=== PATIENT | female | born 1970 | race Caucasian/White ===

== ENCOUNTER → 2022-03-10 10:49 | Outpatient (BNVA) | payer MEDICAID, SELFPAY | PROVIDERS: Referring Provider Registered Nurse; Visit Provider Physician Assistant | DX: T84.296A Other mechanical complication of internal fixation device of vertebrae, initial encounter (principal); Z98.1 Arthrodesis status | CPT/HCPCS: 72100 ==

== ENCOUNTER 2022-03-24 12:57 | Outpatient (CLI) | payer MEDICAID, SELFPAY ==
--- NOTE | 2022-03-24 13:11 | MM_ITS ---
WS: [id number] Bilateral screening 3D tomosynthesis digital mammogram, 03/24/2022 Clinical Data: SCREENING Comparison: None. Findings: The breast parenchymal pattern shows fibroglandular tissue No spiculated masses or clustered calcific ations are seen. There are no secondary signs of carcinoma. MM/[place] [id number] Impression: 1. Negative bilateral mammogram with no prior exam for review. 2. Recommend annual screening mammograms. BIRADS: 1-Negative FOLLOW UP: 1 Year Follow-up The CAD wash test checker was used.
== END 2022-03-24 12:58 | disposition home or self-care (01) ==
LOC: RAD 12:59
PROVIDERS: PCP Registered Nurse; Visit Provider Registered Nurse
DX: Z12.31 Encounter for screening mammogram for malignant neoplasm of breast (principal)
CPT/HCPCS: 77063; 77067

== ENCOUNTER 2022-04-20 09:33 | Outpatient (CLI) | payer MEDICAID, SELFPAY ==
--- NOTE | 2022-04-20 09:30 | CT_ITS ---
WS: [id number] CT LUMBAR SPINE TECHNIQUE: Contrast-enhanced CT of the lumbar spine with coronal and sagittal reformatted images. CLINICAL INFORMATION: low back pain COMPARISON: None. DLP: 2336.[address] scans at [facility] use at least one of these dose optimization techniques: automated e xposure control; mA and/or kV adjustment per patient size (includes targeted exams where dose is matc hed to clinical indication); or iterative reconstruction. FINDINGS: Prior extensive postoperative changes pedicle screw fixation with interconnecting rods T10-S1. Bilate ral sacroiliac fixation screws. Fracture of the distal one third of the anterior S1 fixation screw. I n addition, slightly displaced fractures of both interconnecting rods as seen on the myelogram radiog raphs on the LEFT at S1 and on the RIGHT at L5. Slight overlap of the fixation rods. Incomplete interbody fusion grafts. Subsidence along the L4-L5 and L5-S1 fixation grafts. No signific ant bony bridging beyond the confines of the grafts at L3-L4 L4-L5 and L5-S1. Small amount of bony br idging at L1-L2 and L2-3 Loosening along the bilateral S1 and sacroiliac fixation screws.Loosening along the bilateral T10 pe dicle screws. Osteopenia in the sacrum with periarticular sclerotic changes of the SI joints with per iarticular erosions. Advanced facet arthropathy L5-S1 Lung bases are well aerated. LEFT adrenal gland is normal. Small . RIGHT adrenal myelolipoma. L1-L2: Laminectomy defects. Spinal canal and foramen are patent. L2-L3: Laminectomy defects. Spinal canal and foramen are patent. L3-L4: Laminectomy defects. Spinal canal and foramen are patent. L4-L5: Mild central canal stenosis. Moderate facet arthropathy. Osteophytic ridging. Slight narrowing of the subarticular recess bilaterally. L5-S1: Mild RIGHT greater than LEFT bony foraminal narrowing with osteophytic ridging eccentric to th e RIGHT. CT/CT lumbar spine w con [id number] IMPRESSION: 1. Fracture of the distal one third of the anterior S1 fixation screw. In juan m tion, slightly displaced fractures of both interconnecting rods as seen on the myelogram radiographs on the LEFT at S1 and on the RIGHT at L5. Slight overlap of the fixation rods. 2. Prior extensive postoperative changes pedicle screw fixation with interconn ecting rods T10-S1. Bilateral sacroiliac fixation screws. 3. Loosening involving the bilateral T10, bilateral S1, and bilateral sacroili ac fixation screws. 4. Osteopenia with sclerosis about the sacroiliac joints likely due to chronic sacroiliitis. Periarticular erosive changes along the SI joints. 5. No significant bony bridging beyond the confines of the grafts at L3-L4 L4- L5 and L5-S1. Small amount of bony bridging at L1-L2 and L2 on L3. 6. Mild central canal stenosis L4-L5 with moderate facet arthropathy. Slight n arrowing of the subarticular recess bilaterally. 7. Mild RIGHT L5-S1 bony foraminal narrowing.
--- NOTE | 2022-04-20 09:30 | IR_ITS ---
WS: [id number] MYELOGRAM LUMBAR SPINE Fluoroscopic guided lumbar myelogram CLINICAL INFORMATION: low back pain COMPARISON: None. TECHNIQUE: The procedure, including risks, benefits, and complications, were discussed with the patie nt who agreed to proceed. A timeout was performed to confirm correct patient, procedure, and site. Using sterile technique, the patient was prepped and draped in the usual sterile fashion. After admin istration of local anesthesia using 1% preservative-free lidocaine and using fluoroscopic guidance, a 22-gauge 5 cm spinal needle was advanced into the subarachnoid space at the L4-L5 level. Subsequentl y 13 cc of Omnipaque 240 was administered into the thecal sac. The needle was removed and hemostasis was achieved. Spot fluoroscopic images were obtained. FLUOROSCOPIC TIME: 2min [id number] # of spot films: 5 Spot fluoroscopic images demonstrate extensive pedicle screw fixation with interconnecting rods T10-S 1 with bilateral sacroiliac fixation screws. Interbody fusion grafts L2-L3 and L3-L4. Fractured anter ior midline fixation screw at the S1 level in the midline. In addition fractured bilateral interconne cting rods at the L5 level on the RIGHT and S1 level on the LEFT. Please see CT myelogram report for additional detail. IR/[place] lumbar [id number] IMPRESSION: 1. Uncomplicated lumbar myelogram. Please see CT report for further detail. 2. Fractured hardware described above.
[2022-04-20] MEDS: iohexol 240 mg/mL 50 mL Btl INTRATHECA (10:47)
== END 2022-04-20 09:34 | disposition home or self-care (01) ==
LOC: RAD 09:34
PROVIDERS: PCP Registered Nurse; Visit Provider Physician Assistant
DX: S32.009K Unspecified fracture of unspecified lumbar vertebra, subsequent encounter for fracture with nonunion (principal); R20.2 Paresthesia of skin; T84.216A Breakdown (mechanical) of internal fixation device of vertebrae, initial encounter; M85.88 Other specified disorders of bone density and structure, other site; M48.061 Spinal stenosis, lumbar region without neurogenic claudication; M47.816 Spondylosis without myelopathy or radiculopathy, lumbar region; Y79.8 Miscellaneous orthopedic devices associated with adverse incidents, not elsewhere classified
CPT/HCPCS: 62304; 72132; Q9966

== ENCOUNTER 2022-05-04 10:50 | Outpatient (CLI) | payer MEDICAID, SELFPAY | END 2022-05-04 10:51 | disposition home or self-care (01) | LOC: SPT 10:50 | PROVIDERS: PCP Registered Nurse; Visit Provider Physician Assistant | DX: Z46.89 Encounter for fitting and adjustment of other specified devices (principal); M54.59 Other low back pain | CPT/HCPCS: 97760; L0637 ==

== ENCOUNTER 2022-05-30 12:31 | Inpatient (IN) | payer MEDICAID, SELFPAY ==
[2022-05-23 09:45] VITALS: BMI 42.0
--- NOTE | 2022-05-23 10:09 | P.ANESASSM_ITS ---
Pre-Anesthetic Assessment Height/Weight: Height 1.57 m Weight 104.326 kg Operation Date: 05/30/22 07:00 Proposed Procedures p t8 with quad sacral francia over SI joint [id number] /[id number]/28569/69329/r20.0/s32.009k(Bilateral) - Peter Navas, DO Familial anesthetic complications: None Social No alcohol and No tobacco Exam alert, oriented x 3, clear to auscultation bilaterally and regular rate & rhythm Airway Mallampati: Class II Dentition: full Pulmonary None reported CV/HEM Hypertension None reported Hepatic None reported GI Gastroesophageal Reflux Disease Metabolic Morbid Obesity on keflex for back infection Musc/skel Lower Back Pain Neuropsych Neuropathy Anesthetic Plan ASA status: 3 Anesthesia: General Other: A line +/- transfusion Risk of > 500 ml blood loss (7ml/kg in children): Yes, adequate IV access and fluids planned Medications/Allergies Home Medications Medication Instructions Recorded Confirmed Last Taken Type diclofenac sodium 75 mg 75 mg PO BID 04/21/22 05/23/22 04/12/22 19:00 History tablet,delayed release cephalexin 500 mg capsule 500 mg PO QID 04/28/22 05/23/22 05/23/22 06:30 History escitalopram oxalate 20 mg tablet 20 mg PO DAILY 04/28/22 05/23/22 05/22/22 19:00 History (Lexapro) losartan 25 mg tablet 50 mg PO DAILY 04/28/22 05/23/22 05/22/22 19:00 History pantoprazole 40 mg tablet,delayed 40 mg PO DAILY 04/28/22 05/23/22 05/22/22 19:00 History release (Protonix) Intraoperative Neuromonitoring #1 ea 05/02/22 Unknown Rx LSO #1 ea 05/04/22 05/04/22 Unknown Rx oxycodone 5 mg tablet 5 mg PO Q6H PRN pain 7 days #30 05/12/22 05/23/22 05/23/22 06:30 Rx tabs biotin 1,000 mcg chewable tablet 1,000 mcg PO DAILY 05/23/22 05/23/22 05/23/22 06:30 History calcium 600 mg capsule 600 mg PO DAILY 05/23/22 05/23/22 05/23/22 06:30 History ferrous sulfate 325 mg (65 mg 325 mg PO DAILY 05/23/22 05/23/22 05/23/22 06:30 History iron) tablet (iron) lactobacillus comb no.10 20 20,000 mmu cells PO DAILY 05/23/22 05/23/22 05/23/22 06:30 History billion cell capsule (Probiotic) tizanidine 2 mg PO DAILY 05/23/22 05/23/22 05/22/22 19:00 History Allergies Allergy/AdvReac Type Severity Reaction Status Date / Time lisinopril Allergy ADR-Cough Verified 05/23/22 09:37 [facility] Anesthesia Social History Smoking and tobacco status: never smoked Alcohol intake: never History of recent travel: No Data Anesthesia Cardiac Studies: No Data to Display
[2022-05-23 10:30] LABS: Basophils % 0.6 %; Eosinophils # 0.2 10^3/uL (0.0-0.8); Eosinophils % 3.7 %; Hematocrit 40.3 % (37.0-47.0); Hemoglobin 12.3 g/dL (11.5-15.3); Lymphocytes # 1.3 10^3/uL (0.8-4.8); Mean Corpuscular HGB Conc 30.5 g/dL (30.0-36.0); Mean Corpuscular Hemoglobin 26.6 pg (28.0-34.0); Mean Platelet Volume 10.3 fL (7.4-10.4); Monocytes # 0.4 10^3/uL (0.2-0.9); Monocytes % 6.1 %; Neutrophils # 4.27 10^3/uL (1.8-7.7); Neutrophils % 68.3 %; Nucleated Red Blood Cells % 0 %; Platelet Count 309 10^3/cmm (130-400); Red Blood Count 4.63 10^6/uL (4.1-5.3); Red Cell Distribution Width 14.6 % (12.1-15.1); White Blood Count 6.3 10^3/uL (4.0-10.0)
[2022-05-23 10:55] LABS: Anion Gap 9.2 (5-19); Blood Urea Nitrogen 15 mg/dL (6-20); Calcium 9.8 mg/dL (8.5-10.5); Carbon Dioxide 28 mmol/L (22-29); Chloride 101 mmol/L (98-107); Glomerular Filtration Rate 129.1 mL/min (90-130); Glucose 118 mg/dL (65-115); Osmolality Calculated 280 mOsm/kg (285-295); Potassium 4.2 mmol/L (3.5-5.1); Sodium 134 mmol/L (136-145)
[2022-05-30] VITALS (33 sets, daily range): BP systolic 87–177; BP diastolic 53–106; PULSE 68–98; RESP 14–20; TEMP 36.2–36.8; O2SAT 2–98
[2022-05-30] MEDS: sodium chloride 0.9% 1,000 ML 30 ML IV (06:34)
--- NOTE | 2022-05-30 06:45 | PM.HP ---
Providers/Chief Complaint Primary Care Provider: Sydni Arango Chief Complaint: T8 with wuad sacral francia over SI joint History of Present Illness Marisel Mac is a 52 year old female . She presents today with EMG/NCS studies and CT myelogram results. She is here to discuss possible surgical interventions.? She reports 99% of her pain is in her low back.? She is wanting something done more definitively.? She has been seeing Dr. Kaplan for infectious disease in [place].? Review of Systems General: Reports: 10 or more systems reviewed and unremarkable except in HPI and below Const: Denies: fever(s) or chills Card: Denies: chest pain or dyspnea on exertion Resp: Denies: dyspnea or productive cough GI: Denies: abdominal pain, nausea or vomiting : Denies: difficulty voiding Musc: Reports: back pain, extremity pain and limited range of motion Skin/Breast: Denies: changes in skin color or dry skin Neuro: Denies: numbness in extremities or weakness in extremities Psych: Denies: anxiety Ángel/Lymph: Denies: easy bruising or easy bleeding Medications/Allergies Home Medications Medication Instructions Recorded Confirmed Last Taken Type diclofenac sodium 75 mg 75 mg PO BID 04/21/22 05/23/22 05/27/22 History tablet,delayed release cephalexin 500 mg capsule 500 mg PO QID 04/28/22 05/23/22 05/29/22 History escitalopram oxalate 20 mg tablet 20 mg PO DAILY 04/28/22 05/23/22 05/29/22 History (Lexapro) losartan 25 mg tablet 50 mg PO DAILY 04/28/22 05/23/22 05/29/22 History pantoprazole 40 mg tablet,delayed 40 mg PO DAILY 04/28/22 05/23/22 05/28/22 History release (Protonix) Intraoperative Neuromonitoring #1 ea 05/02/22 Unknown Rx LSO #1 ea 05/04/22 05/04/22 Unknown Rx biotin 1,000 mcg chewable tablet 1,000 mcg PO DAILY 05/23/22 05/23/22 05/23/22 06:30 History calcium 600 mg capsule 600 mg PO DAILY 05/23/22 05/23/22 05/27/22 History ferrous sulfate 325 mg (65 mg 325 mg PO DAILY 05/23/22 05/23/22 05/29/22 History iron) tablet (iron) lactobacillus comb no.10 20 20,000 mmu cells PO DAILY 05/23/22 05/23/22 05/28/22 History billion cell capsule (Probiotic) tizanidine 2 mg PO DAILY 05/23/22 05/23/22 05/29/22 History oxycodone 5 mg tablet 5 mg PO Q6H PRN pain 7 days #30 05/27/22 05/30/22 Rx tabs Allergies Allergy/AdvReac Type Severity Reaction Status Date / Time lisinopril Allergy ADR-Cough Verified 05/23/22 09:37 PFSH Acute PFSH: Social History Smoking and tobacco status: never smoked Alcohol intake: never History of recent travel: No Vitals/I&O/Wt Last Vital Signs Temp 97.5 F L 05/30/22 06:16 Pulse 76 05/30/22 06:16 Resp 18 05/30/22 06:16 BP 177/106 05/30/22 06:16 Pulse Ox 97 05/30/22 06:16 O2 Del Method 05/30/22 06:19 Physical Exam Narrative: Narrative:?? EXAM NARRATIVE: ?D emonstrates raisin g up onto heels an d toes with diffic ulty.? Exhibits un steadiness with co ordination and sta bility.? Moderate palpatory or percu ssion pain through out the paraspinou s musculature of t he thoracolumbar s pine.? Limited fle xion and extension due to pain and s tiffness from the fusion.? Well-heal ed incision in the midline of her th oracolumbar spine from previous spin al fusion.? Normal sensation to ligh t touch through al l dermatomal layer s.? Decreased sens ation light touch down both lower ex tremities with 4/5 motor strength th roughout all motor groups.? Moderate palpable pain ove r the SI joints bi laterally.? Positi ve Kye and Asael ere sign.? Positiv e straight leg yang se bilaterally.? S kin is clear warm with normal sensat ion to light touch , calves are suppl e with no medial t high tenderness,? negative Homans' s ign.? No palpable lymphadenopathy bi laterally.? Reflex es are 2+ and symm etric about the kn ees and Achilles.? No hyperreflexia or clonus.? Downgo ing Babinski's jeny aterally.? Dorsali s pedis and creative services producer ior tibial pulses are 2+.? No palpab le edema bilateral ly. HENMT:?? COMMON NORMALS: no rmocephalic? HEAD & SCALP: normoceph alic Resp:?? COMMON NORMALS: no rmal respiratory e ffort Cardio:?? COMMON NORMALS: re gular rate and reg ular rhythm? RATE: regular rate? RHY THM: regular rhyth m GI:?? COMMON NORMALS: So ft to palpation an d non-tender? PALP ATION: Yes Soft to palpation :?? COMMON NORMALS: Ye s no CVA tendernes s? BLADDER/KIDNEY EXAM: Yes no CVA t enderness Back/Pelvis:?? COMMON NORMALS: no CVA tenderness Psych:?? COMMON NORMALS: me ntal status grossl y normal and coope rative Data 05/23/22 09:55 05/23/22 09:55 A&P Assessment and plan (1) Pseudoarthrosis of lumbar spine: T8 to pelvis revision Attestations Medical Necessity Statement*: failed conservative treatment Coding Level of Care Code Acute Pupil Personnel Services Director for Kayla Velázquez Diagnoses Pseudoarthrosis of lumbar spine S30.892R
[2022-05-30] MEDS: ceFAZolin 2,000 MG in sodium chloride 0.9% (plus) 50 ML 100 MG IV ×3 (07:15→22:34)
--- NOTE | 2022-05-30 07:48 | P.ANESUD_ITS ---
Pre-Anesthetic Update Pre-Anesthetic Assessment: Date of Surgery/Procedure: 05/30/22 Preop Pamella gnosis: Pseudoarthrosis lumbar spine, failed hardware lumbar spine Proposed Procedure: Operation Date: 05/30/22 07:00 Proposed Procedures p t8 with quad sacral francia over SI joint [id number]/64703/58223/r20.0/s32.009k(Bilateral) - Peter Navas, DO Any changes to Pre-Anesthetic Assessment?: No Last Intake: Intake Last Liquid Date 05/30/22 Last Liquid Time 22:00 Last Solid Date 05/29/22 Last Solid Time 19:00 Vitals: Temperature 97.5 F L 05/30/22 06:16 Temperature Source Temporal Artery S can 05/30/22 06:16 Pulse Rate 76 05/30/22 06:16 Respiratory Rate 18 05/30/22 06:16 Blood Pressure 177/106 05/30/22 06:16 Blood Pressure Sintia n 129 05/30/22 06:16 Pulse Oximetry 97 05/30/22 06:16 Oxygen Delivery Me thod 05/30/22 06:19 Exam: Pre-Anes Outpt Exam: alert, oriented x 3, clear to auscultation bilaterally and regular rate & rhythm Cardiac Studies: No Data to Display Anesthesia Procedures Arterial Line: Time Out Performed: Yes Consent: requested by attending/covering physician, from patient, risks and benefits reviewed and patient agrees to proceed Size (Gauge): 20 Technique Used: guide wire technique Post-Procedure: dry sterile dressing placed Patient Tolerated Procedure: well Complications: none Site: left and radial Additional Comments: Placed for procedural monitoring (length and potential blood loss)
[2022-05-30 08:23] LABS: ABG PCO2 44.4 mmHg (35-45); ABG PH Result 7.35 (7.35-7.45); Arterial Blood Gas Hematocrit 34.2 % (37-47); Base Excess ABG -1.2 mmol/L (-2.0-2.0); Blood Gas Operator Identificat CAK; Blood Gas Sample Site Not specified; Blood Gas Sample Type Arterial; Carboxyhemoglobin 0.8 %THgb (0.4-20.1); HCO3 ABG 24.5 mmol/L (22-26); HGB O2 Sat 97.7 % (95-100); Ionized Calcium Level - ABG 1.2 mmol/L (1.1-1.4); Methemoglobin 1.1 % (0.4-1.5); Oxygen Saturation ABG 99.6; Potassium Level - ABG 3.7 mmol/L (3.5-5.0); Total Hemoglobin 11.2 g/dL (12-16)
[2022-05-30] MEDS: vancomycin 1,000 MG SDV 1000 MG XX (09:28)
[2022-05-30] MEDS: heparin, porcine 1,000 unit/mL INJ 10 mL 10000 UNIT IRRIGATION (09:37)
--- NOTE | 2022-05-30 11:29 | PM.OP ---
Operative Report Date of procedure: May 30, 2022 Pre-op diagnosis: Preop Diagnosis Pseudoarthrosis lumbar spine, failed hardware lumbar spine Post-op diagnosis: same Procedure done: 1. T8 - pelvis posterior spine fusion 2. T8-S1 instrumentation 3. Lumbopelvic fixation 4. removal of hardware from spine 5. Use of computer navigation stereotactic for spine 6. Use of allograft Surgeon: Peter Navas Customer Service Technician: Eliel Alcaraz Customer Service Technician: The surgical resident, Eliel Alcaraz, RENATA was needed for his expertise under the microscope. He was important and necessary throughout the procedure to complete in a safe and timely manner. He assisted with patient positioning prepping and draping tissue retraction suctioning of the operative field protection of the dural sac and tissue closure Estimated blood loss (mL): 500 Procedure: 1. T8 - pelvis posterior spine fusion 2. T8-S1 instrumentation 3. Lumbopelvic fixation 4. removal of hardware from spine 5. Use of computer navigation stereotactic for spine 6. Use of allograft Patient brought to the operative suite after undergoing anesthesia patient was placed in the prone position. All areas impingement well-padded. Patient was then prepped and draped normal sterile fashion. Skin's was made using the previous skin incision. An extended up approximately 2 more levels to T8 the incision spanning from T8 down to the pelvis. Subperiosteal dissection was made out to the T8 and T9 transverse processes. And then the dissection was made through scar tissue and out to the rods and screws from T10 down to the iliac bolts. Once all the screws were exposed they were removed this was done by removing the top And then sliding the francia out to the side. This was repeated all the way down to the iliac bolt all the screws were then removed. From T10-S1 including the iliac screw. The screws were then replaced with the K2 M screws the screws were placed at T10-S1 and then an iliac screw. Next the computer navigation was brought in and a clamp was placed onto the spinous process. The C-arm was then brought in and spun around the patient. The information from the C-arm was then loaded the computer in order to facilitate using the computer navigation Next attention was brought to placing the T8 and T9 screws bilaterally. This was done by using high-speed drill gearshift probe linked to the computer navigation followed by the pedicle feeler followed by placing the appropriate size screw. Next tension was brought to attaching the rods to the screws. This was attached from T8 down through S1 and hooking into the iliac screws. Top caps were then placed. This again was done bilaterally Next a side loading francia was placed from distal to the iliac screw to approximately L1 in order to facilitate providing extra stability at the bottom this process was repeated bilaterally as well. Next bone was decorticated and bone graft was packed in the lateral gutters. Wound was then closed in a layered fashion with 0 Vicryl 2-0 Vicryl and Monocryl suture. Deep drain was placed prior as well also was a vancomycin powder. Sterile dressings were applied and patient was transferred to the PACU in stable condition.
[2022-05-30] MEDS: fentaNYL 50 mcg/mL INJ 2mL IVP ×2 (11:46→12:10)
[2022-05-30] MEDS: ondansetron 2 mg/ML SDV 2 mL 4 MG IVP ×2 (11:56→12:22)
[2022-05-30] MEDS: HYDROmorphone 1 mg/mL INJ 1 mL 0.5 MG IVP ×2 (12:16→12:26)
[2022-05-30] MEDS: diphenhydrAMINE 50 mg/mL SDV 1mL 12.5 MG IVP (12:42)
--- NOTE | 2022-05-30 13:08 | SUR.PHASEI ---
1245 Pt has had SCDs on and connected to pump while in PACU.
[2022-05-30] MEDS: oxyCODONE-APAP 10-325 mg Tablet PO ×3 (13:39→22:34)
[2022-05-30] MEDS: lactated ringers 1,000 ML 90 ML IV (13:40)
[2022-05-30] MEDS: ketorolac 30 mg/mL INJ IVP ×2 (14:35→21:13)
--- NOTE | 2022-05-30 15:28 | PC.PT ---
Patient and significant other adamantly refused physical therapy evaluation. They reported that pain is a 10/10 and the spasms in the legs, while still severe, have settled down significantly. I tried to educate x3 on why surgeon ordered therapy and they stated that they understood all things related to safety. They denied need for teaching with log rolling, supine to sit, and general mobility. They stated that she might feel better tomorrow but there is no way anyone is budging her today. At the 3rd refusal I told them I would let the nurse and current PT staff know. They agreed to this only and disclosed that they thought her walker was too short at home to perform normal gait under current precautions.
[2022-05-30] MEDS: morphine 4 mg/mL SDV 1 mL 2 MG IVP ×2 (15:30→19:51)
--- NOTE | 2022-05-30 15:52 | ANE.PACU2 ---
Inpatient post-anesthesia follow up: Airway intact: Yes Vital signs: Temperature 97.7 F Pulse Rate 91 Respiratory Rate 18 Blood Pressure 141/90 Pulse Oximetry 95 Oxygen Delivery Me thod Room Air Oxygen Flow Rate 2 Fraction of Inspir ed Oxygen Hydration adequate: Yes Nausea and vomiting: No Pain level: 5 Mental status: Baseline
[2022-05-30] MEDS: tizanidine 4 mg Tablet 2 MG PO (16:23)
[2022-05-30] MEDS: docusate sodium 100 mg Capsule PO (17:30)
[2022-05-30] MEDS: cephALEXin 500 mg Capsule PO ×2 (17:53→21:07)
[2022-05-31] VITALS (16 sets, daily range): BP systolic 80–117; BP diastolic 47–75; PULSE 81–99; RESP 15–20; TEMP 36.4–37; O2SAT 93–97
--- NOTE | 2022-05-31 | XR_ITS ---
WS: [id number] Exam: XR thoracic spine 2V [id number] Date/Time of Exam: 05/31/2022 12:00 AM Reason For Exam: or pic, review of fusion. Intraoperative AP and lateral views of the lower thoracic spine are submitted for evaluation. Bilater al pedicle screws noted at T12, T11, T9 and T8. There are also pedicle screws in several upper lumbar vertebra which are only partially included on the study. At least 2 disc spacers are seen in the upp er lumbar region on the limited lateral view. No other significant finding on this limited series.
[2022-05-31] MEDS: lactated ringers 1,000 ML 90 ML IV ×2 (00:09→12:33)
[2022-05-31] MEDS: acetaminophen 325 mg Tablet 650 MG PO ×3 (00:14→22:35)
[2022-05-31] MEDS: morphine 4 mg/mL SDV 1 mL 2 MG IVP ×3 (00:18→10:45)
[2022-05-31] MEDS: oxyCODONE-APAP 10-325 mg Tablet PO ×3 (02:41→17:50)
[2022-05-31] MEDS: ketorolac 30 mg/mL INJ IVP ×2 (04:03→14:52)
[2022-05-31] MEDS: ceFAZolin 2,000 MG in sodium chloride 0.9% (plus) 50 ML 100 MG IV (06:16)
--- NOTE | 2022-05-31 07:30 | P.PN_ITS ---
Subjective Subjective: POD 1 Patient awake comfortable reports back pain. Denies any shortness of breath, chest pain, headaches. Denies any lightheadedness or dizziness. Complains of some rib pain. Vitals/I&O/Wt Last Vital Signs Temp 98.5 F 05/31/22 04:00 Pulse 93 05/31/22 04:00 Resp 17 05/31/22 04:00 BP 117/75 05/31/22 04:00 Pulse Ox 97 05/31/22 04:00 O2 Del Method 05/31/22 04:00 O2 Flow Rate 2 05/31/22 04:00 05/30/22 05/31/22 05/31/22 22:59 06:59 14:59 Intake Total 590 / 1290 1193.5 / 2483.5 50 / 50 Output Total 1340 / 2170 Balance -750 / -880 1193.5 / 313.5 50 / 50 Physical Exam Narrative: Patient presents alert and oriented x3 with a good general appe arance normal mood and affect. Normal coordination normal stability. Mild tenderness around the incisional site with the incision appear to be clean and dry with Hemovac present. no signs of erythema or drainage. No signs of infection. Patient denies any fevers or chills. 5/5 motor strength both lower extremities with negative straight leg raise bilaterally. Calves are supple no medial thigh tenderness. Pulses are 2+ at the dorsalis pedis and posterior tibial region. Good capillary refill throughout normal sensation light touch both lower extremities. Urinary Catheter Management: Fay: Cath Placed During This Visit: yes Reason for Continuing Indwelling Catheter: Acute Urinary Retention or Obstruction Urinary Catheter Date of Insertion: 05/30/22 Urinary Catheter Time of Insertion: 07:20 Data 05/23/22 09:55 05/23/22 09:55 A&P Assessment and plan (1) Pseudoarthrosis of lumbar spine: Physical therapy to evaluate and also fit with a stand-up walker for home. Continue incentive spirometer for pulmonary toilet. Discontinue Hemovac drain and Fay catheter. We will work towards discharge home today if infectious disease can coordinate a PICC line with antibiotic treatment. (2) S/P spinal fusion: Attestations Medical Necessity Statement*: Home today or tomorrow based on coordination with infectious disease and the PICC line with antibiotics Procedures Arterial Line Size (Gauge): 20 Coding Level of Care Code Acute Wool Hat Forming Machine Tender for Chg Fwd Diagnoses Pseudoarthrosis of lumbar spine S32.009K S/P spinal fusion Z98.1
--- NOTE | 2022-05-31 07:56 | XR_ITS ---
WS: [id number] Exam: XR thoracolumbar junct [id number] Date/Time of Exam: 05/31/2022 8:04 AM Reason For Exam: T 8 to pelvis Posterior spinal fusion noted extending from T8 to S1 with pedicle screws and posterior rods. The fus ion appears to be in good alignment. Disc spacers at L2-3 and L3-4. No sign of hardware failure. Mild dextroscoliosis at the thoracolumbar junction. Screws bridge the bilateral SI joints. XR/XR thoracolumbar junct [id number] IMPRESSION: 1. Stable-appearing posterior spinal fusion extending from T8 to S1.
--- NOTE | 2022-05-31 07:56 | XR_ITS ---
WS: [id number] Exam: XR thoracic spine 2V [id number] Date/Time of Exam: 05/31/2022 8:04 AM Reason For Exam: T8 to pelvis There is posterior fusion of the spine extending from T8 to the upper lumbar level with pedicle screw s and posterior rods. Alignment is satisfactory. No sign of obvious hardware failure. XR/XR thoracic spine 2V [id number] IMPRESSION: 1. Posterior fusion from T8 into the upper lumbar region with pedicle screws an d posterior rods. The fusion appears to be in satisfactory alignment.
[2022-05-31] MEDS: escitalopram 10 mg Tablet 20 MG PO (08:41)
[2022-05-31] MEDS: losartan 50 mg Tablet PO (08:41)
[2022-05-31] MEDS: docusate sodium 100 mg Capsule PO ×2 (08:41→17:50)
[2022-05-31] MEDS: ferrous sulfate EC 325 mg Tablet PO (08:41)
[2022-05-31] MEDS: tizanidine 4 mg Tablet 2 MG PO (08:41)
[2022-05-31] MEDS: cephALEXin 500 mg Capsule PO ×2 (08:41→12:33)
[2022-05-31] MEDS: pantoprazole DR 40 mg Tablet PO (08:42)
--- NOTE | 2022-05-31 10:01 | PC.NURSE ---
Drain removed pressure applied and 2x2 with covederm.
--- NOTE | 2022-05-31 10:10 | PC.CHAP ---
Pastoral Care Encounter/Spiritual Assessment Type of Contact [] Declined alteration tailor visit [] Patient/Family/Request visit [] Outpatient visit [] Follow-up visit [] Physician referral [] Code/Alert [x] Routine visit [] Staff referral [] Actively dying [] Patient sleeping [] Family support [] [] Out of room [] Palliative care [] [] Receiving care in room [] Pre-surgical visit [] Trauma [] Long length of stay [] ICU visit [] Other: Relational/Emotional Strength [x] Patient feels connected with others/family/visitors/staff [] Distress [] Loneliness/isolation [] Abandonment Spirituality of Patient x[] Person of Milady [] Attends Yazdanism of their Milady [x] Believes in Prayer [] Reads Bible or Mormon materials [] There are Spiritual issues to be addressed Instrument Inspector Interventions [x] Prayer []x Active listening [x] Non-anxious presence [] Spiritual/emotional support [] Crisis/trauma care [] Spiritual counseling [] Bereavement support [] Provided bereavement packet [] Provided Bible/devotional materials [] Provided toy/stuffed animal, coloring book to patient or family member [] Provided Communion [] Anointing/[place] [] Salvation [x] Completed spiritual assessment [] Other: Impact on Illness or Injury [] Angry [] Fearful [] Anxious [] Often cries [] Exhaustion [] Unable to work [] Unable to attend episcopalian [] Unable to walk/stand [] Unable to read [] Unable to drive [] Unable to eat/drink [] Unable to sleep [] Unable to be with family [] Patient intubated [] Other: Summary Time spent with patient 10 min
--- NOTE | 2022-05-31 12:15 | XR_ITS ---
WS: [id number] Exam: XR chest 1V portable [id number] Date/Time of Exam: 05/31/2022 12:15 PM Reason For Exam: PICC LINE PLACEMENT No previous. A right-sided PICC line has been placed and appears to end at the expected region of the cavoatrial j unction. The lungs are fully expanded and clear. Normal cardiomediastinal silhouette. Mild plaque ate lectasis in the left base. Fusion hardware noted in the mid and lower thoracic spine. XR/XR chest 1V portable [id number] IMPRESSION: 1. Right-sided PICC line appearing to end at the expected region of the cavoatr ial junction. 2. No acute cardiopulmonary process.
--- NOTE | 2022-05-31 12:20 | SUR.PREOP ---
TIME OUT FOR PICC LINE INSERTION
--- NOTE | 2022-05-31 13:43 | P.CONIM_ITS ---
Providers/Reason For Consult Consulting Physician/Specialty*: Frase/Hosptialist Reason for Consult*: Needs IV antibiotics for 2 weeks per infectious disease Requesting Physician: Dr Navas Attending Physician: Peter Navas DO Primary Care Provider: Sydni Arango History of Present Illness History of Present Illness Marisel Mac is a 52 year old female who presented to [facility] on May 30 for planned surgery by Dr. Navas. Hospitalist have been consulted to arrange 2 weeks of IV antibiotics. Patient has a significant history of streptococcal bacteremia and a paraspinal abscess earlier this year that developed within the first couple of months after having a T8-S1 fusion in [facility]. She had what sounds like abscess in her left hand as well as swelling in her left foot and a lesser degree of swelling in her right hand when she presented with findings consistent with sepsis. She underwent what I believe was surgical debridement of the abscess in the left hand twice. Further work-up ended up identifying paraspinal abscess with cultures growing out Streptococcus. She was initially treated with Rocephin IV. Subsequently IV daptomycin was added. Mrs. Mac continued home IV antibiotic therapy with both Rocephin and daptomycin for 3 months earlier this year and then transition ed to oral cephalexin which she continues to take as recently as today. Source of streptococcal infection, according to my understanding of discussion I had with the ID coordinator at [facility], was not felt to be surgical hardware. She did undergo a washout of the hardware at the time. She also underwent a MAURILIO that did not reveal any vegetations. I do not have any actual records from [place] to personally review but was able to obtain information from Dr. Vasquez's clinic to facilitate patient's care planning here. Patient underwent T8-S1 revision by Dr. Navas. She follows with Sydni Arango for primary care and had been referred to Dr. Vasquez for infectious disease managem ent. Plan had been for postoperative parenteral antibiotics for couple of weeks prior to surgery but actual arrangements for postoperative IV antibiotic therapy had not yet been made. Dr. Navas requested assistance with this. Patient is doing okay postoperatively with expected pain. She has had some low blood pressures today. Her Fany reports that after her original surgery she similarly had hypotension and required blood transfusion. Drains were removed today. Mrs. Mac has also been on oxygen since surgery. She was initially requiring 6 L by nasal cannula to maintain saturations but is presently down to 1.5 L. No fever has been noted. Review of Systems Const: Reports: fatigue ENMT: Denies: nasal congestion Card: Denies: chest pain or palpitations Resp: Reports: other (Using incentive spirometer); Denies: dyspnea, productive cough or non-productive cough GI: Reports: other (No postoperative bowel movement yet); Denies: vomiting : Reports: other (Fay has been removed, good urine output) Musc: Reports: back pain Skin/Breast: Reports: other (Surgical dressings intact but recently changed, drains removed); Denies: rash Neuro: Reports: other (No new numbness or paresthesias able to move/feel extremities) Psych: Reports: other (Understandable anxiety related to surgery & potential postoperative course) Ángel/Lymph: Reports: other (Required transfusion after back surgery earlier this year); Denies: easy bruising or easy bleeding Medications/Allergies Home Medications Medication Instructions Recorded Confirmed Last Taken Type diclofenac sodium 75 mg 75 mg PO BID 04/21/22 05/31/22 Unknown History tablet,delayed release cephalexin 500 mg capsule 500 mg PO QID 04/28/22 05/31/22 Unknown History escitalopram oxalate 20 mg tablet 20 mg PO DAILY 04/28/22 05/31/22 Unknown History (Lexapro) losartan 25 mg tablet 50 mg PO DAILY 04/28/22 05/31/22 Unknown History pantoprazole 40 mg tablet,delayed 40 mg PO DAILY 04/28/22 05/31/22 Unknown History release (Protonix) LSO #1 ea 05/04/22 05/31/22 Unknown Rx biotin 1,000 mcg chewable tablet 1,000 mcg PO DAILY 05/23/22 05/31/22 Unknown History ferrous sulfate 325 mg (65 mg 325 mg PO DAILY 05/23/22 05/31/22 Unknown History iron) tablet (iron) lactobacillus comb no.10 20 20,000 mmu cells PO DAILY 05/23/22 05/31/22 Unknown History billion cell capsule (Probiotic) tizanidine 2 mg PO DAILY 05/23/22 05/31/22 Unknown History oxycodone 5 mg tablet 5 mg PO Q6H PRN pain 7 days #30 05/27/22 05/31/22 Unknown Rx tabs Bone growth Stimulator #1 ea 05/30/22 05/31/22 Unknown Rx calcium carbonate 600 mg calcium 600 mg PO DAILY 05/31/22 05/31/22 Unknown History (1,500 mg) tablet (Calcium) Allergies Allergy/AdvReac Type Severity Reaction Status Date / Time lisinopril Allergy ADR-Cough Verified 05/31/22 08:49 Current Medications Generic Name Dose Route Start Last Admin Trade Name Freq PRN Reason Stop Dose Admin Acetaminophen 650 mg 05/30/22 11:14 05/31/22 00:14 Acetaminophen 325 Mg Tablet PO 650 mg Q4H PRN Administration Mild Pain or fever >101.5 Cephalexin HCl 500 mg 05/30/22 17:38 05/31/22 12:33 Cephalexin 500 Mg Capsule PO 500 mg QID TORRI Administration Protocol Docusate Sodium 100 mg 05/30/22 18:00 05/31/22 08:41 Docusate Sodium 100 Mg Capsule PO 100 mg BID TORRI Administration Escitalopram Oxalate 20 mg 05/31/22 09:00 05/31/22 08:41 Escitalopram 10 Mg Tablet PO 20 mg DAILY TORRI Administration Ferrous Sulfate 325 mg 05/31/22 09:00 05/31/22 08:41 Ferrous Sulfate Ec 325 Mg Tablet PO 325 mg DAILY TORRI Administration Lactated Ringer's 1,000 mls @ 90 mls/hr 05/30/22 11:15 05/31/22 12:33 Lactated Ringers IV 90 mls/hr .Q11H7M TORRI Administration Ketorolac Tromethamine 30 mg 05/30/22 11:14 05/31/22 04:03 Ketorolac 30 Mg/Ml Inj IVP 30 mg Q6H PRN Administration BREAKTHROUGH PAIN Losartan Potassium 50 mg 05/31/22 09:00 05/31/22 08:41 Losartan 50 Mg Tablet PO 50 mg DAILY TORRI Administration Morphine Sulfate 2 mg 05/30/22 11:19 05/31/22 10:45 Morphine 4 Mg/Ml Sdv 1 Ml IVP 2 mg Q1H PRN Administration SEVERE PAIN Non-Formulary Medication 1,000 mcg 05/31/22 09:00 05/31/22 08:40 Biotin PO Not Given DAILY TORRI Non-Formulary Medication 600 mg 05/31/22 09:00 05/31/22 08:40 Calcium PO Not Given DAILY TORRI Non-Formulary Medication 20,000 mmu cells 05/31/22 09:00 05/31/22 08:42 Lactobacillus Comb No.10 [Probiotic] PO Not Given DAILY TORRI Oxycodone/Acetaminophen 1 - 2 tab 05/30/22 11:19 05/31/22 07:47 Oxycodone-Apap 10-325 Mg Tablet PO 2 tab Q4H PRN Administration MODERATE TO SEVERE PAIN Pantoprazole Sodium 40 mg 05/31/22 09:00 05/31/22 08:[address] 40 Mg Tablet PO 40 mg DAILY TORRI Administration Tizanidine HCl 2 mg 05/31/22 09:00 05/31/22 08:41 Tizanidine 4 Mg Tablet PO 2 mg DAILY TORRI Administration Additional Medication Information Cephalexin is skilled nursing suppressive treatment for history of streptococcus paraspinal abscess PFSH Acute PFSH: Medical History (Updated 05/31/22 @ 19:36 by Rose Marie Swift MD) Anxiety Chronic antibiotic suppression GERD (gastroesophageal reflux disease) History of streptococcal septicemia History of transesophageal echocardiography (MAURILIO) (~09/2021) Hypertension Neuropathy 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 Paraphrase of information obtained from Dr Vasquez's, ID at [facility], office and patient: Cultures grew Streptococcus. Hardware washed out. Source was NOT felt hardware related after evaluation. MAURILIO without vegetation. Infection involved left hand and left foot. Left hand had purulent material requiring surgical intervention. Paraspinal abscess also identified. 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 Previous (date unknown) ESR > 100 with CRP also elevated. Scoliosis Surgical History (Updated 05/31/22 @ 15:31 by Rose Marie Swift MD) History of back surgery 2019, surgical spinal alignment/correction of scoliosis at L2-L3, L3-L4 History of hand surgery left, related to abscess at same time as paraspinal abscess in 08/2021, with associated post-infection/post-surgery limitation of range of motion at DIP and PIP 3rd digit History of lumbar fusion 06/2021 in [facility], T10-S1 fusion History of lumbosacral spine surgery 05/30/[address] Navas: 1. T8 - pelvis posterior spine fusion 2. T8-S1 instrumentation 3. Lumbopelvic fixation 4. removal of hardware from spine 5. Use of computer navigation stereotactic for spine 6. Use of allograft Status post left foot surgery with hardware at 5th metatarsal Family History (Updated 05/31/22 @ 15:33 by Rose Marie Swift MD) Mother Scoliosis Rheumatoid arthritis Hypertension Social History (Updated 05/31/22 @ 15:32 by Rose Marie Swift MD) Smoking and tobacco status: former smoker Quit status (tobacco): has quit using tobacco Year quit tobacco: 2019 Alcohol intake: never Substance/Drug Use: never Household members: spouse Marital status: Marital status details: is Fany Mac History of recent travel: No Vitals/I&O/Wt Last Vital Signs Temp 98.6 F 05/31/22 12:00 Pulse 81 05/31/22 12:00 Resp 17 05/31/22 12:00 BP 80/52 05/31/22 12:00 Pulse Ox 93 05/31/22 12:00 O2 Del Method 05/31/22 12:00 O2 Flow Rate 1.5 05/31/22 12:00 05/30/22 05/31/22 05/31/22 22:59 06:59 14:59 Intake Total 590 / 1290 1193.5 / 2483.5 1250 / 1250 Output Total 1340 / 2170 400 / 400 Balance -750 / -880 1193.5 / 313.5 850 / 850 Physical Exam Narrative: Constitutional: Awake and alert, able to provide history though supplemented by spouse, experiences pain with changes in position but more comfortable appearing after transition HEENT: Normocephalic, pupils are equal bilaterally, not pinpoint, oxygen tubing is in place, dry membranes Neck: Cautious with movement of axial skeleton limiting evaluation Respiratory: Clear to auscultation bilaterally without any rales rhonchi or wheezes noted, chest expansion is equal bilaterally, no accessory muscle use noted, no cyanosis, oxygen saturations 93 to 97% while was in the room on 1-1/2 L of oxygen by nasal cannula without much variation in saturation noted during brief removal of tubing Cardiovascular: Regular rate and rhythm, brisk capillary refill Abdomen: Soft, positive bowel sounds, nontender Extremities: No pretibial edema, no calf tenderness, DIP of third digit of left hand is flexed with limited movement, PIP with limited range of motion. Skin: Dry, surgical dressing covers the entire spine and is intact from surgery. A smaller dressing to the right of the spine in the lumbar sacral area is clean dry and intact but has just been changed. Site of drain removal. Neuro: Speech clear, face symmetric, slowly able to get self from standing to sitting to supine position maintaining a fixed posture, no abnormal movements Psych: Normal affect Urinary Catheter Management: Fay: Cath Placed During This Visit: yes, but has since been removed by the nurse Reason for Continuing Indwelling Catheter: Decision to DC Catheter Urinary Catheter Date of Insertion: 05/30/22 Urinary Catheter Time of Insertion: 07:20 Date Urinary Catheter Removed: 05/31/22 Time Urinary Catheter Discontinued: 10:01 Data 05/23/22 09:55 05/23/22 09:55 Other Labs: Radiology Impressions Thoracic Spine X-Ray 05/31/22 07:56 IMPRESSION: 1. Posterior fusion from T8 into the upper lumbar region with pedicle screws and posterior rods. The fusion appears to be in satisfactory alignment. Thoracolumbar Spine 05/31/22 07:56 IMPRESSION: 1. Stable-appearing posterior spinal fusion extending from T8 to S1. Chest X-Ray 05/31/22 12:15 IMPRESSION: 1. Right-sided PICC line appearing to end at the expected region of the cavoatrial junction. 2. No acute cardiopulmonary process. Laboratory Results WBC 7.7 10^3/uL (4.0-10.0) 05/31/22 15:35 RBC 3.16 10^6/uL (4.1-5.3) L 05/31/22 15:35 Hgb 8.5 g/dL (11.5-15.3) L 05/31/22 15:35 Hct 28.0 % (37.0-47.0) L 05/31/22 15:35 MCV 88.6 fl (81-99) 05/31/22 15:35 MCH 26.9 pg (28.0-34.0) L 05/31/22 15:35 MCHC 30.4 g/dL (30.0-36.0) 05/31/22 15:35 RDW 14.7 % (12.1-15.1) 05/31/22 15:35 Plt Count 220 10^3/cmm (130-400) 05/31/22 15:35 MPV 10.4 fL (7.4-10.4) 05/31/22 15:35 Neut % (Auto) 74.6 % 05/31/22 15:35 Lymph % (Auto) 16.2 % 05/31/22 15:35 [place] % (Auto) 8.0 % 05/31/22 15:35 Eos % (Auto) 0.5 % 05/31/22 15:35 Baso % (Auto) 0.3 % 05/31/22 15:35 Neut # (Auto) 5.75 10^3/uL (1.8-7.7) 05/31/22 15:35 Lymph # (Auto) 1.3 10^3/uL (0.8-4.8) 05/31/22 15:35 [place] # (Auto) 0.6 10^3/uL (0.2-0.9) 05/31/22 15:35 Eos # (Auto) 0.0 10^3/uL (0.0-0.8) 05/31/22 15:35 Baso # (Auto) 0.0 10^3/uL (0.0-0.1) 05/31/22 15:35 Nucleated RBC % (auto) 0 % 05/31/22 15:35 Nucleated RBCs # 0.0 /100WBC 05/31/22 15:35 ESR 11 mm/hr (0-15) 05/31/22 15:35 Specimen Type Arterial 05/30/22 08:11 Sample Site Not specified 05/30/22 08:11 ABG pH 7.35 (7.35-7.45) 05/30/22 08:11 ABG pCO2 44.4 mmHg (35-45) 05/30/22 08:11 ABG pO2 164.0 mmHg (80.0-100.0) H 05/30/22 08:11 ABG HCO3 24.5 mmol/L (22-26) 05/30/22 08:11 ABG O2 Saturation 99.6 05/30/22 08:11 ABG Base Excess -1.2 mmol/L (-2.0-2.0) 05/30/22 08:11 Rk Test N/a 05/30/22 08:11 A-a O2 Gradient Not Reportable 05/30/22 08:11 Hematocrit 34.2 % (37-47) L 05/30/22 08:11 Hgb O2 Saturation 97.7 % (95-100) 05/30/22 08:11 Carboxyhemoglobin 0.8 %THgb (0.4-20.1) 05/30/22 08:11 Methemoglobin 1.1 % (0.4-1.5) 05/30/22 08:11 Total Hemoglobin 11.2 g/dL (12-16) L 05/30/22 08:11 Sodium 142.0 mmol/L (131-143) 05/30/22 08:11 Potassium 3.7 mmol/L (3.5-5.0) 05/30/22 08:11 Glucose 101.0 mg/dL (70-115) 05/30/22 08:11 Ionized Calcium 1.2 mmol/L (1.1-1.4) 05/30/22 08:11 O2 Delivery Device Not Reportable 05/30/22 08:11 [employer] Launch Commander ID Cak 05/30/22 08:11 Sodium 134 mmol/L (136-145) L 05/31/22 15:35 Potassium 3.9 mmol/L (3.5-5.1) 05/31/22 15:35 Chloride 103 mmol/L (98-107) 05/31/22 15:35 Carbon Dioxide 26 mmol/L (22-29) 05/31/22 15:35 Anion Gap 8.9 (5-19) 05/31/22 15:35 BUN 13 mg/dL (6-20) 05/31/22 15:35 Creatinine 0.6 mg/dL (0.5-0.9) 05/31/22 15:35 GFR Calculation 104.2 mL/min (90-130) 05/31/22 15:35 Glucose 125 mg/dL (65-115) H 05/31/22 15:35 Calculated Osmolality 280 mOsm/kg (285-295) L 05/31/22 15:35 Lactic Acid 1.0 mmol/L (0.5-2.2) 05/31/22 15:35 Calcium 8.5 mg/dL (8.5-10.5) 05/31/22 15:35 Total Bilirubin 0.4 mg/dL (0.15-1.2) 05/31/22 15:35 AST 20 U/L (0-32) 05/31/22 15:35 ALT 16 U/L (0-33) 05/31/22 15:35 Alkaline Phosphatase 119 U/L (35-105) H 05/31/22 15:35 Creatine Kinase 323 U/L (26-192) H* 05/31/22 15:35 C-Reactive Protein 84.7 mg/L (0.0-4.9) H 05/31/22 15:35 Total Protein 5.2 g/dL (6.6-8.7) L 05/31/22 15:35 Albumin 3.0 g/dL (3.5-5.2) L 05/31/22 15:35 Globulin 2.2 g/dL (1.3-4.6) 05/31/22 15:35 Other data: I personally reviewed all available clinic visit notes in our current EMR. Was also able to see referral records sent by Sydni Arango. I personally contacted infectious disease at [facility] and spoke to Adelaida, the ID coordinator there. Her phone number is [phone]. The fax number at the infectious disease clinic is [phone]. A&P Assessment and plan (1) S/P spinal fusion: Postop day 1 (2) History of streptococcal septicemia: Associated with abscess of the left hand and paraspinal abscess, status post prolonged parenteral antibiotic therapy and maintained on oral antibiotic therapy. At risk of repeat infection and recommendation from infectious disease is for 2 weeks of IV antibiotic therapy to include Rocephin and daptomycin as outlined. (3) Postoperative anemia: Drop in hemoglobin from 12 to 8.5 No gross bleeding noted beyond expected postsurgical per nursing Is on chronic NSAID therapy (4) Hypoxemia requiring supplemental oxygen: Not chronically on oxygen but has required oxygen postoperatively Oxygen requirement slowly trending downward Postoperative pain medication and decreased oxygen carrying capacity related to anemia are considerations. Not complaining of pleuritic type chest pain. Is using incentive spirometer. Has a history of smoking but quit in 2019. (5) Hypertension: Chronically on losartan, which patient received today Currently with low blood pressures, most likely from pain management postoperatively though total body volume losses and potential for infection also have to be considered. Lactic acid is currently normal. (6) GERD (gastroesophageal reflux disease): Chronically on PPI (7) Anxiety: Chronically on escitalopram Plan Baseline elevation in CK level, not unexpected postoperatively Baseline elevation in CRP level, may be secondary to postoperative state Normal baseline sed rate Blood sugar noted to be 118 Stop oral cephalexin Initiate Rocephin 2 g IV every 24 hours and daptomycin 626 mg IV every 24 hours Baseline (though postoperative) CK, CMP, CBC with differential, sed rate and CRP ordered Baseline blood culture collected Baseline lactic acid collected Orders placed for home IV antibiotic therapy as per infectious disease recommendations Will need weekly CBC, CMP and CK level all faxed to Dr. Vasquez's office Will need routine PICC line management; infectious disease clinic can determine when appropriate to remove PICC line Patient's has experience administering home antibiotics for 3 months earlier this year and is comfortable doing so again Case management to assist in arranging home IV antibiotics; options were discussed with patient and in the presence of case management Fluid bolus secondary to hypotension Monitor blood pressure response to fluids Hold losartan for now Change IV fluids to normal saline with potassium due to LR not being known to be compatible with daptomycin Repeat H&H in the morning Chronically on iron therapy but will change to twice daily dosing Wean oxygen to room air as able Encourage incentive spirometer use Albuterol if needed Recheck blood sugar in am Replace or hold nonformulary medications that were ordered Pain control as per surgery Chronically on PPI Has SCDs ordered Physical therapy is seeing patient Supportive care otherwise Infectious disease will contact me tomorrow with additional information regarding plan of care. Case management will also update me on where we are with outpatient IV antibiotic arrangements. Patient cannot be discharged until outpatient or home health IV antibiotic therapy is arranged Recommend follow-up not only with infectious disease and Dr. Navas but also with primary care provider for close monitoring of overall clinical status after surgery Coding Level of Care Code Acute School Examiner for Chg Fwd Diagnoses S/P spinal fusion Z98.1 History of streptococcal septicemia Z86.19 Postoperative anemia D64.9 Hypoxemia requiring supplemental oxygen R09.02; Z99.81 Hypertension I10 GERD (gastroesophageal reflux disease) K21.9 Anxiety F41.9
[2022-05-31] MEDS: ondansetron 2 mg/ML SDV 2 mL 4 MG IVP (14:52)
[2022-05-31] MEDS: sodium chloride 0.9% 500 ML IV (15:50)
[2022-05-31 15:59] LABS: Erythrocyte Sedimentation Rate 11 mm/hr (0-15)
[2022-05-31 16:02] LABS: Basophils % 0.3 %; Eosinophils % 0.5 %; Hemoglobin 8.5 g/dL (11.5-15.3); Lymphocytes # 1.3 10^3/uL (0.8-4.8); Lymphocytes % 16.2 %; Mean Corpuscular HGB Conc 30.4 g/dL (30.0-36.0); Mean Corpuscular Hemoglobin 26.9 pg (28.0-34.0); Mean Corpuscular Volume 88.6 fl (81-99); Mean Platelet Volume 10.4 fL (7.4-10.4); Monocytes # 0.6 10^3/uL (0.2-0.9); Neutrophils # 5.75 10^3/uL (1.8-7.7); Neutrophils % 74.6 %; Nucleated Red Blood Cells % 0 %; Platelet Count 220 10^3/cmm (130-400); Red Blood Count 3.16 10^6/uL (4.1-5.3); Red Cell Distribution Width 14.7 % (12.1-15.1); White Blood Count 7.7 10^3/uL (4.0-10.0)
[2022-05-31 16:39] LABS: Alanine Aminotransferase 16 U/L (0-33); Alkaline Phosphatase 119 U/L (35-105); Anion Gap 8.9 (5-19); Aspartate Amino Transferase 20 U/L (0-32); Blood Urea Nitrogen 13 mg/dL (6-20); C Reactive Protein 84.7 mg/L (0.0-4.9); Calcium 8.5 mg/dL (8.5-10.5); Carbon Dioxide 26 mmol/L (22-29); Chloride 103 mmol/L (98-107); Globulin 2.2 g/dL (1.3-4.6); Glomerular Filtration Rate 104.2 mL/min (90-130); Glucose 125 mg/dL (65-115); Osmolality Calculated 280 mOsm/kg (285-295); Potassium 3.9 mmol/L (3.5-5.1); Sodium 134 mmol/L (136-145); Total Bilirubin 0.4 mg/dL (0.15-1.2); Total Protein 5.2 g/dL (6.6-8.7)
[2022-05-31 16:45] LABS: Creatine Phosphokinase 323 U/L (26-192)
[2022-05-31] MEDS: sodium chlor 0.9% + KCl 20 mEq 20 MEQ/1,000 ML BAG 75 MEQ IV (16:56)
[2022-05-31] MEDS: cefTRIAXone 2,000 MG in sodium chloride 0.9% (plus) 50 ML 100 MG IV (16:56)
[2022-06-01] VITALS (13 sets, daily range): BP systolic 89–118; BP diastolic 43–70; PULSE 81–96; RESP 15–22; TEMP 36.7–37.9; O2SAT 91–98
[2022-06-01] MEDS: ondansetron 2 mg/ML SDV 2 mL 4 MG IVP (01:30)
[2022-06-01] MEDS: oxyCODONE-APAP 10-325 mg Tablet PO ×3 (03:18→15:41)
[2022-06-01 05:04] LABS: Basophils % 0.1 %; Eosinophils # 0.1 10^3/uL (0.0-0.8); Eosinophils % 0.8 %; Hematocrit 29.7 % (37.0-47.0); Hemoglobin 8.9 g/dL (11.5-15.3); Lymphocytes # 0.4 10^3/uL (0.8-4.8); Lymphocytes % 4.8 %; Mean Corpuscular Hemoglobin 26.6 pg (28.0-34.0); Mean Corpuscular Volume 88.7 fl (81-99); Mean Platelet Volume 10.2 fL (7.4-10.4); Monocytes # 0.3 10^3/uL (0.2-0.9); Monocytes % 3.7 %; Neutrophils % 90.4 %; Nucleated Red Blood Cells % 0 %; Platelet Count 157 10^3/cmm (130-400); Red Blood Count 3.35 10^6/uL (4.1-5.3); Red Cell Distribution Width 14.9 % (12.1-15.1); White Blood Count 8.7 10^3/uL (4.0-10.0)
[2022-06-01 05:24] LABS: Glucose 139 mg/dL (65-115)
[2022-06-01] MEDS: morphine 4 mg/mL SDV 1 mL 2 MG IVP (06:36)
[2022-06-01] MEDS: sodium chlor 0.9% + KCl 20 mEq 20 MEQ/1,000 ML BAG 75 MEQ IV (06:40)
--- NOTE | 2022-06-01 06:42 | P.PN_ITS ---
Subjective Subjective: POD 2 Patient resting. Complains of back pain. Leg pain has improved. Complains of rib pain. Denies any shortness of breath, chest pain, headaches denies any lightheaded or dizziness. Vitals/I&O/Wt Last Vital Signs Temp 98.2 F 06/01/22 04:00 Pulse 96 06/01/22 04:00 Resp 18 06/01/22 06:36 BP 115/58 06/01/22 04:00 Pulse Ox 95 06/01/22 04:00 O2 Del Method 06/01/22 04:00 O2 Flow Rate 2 05/31/22 21:37 05/31/22 05/31/22 06/01/22 14:59 22:59 06:59 Intake Total 1250 / 1250 1049 / 2299 1000 / 3299 Output Total 400 / 400 250 / 650 Balance 850 / 850 799 / 1649 1000 / 2649 Physical Exam Narrative: Patient presents alert and oriented x3 with a good general appearance normal mood and affect.? Normal coordination normal stability.? Mild tenderness around the incisional site with the incision appear to be clean and dry. no signs of erythema or drainage.? No signs of infection.? Patient denies any fevers or chills.? 5/5 motor strength both lower extremities with negative straight leg raise bilaterally.? Calves are supple no medial thigh tenderness.? Pulses are 2+ at the dorsalis pedis and posterior tibial region.? Good capillary refill throughout normal sensation light touch both lower extremities. Urinary Catheter Management: Fay: Cath Placed During This Visit: yes, but has since been removed by the nurse Reason for Continuing Indwelling Catheter: Decision to DC Catheter Urinary Catheter Date of Insertion: 05/30/22 Urinary Catheter Time of Insertion: 07:20 Date Urinary Catheter Removed: 05/31/22 Time Urinary Catheter Discontinued: 10:01 Data 06/01/22 04:37 06/01/22 04:37 Micro: Microbiology 05/31/22 15:45 Blood Culture - Preliminary Blood SPECIMEN COLLECTED 05/31/22 15:35 Blood Culture - Preliminary Blood SPECIMEN COLLECTED A&P Assessment and plan (1) S/P spinal fusion: Continue to mobilize continue senna spirometry for pulmonary toilet. Laxative choice to help with bowel movement. Try her on Flexeril 10 mg 1 PO 3 times daily for spasms. Discharge home later today when stable. Follow-up in the office in 1 week's time. We will need to stand up walker for home. (2) Pseudoarthrosis of lumbar spine: Attestations Medical Necessity Statement*: discharge home later this morning. Procedures Arterial Line Size (Gauge): 20 Coding Level of Care Code Acute [employer]lass [employer]el Drawing Operator for Chg Fwd Diagnoses S/P spinal fusion Z98.1 Pseudoarthrosis of lumbar spine S32.009K
[2022-06-01] MEDS: lactobacillus 1 Tablet 2 TAB PO (08:43)
[2022-06-01] MEDS: calcium carb-vit d 600mg/400unit 1 Tablet 1 EACH PO (08:43)
[2022-06-01] MEDS: escitalopram 10 mg Tablet 20 MG PO (08:44)
[2022-06-01] MEDS: pantoprazole DR 40 mg Tablet PO (08:44)
[2022-06-01] MEDS: docusate sodium 100 mg Capsule PO (08:44)
[2022-06-01] MEDS: ferrous sulfate EC 325 mg Tablet PO (08:44)
[2022-06-01] MEDS: tizanidine 4 mg Tablet 2 MG PO (08:47)
--- NOTE | 2022-06-01 11:38 | PM.PN ---
Subjective Subjective: Patient overall feeling much better today. She was seen this morning and then again this evening. After her second dose of Rocephin, about an hour later, she developed some erythema. She has taken Rocephin for an extensive period of time this year. In talking with both her and her spouse about if any rashes occurred when she previously was on antibiotics, they both indicate that she did develop some hives not too long after daptomycin was started. Daptomycin was held and later resumed without any recurrence. Etiology of the incidences of urticaria were not identified. Daptomycin was added to ceftriaxone due to limited clinical improvement. After completion of ceftriaxone and daptomycin IV, patient was transitioned to oral cephalexin. In addition to tolerance of cephalexin she received Ancef perioperatively this hospital stay without any issues. Patient spouse does indicate that with significant hot flash episodes patient will have a similar erythema pattern but it is more severe and associated with sweating. Patient herself does feel a little bit hot with the erythema but not to the degree she usually associates with classical hot flashes. She denies any other associated symptoms including shortness of breath, wheezing, sensation of difficulty swallowing or oropharyngeal swelling, chest pain, abdominal pain, itching, acute change in bowel function, dizziness or other symptoms. She is just red and may be a little hot. Patient was given Benadryl, monitored and subsequently received daptomycin. Vital signs were stable with heart rate around 90, blood pressure 100s over 60s. Oxygen saturations in the mid 90s on room air. I talked with patient and her spouse regarding redness and plans of care as outlined below. Vitals/I&O/Wt Last Vital Signs Temp 98.3 F 06/01/22 07:44 Pulse 93 06/01/22 08:09 Resp 17 06/01/22 08:43 BP 111/70 06/01/22 07:44 Pulse Ox 98 06/01/22 08:09 O2 Del Method 06/01/22 08:09 O2 Flow Rate 2 06/01/22 08:09 05/31/22 06/01/22 06/01/22 22:59 06:59 14:59 Intake Total 1049 / 2299 1000 / 3299 360 / 360 Output Total 250 / 650 Balance 799 / 1649 1000 / 2649 360 / 360 Physical Exam Narrative: Patient seen earlier today as well as currently. Both times she was more alert than yesterday, interactive and generally appearing like she feels better than when I first saw her. She is moving better. Dual lumen power PICC line remains intact to the right upper extremity. At second evaluation patient has erythema noted to both cheeks, both arms, abdomen and to a lesser degree lower extremities and neck region. Erythema is not palpable or warm. It does not involve intertriginous areas. No obvious pruritus. Facial erythema similar to a flush. No current dizziness. No abdominal tenderness. Lungs are clear and rhythm is regular. Capillary refill is brisk. Urinary Catheter Management: Fay: Cath Placed During This Visit: yes, but has since been removed by the nurse Reason for Continuing Indwelling Catheter: Decision to DC Catheter Urinary Catheter Date of Insertion: 05/30/22 Urinary Catheter Time of Insertion: 07:20 Date Urinary Catheter Removed: 05/31/22 Time Urinary Catheter Discontinued: 10:01 Data 06/01/22 04:37 06/01/22 04:37 Other Labs: Laboratory Last Values WBC 8.7 10^3/uL (4.0-10.0) 06/01/22 04:37 RBC 3.35 10^6/uL (4.1-5.3) L 06/01/22 04:37 Hgb 8.9 g/dL (11.5-15.3) L 06/01/22 04:37 Hct 29.7 % (37.0-47.0) L 06/01/22 04:37 MCV 88.7 fl (81-99) 06/01/22 04:37 MCH 26.6 pg (28.0-34.0) L 06/01/22 04:37 MCHC 30.0 g/dL (30.0-36.0) 06/01/22 04:37 RDW 14.9 % (12.1-15.1) 06/01/22 04:37 Plt Count 157 10^3/cmm (130-400) 06/01/22 04:37 MPV 10.2 fL (7.4-10.4) 06/01/22 04:37 Neut % (Auto) 90.4 % 06/01/22 04:37 Lymph % (Auto) 4.8 % 06/01/22 04:37 [place] % (Auto) 3.7 % 06/01/22 04:37 Eos % (Auto) 0.8 % 06/01/22 04:37 Baso % (Auto) 0.1 % 06/01/22 04:37 Neut # (Auto) 7.90 10^3/uL (1.8-7.7) H 06/01/22 04:37 Lymph # (Auto) 0.4 10^3/uL (0.8-4.8) L 06/01/22 04:37 [place] # (Auto) 0.3 10^3/uL (0.2-0.9) 06/01/22 04:37 Eos # (Auto) 0.1 10^3/uL (0.0-0.8) 06/01/22 04:37 Baso # (Auto) 0.0 10^3/uL (0.0-0.1) 06/01/22 04:37 Nucleated RBC % (auto) 0 % 06/01/22 04:37 Nucleated RBCs # 0.0 /100WBC 06/01/22 04:37 ESR 11 mm/hr (0-15) 05/31/22 15:35 Specimen Type Arterial 05/30/22 08:11 Sample Site Not specified 05/30/22 08:11 ABG pH 7.35 (7.35-7.45) 05/30/22 08:11 ABG pCO2 44.4 mmHg (35-45) 05/30/22 08:11 ABG pO2 164.0 mmHg (80.0-100.0) H 05/30/22 08:11 ABG HCO3 24.5 mmol/L (22-26) 05/30/22 08:11 ABG O2 Saturation 99.6 05/30/22 08:11 ABG Base Excess -1.2 mmol/L (-2.0-2.0) 05/30/22 08:11 Rk Test N/a 05/30/22 08:11 A-a O2 Gradient Not Reportable 05/30/22 08:11 Hematocrit 34.2 % (37-47) L 05/30/22 08:11 Hgb O2 Saturation 97.7 % (95-100) 05/30/22 08:11 Carboxyhemoglobin 0.8 %THgb (0.4-20.1) 05/30/22 08:11 Methemoglobin 1.1 % (0.4-1.5) 05/30/22 08:11 Total Hemoglobin 11.2 g/dL (12-16) L 05/30/22 08:11 Sodium 142.0 mmol/L (131-143) 05/30/22 08:11 Potassium 3.7 mmol/L (3.5-5.0) 05/30/22 08:11 Glucose 101.0 mg/dL (70-115) 05/30/22 08:11 Ionized Calcium 1.2 mmol/L (1.1-1.4) 05/30/22 08:11 O2 Delivery Device Not Reportable 05/30/22 08:11 Jacquard Lace Weaver ID Cak 05/30/22 08:11 Sodium 134 mmol/L (136-145) L 05/31/22 15:35 Potassium 3.9 mmol/L (3.5-5.1) 05/31/22 15:35 Chloride 103 mmol/L (98-107) 05/31/22 15:35 Carbon Dioxide 26 mmol/L (22-29) 05/31/22 15:35 Anion Gap 8.9 (5-19) 05/31/22 15:35 BUN 13 mg/dL (6-20) 05/31/22 15:35 Creatinine 0.6 mg/dL (0.5-0.9) 05/31/22 15:35 GFR Calculation 104.2 mL/min (90-130) 05/31/22 15:35 Glucose 139 mg/dL (65-115) H 06/01/22 04:37 Calculated Osmolality 280 mOsm/kg (285-295) L 05/31/22 15:35 Lactic Acid 1.0 mmol/L (0.5-2.2) 05/31/22 15:35 Calcium 8.5 mg/dL (8.5-10.5) 05/31/22 15:35 Total Bilirubin 0.4 mg/dL (0.15-1.2) 05/31/22 15:35 AST 20 U/L (0-32) 05/31/22 15:35 ALT 16 U/L (0-33) 05/31/22 15:35 Alkaline Phosphatase 119 U/L (35-105) H 05/31/22 15:35 Creatine Kinase 323 U/L (26-192) H* 05/31/22 15:35 C-Reactive Protein 84.7 mg/L (0.0-4.9) H 05/31/22 15:35 Total Protein 5.2 g/dL (6.6-8.7) L 05/31/22 15:35 Albumin 3.0 g/dL (3.5-5.2) L 05/31/22 15:35 Globulin 2.2 g/dL (1.3-4.6) 05/31/22 15:35 Blood Type A Positive 06/01/22 04:37 Rho(D) Type Positive 06/01/22 04:37 Antibody Screen Negative 06/01/22 04:37 Chest X-Ray 05/31/22 12:15 IMPRESSION: 1. Right-sided PICC line appearing to end at the expected region of the cavoatrial junction. 2. No acute cardiopulmonary process. Micro: Microbiology 05/31/22 15:45 Blood Culture - Preliminary Blood SPECIMEN COLLECTED 05/31/22 15:35 Blood Culture - Preliminary Blood SPECIMEN COLLECTED Other data: Copied from Discharge Routine in EMR: Discharge Plan Discharge Patient Disposition: Home Condition: Stable Prescriptions: New ? cyclobenzaprine 10 mg Tablet ?? 10 mg PO TID PRN (Reason: Muscle Spasms) Qty: 30 0RF ? oxycodone 5 mg tablet ?? 5 - 10 mg PO Q4H PRN (Reason: pain) 7 Days Qty: 40 0RF ? ceftriaxone ? ?? 2 g IV Q24H 12 Days 0RF ? daptomycin ? ?? 626 mg IV Q24H 12 Days 0RF Continued ? cephalexin 500 mg capsule ?? 500 mg PO QID ? pantoprazole [Protonix] 40 mg tablet,delayed release (DR/EC) ?? 40 mg PO DAILY ? losartan 25 mg tablet ?? 50 mg PO DAILY ? escitalopram oxalate [Lexapro] 20 mg tablet ?? 20 mg PO DAILY ? (DME) LSO ? ?? See Rx Instructions? .Route .MEDSUPPLY Qty: 1 0RF ?? Rx Instructions: ?? As directed ? diclofenac sodium 75 mg tablet,delayed release (DR/EC) ?? 75 mg PO BID ? oxycodone 5 mg tablet ?? 5 mg PO Q6H PRN (Reason: pain) 7 Days Qty: 30 0RF ? (DME) Bone growth Stimulator ? ?? See Rx Instructions? .ROUTE .MEDSUPPLY Qty: 1 0RF ?? Rx Instructions: ?? As directed ? ferrous sulfate [iron] 325 mg (65 mg iron) Tablet ?? 325 mg PO DAILY ? Probiotic 20 billion cell Capsule ?? 20,000 mmu cells PO DAILY ?? Rx Instructions: ?? administer with a meal ? biotin 1,000 mcg Tablet,Chewable ?? 1,000 mcg PO DAILY ? Calcium 600 600 mg calcium (1,500 mg) Tablet ?? 600 mg PO DAILY Discontinued ? tizanidine ? ?? 2 mg PO DAILY Discharge Orders: Discharge Order? (Routine); Ordered 06/01/22 ?? Ordered By:? Eliel Alcaraz Other Ambulatory Orders: Complete Blood Count w/Man Dif? (Routine)? Timeframe:? 2 Weeks ?? Facility: [facility] - Location: Lab - Main Lab ?? Ordered By:? Rose Marie Swift Weekly x 2 weeks Creatine Phosphokinase? (Routine)? Timeframe:? 2 Weeks ?? Facility: [facility] - Location: Lab - Main Lab ?? Ordered By:? Rose Marie Swift Weekly x 2 weeks Comprehensive Metabolic Panel? (Routine)? Timeframe:? 2 Weeks ?? Facility: [facility] - Location: Lab - Main Lab ?? Ordered By:? Rose Marie Swift Weekly x 2 weeks DME: Walker? (Order) ?? Location: None Selected ?? Ordered By:? Peter Navas Miscellaneous Procedure? (Order) ?? Location: None Selected ?? Ordered By:? Rose Marie Swift Referrals: [facility] [Other] (Your antibiotics will come from [facility] out of [place].? They will be bringing them to your house tomorrow morning.? If you have any questions or concerns please contact them at [phone].) Peter Navas DO [Physician] - 06/09/22 9:45 am Leobardo Vasquez MD [Referring] - 2 weeks (Dr Vasquez's office will contact you with appointment) Nba,Erica [Primary Care Provider] - 06/07/22 10:20 am (appointment in [facility]) Discharge Diet:?Advance as tolerated Discharge Activity:?Limit activity as instructed and Use walker/crutches as instructed Patient Instructions:? Oxycodone/Acetaminophen (By mouth), Cyclobenzaprine (By mouth), Ceftriaxone (By injection) (Rocephin, Novaplus cefTRIAXone,..., Daptomycin (By injection), PICC (Peripherally Inserted Central Catheter) (DC), Opioid Safety, PICC HOSPITALIST (Dr Swift) Instructions: You had PICC line placed for planned course of IV antibiotics after your surgery.? As we reviewed, Dr. Swift discussed with the infectious disease clinic at [facility] your plan of care.? You will be on Rocephin and daptomycin IV for 2 weeks.? You will need weekly lab to include CBC with differential, CMP and CK level.? Baseline CK level drawn during this hospital stay was elevated at 323 although this is not unusual after a surgical procedure.? Baseline BUN and creatinine are 13/0.6 with a potassium of 3.9.? Your white blood count on 05/31 was 7 with 74% neutrophils and 16% lymphocytes.? Hemoglobin and hematocrit were 8.5/28, a drop from 12/40 preoperatively but not outside of anticipated range.? Platelet count was 220.? A baseline sed rate was checked and is 11.? A baseline CRP was checked and in the postoperative state was elevated at 84.7.? A set of blood cultures was collected prior to initiation of antibiotic therapy here in the hospital with results pending at the time of discharge.? You are to maintain PICC line until instructed otherwise by Dr. Vasquez's office. On the evening of discharge, about an hour after you received your Rocephin, you noticed that you had redness in different parts of your body.? You had no other associated symptoms beyond may be feeling a little hot.? No other medications had been administered around the same time.? Possibility of redness being a reaction to medication was discussed.? I explained that I cannot say that this was definitively related to antibiotic infusion nor can I say that it was not related to the antibiotic infusion.? Most concerning potential scenario is for the redness being a precursor to a more severe reaction including anaphylaxis.? You had previously tolerated Rocephin for an extended period of time.? You tolerated dosing yesterday.? We reviewed that doing okay yesterday versus today does not rule out the possibility of medication reaction.? We discussed another overnight stay in the hospital to receive test dose of Rocephin in the morning to see if there is any further reaction.? With lack of other symptoms and previous tolerance to same antibiotic with repeated dosing, you chose to proceed with plan discharge.? You will ensure that you have Benadryl in the house and should additional redness with any other symptoms suggesting a significant allergic reaction as we reviewed appear you will take 2 Benadryl and contact 911.? I did discuss on the phone with [facility] nurse plan to maintain antibiotic regimen as prescribed at this time.? You had previously notified them of possibility of drug reaction to an antibiotic. Reactions including serious ones such as anaphylaxis can occur a period of time after the medication is received.? Signs to be concerned about include shortness of breath, other difficulty breathing, difficulty swallowing or maintaining oral secretions, sensation of swelling in your throat, fast or slow heart rate, dizziness or feeling like you are going to pass out, nausea, vomiting, abdominal pain or diarrhea in addition to rash with itching or hives can occur among other symptoms.? Infusion Information You Antibiotics are going to be delivered to your house from [facility] out of [place].? If you have any questions or concerns please contact them at [phone]. You will come to [facility] lab for your dressing changes and your lab work.? Your first appointment will be Monday06/08/22 at 8:00 am.? If you have any concerns please contact them at [phone] ext [phone]. A&P Assessment and plan (1) S/P spinal fusion: Postop day 2 Overall doing better (2) History of streptococcal septicemia: Associated with abscess of the left hand and paraspinal abscess, status post prolonged parenteral antibiotic therapy and maintained on oral antibiotic therapy. At risk of repeat infection and recommendation from infectious disease is for 2 weeks of IV antibiotic therapy to include Rocephin and daptomycin as outlined. Received confirmation of plan for antibiotic care from ID coordinator at [facility]. Plan is to continue 2 weeks total of Rocephin and daptomycin. Patient did have redness that appeared about 1 hour after second dose of Rocephin in the hospital. No other associated symptoms. Has tolerated Rocephin for repeated doses in the past. Reviewed with patient and her spouse possibilities. After discussion of risks, benefits and options, current plan is for discharge home on planned antibiotic regimen with close monitoring as described above. (3) Postoperative anemia: Drop in hemoglobin from 12 to 8.5 No gross bleeding noted beyond expected postsurgical per nursing Is on chronic NSAID therapy Hemoglobin stable at 8.9 Discussed with patient twice daily iron for now (4) Hypoxemia requiring supplemental oxygen: Not chronically on oxygen but has required oxygen postoperatively Oxygen requirement slowly trending downward Postoperative pain medication and decreased oxygen carrying capacity related to anemia are considerations. Not complaining of pleuritic type chest pain. Is using incentive spirometer. Has a history of smoking but quit in 2019. Has been off of oxygen therapy since this morning, maintaining saturations (5) Hypertension: Chronically on losartan, which patient received today Currently with low blood pressures, most likely from pain management postoperatively though total body volume losses and potential for infection also have to be considered. Lactic acid is currently normal. Plan to hold losartan for couple of days and then resume at 25 mg, gradually increasing back to her usual home dose as tolerated (6) GERD (gastroesophageal reflux disease): Chronically on PPI Plan to continue (7) Anxiety: Chronically on escitalopram Plan to continue Plan Baseline elevation in CK level, not unexpected postoperatively Baseline elevation in CRP level, may be secondary to postoperative state Normal baseline sed rate Blood sugar noted to be 118 Home today with plan for an additional 12 days of IV ceftriaxone and daptomycin Received 2 doses of each of the above in the hospital Case management able to arrange IV antibiotics for home via [facility] Medications will be delivered tomorrow Patient is to have Benadryl in the house and if she has any symptoms suggesting more severe allergic reaction is to take 2 Benadryl and seek emergency care/call 911 Baseline blood cultures are pending Had baseline CK, CRP and sed rate along with CBC with differential and CMP as noted above Will need weekly CBC with differential, CMP and CK sent to infectious disease PICC line care until IV antibiotics are no longer needed; dressing changes will be done through infusion nurse on Wednesdays along with blood draws Patient to take iron twice a day for now Patient to hold losartan and then resume at 25 mg daily with a gradual increase up to usual 50 mg dose Other home medications the same Follow-up recommended with primary care provider in addition to infectious disease Postoperative management as per surgery Attestations Medical Necessity Statement*: Going home today Time Spent in Patient Care: Greater than 35 minutes I have spent 95 minutes today in direct care of patient, discussing with her and spouse plans of care, talking with case management and nursing staff and facilitating arrangement of outpatient antibiotics. Procedures Arterial Line Size (Gauge): 20 Coding Level of Care Code Acute Lock Operator for Chg Fwd Diagnoses S/P spinal fusion Z98.1 History of streptococcal septicemia Z86.19 Postoperative anemia D64.9 Hypoxemia requiring supplemental oxygen R09.02; Z99.81 Hypertension I10 GERD (gastroesophageal reflux disease) K21.9 Anxiety F41.9
[2022-06-01] MEDS: cefTRIAXone 2,000 MG in sodium chloride 0.9% (plus) 50 ML 100 MG IV (15:56)
[2022-06-01] MEDS: diphenhydrAMINE 25 mg Capsule PO (17:18)
--- NOTE | 2022-06-01 18:20 | PC.NURSE ---
Dr. Swift at bedside with myself and Jazlyn from [facility]. Redness after the transfusion of Rocephin was explained by the physician that it could possibly be the beginning of a major allergic reaction that could get worse with the infusion, but also could be the patient's hot flashes causing flushing. Flushing was noted to be on abdomen and face as well as upper legs, but had patches that were not red such as the creases of her arms and her lower extremities. Dr Swift offered the option of staying the night and repeating the dose tomorrow in a medical environment, so if the patient had an allergic reaction again it would be with medical personnel. Patient and at bedside wanted to go home stating that the patient has had over 100 infusions of Rocephin at home earlier this year and had not had the same reaction as this one. Dr. Swift explained to the patient and her that they could go home but would have to make sure to have Benadryl before going home. Patient agreed to this plan and repeated back the instructions explaining that patient would have Benadryl on hand before going home and would take two Benadryl if a reaction occurs at home and call 911. PICC line dressing was changed using sterile technique.
--- NOTE | 2022-06-02 11:45 | P.DS_ITS ---
Discharge Providers Date of Admission: 05/30/22 12:31 Date of Discharge: June 01, 2022 Attending Provider at Admission: Peter Navas DO Attending Provider at Discharge: Peter Navas DO Primary Care Provider: Sydni Arango Diagnoses at Discharge Discharge Diagnosis (1) S/P spinal fusion: Status: Acute (2) History of streptococcal septicemia: Status: Chronic (3) Postoperative anemia: Status: Acute (4) Hypoxemia requiring supplemental oxygen: Status: Acute (5) Hypertension: Status: Chronic (6) GERD (gastroesophageal reflux disease): Status: Chronic (7) Anxiety: Status: Chronic Reason for Visit Reason for Visit: T8 with wuad sacral francia over SI joint Hospital Course Hospital Course PICC line set up Physical Exam Urinary Catheter Management: Fay: Cath Placed During This Visit: yes, but has since been removed by the nurse Reason for Continuing Indwelling Catheter: Decision to DC Catheter Urinary Catheter Date of Insertion: 05/30/22 Urinary Catheter Time of Insertion: 07:20 Date Urinary Catheter Removed: 05/31/22 Time Urinary Catheter Discontinued: 10:01 Discharge Data Studies Completed and Pending Completed Studies During Hospitalization Category Date Time Status CXRP [XR chest 1V portable [id number]] Routine Exams 05/31/22 12:15 Completed XR thoracic spine 2V [id number] Routine Exams 05/31/22 Completed XR thoracic spine 2V 17797 Routine Exams 05/31/22 07:56 Completed XR thoracolumbar junct [id number] Routine Exams 05/31/22 07:56 Completed Pending at discharge Category Date Time Status Blood Culture Stat Lab 05/31/22 15:45 Results Radiology Impressions Thoracic Spine X-Ray 05/31/22 07:56 IMPRESSION: 1. Posterior fusion from T8 into the upper lumbar region with pedicle screws and posterior rods. The fusion appears to be in satisfactory alignment. Thoracolumbar Spine 05/31/22 07:56 IMPRESSION: 1. Stable-appearing posterior spinal fusion extending from T8 to S1. Chest X-Ray 05/31/22 12:15 IMPRESSION: 1. Right-sided PICC line appearing to end at the expected region of the cavoatrial junction. 2. No acute cardiopulmonary process. Laboratory Results WBC 8.7 10^3/uL (4.0-10.0) 06/01/22 04:37 RBC 3.35 10^6/uL (4.1-5.3) L 06/01/22 04:37 Hgb 8.9 g/dL (11.5-15.3) L 06/01/22 04:37 Hct 29.7 % (37.0-47.0) L 06/01/22 04:37 MCV 88.7 fl (81-99) 06/01/22 04:37 MCH 26.6 pg (28.0-34.0) L 06/01/22 04:37 MCHC 30.0 g/dL (30.0-36.0) 06/01/22 04:37 RDW 14.9 % (12.1-15.1) 06/01/22 04:37 Plt Count 157 10^3/cmm (130-400) 06/01/22 04:37 MPV 10.2 fL (7.4-10.4) 06/01/22 04:37 Neut % (Auto) 90.4 % 06/01/22 04:37 Lymph % (Auto) 4.8 % 06/01/22 04:37 Bradley % (Auto) 3.7 % 06/01/22 04:37 Eos % (Auto) 0.8 % 06/01/22 04:37 Baso % (Auto) 0.1 % 06/01/22 04:37 Neut # (Auto) 7.90 10^3/uL (1.8-7.7) H 06/01/22 04:37 Lymph # (Auto) 0.4 10^3/uL (0.8-4.8) L 06/01/22 04:37 Bradley # (Auto) 0.3 10^3/uL (0.2-0.9) 06/01/22 04:37 Eos # (Auto) 0.1 10^3/uL (0.0-0.8) 06/01/22 04:37 Baso # (Auto) 0.0 10^3/uL (0.0-0.1) 06/01/22 04:37 Nucleated RBC % (auto) 0 % 06/01/22 04:37 Nucleated RBCs # 0.0 /100WBC 06/01/22 04:37 ESR 11 mm/hr (0-15) 05/31/22 15:35 Specimen Type Arterial 05/30/22 08:11 Sample Site Not specified 05/30/22 08:11 ABG pH 7.35 (7.35-7.45) 05/30/22 08:11 ABG pCO2 44.4 mmHg (35-45) 05/30/22 08:11 ABG pO2 164.0 mmHg (80.0-100.0) H 05/30/22 08:11 ABG HCO3 24.5 mmol/L (22-26) 05/30/22 08:11 ABG O2 Saturation 99.6 05/30/22 08:11 ABG Base Excess -1.2 mmol/L (-2.0-2.0) 05/30/22 08:11 Rk Test N/a 05/30/22 08:11 A-a O2 Gradient Not Reportable 05/30/22 08:11 Hematocrit 34.2 % (37-47) L 05/30/22 08:11 Hgb O2 Saturation 97.7 % (95-100) 05/30/22 08:11 Carboxyhemoglobin 0.8 %THgb (0.4-20.1) 05/30/22 08:11 Methemoglobin 1.1 % (0.4-1.5) 05/30/22 08:11 Total Hemoglobin 11.2 g/dL (12-16) L 05/30/22 08:11 Sodium 142.0 mmol/L (131-143) 05/30/22 08:11 Potassium 3.7 mmol/L (3.5-5.0) 05/30/22 08:11 Glucose 101.0 mg/dL (70-115) 05/30/22 08:11 Ionized Calcium 1.2 mmol/L (1.1-1.4) 05/30/22 08:11 O2 Delivery Device Not Reportable 05/30/22 08:11 Field Mechanic ID Cak 05/30/22 08:11 Sodium 134 mmol/L (136-145) L 05/31/22 15:35 Potassium 3.9 mmol/L (3.5-5.1) 05/31/22 15:35 Chloride 103 mmol/L (98-107) 05/31/22 15:35 Carbon Dioxide 26 mmol/L (22-29) 05/31/22 15:35 Anion Gap 8.9 (5-19) 05/31/22 15:35 BUN 13 mg/dL (6-20) 05/31/22 15:35 Creatinine 0.6 mg/dL (0.5-0.9) 05/31/22 15:35 GFR Calculation 104.2 mL/min (90-130) 05/31/22 15:35 Glucose 139 mg/dL (65-115) H 06/01/22 04:37 Calculated Osmolality 280 mOsm/kg (285-295) L 05/31/22 15:35 Lactic Acid 1.0 mmol/L (0.5-2.2) 05/31/22 15:35 Calcium 8.5 mg/dL (8.5-10.5) 05/31/22 15:35 Total Bilirubin 0.4 mg/dL (0.15-1.2) 05/31/22 15:35 AST 20 U/L (0-32) 05/31/22 15:35 ALT 16 U/L (0-33) 05/31/22 15:35 Alkaline Phosphatase 119 U/L (35-105) H 05/31/22 15:35 Creatine Kinase 323 U/L (26-192) H* 05/31/22 15:35 C-Reactive Protein 84.7 mg/L (0.0-4.9) H 05/31/22 15:35 Total Protein 5.2 g/dL (6.6-8.7) L 05/31/22 15:35 Albumin 3.0 g/dL (3.5-5.2) L 05/31/22 15:35 Globulin 2.2 g/dL (1.3-4.6) 05/31/22 15:35 Blood Type A Positive 06/01/22 04:37 Rho(D) Type Positive 06/01/22 04:37 Antibody Screen Negative 06/01/22 04:37 Vitals Last Vital Signs Temp 98.4 F 06/01/22 18:09 Pulse 93 06/01/22 18:09 Resp 17 06/01/22 18:09 BP 107/65 06/01/22 18:09 Pulse Ox 91 06/01/22 18:09 O2 Del Method 06/01/22 17:13 O2 Flow Rate 2 06/01/22 08:09 Discharge Plan Discharge Patient Disposition: Home Condition: Stable Prescriptions: New cyclobenzaprine 10 mg Tablet 10 mg PO TID PRN (Reason: Muscle Spasms) Qty: 30 0RF oxycodone 5 mg tablet 5 - 10 mg PO Q4H PRN (Reason: pain) 7 Days Qty: 40 0RF ceftriaxone 2 g IV Q24H 12 Days 0RF daptomycin 626 mg IV Q24H 12 Days 0RF Continued cephalexin 500 mg capsule 500 mg PO QID pantoprazole [Protonix] 40 mg tablet,delayed release (DR/EC) 40 mg PO DAILY losartan 25 mg tablet 50 mg PO DAILY escitalopram oxalate [Lexapro] 20 mg tablet 20 mg PO DAILY (DME) LSO See Rx Instructions .Route .MEDSUPPLY Qty: 1 0RF Rx Instructions: As directed diclofenac sodium 75 mg tablet,delayed release (DR/EC) 75 mg PO BID oxycodone 5 mg tablet 5 mg PO Q6H PRN (Reason: pain) 7 Days Qty: 30 0RF (DME) Bone growth Stimulator See Rx Instructions .ROUTE .MEDSUPPLY Qty: 1 0RF Rx Instructions: As directed ferrous sulfate [iron] 325 mg (65 mg iron) Tablet 325 mg PO DAILY Probiotic 20 billion cell Capsule 20,000 mmu cells PO DAILY Rx Instructions: administer with a meal biotin 1,000 mcg Tablet,Chewable 1,000 mcg PO DAILY Calcium 600 600 mg calcium (1,500 mg) Tablet 600 mg PO DAILY Discontinued tizanidine 2 mg PO DAILY Discharge Orders: Discharge Order (Routine); Ordered 06/01/22 Ordered By: Eliel Alcaraz Other Ambulatory Orders: Complete Blood Count w/Man Dif (Routine) Timeframe: 2 Weeks Facility: [facility] - Location: Lab - Main Lab Ordered By: Rose Marie Swift Creatine Phosphokinase (Routine) Timeframe: 2 Weeks Facility: [facility] - Location: Lab - Main Lab Ordered By: Rose Marie Swift Comprehensive Metabolic Panel (Routine) Timeframe: 2 Weeks Facility: [facility] - Location: Lab - Main Lab Ordered By: Rose Marie Swift DME: Walker (Order) Location: None Selected Ordered By: Peter Navas Miscellaneous Procedure (Order) Location: None Selected Ordered By: Rose Marie Swift Referrals: [facility] [Other] (Your antibiotics will come from [facility] out of [place]. They will be bringing them to your house tomorrow morning. If you have any questions or concerns please contact them at [phone].) Peter Navas DO [Physician] - 06/09/22 9:45 am Leobardo Vasquez MD [Referring] - 2 weeks (Dr Vasquez's office will contact you with appointment) Sydni Arango [Primary Care Provider] - 06/07/22 10:20 am (appointment in [facility]) Discharge Diet: Advance as tolerated Discharge Activity: Limit activity as instructed and Use walker/crutches as instructed Patient Instructions: Oxycodone/Acetaminophen (By mouth), Cyclobenzaprine (By mouth), Ceftriaxone (By injection) (Rocephin, Novaplus cefTRIAXone,..., Daptomycin (By injection), PICC (Peripherally Inserted Central Catheter) (DC), Opioid Safety, PICC Activity Restrictions/Additional Instructions: Dr. Navas instructions Thank you for choosing [facility] for your care! The following is a list of instructions, from your provider, to follow upon your discharge to ensure you have the optimal recovery from your recent injury or surgery. Follow-up care is a moyre part of your treatment and safety. Be sure to make and go to all appointments and call your doctor if you are having problems. If you do not already have a follow-up appointment made, call Dr. Navas's office in the next 1-3 days to make follow up appointment for 1 weeks at [phone]. It is also a good idea to know your test results and keep a list of the medicines you take. Medications will be prescribed for you at your provider's discretion. These medications are to be used as instructed; if they are taken more often that prescribed they will not be refilled early and in most cases will not be refilled at all. > When a refill is needed, you should contact our office 2-3 business days before your prescription runs out. Medications will NOT be refilled by pressurization mechanic providers after hours! > Many pain medications contain Tylenol (Acetaminophen). Do not consume more than 4,000 mg of Tylenol per day in total with any combination of medications. > Pain medications can cause constipation. Please use an over the counter stool softener as directed, while taking pain medications. Consult your local pharmacist with questions or recommendations on stool softeners. If constipation persists, contact our office or your primary care provider. > While under our care, you are not to receive pain medications or other controlled substances from any other provider unless our office is notified and approves. Any attempts to do so will result in refusal to prescribe any further pain medications and possible dismissal from our practice. ? Walking is essential for the healing process after surgery. We would like you to slowly advance your walking. This should be done on relatively flat clear ground (inside or out) or can be done on a treadmill. Remember this goal does not have to happen all at once, slowly increase your distance and duration. This can be broken into more more than one walk per day as tolerated. Patients who walk as directed after surgery rarely require Physical Therapy. In the unlikely event this issue arises your provider will direct hospital staff to make the appropriate arrangements. ? No lifting over 5 pounds {a gallon of milk) or bending/twisting until further notice. Each of these activities places an unnecessary amount of stress onto the body and can impede the delicate healing process. > Instead of bending at the waist, keep your back straight and bend at the knees. > Instead of twisting your torso, keep your back straight and turn your entire body with your feet. ? You may sleep in any position which makes you comfortable. Many patients find comfort sleeping in a reclining chair. It is not abnormal to have difficulty sleeping for the first several weeks following your surgery. We recommend trying Benadryl or Tylenol PM as directed to help with your sleeping difficulties. Both medications are over the counter and available without prescription. ? NO SMOKING!!! Smoking dramatically increases the probability of developing postoperative wound infections. ? Common complaints after lumbar and/or thoracic spine surgery include, but are not limited to: numbness and/or tingling in the legs, pain around the incision and surrounding tissues, muscle spasms, or stiffness of the middle to low back. Contact our office if these symptoms persist or if an acute change occurs. ? No driving for the first 3-5days, and not while taking narcotics until seen at your follow-up appointment and cleared. There are no restrictions for riding on short trips, however if you take a longer trip, arrangements should be made to make regular stops to get out of the vehicle and stretch . ? Swelling is an unfortunate event that will take place with any surgery and is the primary source of your postoperative discomfort. While walking and regular approved activities helps control inflammation, there are additional steps you can take to minimize swelling. > Place ice over the surgical site and surrounding tissue for twenty minutes, followed by applying a low/medium heat (heating pad) for an additional twenty minutes every 1-2 hours as needed for pain relief. > You may use of over the counter anti-inflammatory medications (Ibu profen, Motrin, Aleve, Advil, etc) as directed on the package label. These types of medicines will significantly reduce the amount of discomfort you experience after surgery from swelling. It should be noted that if you have and allergy to any of these medications, or a history of ulcers or kidney disease you should consult you primary care provider prior to starting these medications. HOSPITALIST (Dr Swift) Instructions: You had PICC line placed for planned course of IV antibiotics after your surgery. As we reviewed, Dr. Swift discussed with the infectious disease clinic at [facility] your plan of care. You will be on Rocephin and daptomycin IV for 2 weeks. You will need weekly lab to include CBC with differential, CMP and CK level. Baseline CK level drawn during this hospital stay was elevated at 323 although this is not unusual after a surgical procedure. Baseline BUN and creatinine are 13/0.6 with a potassium of 3.9. Your white blood count on 05/31 was 7 with 74% neutrophils and 16% lymphocytes. Hemoglobin and hematocrit were 8.5/28, a drop from 12/40 preoperatively but not outside of anticipated range. Platelet count was 220. A baseline sed rate was checked and is 11. A baseline CRP was checked and in the postoperative state was elevated at 84.7. A set of blood cultures was collected prior to initiation of antibiotic therapy here in the hospital with results pending at the time of discharge. You are to maintain PICC line until instructed otherwise by Dr. Vasquez's office. On the evening of discharge, about an hour after you received your Rocephin, you noticed that you had redness in different parts of your body. You had no other associated symptoms beyond may be feeling a little hot. No other medications had been administered around the same time. Possibility of redness being a reaction to medication was discussed. I explained that I cannot say that this was definitively related to antibiotic infusion nor can I say that it was not related to the antibiotic infusion. Most concerning potential scenario is for the redness being a precursor to a more severe reaction including anaphylaxis. You had previously tolerated Rocephin for an extended period of time. You tolerated dosing yesterday. We reviewed that doing okay yesterday versus today does not rule out the possibility of medication reaction. We discussed another overnight stay in the hospital to receive test dose of Rocephin in the morning to see if there is any further reaction. With lack of other symptoms and previous tolerance to same antibiotic with repeated dosing, you chose to proceed with plan discharge. You will ensure that you have Benadryl in the house and should additional redness with any other symptoms suggesting a significant allergic reaction as we reviewed appear you will take 2 Benadryl and contact 911. I did discuss on the phone with [facility] nurse plan to maintain antibiotic regimen as prescribed at this time. You had previously notified them of possibility of drug reaction to an antibiotic. Reactions including serious ones such as anaphylaxis can occur a period of time after the medication is received. Signs to be concerned about include shortness of breath, other difficulty breathing, difficulty swallowing or maintaining oral secretions, sensation of swelling in your throat, fast or slow heart rate, dizziness or feeling like you are going to pass out, nausea, vomiting, abdominal pain or diarrhea in addition to rash with itching or hives can occur among other symptoms. Infusion Information You Antibiotics are going to be delivered to your house from [facility] out of [place]. If you have any questions or concerns please contact them at [phone]. You will come to [facility] lab for your dressing changes and your lab work. Your first appointment will be Monday06/08/22 at 8:00 am. If you have any concerns please contact them at [phone] ext [phone]. Discharge Attestations Time Spent in Discharge Care*: less than 30 min Quality Metrics Clinical Quality Measures [ No reported AMI, CVA or VTE this stay] Coding Level of Care Code Acute Chg FW DC note Diagnoses S/P spinal fusion Z98.1 History of streptococcal septicemia Z86.19 Postoperative anemia D64.9 Hypoxemia requiring supplemental oxygen R09.02; Z99.81 Hypertension I10 GERD (gastroesophageal reflux disease) K21.9 Anxiety F41.9
== END 2022-06-01 18:10 | disposition home or self-care (01) | DRG 457 ==
LOC: MEDSURG 12:32
PROVIDERS: Anesthesiology; Hospitalist; Admitting Provider Orthopaedic Surgery; PCP Registered Nurse; Visit Provider Orthopaedic Surgery
PROC: 0RG70KJ Fusion of 2 to 7 Thoracic Vertebral Joints with Nonautologous Tissue Substitute, Posterior Approach, Anterior Column, Open Approach (ICD-10-PCS; principal; 2022-05-30 07:00)
DX: T84.226A Displacement of internal fixation device of vertebrae, initial encounter (principal); D62 Acute posthemorrhagic anemia; M96.0 Pseudarthrosis after fusion or arthrodesis; Y79.1 Therapeutic (nonsurgical) and rehabilitative orthopedic devices associated with adverse incidents; I10 Essential (primary) hypertension; K21.9 Gastro-esophageal reflux disease without esophagitis; F41.9 Anxiety disorder, unspecified; Z79.891 Long term (current) use of opiate analgesic; Z79.2 Long term (current) use of antibiotics; G62.9 Polyneuropathy, unspecified; Z86.19 Personal history of other infectious and parasitic diseases; R09.02 Hypoxemia; L27.1 Localized skin eruption due to drugs and medicaments taken internally; T36.1X5A Adverse effect of cephalosporins and other beta-lactam antibiotics, initial encounter; Z87.891 Personal history of nicotine dependence; M41.9 Scoliosis, unspecified
CPT/HCPCS: 36415; 36569; 36592; 51702; 71045; 72070; 72080; 80048; 80051; 80053; 82330; 82550; 82805; 82947; 83605; 85025; 85651; 86140; 86850; 86900; 87040; 97161; 97530; C1713; J0330; J0690; J0696; J0878; J1100; J1170; J1200; J1644; J1885; J2250; J2270; J2405; J2704; J2710; J3010; J3370; J3480; J3490; J7030; J7040; J7120; P9045

== ENCOUNTER 2022-06-07 07:55 | Emergency (ER) | payer MEDICAID, SELFPAY ==
[2022-06-07] VITALS (31 sets, daily range): BP systolic 153–172; BP diastolic 82–110; PULSE 58–83; RESP 10–22; TEMP 36.6; O2SAT 93–99; BMI 42.0
--- NOTE | 2022-06-07 08:37 | ED_ITS ---
HPI - Allergic Reaction General: Chief complaint: Allergic Reaction Stated complaint: Reaction to Antibiotics, Face swelling Time Seen by Provider: 06/07/22 08:02 Source: patient Mode of arrival: ambulatory History of Present Illness: HPI narrative: 52-year-old female presents emergency room with complaint of reaction from antibiotics. Week ago she had a lumbar fusion done through multiple levels it was revision when she previously had the procedure done she had a severe episode of sepsis and she was prophylactically had a PICC line placed started on ceftriaxone and daptomycin. She completed the course then she has been taking with for a week now and then noted that she began to have what she thought was a reaction she for stopped the ceftriaxone with redness and hives and then a few days later now still noticing redness and hives concerned she is allergic to the daptomycin. When I examined her head no redness no hives no facial swelling or angioedema was noted. Not in the arms legs torso or face. MD complaint: allergic reaction Onset (ago): hour(s) Exposure: medication (Ceftriaxone and daptomycin potentially) Associated symptoms: Deny abdominal pain, difficulty breathing, dysphagia, dizziness, facial swelling, hoarseness, itching, lip swelling, nausea, rash, tongue swelling or vomiting Severity: mild Treatment prior to arrival: benadryl Review of Systems Const: Denies: fever(s), chills, body aches, change in appetite, fatigue or malaise ENMT: Denies: throat pain or hoarseness Card: Denies: chest pain, edema, dyspnea on exertion or orthopnea Resp: Denies: dyspnea, productive cough or non-productive cough GI: Denies: abdominal pain, nausea, vomiting or dysphagia : Denies: flank pain, difficulty voiding, dysuria, urinary frequency or urinary urgency Skin/Breast: Denies: rash or pruritus Neuro: Denies: dizziness All/Imm: Denies: tongue swelling or facial swelling PFS ED PFSH: Medical History (Updated 06/07/22 @ 11:42 by Cornell Dang DO) Anxiety Chronic antibiotic suppression GERD (gastroesophageal reflux disease) History of streptococcal septicemia History of transesophageal echocardiography (MAURILIO) (~09/2021) Hypertension Neuropathy 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 Paraphrase of information obtained from Dr Vasquez's, ID at [facility], office and patient: Cultures grew Streptococcus. Hardware washed out. Source was NOT felt hardware related after evaluation. MAURILIO without vegetation. Infection involved left hand and left foot. Left hand had purulent material requiring surgical intervention. Paraspinal abscess also identified. Initially treated with ceftriaxone, then daptomycin added for revising clerk home IV antibiotic treatment via PICC line followed, by continued oral keflex (still on oral Keflex prior to revision s urgery done by Dr Navas at [facility] on 05/30/2022). Previous (date unknown) ESR > 100 with CRP also elevated. Scoliosis Surgical History (Updated 06/07/22 @ 11:42 by Cornell Dang DO) History of back surgery 2019, surgical spinal alignment/correction of scoliosis at L2-L3, L3-L4 History of hand surgery left, related to abscess at same time as paraspinal abscess in 08/2021, with associated post-infection/post-surgery limitation of range of motion at DIP and PIP 3rd digit History of lumbar fusion 06/2021 in [facility], T10-S1 fusion History of lumbosacral spine surgery 05/30/[address] Navas: 1. T8 - pelvis posterior spine fusion 2. T8-S1 instrumentation 3. Lumbopelvic fixation 4. removal of hardware from spine 5. Use of computer navigation stereotactic for spine 6. Use of allograft Status post left foot surgery with hardware at 5th metatarsal Family History (Updated 05/31/22 @ 15:33 by Rose Marie Swift MD) Mother Scoliosis Rheumatoid arthritis Hypertension Social History (Updated 05/31/22 @ 15:32 by Rose Marie Swift MD) Smoking and tobacco status: former smoker Quit status (tobacco): has quit using tobacco Year quit tobacco: 2019 Alcohol intake: never Household members: spouse Marital status: Marital status details: is Fany Mac History of recent travel: No Physical Exam Const: COMMON NORMALS: no acute distress GENERAL APPEARANCE: cooperative and comfortable ORIENTATION/CONSCIOUSNESS: Yes awake, Yes oriented to person, Yes oriented to place and Yes oriented to time HENMT: COMMON NORMALS: normocephalic, atraumatic, hearing grossly normal bilaterally, external ears normal, EAC's normal, TM's normal bilaterally, Normal nasal mucous membranes and turbinates present, moist oral mucous membranes and oropharynx normal HEAD & SCALP: normocephalic and atraumatic NOSE: Normal nasal mucous membranes and turbinates present EXTERNAL EAR: Yes external ears normal EXTERNAL AUDITORY CANAL: EAC's normal TYMPANIC MEMBRANE: TM's normal bilaterally Eye: COMMON NORMALS: Equal, round and reactive pupils present, EOMs intact bilaterally, conjunctivae normal and no scleral icterus CONJUNCTIVA: Yes conjunctivae normal PUPIL: Yes Equal, round and reactive pupils present Neck/C-Spine: COMMON NORMALS: full ROM, no lymphadenopathy, supple and no JVD Lymph: LYMPHATIC: no lymphadenopathy noted and no lymphedema noted Resp: COMMON NORMALS: normal respiratory effort, No retractions, No use of accessory muscles and clear to auscultation bilaterally AUSCULTATION: clear to auscultation bilaterally Cardio: COMMON NORMALS: no JVD, regular rate, regular rhythm and No murmurs present (Cardio) RATE: regular rate RHYTHM: regular rhythm GI: COMMON NORMALS: Soft to palpation and No hepatosplenomegaly present AUSCULTATION: Yes normoactive bowel sounds PALPATION: Yes Soft to palpation, No Tenderness to palpation present (GI), No Guarding due to palpation present (GI) and Yes No hepatosplenomegaly present Extremity: COMMON NORMALS: normal to inspection, capillary refill normal, no clubbing, cyanosis or edema, no calf tenderness and no pedal edema Neuro: SENSORIUM/ORIENTATION: Yes oriented to person, Yes oriented to place and Yes oriented to time Skin: COMMON NORMALS: no rashes or lesions noted GENERAL SKIN EXAM: no rashes or lesions noted Course Vital Signs: Vital signs: Vital Signs Temperature 97.9 F 06/07/22 08:07 Pulse Rate 71 06/07/22 11:55 Respiratory Rate 14 06/07/22 11:40 Blood Pressure 158/102 06/07/22 11:55 Pulse Oximetry 98 06/07/22 11:55 Oxygen Delivery Me thod 06/07/22 08:07 MDM - Allergic Reaction Medical Decision Making Variable area hold the infectious disease clinic where she seen and talk to the patient's doctors nurse. I recommend just holding the medications for what we had planned to do we will treat her with Benadryl as needed. I will see him back in follow-up on whether or not they need to resume the medications or make any other changes at this point in months anything that looks like a true allergic anaphylactic reaction in him hesitant to clear them allergic to these medicines. Medical Records I reviewed the patient's medical records. Lab Data I reviewed the patient's lab results. 06/07/22 09:15 06/07/22 09:15 Laboratory Results WBC 9.3 10^3/uL (4.0-10.0) 06/07/22 09:15 RBC 3.13 10^6/uL (4.1-5.3) L 06/07/22 09:15 Hgb 8.3 g/dL (11.5-15.3) L 06/07/22 09:15 Hct 27.8 % (37.0-47.0) L 06/07/22 09:15 MCV 88.8 fl (81-99) 06/07/22 09:15 MCH 26.5 pg (28.0-34.0) L 06/07/22 09:15 MCHC 29.9 g/dL (30.0-36.0) L 06/07/22 09:15 RDW 15.3 % (12.1-15.1) H 06/07/22 09:15 Plt Count 391 10^3/cmm (130-400) 06/07/22 09:15 MPV 9.7 fL (7.4-10.4) 06/07/22 09:15 Neut % (Auto) 51.3 % 06/07/22 09:15 Lymph % (Auto) 26.5 % 06/07/22 09:15 [place] % (Auto) 6.5 % 06/07/22 09:15 Eos % (Auto) 11.1 % 06/07/22 09:15 Baso % (Auto) 0.4 % 06/07/22 09:15 Neut # (Auto) 4.74 10^3/uL (1.8-7.7) 06/07/22 09:15 Lymph # (Auto) 2.5 10^3/uL (0.8-4.8) 06/07/22 09:15 [place] # (Auto) 0.6 10^3/uL (0.2-0.9) 06/07/22 09:15 Eos # (Auto) 1.0 10^3/uL (0.0-0.8) H 06/07/22 09:15 Baso # (Auto) 0.0 10^3/uL (0.0-0.1) 06/07/22 09:15 Nucleated RBC % (auto) 0.2 % 06/07/22 09:15 Nucleated RBCs # 0.0 /100WBC 06/07/22 09:15 Sodium 142 mmol/L (136-145) 06/07/22 09:15 Potassium 3.7 mmol/L (3.5-5.1) 06/07/22 09:15 Chloride 105 mmol/L (98-107) 06/07/22 09:15 Carbon Dioxide 28 mmol/L (22-29) 06/07/22 09:15 Anion Gap 12.7 (5-19) 06/07/22 09:15 BUN 9 mg/dL (6-20) 06/07/22 09:15 Creatinine 0.4 mg/dL (0.5-0.9) L 06/07/22 09:15 GFR Calculation 166.3 mL/min (90-130) H 06/07/22 09:15 Glucose 89 mg/dL (65-115) 06/07/22 09:15 Calculated Osmolality 292 mOsm/kg (285-295) 06/07/22 09:15 Calcium 8.1 mg/dL (8.5-10.5) L 06/07/22 09:15 Total Bilirubin 0.2 mg/dL (0.15-1.2) 06/07/22 09:15 AST 14 U/L (0-32) 06/07/22 09:15 ALT 26 U/L (0-33) 06/07/22 09:15 Alkaline Phosphatase 250 U/L (35-105) H 06/07/22 09:15 Total Protein 4.9 g/dL (6.6-8.7) L 06/07/22 09:15 Albumin 3.0 g/dL (3.5-5.2) L 06/07/22 09:15 Globulin 1.9 g/dL (1.3-4.6) 06/07/22 09:15 Urine Color Yellow (Yellow) 06/07/22 09:05 Urine Appearance Clear (CLEAR) 06/07/22 09:05 Urine pH 5 (5-7) 06/07/22 09:05 Ur Specific [place] 1.020 (1.005-1.030) 06/07/22 09:05 Urine Protein Trace (Negative) 06/07/22 09:05 Urine Glucose (UA) Norm (Normal) 06/07/22 09:05 Urine Ketones 1+ (Negative) H 06/07/22 09:05 Urine Blood Neg (Negative) 06/07/22 09:05 Urine Nitrate Negative (Negative) 06/07/22 09:05 Urine Bilirubin Neg (Negative) 06/07/22 09:05 Urine Urobilinogen Norm mg/dL (Negative) 06/07/22 09:05 Ur Leukocyte Esterase Trace (Negative) H 06/07/22 09:05 Urine RBC None /hpf (0-2) 06/07/22 09:05 Urine WBC None /hpf (0-5) 06/07/22 09:05 Ur Squamous Epith Cells 0-4 /hpf (0-5) H 06/07/22 09:05 Amorphous Sediment Not Reportable 06/07/22 09:05 Urine Bacteria Trace /hpf (NONE) 06/07/22 09:05 Discharge Plan Discharge Patient Disposition: Home Clinical Impression: S/P spinal fusion, History of streptococcal septicemia Condition: Stable Prescriptions: No Action cephalexin 500 mg capsule 500 mg PO QID pantoprazole [Protonix] 40 mg tablet,delayed release (DR/EC) 40 mg PO DAILY losartan 25 mg tablet 50 mg PO DAILY escitalopram oxalate [Lexapro] 20 mg tablet 20 mg PO DAILY (DME) LSO See Rx Instructions .Route .MEDSUPPLY Qty: 1 0RF Rx Instructions: As directed diclofenac sodium 75 mg tablet,delayed release (DR/EC) 75 mg PO BID oxycodone 5 mg tablet 5 mg PO Q6H PRN (Reason: pain) 7 Days Qty: 30 0RF (DME) Bone growth Stimulator See Rx Instructions .ROUTE .MEDSUPPLY Qty: 1 0RF Rx Instructions: As directed ferrous sulfate [iron] 325 mg (65 mg iron) Tablet 325 mg PO DAILY Probiotic 20 billion cell Capsule 20,000 mmu cells PO DAILY Rx Instructions: administer with a meal biotin 1,000 mcg Tablet,Chewable 1,000 mcg PO DAILY Calcium 600 600 mg calcium (1,500 mg) Tablet 600 mg PO DAILY cyclobenzaprine 10 mg Tablet 10 mg PO TID PRN (Reason: Muscle Spasms) Qty: 30 0RF oxycodone 5 mg tablet 5 - 10 mg PO Q4H PRN (Reason: pain) 7 Days Qty: 40 0RF ceftriaxone 2 g IV Q24H 12 Days 0RF daptomycin 626 mg IV Q24H 12 Days 0RF Discharge Orders: Discharge ED (Routine); Ordered 06/07/22 Ordered By: Cornell Dang Referrals: Sydni Arango [Primary Care Provider] - Discharge Diet: Usual diet Discharge Activity: Increase activity as tolerated Patient Instructions: Opioid Safety, Pain Management Activity Restrictions/Additional Instructions: You were seen for concern of an allergic reaction. No significant findings of allergic reaction noted at the time of visit. States she had had concerns earlier in the course of this antibiotic will recommend that you contact infectious disease doctor managing your medications. We attempted to contact her office and were unable. In the meantime hold the antibiotics use Benadryl as needed for any itching or rash that he noticed worsening problems or difficulty breathing return to the emergency room Coding Level of Care Code ED Custodian Blood [facility] for Kayla Velázquez
--- NOTE | 2022-06-07 08:56 | ECG_ITS ---
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 Measurements Intervals [place] Rate: 62 P: 32 CT: 188 QRS: -10 QRSD: 113 T: -1 QT: 401 QTc: 410 Interpretive Statements SINUS RHYTHM MODERATE INTRAVENTRICULAR CONDUCTION DELAY [110+ ms QRS DURATION] No previous ECG available for comparison Electronically Signed On 06-07-2022 14:11:23 SULFUR BURNER by Geovany Salmon M.D. [id number]
[2022-06-07] MEDS: diphenhydrAMINE 50 mg/mL SDV 1mL IVP (09:24)
[2022-06-07 09:46] LABS: Basophils % 0.4 %; Eosinophils % 11.1 %; Hematocrit 27.8 % (37.0-47.0); Hemoglobin 8.3 g/dL (11.5-15.3); Lymphocytes # 2.5 10^3/uL (0.8-4.8); Lymphocytes % 26.5 %; Mean Corpuscular HGB Conc 29.9 g/dL (30.0-36.0); Mean Corpuscular Hemoglobin 26.5 pg (28.0-34.0); Mean Corpuscular Volume 88.8 fl (81-99); Mean Platelet Volume 9.7 fL (7.4-10.4); Monocytes # 0.6 10^3/uL (0.2-0.9); Monocytes % 6.5 %; Neutrophils # 4.74 10^3/uL (1.8-7.7); Neutrophils % 51.3 %; Nucleated Red Blood Cells % 0.2 %; Platelet Count 391 10^3/cmm (130-400); Red Blood Count 3.13 10^6/uL (4.1-5.3); Red Cell Distribution Width 15.3 % (12.1-15.1); White Blood Count 9.3 10^3/uL (4.0-10.0)
[2022-06-07 09:52] LABS: Slide Review Slide Review Perform
[2022-06-07 10:06] LABS: Alanine Aminotransferase 26 U/L (0-33); Alkaline Phosphatase 250 U/L (35-105); Anion Gap 12.7 (5-19); Aspartate Amino Transferase 14 U/L (0-32); Blood Urea Nitrogen 9 mg/dL (6-20); Calcium 8.1 mg/dL (8.5-10.5); Carbon Dioxide 28 mmol/L (22-29); Chloride 105 mmol/L (98-107); Globulin 1.9 g/dL (1.3-4.6); Glomerular Filtration Rate 166.3 mL/min (90-130); Glucose 89 mg/dL (65-115); Osmolality Calculated 292 mOsm/kg (285-295); Potassium 3.7 mmol/L (3.5-5.1); Sodium 142 mmol/L (136-145); Total Bilirubin 0.2 mg/dL (0.15-1.2); Total Protein 4.9 g/dL (6.6-8.7)
[2022-06-07 10:40] LABS: Glucose Urine UA Norm (Normal); Protein Urine Trace (Negative); Urine Appearance Clear (CLEAR); Urine Color Yellow (Yellow); pH Urine 5 (5-7)
[2022-06-07 10:41] LABS: Add Urine Culture? No; Add Urine Microscopic? YES; Bacteria Urine TRACE /hpf; Bilirubin Urine Neg (Negative); Blood Urine Neg (Negative); Ketones Urine 1+ (Negative); Leukocyte Esterase Urine Trace (Negative); Nitrate Urine Negative (Negative); Squamous Epithelial Cell Urine 0-4 /hpf (0-5); Urobilinogen Urine Norm (Negative)
== END 2022-06-07 12:05 | disposition home or self-care (01) ==
PROVIDERS: Emergency Provider Family Medicine; PCP Registered Nurse
DX: T78.40XA Allergy, unspecified, initial encounter (principal); Z98.890 Other specified postprocedural states; Z86.19 Personal history of other infectious and parasitic diseases; Z87.891 Personal history of nicotine dependence; I10 Essential (primary) hypertension
CPT/HCPCS: 80053; 81001; 85025; 87040; 93005; 96374; 99284; J1200

== ENCOUNTER 2022-06-10 10:31 | Outpatient (RCR) | payer MEDICAID, SELFPAY ==
[2022-06-08 08:12] VITALS: BP 176/78; PULSE 75; RESP 18; TEMP 36.6; O2SAT 99
[2022-06-08 08:31] LABS: Basophils # 0.1 10^3/uL (0.0-0.1); Basophils % 0.5 %; Eosinophils # 1.1 10^3/uL (0.0-0.8); Eosinophils % 11.4 %; Hematocrit 28.8 % (37.0-47.0); Hemoglobin 8.7 g/dL (11.5-15.3); Lymphocytes # 2.6 10^3/uL (0.8-4.8); Lymphocytes % 26.4 %; Mean Corpuscular HGB Conc 30.2 g/dL (30.0-36.0); Mean Corpuscular Hemoglobin 26.7 pg (28.0-34.0); Mean Corpuscular Volume 88.3 fl (81-99); Mean Platelet Volume 9.3 fL (7.4-10.4); Monocytes # 0.6 10^3/uL (0.2-0.9); Monocytes % 5.7 %; Neutrophils # 5.09 10^3/uL (1.8-7.7); Neutrophils % 51.4 %; Nucleated Red Blood Cells # 0.1 /100WBC; Nucleated Red Blood Cells % 0.5 %; Platelet Count 440 10^3/cmm (130-400); Red Blood Count 3.26 10^6/uL (4.1-5.3); Red Cell Distribution Width 15.6 % (12.1-15.1); White Blood Count 9.9 10^3/uL (4.0-10.0)
--- NOTE | 2022-06-08 08:32 | PC.NURSE ---
Swelling noted to face, hands, and lower extremities. Swelling worse in left hand and lower extremities.
[2022-06-08 09:02] LABS: Alanine Aminotransferase 21 U/L (0-33); Albumin Level 3.2 g/dL (3.5-5.2); Alkaline Phosphatase 240 U/L (35-105); Anion Gap 12.7 (5-19); Aspartate Amino Transferase 15 U/L (0-32); Blood Urea Nitrogen 6 mg/dL (6-20); Calcium 8.6 mg/dL (8.5-10.5); Carbon Dioxide 28 mmol/L (22-29); Chloride 101 mmol/L (98-107); Creatine Phosphokinase 65 U/L (26-192); Globulin 2.5 g/dL (1.3-4.6); Glomerular Filtration Rate 166.3 mL/min (90-130); Glucose 91 mg/dL (65-115); Osmolality Calculated 283 mOsm/kg (285-295); Potassium 3.7 mmol/L (3.5-5.1); Sodium 138 mmol/L (136-145); Total Bilirubin 0.2 mg/dL (0.15-1.2); Total Protein 5.7 g/dL (6.6-8.7)
--- NOTE | 2022-06-08 09:24 | PC.NURSE ---
This nurse spoke with Adelaida, Infectious Disease coordinator at [facility], regarding pt possible allergic reaction to antibiotics and that antibiotics were stopped per [facility] ER physician. Adelaida to speak to Dr. Vasquez and send updated orders if needed.
[2022-06-10 10:30] VITALS: BP 170/95; PULSE 72; RESP 18; TEMP 36.7; O2SAT 95
--- NOTE | 2022-06-10 10:35 | PC.NURSE ---
Pt to GI infusions for removal of PICC. PICC to right upper arm dc'd. 42 cm removed with tip intact. No redness, bleeding, or hematoma noted. Pt denies SOB. Instructed pt to return to PCP or ER for S&S of infection, bleeding, or SOB.
== END 2022-06-11 23:59 | disposition home or self-care (01) ==
LOC: GILAB 10:31
PROVIDERS: PCP Registered Nurse; Visit Provider Hospitalist
DX: R20.2 Paresthesia of skin (principal); S32.009K Unspecified fracture of unspecified lumbar vertebra, subsequent encounter for fracture with nonunion; X58.XXXD Exposure to other specified factors, subsequent encounter; Z98.1 Arthrodesis status; Z86.19 Personal history of other infectious and parasitic diseases; Z79.2 Long term (current) use of antibiotics
CPT/HCPCS: 36592; 80053; 82550; 85025; 99212

== ENCOUNTER → 2022-06-16 13:03 | Outpatient (BNVA) | payer MEDICAID, SELFPAY | PROVIDERS: PCP Registered Nurse; Visit Provider Physician Assistant | DX: Z98.1 Arthrodesis status (principal) | CPT/HCPCS: 72080 ==

== ENCOUNTER → 2022-07-01 10:03 | Outpatient (BNVA) | payer MEDICAID, SELFPAY | PROVIDERS: PCP Registered Nurse; Visit Provider Podiatrist Foot & Ankle Surgery | DX: T84.84XA Pain due to internal orthopedic prosthetic devices, implants and grafts, initial encounter (principal); Y79.2 Prosthetic and other implants, materials and accessory orthopedic devices associated with adverse incidents; M19.072 Primary osteoarthritis, left ankle and foot; M21.42 Flat foot [pes planus] (acquired), left foot; M76.822 Posterior tibial tendinitis, left leg | CPT/HCPCS: 73630 ==

== ENCOUNTER → 2022-07-21 13:35 | Outpatient (BNVA) | payer MEDICAID, SELFPAY | PROVIDERS: PCP Registered Nurse; Visit Provider Physician Assistant | DX: Z98.1 Arthrodesis status (principal); R07.81 Pleurodynia | CPT/HCPCS: 72080 ==

== ENCOUNTER 2022-07-27 15:24 | Outpatient (CLI) | payer MEDICAID, SELFPAY ==
--- NOTE | 2022-07-27 15:30 | CT_ITS ---
WS: [id number] CT LEFT FOOT, NONCONTRAST. HISTORY: pain around hardware from previous surgery Technique: All CT scans at [facility] use at least one of these dose optimization techniques: automated exposure control; mA and/or kV adjustment per patient size (includes targeted exams where dose is matched to clinical indication); or iterative reconstruction. DLP: 108.04 mGy.cm COMPARISON: Radiograph 07/01/2022 Fifth metatarsal screw extends through the majority of the metatarsal stabilizing a healing fracture in the proximal metatarsal. Fracture in good position and alignment with near complete healing. The s crew appears intact. No lucency around the screw. No acute fractures are identified. No widening of t he Lisfranc joint. There are numerous cystic changes within the tarsal bones. Intertarsal joint space narrowing with scl erosis and subchondral cysts involve the cuneiforms and the navicular. Hammertoe deformities. No fore ign bodies. CT/CT foot LT wo con* [id number] IMPRESSION: 1. Screw fixation fifth metatarsal appears intact with no fracture or displace ment. No lucency to suggest loosening or infection. 2. Moderate intertarsal degenerative arthritic changes. 3. No widening of the Lisfranc joint.
== END 2022-07-27 15:25 | disposition home or self-care (01) ==
LOC: RAD 15:27
PROVIDERS: PCP Registered Nurse; Visit Provider Podiatrist Foot & Ankle Surgery
DX: M79.672 Pain in left foot (principal)
CPT/HCPCS: 73700

== ENCOUNTER → 2022-09-26 07:51 | Outpatient (BNVA) | payer MEDICAID, SELFPAY | PROVIDERS: PCP Registered Nurse; Visit Provider Specialist | DX: M17.12 Unilateral primary osteoarthritis, left knee (principal) | CPT/HCPCS: 73560; 73565 ==

== ENCOUNTER 2022-10-05 06:00 | Outpatient (RCR) | payer MEDICAID, SELFPAY | END 2022-10-09 23:59 | disposition home or self-care (01) | LOC: MPT 06:00 | PROVIDERS: Visit Provider Specialist | DX: M25.562 Pain in left knee (principal) | CPT/HCPCS: 97110; 97162 ==

== ENCOUNTER 2022-10-10 06:00 | Outpatient (RCR) | payer MEDICAID, SELFPAY | END 2022-11-09 23:59 | disposition home or self-care (01) | LOC: MPT 06:00 | PROVIDERS: Visit Provider Specialist | DX: M17.12 Unilateral primary osteoarthritis, left knee (principal) | CPT/HCPCS: 97110; G0283 ==

== ENCOUNTER → 2022-12-06 13:20 | Outpatient (BNVA) | payer MEDICAID, SELFPAY | PROVIDERS: Visit Provider Physician Assistant | DX: Z98.1 Arthrodesis status (principal) | CPT/HCPCS: 72080 ==

== ENCOUNTER 2023-01-25 07:25 | Day surgery (SDC) | payer MEDICAID, SELFPAY ==
[2023-01-24 10:18] VITALS: BMI 40.8
[2023-01-25] VITALS (13 sets, daily range): BP systolic 97–171; BP diastolic 52–96; PULSE 66–104; RESP 16–18; TEMP 36.1–36.4; O2SAT 91–97
--- NOTE | 2023-01-25 | XR_ITS ---
WS: [id number] Left foot, C-arm fluoroscopy views, 01/25/2023 Clinical Data: SURGICAL PROCEDURE Comparison: Left foot, 07/01/2022 Findings: Dr. Smith fused the base of the left first metatarsal with the left first cuneiform with an orthopedi c plate and multiple screws. There is an additional plate on the distal calcaneus. Impression: Postoperative changes of the medial left foot and lateral left foot.
[2023-01-25] MEDS: acetaminophen 1,000 MG/100 ML PIGGYBACK 400 MG IV (08:01)
[2023-01-25] MEDS: gabapentin 300 mg Capsule PO (08:01)
[2023-01-25] MEDS: sodium chloride 0.9% 1,000 ML 30 ML IV (08:01)
--- NOTE | 2023-01-25 08:54 | P.ANESASSM_ITS ---
Pre-Anesthetic Assessment Height/Weight: Height 1.57 m Weight 101.151 kg Temp Pulse Resp BP Pulse Ox O2 Del Method 97.6 F 66 16 171/94 96 Room Air 01/25/23 07:42 01/25/23 07:42 01/25/23 07:42 01/25/23 07:42 01/25/23 07:42 01/25/23 07:43 Preop Diagnosis: Left flatfoot deformity Operation Date: 01/25/23 08:50 Proposed Procedures p :?Left foot Cool calcaneal osteotomy M21.42,M76.822(Left) - [facility] [place] possible medial calcaneal slide osteotomy CPT 29405(Left) - [facility] Left open gastrocnemius recession CPT 20041(Left) - [facility] [place] Possible flexor digitorum longus tendon transfer left foot CPT 37809(Left) - [facility] [place] Cotton Osteotomy(Left) - [facility] [place] Arthrodesis Foot Tarsometatarsal Joint Fusion(Left) - [facility] [place] naviculocuneiform fusion CPT 78668(Left) - Jose Smith DPM Familial anesthetic complications: none Was Beta Maryjane taken within 24 hours: N/A Was Clonidine taken within 24 hours: N/A Last intake: Intake Last Liquid Date 01/24/23 Last Liquid Time 19:00 Last Solid Date 01/24/23 Last Solid Time 17:30 Social No alcohol and No tobacco Exam alert, oriented x 3, clear to auscultation bilaterally and regular rate & rhythm Airway Submandibular: within normal limits Cervical ROM: within normal limits Mallampati: Class II Dentition: full CV/HEM Anemia and Hypertension GI Gastroesophageal Reflux Disease Metabolic Morbid Obesity [facility] [place] Lower Back Pain and Osteoarthritis/DJD Neuropsych Anxiety and Depression chronic pain/opioid Anesthetic Plan ASA status: 3 Anesthesia: General and Regional (specify below) (left pop blk) Medications/Allergies Home Medications Medication Instructions Recorded Confirmed Last Taken Type diclofenac sodium 75 mg 75 mg PO BID 04/21/22 01/24/23 01/24/23 History tablet,delayed release losartan 25 mg tablet 50 mg PO DAILY 04/28/22 01/24/23 01/23/23 History pantoprazole 40 mg tablet,delayed 40 mg PO DAILY 04/28/22 01/24/23 01/24/23 History release (Protonix) LSO #1 ea 05/04/22 01/06/23 06/08/22 Rx ferrous sulfate 325 mg (65 mg 325 mg PO DAILY 05/23/22 01/24/23 01/24/23 History iron) tablet (iron) calcium carbonate 600 mg calcium 600 mg PO DAILY 05/31/22 01/24/23 01/10/23 History (1,500 mg) tablet (Calcium) oxycodone 5 mg tablet 5 mg PO Q6H PRN pain 7 days #30 06/20/22 01/24/23 01/25/23 06:00 Rx tabs Bone growth Stimulator E0748 #1 ea 06/22/22 01/06/23 Unknown Rx UCBL insert #1 ea 08/29/22 01/06/23 Unknown Rx losartan 100 mg tablet 100 mg PO DAILY 08/29/22 01/24/23 01/23/23 History cyclobenzaprine 10 mg tablet 10 mg PO TID PRN Muscle Spasms #30 01/03/23 01/24/23 01/22/23 Rx tabs Crutches #1 ea 01/06/23 01/06/23 Unknown Rx amoxicillin 500 mg capsule 500 mg PO DAILY 01/24/23 01/24/23 01/25/23 06:00 History duloxetine 60 mg capsule,delayed 60 mg PO DAILY 01/24/23 01/24/23 01/25/23 06:00 History release Allergies Allergy/AdvReac Type Severity Reaction Status Date / Time ceftriaxone Allergy Mild ALGY-Hives Verified 01/06/23 10:59 daptomycin Allergy Swelling Verified 01/06/23 10:59 face, hands, feet lisinopril Allergy ADR-Cough Verified 01/06/23 10:59 Current Medications Generic Name Dose Route Start Last Admin Trade Name Freq PRN Reason Stop Dose Admin Sodium Chloride 1,000 mls @ 30 mls/hr 01/25/23 07:30 01/25/23 08:01 Sodium Chloride 0.9% IV 01/26/23 07:29 30 mls/hr .Q24H TORRI Administration PFSH Anesthesia Medical History Anxiety Chronic antibiotic suppression GERD (gastroesophageal reflux disease) History of streptococcal septicemia History of transesophageal echocardiography (MAURILIO) (~09/2021) Hypertension Neuropathy 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 Paraphrase of information obtained from Dr Sanchezs, ID at [facility], office and patient: Cultures grew Streptococcus. Hardware washed out. Source was NOT felt hardware related after evaluation. MAURILIO without vegetation. Infection involved left hand and left foot. Left hand had purulent material requiring surgical intervention. Paraspinal abscess also identified. Initially treated with ceftriaxone, then daptomycin added for nursing home home IV antibiotic treatment via PICC line followed, by continued oral keflex (still on oral Keflex prior to revision surgery done by Dr Navas at [facility] on 05/30/2022). Previous (date unknown) ESR > 100 with CRP also elevated. Scoliosis Surgical History History of back surgery 2019, surgical spinal alignment/correction of scoliosis at L2-L3, L3-L4 History of hand surgery left, related to abscess at same time as paraspinal abscess in 08/2021, with associated post-infection/post-surgery limitation of range of motion at DIP and PIP 3rd digit History of lumbar fusion 06/2021 in [facility], T10-S1 fusion History of lumbosacral spine surgery 05/30/[address] Navas: 1. T8 - pelvis posterior spine fusion 2. T8-S1 instrumentation 3. Lumbopelvic fixation 4. removal of hardware from spine 5. Use of computer navigation stereotactic for spine 6. Use of allograft Status post left foot surgery with hardware at 5th metatarsal Family History Mother Scoliosis Rheumatoid arthritis Hypertension Social History Smoking and tobacco status: former smoker Quit status (tobacco): has quit using tobacco Year quit tobacco: 2019 Alcohol intake: never Substance/Drug Use: never Household members: spouse Marital status: Marital status details: is Fany Mac Female Reproductive History Date of last menstrual period: 06/29/18 Data Anesthesia 01/25/23 08:00 Cardiac Studies: No Data to Display
[2023-01-25 09:14] LABS: Anion Gap 14.3 (5-19); Blood Urea Nitrogen 17 mg/dL (6-20); Calcium 9.1 mg/dL (8.5-10.5); Carbon Dioxide 24 mmol/L (22-29); Chloride 107 mmol/L (98-107); Glomerular Filtration Rate 104.2 mL/min (90-130); Glucose 102 mg/dL (65-115); Osmolality Calculated 294 mOsm/kg (285-295); Potassium 4.3 mmol/L (3.5-5.1); Sodium 141 mmol/L (136-145)
--- NOTE | 2023-01-25 09:24 | W.PM.OPSUD ---
Surgery/Procedure H&P Update DATE OF PROCEDURE: January 25, 2023 DATE H&P PERFORMED: 01/06/23 CHANGES TO PREVIOUS DOCUMENTATION: No changes PREOP DIAGNOSIS: Left flatfoot deformity PLANNED PROCEDURE: Operation Date: 01/25/23 08:50 Proposed Procedures p :?Left foot Cool calcaneal osteotomy M21.42,M76.822(Left) - [place] [place] possible medial calcaneal slide osteotomy CPT 01431(Left) - [place] [place] Left open gastrocnemius recession CPT 12975(Left) - [place] [place] Possible flexor digitorum longus tendon transfer left foot CPT 00356(Left) - [place] Cotton Osteotomy(Left) - [place] [place] Arthrodesis Foot Tarsometatarsal Joint Fusion(Left) - [facility] [place] naviculocuneiform fusion CPT 35498(Left) - Jose Smith DPM
[2023-01-25] MEDS: vancomycin 1,000 MG in sodium chloride 0.9% 250 ML 250 MG IV (09:43)
--- NOTE | 2023-01-25 10:56 | ANES.PROC ---
Anesthesia Procedures Procedure/Date: 01/25/23 Nerve Block ^: Nerve Block 1: Main Anesthesia: general anesthesia Time Out Performed: Yes Consent: requested by attending/covering physician, from patient, risks and benefits reviewed and patient agrees to proceed Nerve block location: popliteal (left) Anesthesia monitors applied: pulse oximetry, EKG, BP cuff and oxygen Nerve block position: supine Anesthetic Used: ropivicaine 0.5% Amount of anesthesia used (mL): 30 Ultrasound used to: recognize landmarks Nerve Stimulator Used?: No Interscalene/Femoral BLK: 4 stimuplex 21 g needle used for position and inplane approach Patient Tolerated Procedure: well Complications: none
[2023-01-25] MEDS: BUPivacaine liposome 13.3 mg/mL SDV 10 mL 266 MG INFILTRATI (12:55)
[2023-01-25] MEDS: BUPivacaine 0.5% INJ 30 mL INJECTION (12:55)
[2023-01-25] MEDS: fentaNYL 50 mcg/mL INJ 2mL IVP (13:00)
[2023-01-25] MEDS: ondansetron 2 mg/ML SDV 2 mL 4 MG IVP ×3 (13:10→13:52)
--- NOTE | 2023-01-25 13:38 | P.OP_ITS ---
Brief Operative Note Date of procedure: 01/25/23 Procedure Done: Name: Marisel Mac Date of Surgery: 01/25/2023 Procedure: 1. Left foot Cool calcaneal osteotomy CPT 39943; 2. Left open gastrocnemius recession CPT 35336; 3. Left foot cotton osteotomy with arthrodesis of first tarsometatarsal joint and naviculocuneiform joint CPT 05596 Surgeon: Dr. Jose Smith, D.P.M. Temperature Logging Operator: No staffing assistant Anesthesia: General with popliteal block Preoperative Diagnosis: PTTD left foot, flatfoot left foot Postoperative Diagnosis: Same Complications: None Estimated Blood Loss: 30 cc Implants: Medial column fusion plate and Cool osteotomy plate with 3.5 locking and nonlocking screws from [place] 28 Post Op Plan: Discharge home when meets anesthesia criteria. Postoperative pain medication sent through to patient pharmacy to take as directed. Strict nonweightbearing to the operative extremity. Follow-up in 2 weeks. Coding Level of Care Code Acute Code for Kayla Velázquez
[2023-01-25] MEDS: oxyCODONE-APAP 5-325 mg Tablet 1 TAB PO (13:40)
[2023-01-25] MEDS: sodium chloride 0.9% 1,000 ML 100 ML IV (14:01)
[2023-01-25] MEDS: diphenhydrAMINE 50 mg/mL SDV 1mL 12.5 MG IVP (14:02)
--- NOTE | 2023-01-25 14:34 | ANE.PACU2 ---
Inpatient post-anesthesia follow up: Airway intact: Yes Vital signs: Temperature 97.4 F Pulse Rate 80 Respiratory Rate 16 Blood Pressure 112/62 Pulse Oximetry 97 Oxygen Delivery Me thod Nasal Cannula Oxygen Flow Rate 2 Fraction of Inspir ed Oxygen Hydration adequate: Yes Nausea and vomiting: Yes Pain level: 3 Mental status: Baseline
--- NOTE | 2023-01-25 21:30 | PM.OP ---
Operative Report Date of procedure: January 25, 2023 Pre-op diagnosis: Preop Diagnosis Left flatfoot deformity, posterior tibial tendon dysfunction, midfoot arthritis Post-op diagnosis: Same Post-op findings: Anatomic correction of flatfoot deformity noted postoperatively. Intraoperatively degenerative changes of the navicular cuneiform and first tarsometatarsal joint articulation was noted with erosion of cartilage and exposure of subchondral bone. Procedure done: 1. Left foot Cool calcaneal osteotomy CPT 44850 2. Left open gastrocnemius recession CPT 04581 3. Left foot cotton osteotomy with arthrodesis of first tarsometatarsal joint and naviculocuneiform joint CPT 21913 Implants: Naviculocuneiform metatarsal fusion plate from [employer] with 3.5 locking and nonlocking screws. 3.5 headless short threaded compression screw. Heavenly Cool plate with corresponding 3.5 locking screws all from [employer]. Specimens removed/disposition: None Surgeon: Dr. Jose Smith, D.P.M. Estimated blood loss: 30 cc 120 minutes Complications: None Findings: See above Procedure: Patient is a 52-year-old female that has a history of left foot skew foot deformity with debilitating midfoot arthritis. The patient has had the aforementioned chief complaint for some time. Conservative treatment measures have been attempted and the patient has opted for surgical intervention at this time. A lengthy discussion regarding the procedure, including risks and complications has been had with the patient and is noted in the recent clinic note. Written and verbal consent have been obtained. All patient questions have been answered to the patient?s satisfaction. No written or verbal guarantees have been given or implied. The patient has been NPO since midnight. The history has been reviewed and the history and physical is current. The signed consent was confirmed and placed in the patient chart. Patient imaging has been reviewed and is consistent with the diagnosis. Under mild sedation, the patient was brought into the operating room and placed on the table in the supine position. IV antibiotics were given by the anesthesia team as preoperative surgical prophylaxis. General sedation was then performed by the anesthesiateam. A popliteal block was performed by the anesthesia department. A pneumatic tourniquet was then placed about the left thigh. The operative extremity was then prepped and draped in the usual fashion. The extremity was then elevated and exsanguinated before the tourniquet was inflated to 325 mmHg. After inflation, the following procedure was then performed. Attention was first directed to the medial aspect of the left leg at the level of the gastrocnemius medial head. A 4.5 cm incision was made on the medial aspect of the leg using a #15 blade. Blunt dissection was carried down through subcutaneous and superficial fascia to the level of the crural fascia. This was incised with a #15 blade. Blunt dissection was carried down to the intramuscular aponeurosis between the gastrocnemius and the soleus. A speculum retractor was then inserted intramuscularly and opened up to expose the aponeurosis of the gastrocnemius. A #15 blade was then used to incise this aponeurosis. Increased dorsiflexion at the level of the ankle joint was noted upon releasing this aponeurosis. The incision was then irrigated with copious amounts of sterile saline. The deep crural fascia was then closed with 3-0 Vicryl followed by subcuticular closure with 4-0 Vicryl and skin closure with 4-0 nylon in horizontal mattress fashion. Attention was then directed to the lateral aspect of the left foot where a 6 cm incision was made inferior to the sinus tarsi. Spanning from the tip the fibula to the calcaneocuboid joint. Dissection was carried down through subcutaneous and superficial fascia. Dissection was carried down to the level of the peroneal tendon sheath which was identified and dissected and retracted plantarly. Dissection was carried down to the level of the lateral aspect of the calcaneus at the angle of Gissane. The calcaneocuboid joint was also visualized within the surgical field. After dissection was carried down to this area and the lateral aspect of the calcaneus was exposed a sagittal bone saw was used to make an osseous cut through the calcaneus 1.3 cm proximal to the calcaneocuboid joint. After this cut was made osteotomes were used to continue the cut medially leaving the medial hinge. Next Antemann retractor was used to open up the osteotomy site. Trial size Cool grafts were placed into the site and a size 10 was noted to be appropriate. A size 10 Cool graft was then placed into the osteotomy site before it was covered with a heavenly Cool plate from [place] [address]. This was then fixated with 3.5 locking screws. Good positioning of the plate was noted clinically as well as on C-arm imaging. Positioning of the foot was confirmed on C-arm fluoroscopy. Appropriate talar head uncovering was noted. Attention was then directed to the medial aspect of the foot where a linear incision was made from the talonavicular joint to the first tarsometatarsal joint. Blunt dissection was carried down through subcutaneous and superficial fascia. Any bleeders were cauterized as necessary. The naviculocuneiform joint was identified and was incised to expose the joint. A Antemann retractor was used to expose the joint. There was noted to be denuded cartilage on the navicular with subchondral bone exposed indicative of arthritis. A curved osteotome was then used to remove cartilage from the navicular surface as well as the medial cuneiform articular surface. Once this was removed the site was irrigated with copious muscle sterile saline before a K wire was used to fenestrate the articular surfaces for arthrodesis. Next the first tarsometatarsal joint articulation was identified and incised. A kiln drawer retractor was used to open up this joint where similarly a curved osteotome was used to denude the medial cuneiform and first metatarsal base of cartilage. After removal of cartilage a K wire was used to fenestrate the area for arthrodesis. The first metatarsal was then noted to be dorsiflexed. It was decided at this point of this procedure that the patient would benefit from a cotton wedge. A 6 mm Cool wedge was noted to provide the appropriate plantarflexion of the first ray. At this point, 3.5 headless compression screw was driven across the medial cuneiform into the navicular to compress the navicular cuneiform arthrodesis site. Good positioning of the screw was noted clinically as well as on C-arm imaging. Attention was then redirected to the cotton graft this was inserted into the first tarsometatarsal joint articulation. Appropriate plantarflexion of the first ray was noted. A 3.5 headless compression screw was then driven from distal to proximal across the joint. Good compression across the arthrodesis site was noted. Good positioning of the graft and screw was noted on C-arm imaging as well as clinically. Next a naviculocuneiform metatarsal fusion plate from [employer] was placed on the medial aspect of the naviculocuneiform metatarsal articulations. The plate was contoured appropriately before being fixated with 3.5 locking screws. Good position of plate and screws was noted clinically as well as on C-arm imaging. Incisions were then irrigated with copious amounts of sterile saline before attention was directed to closure. Deep tissue was closed with 3-0 Vicryl followed by subcuticular closure with 4-0 Vicryl and skin closed with 4-0 nylon in horizontal mattress fashion. Incision sites were dressed with Xeroform, 4 x 4 gauze, Kerlix before being placed in a well-padded below the knee posterior splint. The patient tolerated the procedure and anesthesia well and without complication. The patient was transported from the operating room to the recovery room with vital signs stable and vascular status intact to all digits of the left foot. The patient was given both written and verbal instructions to remain nonweightbearing to the operative extremity, to keep dressings/splint clean, dry and intact and to take pain medication as directed. The patient will follow-up in the outpatient setting at their scheduled appointment. The patient was discharged with my personal number and was instructed to call if any questions or issues should arise. They were discharged home once anesthesia criteria was met.
== END 2023-01-25 15:04 | disposition home or self-care (01) ==
PROVIDERS: Anesthesiology; PCP Family Medicine; Visit Provider Podiatrist Foot & Ankle Surgery
PROC: (CPT 28300; principal; 2023-01-25 08:40)
PROC: (CPT 28298; 2023-01-25 08:40)
PROC: (CPT 27687; 2023-01-25 08:40)
PROC: (CPT 27687; 2023-01-25 08:40)
PROC: (CPT 28300; 2023-01-25 08:40)
PROC: (CPT 28740; 2023-01-25 08:40)
PROC: (CPT 28740; 2023-01-25 08:40)
DX: M21.42 Flat foot [pes planus] (acquired), left foot (principal); M76.822 Posterior tibial tendinitis, left leg; I10 Essential (primary) hypertension; E66.01 Morbid (severe) obesity due to excess calories; Z68.41 Body mass index [BMI] 40.0-44.9, adult; K21.9 Gastro-esophageal reflux disease without esophagitis; Z87.891 Personal history of nicotine dependence
CPT/HCPCS: 27687; 28300; 28735; 73630; 76000; 80048; C1713; C9290; J0131; J1100; J1170; J1200; J1885; J2405; J2704; J2795; J3010; J3370; J3490; J7030; J7050

== ENCOUNTER 2023-02-02 11:17 | Emergency (ER) | payer MEDICAID, SELFPAY ==
[2023-02-02 11:31] VITALS: BP 133/93; PULSE 93; RESP 17; TEMP 36.5; O2SAT 97
--- NOTE | 2023-02-02 11:45 | USCV_ITS ---
Bubba Marisel Fay Age: 52 Gender: F : 1970 Exam Date: 02/02/2023 12:15 Ordering Phys: John Clements DO Technologist: Richardson Fernandez [place]am [place] [facility] [place] [facility] [place] Indication: lt leg pain and swelling PROCEDURES: Venous duplex imaging was performed in only the left lower extremity. The following venous structures were evaluated: common femoral vein, profunda vein, proximal portion of the greater saphenous vein, superficial femoral vein, and the popliteal vein. In addition, the posterior tibial and peroneal trunk were evaluated. FINDINGS: Normal 2-D Doppler and augmentation and compressibility throughout the lower extremity venous structures. Additional imaging through the proximal calf veins also reveals no thrombus. Limited evaluation of the greater saphenous vein is patent with no thrombus. CONCLUSIONS No evidence of left lower extremity DVT. Yoseph Pablo MD (Electronically Signed) Final Date: 02 February 2023 12:36 S
--- NOTE | 2023-02-02 13:28 | ED_ITS ---
HPI - Extremity Problem General: Chief complaint: Extremity Injury, Lower Stated complaint: physician sent, left foot possible blood clot Time Seen by Provider: 02/02/23 13:13 History of Present Illness: Patient presents to the ER with possible. Patient says her leg has been swellin g, become tenderness, and more bruised than normal postsurgery by Dr. Smith approximately [address] Smith's office told her to come here to rule out DVT. Patient is such informed us that she is on daily antibiotics for history of Staphylococcus septicemia. Patient would like her blood work to be checked out because she just feels more rundown than she think she should postsurgical. 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 Paraphrase of information obtained from Dr Vasquez's, ID at [facility], office and patient: Cultures grew Streptococcus. Hardware washed out. Source was NOT felt hardware related after evaluation. MAURILIO without vegetation. Infection involved left hand and left foot. Left hand had purulent material requiring surgical intervention. Paraspinal abscess also identified. Initially treated with ceftriaxone, then daptomycin added for fci home IV antibiotic treatment via PICC line followed, by continued oral keflex (still on oral Keflex prior to revision surgery done by Dr Navas at [facility] on 05/30/2022). Previous (date unknown) ESR > 100 with CRP also elevated. Scoliosis Surgical History History of back surgery 2019, surgical spinal alignment/correction of scoliosis at L2-L3, L3-L4 History of hand surgery left, related to abscess at same time as paraspinal abscess in 08/2021, with associated post-infection/post-surgery limitation of range of motion at DIP and PIP 3rd digit History of lumbar fusion 06/2021 in [facility], T10-S1 fusion History of lumbosacral spine surgery 05/30/[address] Eloise: 1. T8 - pelvis posterior spine fusion 2. T8-S1 instrumentation 3. Lumbopelvic fixation 4. removal of hardware from spine 5. Use of computer navigation stereotactic for spine 6. Use of allograft Status post left foot surgery with hardware at 5th metatarsal Family History Mother Scoliosis Rheumatoid arthritis Hypertension Social History Smoking and tobacco status: former smoker Quit status (tobacco): has quit using tobacco Year quit tobacco: 2019 Alcohol intake: never Substance/Drug Use: never Household members: spouse Marital status: Marital status details: is Fany Mac Physical Exam Const: COMMON NORMALS: no acute distress, average body habitus, patient oriented x3, no limitations, healthy appearing, alert and well nourished HENMT: COMMON NORMALS: normocephalic, atraumatic, hearing grossly normal bilaterally, external ears normal, Normal external nose present and moist oral mucous membranes HEAD & SCALP: normocephalic and atraumatic NOSE: Normal external nose present EXTERNAL EAR: Yes external ears normal Eye: COMMON NORMALS: Equal, round and reactive pupils present, EOMs intact bilaterally, conjunctivae normal and no scleral icterus CONJUNCTIVA: Yes conjunctivae normal PUPIL: Yes Equal, round and reactive pupils present Neck/C-Spine: COMMON NORMALS: full ROM, no lymphadenopathy, supple, no meningeal signs, no JVD and Thyroid normal THYROID: Thyroid normal Lymph: LYMPHATIC: no lymphadenopathy noted Chest: COMMONS NORMALS: normal inspection of the chest and normal palpation of entire chest wall Resp: COMMON NORMALS: normal respiratory effort, No retractions, No use of accessory muscles and clear to auscultation bilaterally AUSCULTATION: clear to auscultation bilaterally Cardio: COMMON NORMALS: no JVD, regular rate, regular rhythm, S1 normal heart sound present, S2 normal heart sound present, No gallops present (Cardio), No clicks present (Cardio), No murmurs present (Cardio) and No rub (Cardio) RATE: regular rate RHYTHM: regular rhythm HEART SOUNDS: S1 normal heart sound present and S2 normal heart sound present GI: COMMON NORMALS: Normal to inspection, nondistended, normoactive bowel sounds present Neuro: COMMON NORMALS: patient oriented x3 SENSORIUM/ORIENTATION: Yes alert MENINGEAL SIGNS: Yes no meningeal signs Course Vital Signs: Vital signs: Vital Signs Temperature 97.7 F 02/02/23 11:31 Pulse Rate 68 02/02/23 14:27 Respiratory Rate 17 02/02/23 11:31 Blood Pressure 118/64 02/02/23 14:27 Pulse Oximetry 98 02/02/23 14:27 Oxygen Delivery Me thod Room Air 02/02/23 14:27 MDM - Extremity (Nontraumatic) Medical Decision Making Patient presents to the ER with complaints of left lower extremity swelling tenderness and more bruising since surgery approximately 1 week ago. She was told to come here to rule out DVT. Patient had labs drawn and ultrasound, results pending. Labs came back and revealed elevated sed rate of approximately 55, elevated liver enzymes 44 and 98. These results were discussed with the patient patient was very concerned about the elevated sed rate explained to her is probably due to the surgery itself but I could not guarantee this. Patient was very concerned about her sepsis coming back so we will draw a lactic acid and 2 blood cultures and contact her with results. Patient should follow-up with Dr. Smith and her PCP at normal scheduled times. Differential Diagnosis Unlikely herpes zoster, gout, cellulitis, superficial thrombophlebitis, deep venous thrombosis of upper extremity, lower extremity edema or deep vein thrombosis of lower extremity Medical Records I reviewed the patient's medical records. Lab Data I reviewed the patient's lab results. 02/02/23 13:49 02/02/23 13:49 Laboratory Results WBC 8.08 10^3/uL (3.29-11.43) 02/02/23 13:49 RBC 4.28 10^6/uL (3.85-5.65) 02/02/23 13:49 Hgb 11.70 g/dL (11.27-16.99) 02/02/23 13:49 Hct 38.1 % (36-47) 02/02/23 13:49 MCV 89.0 fl (85-98) 02/02/23 13:49 MCH 27.3 pg (27-33) 02/02/23 13:49 MCHC 30.7 g/dL (30-55) 02/02/23 13:49 RDW 14.5 % (12.1-15.1) 02/02/23 13:49 Plt Count 317 10^3/cmm (157-399) 02/02/23 13:49 MPV 10.2 fL (7.4-10.4) 02/02/23 13:49 Neut % (Auto) 62.7 % 02/02/23 13:49 Lymph % (Auto) 23.6 % 02/02/23 13:49 Osborne % (Auto) 8.4 % 02/02/23 13:49 Eos % (Auto) 3.8 % 02/02/23 13:49 Baso % (Auto) 1.0 % 02/02/23 13:49 Neut # (Auto) 5.06 10^3/uL (1.8-7.7) 02/02/23 13:49 Lymph # (Auto) 1.9 10^3/uL (0.8-4.8) 02/02/23 13:49 Osborne # (Auto) 0.7 10^3/uL (0.2-0.9) 02/02/23 13:49 Eos # (Auto) 0.3 10^3/uL (0.0-0.8) 02/02/23 13:49 Baso # (Auto) 0.1 10^3/uL (0.0-0.1) 02/02/23 13:49 Nucleated RBC % (auto) 0 % 02/02/23 13:49 Nucleated RBCs # 0.0 /100WBC 02/02/23 13:49 ESR 55 mm/hr (0-15) H 02/02/23 13:49 Sodium 139 mmol/L (136-145) 02/02/23 13:49 Potassium 4.0 mmol/L (3.5-5.1) 02/02/23 13:49 Chloride 105 mmol/L (98-107) 02/02/23 13:49 Carbon Dioxide 23 mmol/L (22-29) 02/02/23 13:49 Anion Gap 15.0 (5-19) 02/02/23 13:49 BUN 19 mg/dL (6-20) 02/02/23 13:49 Creatinine 0.5 mg/dL (0.5-0.9) 02/02/23 13:49 GFR Calculation 128.6 mL/min (90-130) 02/02/23 13:49 Glucose 100 mg/dL (65-115) 02/02/23 13:49 Calculated Osmolality 290 mOsm/kg (285-295) 02/02/23 13:49 Calcium 9.1 mg/dL (8.5-10.5) 02/02/23 13:49 Total Bilirubin 0.3 mg/dL (0.15-1.2) 02/02/23 13:49 AST 44 U/L (0-32) H 02/02/23 13:49 ALT 98 U/L (0-33) H 02/02/23 13:49 Alkaline Phosphatase 271 U/L (35-105) H 02/02/23 13:49 Total Protein 6.6 g/dL (6.6-8.7) 02/02/23 13:49 Albumin 3.8 g/dL (3.5-5.2) 02/02/23 13:49 Globulin 2.8 g/dL (1.3-4.6) 02/02/23 13:49 Discharge Plan Discharge Patient Disposition: Home Clinical Impression: Acute pain of left lower extremity, Elevated erythrocyte sedimentation rate, Elevated liver enzymes Condition: Stable Prescriptions: No Action pantoprazole [Protonix] 40 mg tablet,delayed release (DR/EC) 40 mg PO DAILY losartan 25 mg tablet 25 mg PO DAILY (DME) LSO See Rx Instructions .Route .MEDSUPPLY Qty: 1 0RF Rx Instructions: As directed ([facility]) UCBL insert See Rx Instructions .Route .MEDSUPPLY Qty: 1 0RF Rx Instructions: As directed [facility] [place] diclofenac sodium 75 mg tablet,delayed release (DR/EC) 75 mg PO BID losartan 100 mg tablet 100 mg PO DAILY oxycodone 5 mg tablet 5 mg PO Q6H PRN (Reason: pain) 7 Days Qty: 30 0RF ([facility]) Bone growth Stimulator E0748 See Rx Instructions .Route .MEDSUPPLY Qty: 1 0RF Rx Instructions: As directed cyclobenzaprine 10 mg tablet 10 mg PO TID PRN (Reason: Muscle Spasms) Qty: 30 0RF ([facility]) Crutches See Rx Instructions .Route .MEDSUPPLY Qty: 1 0RF Rx Instructions: As directed by HOME ([facility]) crutches See Rx Instructions .Route .MEDSUPPLY Qty: 1 0RF Rx Instructions: As directed to HOME ferrous sulfate [iron] 325 mg (65 mg iron) Tablet 325 mg PO DAILY calcium carbonate [Calcium 600] 600 mg calcium (1,500 mg) Tablet 600 mg PO DAILY amoxicillin 500 mg capsule 500 mg PO TID duloxetine 60 mg capsule,delayed release(DR/EC) 60 mg PO DAILY oxycodone-acetaminophen 5-325 mg tablet 1 tab PO Q6H PRN (Reason: pain) Qty: 28 0RF oxycodone 10 mg tablet 10 mg PO BID PRN (Reason: Pain) Excedrin Extra Strength 250-250-65 mg Tablet 1 tab PO Q6H PRN (Reason: Pain) Discharge Orders: Discharge ED (Routine); Ordered 02/02/23 Ordered By: John Clements Referrals: Zuleyka Collado MD [Primary Care Provider] - 1 week Patient Instructions: Leg Pain (ED) Activity Restrictions/Additional Instructions: Due to your risk for sepsis and your sed rate being high a lactic acid and cultures were drawn. You will be called with these results. Until then please follow-up with your aviation metalsmith as previously scheduled and your family practice doctor as needed. Coding Level of Care Code ED Casting Chipper for Kayla Velázquez
--- NOTE | 2023-02-02 13:43 | PC.PHAR ---
PT STATES AMOXICILLIN 500 MG IS 3 TIMES DAILY. PT ALSO, HAS SEVERAL C2 PAIN MEDS SHE HAS ACQUIRED OVER THE PAST SEVERAL MONTHS. SHE SEEMS TO HAVE A FEW LEFT OVER.
[2023-02-02 14:11] LABS: Basophils # 0.1 10^3/uL (0.0-0.1); Eosinophils # 0.3 10^3/uL (0.0-0.8); Eosinophils % 3.8 %; Hematocrit 38.1 % (36-47); Lymphocytes # 1.9 10^3/uL (0.8-4.8); Lymphocytes % 23.6 %; Mean Corpuscular HGB Conc 30.7 g/dL (30-55); Mean Corpuscular Hemoglobin 27.3 pg (27-33); Mean Platelet Volume 10.2 fL (7.4-10.4); Monocytes # 0.7 10^3/uL (0.2-0.9); Monocytes % 8.4 %; Neutrophils # 5.06 10^3/uL (1.8-7.7); Neutrophils % 62.7 %; Nucleated Red Blood Cells % 0 %; Platelet Count 317 10^3/cmm (157-399); Red Blood Count 4.28 10^6/uL (3.85-5.65); Red Cell Distribution Width 14.5 % (12.1-15.1); White Blood Count 8.08 10^3/uL (3.29-11.43)
[2023-02-02 14:20] LABS: Erythrocyte Sedimentation Rate 55 mm/hr (0-15)
--- NOTE | 2023-02-02 14:26 | PC.NURSE ---
nurse assumed care at 14:21
[2023-02-02 14:27] VITALS: BP 118/64; PULSE 68; O2SAT 98
[2023-02-02 14:31] LABS: Alanine Aminotransferase 98 U/L (0-33); Albumin Level 3.8 g/dL (3.5-5.2); Alkaline Phosphatase 271 U/L (35-105); Aspartate Amino Transferase 44 U/L (0-32); Blood Urea Nitrogen 19 mg/dL (6-20); Calcium 9.1 mg/dL (8.5-10.5); Carbon Dioxide 23 mmol/L (22-29); Chloride 105 mmol/L (98-107); Globulin 2.8 g/dL (1.3-4.6); Glomerular Filtration Rate 128.6 mL/min (90-130); Glucose 100 mg/dL (65-115); Osmolality Calculated 290 mOsm/kg (285-295); Sodium 139 mmol/L (136-145); Total Bilirubin 0.3 mg/dL (0.15-1.2); Total Protein 6.6 g/dL (6.6-8.7)
[2023-02-02 16:18] LABS: Lactic Sepsis W/Reflex 0.7 mmol/L (0.5-2.2)
[2023-02-02 16:27] VITALS: BP 114/86; PULSE 69; O2SAT 98
== END 2023-02-02 16:37 | disposition home or self-care (01) ==
PROVIDERS: Emergency Provider Emergency Medicine; PCP Family Medicine
DX: M79.605 Pain in left leg (principal); R70.0 Elevated erythrocyte sedimentation rate; R74.8 Abnormal levels of other serum enzymes; Z87.891 Personal history of nicotine dependence; I10 Essential (primary) hypertension
CPT/HCPCS: 36415; 80053; 83605; 85025; 85651; 87040; 87150; 87205; 93971; 99284

== ENCOUNTER → 2023-02-07 12:40 | Outpatient (BNVA) | payer MEDICAID, SELFPAY | PROVIDERS: PCP Family Medicine; Visit Provider Podiatrist Foot & Ankle Surgery | DX: M76.822 Posterior tibial tendinitis, left leg; M19.072 Primary osteoarthritis, left ankle and foot; M21.6X2 Other acquired deformities of left foot | CPT/HCPCS: 73630 ==

== ENCOUNTER → 2023-02-15 08:53 | Day surgery (SDC) | payer MEDICAID, SELFPAY ==
--- NOTE | 2023-02-15 09:45 | PC.NURSE ---
Pt to GI infusions for midline placement. Pt to receive Ertapenem 1 gm IV x 14 days. Midline placed to left brachial vein by Joellen Oconnor RN. Left arm assessed with brachial vein measuring 4.4 mm, straight, and apparent best choice for placement. Using sterile technique and MST, brachial vein accessed x 1 stick. Mid-arm circumference measured 10 cm from left AC 41 cm. Trimmed cath 11 cm with 2 cm external length noted. Line secured with stat-lock. Insertion site covered with Biopatch and TSM. Report faxed to [facility] and [facility].
[2023-02-15 10:02] LABS: Basophils # 0.1 10^3/uL (0.0-0.1); Eosinophils # 0.3 10^3/uL (0.0-0.8); Eosinophils % 5.2 %; Lymphocytes # 1.8 10^3/uL (0.8-4.8); Lymphocytes % 31.3 %; Mean Corpuscular Hemoglobin 26.8 pg (27-33); Mean Corpuscular Volume 89.4 fl (85-98); Monocytes # 0.3 10^3/uL (0.2-0.9); Monocytes % 5.4 %; Neutrophils # 3.24 10^3/uL (1.8-7.7); Neutrophils % 56.8 %; Nucleated Red Blood Cells % 0 %; Platelet Count 309 10^3/cmm (157-399); Red Blood Count 4.14 10^6/uL (3.85-5.65); Red Cell Distribution Width 13.7 % (12.1-15.1); White Blood Count 5.72 10^3/uL (3.29-11.43)
[2023-02-15] MEDS: ertapenem 1,000 MG in sodium chloride 0.9% (plus) 100 ML 200 MG IV (10:07)
[2023-02-15 10:12] VITALS: BP 174/81; PULSE 81; RESP 18; TEMP 36.2; O2SAT 94
[2023-02-15 10:18] LABS: Alanine Aminotransferase 27 U/L (0-33); Alkaline Phosphatase 210 U/L (35-105); Anion Gap 11.4 (5-19); Aspartate Amino Transferase 14 U/L (0-32); Blood Urea Nitrogen 15 mg/dL (6-20); C Reactive Protein 4.9 mg/L (0.0-4.9); Calcium 9.1 mg/dL (8.5-10.5); Carbon Dioxide 26 mmol/L (22-29); Chloride 108 mmol/L (98-107); Globulin 2.4 g/dL (1.3-4.6); Glomerular Filtration Rate 104.2 mL/min (90-130); Glucose 109 mg/dL (65-115); Osmolality Calculated 293 mOsm/kg (285-295); Potassium 4.4 mmol/L (3.5-5.1); Sodium 141 mmol/L (136-145); Total Bilirubin 0.2 mg/dL (0.15-1.2); Total Protein 6.4 g/dL (6.6-8.7)
== END ==
PROVIDERS: PCP Family Medicine; Visit Provider Internal Medicine Infectious Disease
DX: R78.81 Bacteremia (principal); B95.5 Unspecified streptococcus as the cause of diseases classified elsewhere
CPT/HCPCS: 36569; 36573; 36592; 80053; 85025; 86140; 96365; C1751; J1335

== ENCOUNTER → 2023-02-16 12:34 | Day surgery (SDC) | payer MEDICAID, SELFPAY ==
[2023-02-16 12:30] VITALS: BP 162/105; PULSE 93; RESP 18; TEMP 36.6; O2SAT 100
--- NOTE | 2023-02-16 13:41 | PC.NURSE ---
Pt to GI infusions due to midline dressing being saturated with blood. Pt had midline placed yesterday. Biopatch saturated with blood and blood noted under TSM. Pt brought dressing supplies from home infusion company. Midline dressing changed using sterile technique. Pt tolerated well.
== END ==
PROVIDERS: PCP Family Medicine; Visit Provider Internal Medicine Infectious Disease
DX: R78.81 Bacteremia (principal); B95.5 Unspecified streptococcus as the cause of diseases classified elsewhere

== ENCOUNTER → 2023-02-20 08:59 | Day surgery (SDC) | payer MEDICAID, SELFPAY ==
[2023-02-20 09:15] VITALS: BP 159/94; PULSE 83; RESP 18; TEMP 36.1; O2SAT 96
--- NOTE | 2023-02-20 09:15 | PC.NURSE ---
Pt to GI infusions for evaluation of midline to left upper arm. Pt states on Monday, fluid filled under the TSM with infusion. Pt states she lifted the corner of the dressing up slightly to let the fluid drain. Pt states on Monday, there was no leaking with infusion. Dressing noted to have yellowish drainage under TSM, but no current fluid or leaking noted. Mid-arm circumference 41 cm, same as day of insertion. Left upper arm without signs of infiltration. No redness, swelling, firmness, or current drainage noted. Good blood return noted and flushed with NS without difficulty. Dressing changed using sterile technique. Pt to return on Monday of this week for lab draw and repeat dressing change. Adelaida, ID coordinator at [facility], notified.
== END ==
PROVIDERS: PCP Family Medicine; Visit Provider Internal Medicine Infectious Disease
DX: A49.1 Streptococcal infection, unspecified site (principal); R78.81 Bacteremia

== ENCOUNTER → 2023-02-22 11:40 | Day surgery (SDC) | payer MEDICAID, SELFPAY ==
[2023-02-22 11:50] VITALS: BP 168/97; PULSE 78; RESP 8; TEMP 36.3; O2SAT 99
--- NOTE | 2023-02-22 12:18 | PC.NURSE ---
Pt to GI infusions for midline dressing change and lab draw. Pt brought dressing supplies from home infusion company. Blood return noted to midline. Flushes without difficulty. Dressing changed using sterile technique. Lab results to be faxed to [facility] and [facility] as requested.
[2023-02-22 12:28] LABS: Basophils # 0.1 10^3/uL (0.0-0.1); Basophils % 1.3 %; Eosinophils # 0.3 10^3/uL (0.0-0.8); Eosinophils % 3.9 %; Hematocrit 37.8 % (36-47); Lymphocytes # 1.7 10^3/uL (0.8-4.8); Lymphocytes % 24.4 %; Mean Corpuscular HGB Conc 30.4 g/dL (30-55); Mean Corpuscular Hemoglobin 27.3 pg (27-33); Mean Corpuscular Volume 89.6 fl (85-98); Mean Platelet Volume 10.2 fL (7.4-10.4); Monocytes # 0.4 10^3/uL (0.2-0.9); Monocytes % 4.9 %; Neutrophils # 4.63 10^3/uL (1.8-7.7); Neutrophils % 65.2 %; Nucleated Red Blood Cells % 0 %; Platelet Count 324 10^3/cmm (157-399); Red Blood Count 4.22 10^6/uL (3.85-5.65); Red Cell Distribution Width 13.9 % (12.1-15.1)
[2023-02-22 12:49] LABS: Alanine Aminotransferase 30 U/L (0-33); Albumin Level 3.8 g/dL (3.5-5.2); Alkaline Phosphatase 177 U/L (35-105); Aspartate Amino Transferase 26 U/L (0-32); Blood Urea Nitrogen 13 mg/dL (6-20); C Reactive Protein 6.2 mg/L (0.0-4.9); Calcium 9.3 mg/dL (8.5-10.5); Carbon Dioxide 27 mmol/L (22-29); Chloride 106 mmol/L (98-107); Globulin 2.6 g/dL (1.3-4.6); Glomerular Filtration Rate 87.2 mL/min (90-130); Glucose 96 mg/dL (65-115); Osmolality Calculated 294 mOsm/kg (285-295); Sodium 142 mmol/L (136-145); Total Bilirubin 0.2 mg/dL (0.15-1.2); Total Protein 6.4 g/dL (6.6-8.7)
[2023-02-22 13:11] LABS: Anion Gap 12.8 (5-19); Potassium 3.8 mmol/L (3.5-5.1)
== END ==
PROVIDERS: PCP Family Medicine; Visit Provider Internal Medicine Infectious Disease
DX: A49.1 Streptococcal infection, unspecified site (principal); R78.81 Bacteremia; M76.822 Posterior tibial tendinitis, left leg; M19.072 Primary osteoarthritis, left ankle and foot; M21.6X2 Other acquired deformities of left foot
CPT/HCPCS: 36592; 73630; 80053; 85025; 86140

== ENCOUNTER → 2023-02-24 08:38 | Day surgery (SDC) | payer MEDICAID, SELFPAY ==
[2023-02-24 09:00] VITALS: BP 145/81; PULSE 72; RESP 18; TEMP 36.3; O2SAT 94
--- NOTE | 2023-02-24 09:45 | PC.NURSE ---
Pt called yesterday stating midline leaking with infusion. Pt scheduled today for evaluation. When midline flushed, leaking noted. Midline dressing changed. Midline noted to be pulled out 7 cm and almost completely out of arm. Midline removed from left arm. Adelaida with [facility] notified. Orders received to replace midline. Right arm assessed. Right brachial vein noted to be 4 mm, straight and apparent best choice for placement. Using sterile technique and MST, right brachial vein accessed. Good blood return noted but unable to thread guide wire. Second attempt made and successful. Mid-arm circumference 39 cm measured 10 cm from right AC. Trimmed cath 9 cm with no external length noted. Line secured with stat-lock. Insertion site covered with Biopatch and TSM. Report faxed to [facility].
== END ==
PROVIDERS: PCP Family Medicine; Visit Provider Internal Medicine Infectious Disease
DX: A49.1 Streptococcal infection, unspecified site (principal); R78.81 Bacteremia
CPT/HCPCS: 36573; C1751

== ENCOUNTER → 2023-02-27 08:44 | Day surgery (SDC) | payer MEDICAID, SELFPAY ==
[2023-02-27 09:24] VITALS: BP 176/92; PULSE 73; RESP 18; TEMP 36.8; O2SAT 96
[2023-02-27 09:24] LABS: Basophils # 0.1 10^3/uL (0.0-0.1); Basophils % 1.2 %; Eosinophils # 0.4 10^3/uL (0.0-0.8); Eosinophils % 5.8 %; Hematocrit 37.9 % (36-47); Lymphocytes # 1.6 10^3/uL (0.8-4.8); Lymphocytes % 24.2 %; Mean Corpuscular HGB Conc 30.1 g/dL (30-55); Mean Corpuscular Hemoglobin 27.1 pg (27-33); Mean Platelet Volume 10.4 fL (7.4-10.4); Monocytes # 0.3 10^3/uL (0.2-0.9); Monocytes % 4.8 %; Neutrophils # 4.27 10^3/uL (1.8-7.7); Neutrophils % 63.7 %; Nucleated Red Blood Cells % 0 %; Platelet Count 304 10^3/cmm (157-399); Red Blood Count 4.21 10^6/uL (3.85-5.65); Red Cell Distribution Width 13.9 % (12.1-15.1)
--- NOTE | 2023-02-27 09:25 | PC.NURSE ---
Pt called stating she needed to come in early due to midline leaking. Upon arrival, dressing removed and midline evaluated. Large amount old, bloody drainage noted on midline dressing. Upon flushing with saline, leakage noted immediately around catheter. No blood return noted. Adelaida, ID nurse at [facility], notified. Orders received to pull midline and start peripheral IV for remaining 2 days of IV antibiotics.
[2023-02-27 09:47] LABS: Alanine Aminotransferase 40 U/L (0-33); Albumin Level 3.8 g/dL (3.5-5.2); Alkaline Phosphatase 204 U/L (35-105); Blood Urea Nitrogen 10 mg/dL (6-20); C Reactive Protein 12.8 mg/L (0.0-4.9); Calcium 9.1 mg/dL (8.5-10.5); Carbon Dioxide 25 mmol/L (22-29); Chloride 104 mmol/L (98-107); Globulin 2.7 g/dL (1.3-4.6); Glomerular Filtration Rate 128.6 mL/min (90-130); Glucose 97 mg/dL (65-115); Osmolality Calculated 287 mOsm/kg (285-295); Sodium 139 mmol/L (136-145); Total Bilirubin 0.2 mg/dL (0.15-1.2); Total Protein 6.5 g/dL (6.6-8.7)
[2023-02-27 09:56] LABS: Anion Gap 13.7 (5-19)
[2023-02-27 09:57] LABS: Potassium 3.7 mmol/L (3.5-5.1)
[2023-02-27 10:00] LABS: Aspartate Amino Transferase 29 U/L (0-32)
== END ==
PROVIDERS: PCP Family Medicine; Visit Provider Internal Medicine Infectious Disease
DX: A49.1 Streptococcal infection, unspecified site (principal); R78.81 Bacteremia
CPT/HCPCS: 36415; 80053; 85025; 86140

== ENCOUNTER → 2023-03-08 15:01 | Outpatient (BNVA) | payer MEDICAID, SELFPAY | PROVIDERS: PCP Family Medicine; Visit Provider Podiatrist Foot & Ankle Surgery | DX: M21.6X2 Other acquired deformities of left foot (principal); Z98.890 Other specified postprocedural states; M19.079 Primary osteoarthritis, unspecified ankle and foot | CPT/HCPCS: 73630 ==

== ENCOUNTER → 2023-03-22 13:23 | Outpatient (BNVA) | payer OTHER, SELFPAY | PROVIDERS: PCP Family Medicine; Visit Provider Podiatrist Foot & Ankle Surgery | DX: Z98.890 Other specified postprocedural states (principal); M19.072 Primary osteoarthritis, left ankle and foot; M21.6X2 Other acquired deformities of left foot | CPT/HCPCS: 73630 ==

== ENCOUNTER 2023-04-04 06:00 | Outpatient (RCR) | payer OTHER, SELFPAY | END 2023-04-11 23:59 | disposition home or self-care (01) | LOC: MPT 06:00 | PROVIDERS: PCP Family Medicine; Visit Provider Podiatrist Foot & Ankle Surgery | DX: M17.12 Unilateral primary osteoarthritis, left knee (principal); M21.6X2 Other acquired deformities of left foot; Z98.890 Other specified postprocedural states | CPT/HCPCS: 97110; 97116; 97140; 97162 ==

== ENCOUNTER → 2023-04-04 13:02 | Outpatient (BNVA) | payer OTHER, SELFPAY | PROVIDERS: PCP Family Medicine; Visit Provider Podiatrist Foot & Ankle Surgery | DX: Z98.890 Other specified postprocedural states; M19.072 Primary osteoarthritis, left ankle and foot; M21.6X2 Other acquired deformities of left foot | CPT/HCPCS: 73610 ==

== ENCOUNTER 2023-04-12 06:00 | Outpatient (RCR) | payer OTHER, SELFPAY | END 2023-05-11 23:59 | disposition home or self-care (01) | LOC: MPT 06:00 | PROVIDERS: PCP Family Medicine; Visit Provider Podiatrist Foot & Ankle Surgery | DX: M17.12 Unilateral primary osteoarthritis, left knee (principal); M21.6X2 Other acquired deformities of left foot | CPT/HCPCS: 97110; 97140 ==

== ENCOUNTER 2023-05-12 06:00 | Outpatient (RCR) | payer OTHER, SELFPAY | END 2023-05-18 23:59 | disposition home or self-care (01) | LOC: MPT 06:00 | PROVIDERS: PCP Family Medicine; Visit Provider Podiatrist Foot & Ankle Surgery | DX: M17.12 Unilateral primary osteoarthritis, left knee (principal) | CPT/HCPCS: 97110; 97140 ==

== ENCOUNTER → 2023-08-29 08:18 | Outpatient (BNVA) | payer OTHER, SELFPAY | PROVIDERS: PCP Family Medicine; Visit Provider Orthopaedic Surgery | DX: M54.9 Dorsalgia, unspecified (principal); Z98.1 Arthrodesis status | CPT/HCPCS: 72072; 72100 ==

== ENCOUNTER 2023-09-12 10:19 | Outpatient (CLI) | payer OTHER, SELFPAY ==
--- NOTE | 2023-09-12 10:38 | MM_ITS ---
WS: [id number] BILATERAL 3D TOMOSYNTHESIS DIGITAL SCREENING MAMMOGRAPHY WITH CAD CLINICAL INFORMATION: SCREENING HISTORY: Screening mammogram. No current complaints. COMPARISON: 2021 TECHNIQUE: Bilateral CC and MLO views. FINDINGS: Scattered fibroglandular densities bilaterally. No suspicious focal mass, asymmetry, calcifications, or architectural distortion. No evidence of malignancy. Incidental punctate calcifications. A few inc idental intramammary lymph node RIGHT breast similar to previous. IMPRESSION: MM/[place] [id number] BI-RADS: 2-Benign FOLLOW UP: 1 Year Follow-up Recommend return to annual screening mammography.
== END 2023-09-12 10:20 | disposition home or self-care (01) ==
LOC: RAD 10:20
PROVIDERS: PCP Family Medicine; Visit Provider Family Medicine
DX: Z12.31 Encounter for screening mammogram for malignant neoplasm of breast (principal); R92.30 Dense breasts, unspecified
CPT/HCPCS: 77063; 77067; 88305

== ENCOUNTER → 2023-12-21 08:07 | Outpatient (BNVA) | payer OTHER, SELFPAY | PROVIDERS: PCP Family Medicine; Visit Provider Podiatrist Foot & Ankle Surgery | DX: T84.84XA Pain due to internal orthopedic prosthetic devices, implants and grafts, initial encounter; Y79.2 Prosthetic and other implants, materials and accessory orthopedic devices associated with adverse incidents | CPT/HCPCS: 73630 ==

== ENCOUNTER 2024-01-24 07:26 | Day surgery (SDC) | payer OTHER, SELFPAY ==
[2024-01-24] VITALS (7 sets, daily range): BP systolic 90–176; BP diastolic 61–107; PULSE 61–90; RESP 17–20; TEMP 36.5–36.7; O2SAT 95–99; BMI 40.0
--- NOTE | 2024-01-24 | XR_ITS ---
WS: [id number] INTRAOPERATIVE TECHNIQUE: 2 Spot fluoroscopic images for intraoperative purposes. FLUOROSCOPY TIME: 16 seconds CLINICAL INFORMATION: ESTEBAN PICS FINDINGS: Images obtained for intraoperative purposes. Pes planus with plantar calcaneal spurring. Partially vi sualized postoperative changes in the midfoot. XR/XR foot LT 2V [id number] IMPRESSION: Images obtained for intraoperative purposes.
[2024-01-24] MEDS: acetaminophen 1,000 MG/100 ML PIGGYBACK 400 MG IV (08:25)
[2024-01-24] MEDS: gabapentin 300 mg Capsule PO (08:29)
--- NOTE | 2024-01-24 08:41 | ANES.PREANE2 ---
Pre-Anesthetic Assessment Height/Weight: Height 1.57 m Weight 99.337 kg Temp Pulse Resp BP Pulse Ox O2 Del Method 97.8 F 74 18 176/107 96 Room Air 01/24/24 07:52 01/24/24 07:52 01/24/24 07:52 01/24/24 07:52 01/24/24 07:52 01/24/24 08:00 Preop Diagnosis: Painful hardware left foot Operation Date: 01/24/24 09:10 Proposed Procedures p Hardware Removal left foot(Left) - Jose Smith DPM Familial anesthetic complications: None Was Beta Maryjane taken within 24 hours: N/A Was Clonidine taken within 24 hours: N/A Last intake: Intake Last Liquid Date 01/23/24 Last Liquid Time 20:00 Last Solid Date 01/23/24 Last Solid Time 17:00 Social No alcohol and No tobacco Exam alert, oriented x 3, clear to auscultation bilaterally and regular rate & rhythm Airway Mallampati: Class II Dentition: full CV/HEM Hypertension GI Gastroesophageal Reflux Disease Anesthetic Plan ASA status: 2 Anesthesia: MAC Risk of > 500 ml blood loss (7ml/kg in children): No Medications/Allergies Home Medications Medication Instructions Recorded Confirmed Last Taken Type diclofenac sodium 75 mg 75 mg PO BID 04/21/22 01/23/24 01/23/24 History tablet,delayed release pantoprazole 40 mg tablet,delayed 40 mg PO DAILY 04/28/22 01/23/24 01/23/24 History release (Protonix) LSO #1 ea 05/04/22 01/17/24 02/27/23 Rx ferrous sulfate 325 mg (65 mg 325 mg PO DAILY 05/23/22 01/23/24 01/23/24 History iron) tablet (iron) calcium carbonate (Calcium 600) 600 mg PO DAILY 05/31/22 01/23/24 01/23/24 History Bone growth Stimulator E0748 #1 ea 06/22/22 01/17/24 02/27/23 Rx UCBL insert #1 ea 08/29/22 01/17/24 02/27/23 Rx losartan 100 mg tablet 100 mg PO DAILY 08/29/22 01/23/24 01/23/24 History duloxetine 60 mg capsule,delayed 60 mg PO DAILY 01/24/23 01/23/24 01/23/24 History release Crutches #1 ea 01/25/23 01/17/24 02/27/23 Rx crutches #1 ea 01/25/23 01/17/24 02/27/23 Rx oxycodone-acetaminophen 5 mg-325 1 tab PO Q6H PRN pain #28 tabs 01/25/23 01/23/24 01/23/24 Rx mg tablet mizotkx-jyqpsnduwihhq-ycjfpvil 250 1 tab PO Q6H PRN Pain 02/02/23 01/23/24 01/11/24 History mg-250 mg-65 mg tablet (Excedrin Extra Strength) oxycodone 10 mg tablet 10 mg PO BID PRN Pain 02/02/23 01/23/24 01/24/24 History Cam Boot #1 ea 03/08/23 01/17/24 Unknown Rx cyclobenzaprine 10 mg tablet 10 mg PO TID PRN Muscle Spasms #60 04/20/23 01/23/24 01/23/24 Rx tabs custom orthopedic insoles L3020 #1 ea 04/25/23 01/17/24 Unknown Rx amoxicillin 500 mg capsule 500 mg PO TID 01/24/24 01/24/24 01/24/24 History Allergies Allergy/AdvReac Type Severity Reaction Status Date / Time ceftriaxone Allergy Mild ALGY-Hives Verified 01/23/24 10:00 daptomycin Allergy Swelling Verified 01/23/24 10:00 face, hands, feet lisinopril Allergy ADR-Cough Verified 01/23/24 10:00 [facility] [place] [place] Anesthesia Medical History Neuropathy History of transesophageal echocardiography (MAURILIO) (~09/2021) Chronic antibiotic suppression History of streptococcal septicemia Scoliosis 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 Paraphrase of information obtained from Dr Vasquez's, ID at [facility], office and patient: Cultures grew Streptococcus. Hardware washed out. Source was NOT felt hardware related after evaluation. MAURILIO without vegetation. Infection involved left hand and left foot. Left hand had purulent material requiring surgical intervention. Paraspinal abscess also identified. 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 Previous (date unknown) ESR > 100 with CRP also elevated. GERD (gastroesophageal reflux disease) Hypertension Anxiety Surgical History History of hand surgery left, related to abscess at same time as paraspinal abscess in 08/2021, with associated post-infection/post-surgery limitation of range of motion at DIP and PIP 3rd digit Status post left foot surgery with hardware at 5th metatarsal History of back surgery 2019, surgical spinal alignment/correction of scoliosis at L2-L3, L3-L4 History of lumbosacral spine surgery 05/30/[address] Navas: 1. T8 - pelvis posterior spine fusion 2. T8-S1 instrumentation 3. Lumbopelvic fixation 4. removal of hardware from spine 5. Use of computer navigation stereotactic for spine 6. Use of allograft History of lumbar fusion 06/2021 in [facility] [place], T10-S1 fusion Family History Mother Scoliosis Rheumatoid arthritis Hypertension Father Heart disease Hypercholesteremia Denies family history of Colon cancer Ovarian cancer Prostate cancer Diabetes Breast cancer Uterine cancer Thyroid disease Stroke Social History Smoking and tobacco/nicotine status: never used tobacco/nicotine Quit status (tobacco/nicotine): has quit using Year quit tobacco: 2019 Alcohol intake: never Marital status: Marital status details: is Fany [employer] Data Anesthesia Cardiac Studies: No Data to Display
--- NOTE | 2024-01-24 09:01 | W.PM.OPSUD ---
Surgery/Procedure H&P Update DATE OF PROCEDURE: January 24, 2024 DATE H&P PERFORMED: 01/17/24 H&P UPDATE INFORMATION: I have reviewed H&P completed within last 30 days, I have examined patient prior to procedure, No changes to prior documentation and H&P is in [facility] EMR on date indicated PREOP DIAGNOSIS: Painful hardware left foot PLANNED PROCEDURE: Operation Date: 01/24/24 09:10 Proposed Procedures p Hardware Removal left foot(Left) - Jose Smith DPM
[2024-01-24] MEDS: clindamycin 600 MG/50 ML PREMIX 100 MG IV (09:12)
[2024-01-24] MEDS: BUPivacaine 0.5% INJ 30 mL XX (09:15)
--- NOTE | 2024-01-24 10:13 | P.BOP_ITS ---
Date of procedure: 01/24/2024 Surgeon name: Dr. Jose Smith D.P.M. Enginehouse Brakeman(s) name(s): Davon Procedure(s) performed: Hardware removal left foot Description of findings: Retained orthopedic hardware left foot with backing out of screws Estimated blood loss: 5 cc Tourniquet time: 36 minutes Specimen(s) removed: Hardware left foot Post-operative diagnosis: Painful retained hardware left foot
--- NOTE | 2024-01-24 10:14 | P.OP_ITS ---
Operative Report Date of procedure: January 24, 2024 Pre-op diagnosis: Painful hardware left foot Post-op diagnosis: Same Post-op findings: Hardware failure left foot Procedure done: Hardware removal deep left foot CPT 56228 Surgeon: Jose Smith DPM Copying Machine Mechanic: Davon Estimated blood loss: 5 cc 36 minutes Complications: None Findings: See above Procedure: Patient is a 53-year-old female that has a history of painful hardware left foot with backing out screw. The patient has had the aforementioned chief complaint for some time. Conservative treatment measures have been attempted and the patient has opted for surgical intervention at this time. A lengthy discussion regarding the procedure, including risks and complications has been had with the patient and is noted in the recent clinic note. Written and verbal consent have been obtained. All patient questions have been answered to the patient?s satisfaction. No written or verbal guarantees have been given or implied. The patient has been NPO since midnight. The history has been reviewed and the history and physical is current. The signed consent was confirmed and placed in the patient chart. Patient imaging has been reviewed and is consistent with the diagnosis. Under mild sedation, the patient was brought into the operating room and placed on the table in the supine position. IV antibiotics were given by the anesthesia team as preoperative surgical prophylaxis. IV sedation was then performed by the anesthesiateam. A local field block was performed using 0.5% Marcaine plain. A pneumatic tourniquet was then placed about the left ankle. The operative extremity was then prepped and draped in the usual fashion. The extremity was then elevated and exsanguinated before the tourniquet was inflated to 250 mmHg. After inflation, the following procedure was then performed. Attention was directed to the lateral aspect of the left ankle where a 15 blade was used to make a 4 cm incision over the previous incision site distal to the distal tip of the fibula. Blunt dissection was carried down through subcutaneous the superficial fascia using hemostat. Hemostasis was achieved using electrocautery. Dissection was carried out to expose the peroneal tendon sheath. This was retracted out of the operative field. Dissection was carried down to the lateral wall of the calcaneus where plate and screws were visualized. Proximal screw was noted to be backing out of the plate. This was removed. The distal holes of the plate then had screws removed and the plate was removed. All hardware was noted to be removed from the site of concern and this was confirmed on C-arm imaging. This totaled 1 Cool plate and 3 locking screws. The site was then irrigated with copious amounts of sterile saline before attention was directed to closure. Deep tissue was closed with 3-0 Vicryl followed by subcuticular closure with 4-0 Vicryl and skin closure using 4-0 nylon in horizontal mattress fashion. The tourniquet was let down and good hyperemic response was noted to all digits of the left foot. The incision site was dressed with Xeroform, 4 x 4 gauze, Kerlix, Delvis. The patient tolerated the procedure and anesthesia well and without complicat ion. The patient was transported from the operating room to the recovery room with vital signs stable and vascular status intact to all digits of the left foot. The patient was given both written and verbal instructions to remain weightbearing as tolerated to the operative extremity, to keep dressings/splint clean, dry and intact and to take pain medication as directed. The patient will follow-up in the outpatient setting at their scheduled appointment. The patient was discharged with my personal number and was instructed to call if any questions or issues should arise. They were discharged home once anesthesia criteria was met.
--- NOTE | 2024-01-24 11:15 | ANE.PACU2 ---
Inpatient post-anesthesia follow up: Airway intact: Yes Vital signs: Temperature 98 F Pulse Rate 69 Respiratory Rate 18 Blood Pressure 150/85 Pulse Oximetry 95 Oxygen Delivery Me thod Room Air Oxygen Flow Rate Fraction of Inspir ed Oxygen Hydration adequate: Yes Nausea and vomiting: No Pain level: 1 Mental status: Baseline
[2024-01-24] MEDS: sodium chloride 0.9% 1,000 ML 30 ML IV (11:26)
== END 2024-01-24 11:15 | disposition home or self-care (01) ==
PROVIDERS: PCP Family Medicine; Visit Provider Podiatrist Foot & Ankle Surgery
PROC: (CPT 20680; principal; 2024-01-24 09:00)
DX: T84.89XA Other specified complication of internal orthopedic prosthetic devices, implants and grafts, initial encounter (principal); I10 Essential (primary) hypertension; K21.9 Gastro-esophageal reflux disease without esophagitis; F41.9 Anxiety disorder, unspecified; Z87.891 Personal history of nicotine dependence
CPT/HCPCS: 20680; 73620; 76000; J0131; J2250; J2704; J3010; J3490; J7030

== ENCOUNTER → 2024-03-12 10:58 | Outpatient (BNVA) | payer MEDICARE, OTHER, SELFPAY | PROVIDERS: PCP Family Medicine; Visit Provider Orthopaedic Surgery | DX: M54.9 Dorsalgia, unspecified (principal); M54.2 Cervicalgia; Z01.818 Encounter for other preprocedural examination | CPT/HCPCS: 36415; 72050; 72072; 72110; 80053; 81001; 85025; 99214 ==

== ENCOUNTER → 2024-03-21 12:51 | Outpatient (BNVA) | payer MEDICARE, OTHER, SELFPAY | PROVIDERS: PCP Family Medicine; Referring Provider Registered Nurse; Visit Provider Surgery | DX: R19.7 Diarrhea, unspecified (principal); K21.9 Gastro-esophageal reflux disease without esophagitis; R10.13 Epigastric pain; R11.2 Nausea with vomiting, unspecified | CPT/HCPCS: 99204 ==

== ENCOUNTER 2024-03-25 10:23 | Day surgery (SDC) | payer MEDICARE, OTHER, SELFPAY ==
[2024-03-25 10:46] VITALS: BP 159/93; PULSE 79; RESP 18; TEMP 36.3; O2SAT 95; BMI 39.4
[2024-03-25] MEDS: sodium chloride 0.9% 1,000 ML 30 ML IV (10:51)
--- NOTE | 2024-03-25 12:04 | W.PM.OPSUD ---
Surgery/Procedure H&P Update DATE OF PROCEDURE: March 25, 2024 DATE H&P PERFORMED: 03/21/24 H&P UPDATE INFORMATION: I have reviewed H&P completed within last 30 days, I have examined patient prior to procedure and No changes to prior documentation PLANNED PROCEDURE: Operation Date: 03/25/24 11:30 Proposed Procedures p EGD - 21615, 42522, G0105, R19.7, K21.9 R10.13, R11.2(Not Applicable) - DO kiara Campa Colonoscopy(Not Applicable) - Saran Gupta DO
--- NOTE | 2024-03-25 12:14 | ANES.PREANE2 ---
Pre-Anesthetic Assessment Height/Weight: Height 5 ft 2 in Weight 216 lb Temp Pulse Resp BP Pulse Ox O2 Del Method 97.3 F L 79 18 159/93 95 Room Air 03/25/24 10:46 03/25/24 10:46 03/25/24 10:46 03/25/24 10:46 03/25/24 10:46 03/25/24 10:46 Preop Diagnosis: EGD/colonoscopy Operation Date: 03/25/24 11:30 Proposed Procedures p EGD - 98902, 70695, G0105, R19.7, K21.9 R10.13, R11.2(Not Applicable) - Saran Gupta DO s Colonoscopy(Not Applicable) - Saran Gupta DO Was Beta Maryjane taken within 24 hours: N/A Was Clonidine taken within 24 hours: N/A Last intake: Intake Last Liquid Date 03/24/24 Last Liquid Time 20:00 Last Solid Date 03/23/24 Last Solid Time 16:00 Social No alcohol and No tobacco Exam alert, oriented x 3, clear to auscultation bilaterally and regular rate & rhythm Airway Submandibular: within normal limits Cervical ROM: within normal limits Mallampati: Class II Dentition: full Anesthetic Plan ASA status: 2 Anesthesia: MAC Other: No prior issues with anesthesia History of GERD on Protonix Hypertension on losartan Patient completed bowel prep Denies any pulmonary issues Plan for MAC anesthesia Medications/Allergies Home Medications Medication Instructions Recorded Confirmed Last Taken Type diclofenac sodium 75 mg 75 mg PO BID 04/21/22 03/22/24 03/22/24 History tablet,delayed release pantoprazole 40 mg tablet,delayed 40 mg PO DAILY 04/28/22 03/22/24 03/22/24 History release (Protonix) LSO #1 ea 05/04/22 03/21/24 02/27/23 Rx ferrous sulfate 325 mg (65 mg 325 mg PO DAILY 05/23/22 03/22/24 03/22/24 History iron) tablet (iron) Bone growth Stimulator E0748 #1 ea 06/22/22 03/21/24 02/27/23 Rx UCBL insert #1 ea 08/29/22 03/21/24 02/27/23 Rx losartan 100 mg tablet 100 mg PO DAILY 08/29/22 03/22/24 03/21/24 History duloxetine 60 mg capsule,delayed 60 mg PO DAILY 01/24/23 03/22/24 03/22/24 History release Crutches #1 ea 01/25/23 03/21/24 02/27/23 Rx crutches #1 ea 01/25/23 03/21/24 02/27/23 Rx nyvpblv-ookbcbczzzuma-usliehby 250 1 tab PO Q6H PRN Pain 02/02/23 03/22/24 03/22/24 History mg-250 mg-65 mg tablet (Excedrin Extra Strength) Cam Boot #1 ea 03/08/23 03/21/24 Unknown Rx custom orthopedic insoles L3020 #1 ea 04/25/23 03/21/24 Unknown Rx amoxicillin 500 mg capsule 500 mg PO TID 01/24/24 03/22/24 03/22/24 History sucralfate 100 mg/mL oral 10 ml PO BID 4 weeks #560 mL 03/21/24 03/22/24 Unknown Rx suspension oxycodone 10 mg tablet 10 mg PO BID 03/22/24 03/22/24 03/22/24 History Allergies Allergy/AdvReac Type Severity Reaction Status Date / Time ceftriaxone Allergy Mild ALGY-Hives Verified 03/22/24 10:35 daptomycin Allergy Swelling Verified 03/22/24 10:35 face, hands, feet lisinopril Allergy ADR-Cough Verified 03/22/24 10:35 Current Medications Generic Name Dose Route Start Last Admin Trade Name Freq PRN Reason Stop Dose Admin Sodium Chloride 1,000 mls @ 30 mls/hr 03/25/24 10:45 03/25/24 10:51 Sodium Chloride 0.9% IV 03/26/24 10:44 30 mls/hr .Q24H TORRI Administration PFSH Anesthesia Medical History Neuropathy History of transesophageal echocardiography (MAURILIO) (~09/2021) Chronic antibiotic suppression History of streptococcal septicemia Scoliosis 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 Paraphrase of information obtained from Dr Vasquez's, ID at [facility], office and patient: Cultures grew Streptococcus. Hardware washed out. Source was NOT felt hardware related after evaluation. MAURILIO without vegetation. Infection involved left hand and left foot. Left hand had purulent material requiring surgical intervention. Paraspinal abscess also identified. Initially treated with ceftriaxone, then daptomycin added for residential home IV antibiotic treatment via PICC line followed, by continued oral keflex (still on oral Keflex prior to revision surgery done by Dr Navas at [facility] on 05/30/2022). Previous (date unknown) ESR > 100 with CRP also elevated. GERD (gastroesophageal reflux disease) Hypertension Anxiety Surgical History History of hand surgery left, related to abscess at same time as paraspinal abscess in 08/2021, with associated post-infection/post-surgery limitation of range of motion at DIP and PIP 3rd digit Status post left foot surgery with hardware at 5th metatarsal History of back surgery 2019, surgical spinal alignment/correction of scoliosis at L2-L3, L3-L4 History of lumbosacral spine surgery 05/30/[address] Navas: 1. T8 - pelvis posterior spine fusion 2. T8-S1 instrumentation 3. Lumbopelvic fixation 4. removal of hardware from spine 5. Use of computer navigation stereotactic for spine 6. Use of allograft History of lumbar fusion 06/2021 in [facility], T10-S1 fusion Family History Mother Scoliosis Rheumatoid arthritis Hypertension Father Heart disease Hypercholesteremia Denies family history of Colon cancer Ovarian cancer Prostate cancer Diabetes Breast cancer Uterine cancer Thyroid disease Stroke Social History Smoking and tobacco/nicotine status: never used tobacco/nicotine Quit status (tobacco/nicotine): has quit using Year quit tobacco: 2019 Alcohol intake: never Marital status: Marital status details: is Fany [employer] Data Anesthesia Cardiac Studies: No Data to Display
[2024-03-25 12:39] VITALS: BP 108/75; PULSE 74; RESP 16; TEMP 36.2; O2SAT 94
[2024-03-25 12:52] VITALS: BP 139/81; PULSE 65; RESP 18; O2SAT 97
--- NOTE | 2024-03-25 13:15 | ANE.PACU2 ---
Inpatient post-anesthesia follow up: Airway intact: Yes Vital signs: Temperature 97.1 F Pulse Rate 65 Respiratory Rate 18 Blood Pressure 139/81 Pulse Oximetry 97 Oxygen Delivery Me thod Room Air Oxygen Flow Rate Fraction of Inspir ed Oxygen Hydration adequate: Yes Nausea and vomiting: No Pain level: 1 Mental status: Baseline
[2024-03-25 13:17] LABS: C.Diff PCR (Lab) NEGATIVE (Negative)
== END 2024-03-25 13:15 | disposition home or self-care (01) ==
PROVIDERS: PCP Family Medicine; Visit Provider Surgery
PROC: 0DJ08ZZ Inspection of Upper Intestinal Tract, Via Natural or Artificial Opening Endoscopic (ICD-10-PCS; CPT 43235; principal; 2024-03-25 11:30)
PROC: 0DJD8ZZ Inspection of Lower Intestinal Tract, Via Natural or Artificial Opening Endoscopic (ICD-10-PCS; CPT 45378; 2024-03-25 11:30)
DX: R19.7 Diarrhea, unspecified (principal); K21.9 Gastro-esophageal reflux disease without esophagitis; R10.13 Epigastric pain; R11.2 Nausea with vomiting, unspecified; K57.30 Diverticulosis of large intestine without perforation or abscess without bleeding; K64.8 Other hemorrhoids; Z98.1 Arthrodesis status; K25.9 Gastric ulcer, unspecified as acute or chronic, without hemorrhage or perforation
CPT/HCPCS: 43239; 45380; 45385; 82274; 83630; 87045; 87177; 87209; 87427; 87449; 87493; 88305; 88342; J2704; J7030

== ENCOUNTER → 2024-04-08 10:12 | Outpatient (BNVA) | payer MEDICARE, OTHER, SELFPAY | PROVIDERS: PCP Family Medicine; Visit Provider Surgery | DX: R11.2 Nausea with vomiting, unspecified; K25.9 Gastric ulcer, unspecified as acute or chronic, without hemorrhage or perforation; K52.9 Noninfective gastroenteritis and colitis, unspecified; K64.9 Unspecified hemorrhoids; R10.13 Epigastric pain | CPT/HCPCS: 86003; 86008; 99214 ==

== ENCOUNTER 2024-04-12 06:57 | Outpatient (CLI) | payer OTHER, MEDICARE, SELFPAY ==
--- NOTE | 2024-04-12 07:15 | US_ITS ---
WS: [id number] RIGHT UPPER QUADRANT ULTRASOUND HISTORY: abd pain COMPARISON: None available. Liver: 16.6 cm in length. Normal size liver and echogenicity. No bile duct dilatation or mass. Portal Vein: Normal hepatopetal flow with monophasic waveform. Gallbladder: Normally distended gallbladder with no stones or wall thickening. CBD: 0.4 cm Pancreas: Limited visualization. Right kidney: 11.5 cm in length. Normal size and echogenicity. No hydronephrosis or mass. Aorta and IVC: Unremarkable abdominal aorta and IVC. No ascites. US/US gall bladder [id number] IMPRESSION: Normal right upper quadrant ultrasound.
== END 2024-04-12 06:58 | disposition home or self-care (01) ==
PROVIDERS: PCP Family Medicine; Visit Provider Surgery
DX: R11.2 Nausea with vomiting, unspecified (principal); R10.13 Epigastric pain; Z01.818 Encounter for other preprocedural examination
CPT/HCPCS: 76705; 80053; 81003; 85025

== ENCOUNTER 2024-04-22 09:52 | Outpatient (CLI) | payer MEDICARE, OTHER, SELFPAY ==
--- NOTE | 2024-04-22 10:00 | NM_ITS ---
WS: [id number] NUCLEAR MEDICINE HIDA SCAN CLINICAL INFORMATION: Abd pain TECHNIQUE: Following intravenous administration of 8.6 mCi of technetium 99m mebrofenin, images of th e abdomen were obtained over the course of 60 minutes. Next, gallbladder ejection fraction was determ ined by obtaining preprandial and one-hour postprandial images of the gallbladder following oral le stion of Ensure. COMPARISON: Ultrasound 04/12/2024 FINDINGS: Normal hepatic uptake at 5 minutes. Normal hepatic excretion. Gallbladder is visualized by 15 minutes . No evidence of acute cholecystitis. Normal common bile duct and small bowel activity. Gallbladder ejection fraction 47% at the lower end of the range but within normal limits. No other ac tolowa dee-ni' findings. NM/NM hepatobiliary w phar* [id number] IMPRESSION: 1. No evidence of acute cholecystitis. 2. Gallbladder ejection fraction 47% at the lower end of the range but within normal limits.
--- NOTE | 2024-04-22 13:59 | CTR_ITS ---
PROCEDURE INFORMATION: Exam: CT Thoracic Spine Without Contrast Exam date and time: 04/22/2024 2:05 PM Age: 53 years old Clinical indication: Pain in thoracic spine; Prior surgery; Surgery date: 6+ months; Surgery type: T8-s1; Patient HX: Having upper thoracic surgery on Monday, continued back pain TECHNIQUE: Imaging protocol: Computed tomography of the thoracic spine without contrast. Radiation optimization: All CT scans at this facility use at least one of these dose optimization techniques: automated exposure control; mA and/or kV adjustment per patient size (includes targeted exams where dose is matched to clinical indication); or iterative reconstruction. COMPARISON: CR XR thoracic spine 3V* [id number] 03/12/2024 11:12 AM RADIATION DOSE METRICS: Total DLP (mGy-cm): 677.81 FINDINGS: Bones/joints: There are postoperative changes of posterior spinal fixation extending from T8-L1 with bilateral pedicle screws at T8, T9, T11, T12, and L1. There is lucency surrounding the bilateral pedicle screws at T8 and T9 which measures up to 3 mm. Lucency along the cephalad aspect of the right pedicle screw at T8 nearly breaches the cortex of the superior endplate of T8. The pedicle screws at T11, T12, and L1 are intact. No acute fractures are identified. There are moderate degenerative changes of the endplates and facets at T7-8 with mild widening of the facet joints and slight exaggeration of the normal thoracic kyphosis at this level. There are mild degenerative changes of the endplates at T8-9 and T9-10. No significant spinal stenosis is noted. Soft tissues: Unremarkable. CT/CT thoracic spin wo con* [id number] IMPRESSION: 1. Postoperative changes of posterior fusion of T8 through L1 with loosening of the bilateral pedicle screws at T8 and T9 2. Moderate degenerative disc and facet disease at T7-8 with slight widening of the facet joints and mild exaggeration of the normal thoracic kyphosis at this level 3. No significant spinal stenosis
== END 2024-04-22 09:53 | disposition home or self-care (01) ==
PROVIDERS: PCP Family Medicine; Visit Provider Surgery
DX: M51.34 Other intervertebral disc degeneration, thoracic region (principal); M40.204 Unspecified kyphosis, thoracic region; M43.24 Fusion of spine, thoracic region; M46.94 Unspecified inflammatory spondylopathy, thoracic region; R10.13 Epigastric pain; R11.2 Nausea with vomiting, unspecified
CPT/HCPCS: 72128; 78227; A9537

== ENCOUNTER → 2024-04-26 12:20 | Outpatient (BNVA) | payer MEDICARE, OTHER, SELFPAY | PROVIDERS: PCP Family Medicine; Visit Provider Surgery | DX: K25.9 Gastric ulcer, unspecified as acute or chronic, without hemorrhage or perforation (principal) | CPT/HCPCS: 99212 ==

== ENCOUNTER 2024-04-29 17:04 | Inpatient (IN) | payer OTHER, MEDICARE, SELFPAY ==
[2024-04-29] VITALS (25 sets, daily range): BP systolic 79–131; BP diastolic 51–75; PULSE 71–84; RESP 13–23; TEMP 36.2–36.5; O2SAT 89–99; BMI 40.8
--- NOTE | 2024-04-29 12:04 | ANES.PREANE2 ---
Pre-Anesthetic Assessment Height/Weight: Height 1.57 m Operation Date: 04/29/24 13:10 Proposed Procedures p Spinal Fusion PSF(Not Applicable) - Peter Navas, DO Familial anesthetic complications: None Was Beta Maryjane taken within 24 hours: N/A Was Clonidine taken within 24 hours: N/A Last intake: > 8 hrs Social No alcohol and No tobacco Exam alert, oriented x 3, clear to auscultation bilaterally and regular rate & rhythm Airway Mallampati: Class II Dentition: other (missing) CV/HEM Hypertension GI Gastroesophageal Reflux Disease Metabolic Hyperlipidemia and Morbid Obesity Anesthetic Plan ASA status: 2 Anesthesia: General Risk of > 500 ml blood loss (7ml/kg in children): No Medications/Allergies Home Medications Medication Instructions Recorded Confirmed Last Taken Type diclofenac sodium 75 mg 75 mg PO BID 04/21/22 04/26/24 03/22/24 History tablet,delayed release ferrous sulfate 325 mg (65 mg 325 mg PO DAILY 05/23/22 04/26/24 04/28/24 History iron) tablet (iron) losartan 100 mg tablet 100 mg PO DAILY 08/29/22 04/26/24 04/28/24 History duloxetine 60 mg capsule,delayed 60 mg PO DAILY 01/24/23 04/26/24 04/29/24 History release ghjmfmn-opysftwnaqaux-bfqjdeil 250 1 tab PO Q6H PRN Pain 02/02/23 04/26/24 04/25/24 History mg-250 mg-65 mg tablet (Excedrin Extra Strength) oxycodone 10 mg tablet 10 mg PO BID 03/22/24 04/26/24 04/29/24 History pantoprazole 40 mg tablet,delayed 40 mg PO BID 3 months #180 tabs 03/25/24 04/26/24 04/28/24 Rx release chlorthalidone 25 mg tablet 25 mg PO DAILY 04/12/24 04/26/24 04/28/24 History simvastatin 20 mg tablet 20 mg PO DAILY 04/12/24 04/26/24 04/28/24 History tizanidine 2 mg tablet 2 mg PO DAILY 04/12/24 04/26/24 04/28/24 History Bone Growth Stimulator #1 ea 04/22/24 04/26/24 Unknown Rx cephalexin 500 mg capsule 500 mg PO BID 04/25/24 04/26/24 04/29/24 History Allergies Allergy/AdvReac Type Severity Reaction Status Date / Time ceftriaxone Allergy Mild ALGY-Swell Verified 04/26/24 12:20 Lip/Tongue/Throat daptomycin Allergy Swelling Verified 04/26/24 12:20 face, hands, feet lisinopril Allergy ADR-Cough Verified 04/26/24 12:20 [facility] Anesthesia Medical History Neuropathy History of transesophageal echocardiography (MAURILIO) (~09/2021) Chronic antibiotic suppression History of streptococcal septicemia Scoliosis 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 Paraphrase of information obtained from Dr Vasquez's, ID at [facility], office and patient: Cultures grew Streptococcus. Hardware washed out. Source was NOT felt hardware related after evaluation. MAURILIO without vegetation. Infection involved left hand and left foot. Left hand had purulent material requiring surgical intervention. Paraspinal abscess also identified. Initially treated with ceftriaxone, then daptomycin added for residential home IV antibiotic treatment via PICC line followed, by continued oral keflex (still on oral Keflex prior to revision surgery done by Dr Navas at [facility] on 05/30/2022). Previous (date unknown) ESR > 100 with CRP also elevated. GERD (gastroesophageal reflux disease) Hypertension Anxiety Surgical History History of esophagogastroduodenoscopy (EGD) History of colonoscopy History of hand surgery left, related to abscess at same time as paraspinal abscess in 08/2021, with associated post-infection/post-surgery limitation of range of motion at DIP and PIP 3rd digit Status post left foot surgery with hardware at 5th metatarsal History of back surgery 2019, surgical spinal alignment/correction of scoliosis at L2-L3, L3-L4 History of lumbosacral spine surgery 05/30/[address] Navas: 1. T8 - pelvis posterior spine fusion 2. T8-S1 instrumentation 3. Lumbopelvic fixation 4. removal of hardware from spine 5. Use of computer navigation stereotactic for spine 6. Use of allograft History of lumbar fusion 06/2021 in [facility], T10-S1 fusion Family History Mother Scoliosis Rheumatoid arthritis Hypertension Father Heart disease Hypercholesteremia Denies family history of Colon cancer Ovarian cancer Prostate cancer Diabetes Breast cancer Uterine cancer Thyroid disease Stroke Social History Smoking and tobacco/nicotine status: never used tobacco/nicotine Quit status (tobacco/nicotine): has quit using Year quit tobacco: 2019 Alcohol intake: never Marital status: Marital status details: is Fany Mac Data Anesthesia Cardiac Studies: No Data to Display
--- NOTE | 2024-04-29 12:07 | P.HP_ITS ---
Same Day Surgery H&P Indication for Procedure/HPI DATE OF PROCEDURE: April 29, 2024 CHIEF COMPLAINT/INDICATIONFOR SURGICAL PROCEDURE: Back pain PREOP DIAGNOSIS: Proximal junctional kyphosis PLANNED PROCEDURE: Operation Date: 04/29/24 13:10 Proposed Procedures p Spinal Fusion PSF(Not Applicable) - Peter Navas DO Medications/Allergies* Home Medications Medication Instructions Recorded Confirmed Type diclofenac sodium 75 mg 75 mg PO BID 04/21/22 04/26/24 History tablet,delayed release ferrous sulfate 325 mg (65 mg 325 mg PO DAILY 05/23/22 04/26/24 History iron) tablet (iron) losartan 100 mg tablet 100 mg PO DAILY 08/29/22 04/26/24 History duloxetine 60 mg capsule,delayed 60 mg PO DAILY 01/24/23 04/26/24 History release fkufwml-ffpsbquqdtlxz-rdafgqwp 250 1 tab PO Q6H PRN Pain 02/02/23 04/26/24 History mg-250 mg-65 mg tablet (Excedrin Extra Strength) oxycodone 10 mg tablet 10 mg PO BID 03/22/24 04/26/24 History chlorthalidone 25 mg tablet 25 mg PO DAILY 04/12/24 04/26/24 History simvastatin 20 mg tablet 20 mg PO DAILY 04/12/24 04/26/24 History tizanidine 2 mg tablet 2 mg PO DAILY 04/12/24 04/26/24 History cephalexin 500 mg capsule 500 mg PO BID 04/25/24 04/26/24 History Allergies/Adverse Reactions Allergy/AdvReac Type Severity Reaction Status Date / Time ceftriaxone Allergy Mild ALGY-Swell Verified 04/26/24 12:20 Lip/Tongue/Throat daptomycin Allergy Swelling Verified 04/26/24 12:20 face, hands, feet lisinopril Allergy ADR-Cough Verified 04/26/24 12:20 Pertinent History/Comorbid Conditions* Medical History (Updated 04/08/24 @ 10:46 by Saran Gupta DO) Neuropathy History of transesophageal echocardiography (MAURILIO) (~09/2021) Chronic antibiotic suppression History of streptococcal septicemia Scoliosis 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 Paraphrase of information obtained from Dr Vasquez's, ID at [facility], office and patient: Cultures grew Streptococcus. Hardware washed out. Source was NOT felt hardware related after evaluation. MAURILIO without vegetation. Infection involved left hand and left foot. Left hand had purulent material requiring surgical intervention. Paraspinal abscess also identified. 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 Previous (date unknown) ESR > 100 with CRP also elevated. GERD (gastroesophageal reflux disease) Hypertension Anxiety Surgical History (Updated 04/08/24 @ 10:45 by Saran Gupta DO) History of esophagogastroduodenoscopy (EGD) History of colonoscopy History of hand surgery left, related to abscess at same time as paraspinal abscess in 08/2021, with associated post-infection/post-surgery limitation of range of motion at DIP and PIP 3rd digit Status post left foot surgery with hardware at 5th metatarsal History of back surgery 2019, surgical spinal alignment/correction of scoliosis at L2-L3, L3-L4 History of lumbosacral spine surgery 05/30/[address] Navas: 1. T8 - pelvis posterior spine fusion 2. T8-S1 instrumentation 3. Lumbopelvic fixation 4. removal of hardware from spine 5. Use of computer navigation stereotactic for spine 6. Use of allograft History of lumbar fusion 06/2021 in [facility], T10-S1 fusion Family History (Updated 09/12/23 @ 09:32 by Sophy Denton LPN) Rheumatoid arthritis Mother Scoliosis Mother Heart disease Father Hypercholesteremia Father Hypertension Mother Denies family history of Colon cancer Ovarian cancer Prostate cancer Diabetes Breast cancer Uterine cancer Thyroid disease Stroke Social History Smoking and tobacco/nicotine status: never used tobacco/nicotine Quit status (tobacco/nicotine): has quit using Year quit tobacco: 2019 Alcohol intake: never Marital status: Marital status details: is Fany Mac Pertinent Exam Findings alert, oriented x 3 and procedure specific exam findings Recommendations Surgery/Procedure today Coding Level of Care Code Acute Code for Chg Fwd
[2024-04-29] MEDS: sodium chloride 0.9% 1,000 ML 30 ML IV (12:26)
[2024-04-29] MEDS: scopolamine 1.5 Patch 1 PATCH TRANSDERMA (12:27)
[2024-04-29 12:36] LABS: Basophils # 0.1 10^3/uL (0.0-0.1); Basophils % 0.8 %; Eosinophils # 0.2 10^3/uL (0.0-0.8); Eosinophils % 2.5 %; Hematocrit 38.4 % (36-47); Lymphocytes # 2.1 10^3/uL (0.8-4.8); Lymphocytes % 25.1 %; Mean Corpuscular Hemoglobin 26.9 pg (27-33); Mean Corpuscular Volume 86.7 fl (85-98); Mean Platelet Volume 10.2 fL (7.4-10.4); Monocytes # 0.5 10^3/uL (0.2-0.9); Neutrophils # 5.46 10^3/uL (1.8-7.7); Neutrophils % 65.2 %; Nucleated Red Blood Cells % 0 %; Platelet Count 331 10^3/cmm (157-399); Red Blood Count 4.43 10^6/uL (3.85-5.65); Red Cell Distribution Width 13.8 % (12.1-15.1); White Blood Count 8.37 10^3/uL (3.29-11.43)
[2024-04-29] MEDS: ceFAZolin 2,000 mg SDV 2000 MG IVP ×2 (12:43→20:22)
[2024-04-29 12:58] LABS: Alanine Aminotransferase 22 U/L (0-33); Albumin Level 4.1 g/dL (3.5-5.2); Alkaline Phosphatase 155 U/L (35-105); Aspartate Amino Transferase 31 U/L (0-32); Blood Urea Nitrogen 27 mg/dL (6-20); Calcium 9.1 mg/dL (8.5-10.5); Carbon Dioxide 29 mmol/L (22-29); Chloride 101 mmol/L (98-107); Creatinine Clr Calc Pharmacy 88.4566; Glomerular Filtration Rate 74.5 mL/min (90-130); Glucose 121 mg/dL (65-115); Osmolality Calculated 296 mOsm/kg (285-295); Sodium 140 mmol/L (136-145); Total Bilirubin 0.2 mg/dL (0.15-1.2); Total Protein 7.1 g/dL (6.6-8.7)
[2024-04-29] MEDS: VANCOMYCIN ADD-Vantage 1,000 MG VIAL 1000 MG XX (13:55)
[2024-04-29] MEDS: heparin, porcine 1,000 unit/mL INJ 10 mL 10000 UNIT IRRIGATION (13:55)
[2024-04-29] MEDS: lidocaine-epi 1% 20 mL INJ INJECTION (13:55)
--- NOTE | 2024-04-29 16:32 | P.OP_ITS ---
Operative Report Date of procedure: April 29, 2024 Pre-op diagnosis: Proximal junctional kyphosis Failing hardware Post-op diagnosis: same Procedure done: 1. T2-T11 posterior spinal fusion 2. T2-T11 posterior spinal instrumentation 3. Use of computer navigation stereotactic for spine 4. Removal of deep hardware 5. Use of allograft Surgeon: Peter Navas DO Estimated blood loss (mL): 250 Procedure: 1. T2-T11 posterior spinal fusion 2. T2-T11 posterior spinal instrumentation 3. Use of computer navigation stereotactic for spine 4. Removal of deep hardware 5. Use of allograft Patient brought to the operative suite after undergoing anesthesia was placed in the prone position. All areas impingement well-padded. Patient's prepped and draped normal sterile fashion. Neuromonitoring was attached to the patient. Since it was made from T2-T11. Subperiosteal dissection was made out to the transverse processes from T2-T11. Hardware was identified at T8 and 9 in the francia was dissected out down to the T11 pedicle screw that was in place. The francia was then cut between the T9 screw and the T11 screw. The pedicle screws at T8 and T9 were removed. Next the spinous process clamp was clamped onto the T8 spinous process. C-arm was brought in and spun around the patient. The information from the C arm was loaded into the computer and this was later used for placing the pedicle screws. Next attension was brought to placing the pedicle screws. A drill was used firs t followed by the gearshift probe linked to computer navigation. Pedicle feeler was used next followed by placement of the pedicle screws linked to computer navigation. Screws were placed at T2 bilaterally, T3 bilaterally, T4 bilaterally, T5 bilaterally, T6 bilaterally, and T7 bilaterally. Next a francia to francia connector was placed onto the francia that is connected to T11. A francia was then measured and cut. This francia was then placed into the francia francia connector. And then placed into the tulips from T2 down to T7. Caps were then placed on top of the francia and torqued into a locked position. This was done bilaterally. All the screws were torqued into position and then the screws on the francia francia connector were torqued into position. Wounds were irrigated vancomycin powder was placed deep drain was placed. And wound was closed in a layered fashion with 0 Vicryl 2-0 Vicryl and Monocryl suture. Sterile dressings were applied and patient was transferred to the PACU in stable condition.
[2024-04-29] MEDS: fentaNYL 50 mcg/mL INJ 2mL IVP ×2 (16:40→16:55)
--- NOTE | 2024-04-29 16:43 | XR_ITS ---
WS: [id number] Exam: XR lumbar spine 2-3V* [id number] Date/Time of Exam: 04/29/2024 4:43 PM Reason For Exam: OR PICS Intraoperative AP images of the thoracic spine are submitted. Images were obtained for intraoperative purposes.
--- NOTE | 2024-04-29 16:50 | SUR.PHASEI ---
40ml blood emptied from hemavac drain.
[2024-04-29] MEDS: HYDROmorphone 1 mg/mL INJ 1 mL 0.5 MG IVP ×3 (17:07→17:28)
--- NOTE | 2024-04-29 17:40 | ANE.PACU2 ---
Inpatient post-anesthesia follow up: Airway intact: Yes Vital signs: Temperature 97.7 F Pulse Rate 81 Respiratory Rate 16 Blood Pressure 117/74 Pulse Oximetry 97 Oxygen Delivery Me thod Nasal Cannula Oxygen Flow Rate 6 Fraction of Inspir ed Oxygen Hydration adequate: Yes Nausea and vomiting: No Pain level: 1 Mental status: Baseline
[2024-04-29] MEDS: lactated ringers 1,000 ML 90 ML IV (18:19)
[2024-04-29] MEDS: oxyCODONE-APAP 10-325 mg Tablet PO (18:59)
[2024-04-29] MEDS: morphine 4 mg/mL SDV 1 mL 2 MG IVP ×2 (20:21→22:56)
[2024-04-30] VITALS (14 sets, daily range): BP systolic 98–143; BP diastolic 61–89; PULSE 80–102; RESP 15–35; TEMP 36.7–36.9; O2SAT 90–97
[2024-04-30] MEDS: morphine 4 mg/mL SDV 1 mL 2 MG IVP ×4 (00:47→05:45)
[2024-04-30] MEDS: oxyCODONE-APAP 10-325 mg Tablet PO ×3 (00:54→11:15)
--- NOTE | 2024-04-30 01:04 | XRR_ITS ---
PROCEDURE INFORMATION: Exam: XR Chest Exam date and time: 04/30/2024 1:48 AM Age: 53 years old Clinical indication: Shortness of breath; Prior surgery; Surgery date: Post-operative (0-2 days); Surgery type: Tspine SX yesterday; Additional info: New onset shortness of breath/chest pain TECHNIQUE: Imaging protocol: Radiologic exam of the chest. Views: 1 view. COMPARISON: CR XR chest 1V portable [id number] 05/31/2022 12:54 PM FINDINGS: Lungs: Minor areas of bibasilar and midlung atelectasis or scarring. No consolidation. Pleural spaces: Unremarkable. No pleural effusion. No pneumothorax. Heart/Mediastinum: Unremarkable. No cardiomegaly. Vasculature: Advanced diffuse vascular calcification noted. Bones/joints: Extensive thoracolumbar fusion. Gastrointestinal tract: Partially assessed gastric distension. XR/XR chest 1V portable [id number] IMPRESSION: 1. No acute cardiopulmonary findings. 2. A few chronic/incidental findings above.
--- NOTE | 2024-04-30 01:05 | PC.NURSE ---
This nurse brought to room by primary nurse WILMAR Lewis. Patient appeared visibly distressed, with labored, shallow breathing. Her respiratory rate was 35. The patient was sat up to a near 90 degree angle. She stated it felt like she was having all over chest pain that was different from the pain she was having post-operatively, and she became teary and stated that she was scared. Her blood pressure was 109/70, SpO2 97% on 2L, HR 102. Upon auscultation her lungs sounded clear. Upon inspection there was some redness and edema around the silverlon dressing, and the skin around the middle part of the dressing was very warm to the touch. After assessing the patient and her vital signs, this nurse left the room and contacted Dr. Navas via phone call while WILMAR Lewis administered pain medication. Dr. Navas stated to check troponins, EKG, d-dimer, get a chest x-ray, and administer 0.5mg xanax PO once. He also stated to notify the hospitalist of any abnormal findings found in the above orders.
--- NOTE | 2024-04-30 01:08 | ECG_ITS ---
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
[2024-04-30] MEDS: ALPRAZolam 0.5 mg Tablet PO (01:27)
[2024-04-30 01:59] LABS: Troponin(5th) Baseline 9 ng/L (0-10)
[2024-04-30 02:17] LABS: D Dimer 1.42 ug/mLFEU (0-0.59)
--- NOTE | 2024-04-30 03:18 | ECG_ITS ---
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
--- NOTE | 2024-04-30 04:20 | P.CONIM_ITS ---
Providers/Reason For Consult 2 Consulting Physician/Specialty*: Internal medicine Reason for Consult*: Chest pain Attending Physician: Peter Navas DO Primary Care Provider: Zuleyka Collado MD History of Present Illness History of Present Illness Marisel Mac is a 53 year old female who is currently admitted to orthopedic spine and underwent spinal surgery on April 29. Postprocedure course complicated by chest pain. Deep breaths worsens pain. Reports somewhat similar rib pain with a prior surgery. EKG with normal sinus rhythm without acute ischemic changes. Troponin within normal limits. D-dimer mildly elevated. No known cardiac history. No known lung disease. Review of Systems 2 Narrative: A complete review of systems was obtained and is negative except as stated in HPI. Medications/Allergies Home Medications Medication Instructions Recorded Confirmed Last Taken Type diclofenac sodium 75 mg 75 mg PO BID 04/21/22 04/26/24 03/22/24 History tablet,delayed release ferrous sulfate 325 mg (65 mg 325 mg PO DAILY 05/23/22 04/26/24 04/28/24 History iron) tablet (iron) losartan 100 mg tablet 100 mg PO DAILY 08/29/22 04/26/24 04/28/24 History duloxetine 60 mg capsule,delayed 60 mg PO DAILY 01/24/23 04/26/24 04/29/24 History release umtvhlv-uivbrrgqbxojk-hptodbvs 250 1 tab PO Q6H PRN Pain 02/02/23 04/26/24 04/25/24 History mg-250 mg-65 mg tablet (Excedrin Extra Strength) oxycodone 10 mg tablet 10 mg PO BID 03/22/24 04/26/24 04/29/24 History pantoprazole 40 mg tablet,delayed 40 mg PO BID 3 months #180 tabs 03/25/24 04/26/24 04/28/24 Rx release chlorthalidone 25 mg tablet 25 mg PO DAILY 04/12/24 04/26/24 04/28/24 History simvastatin 20 mg tablet 20 mg PO DAILY 04/12/24 04/26/24 04/28/24 History tizanidine 2 mg tablet 2 mg PO DAILY 04/12/24 04/26/24 04/28/24 History Bone Growth Stimulator #1 ea 04/22/24 04/26/24 Unknown Rx cephalexin 500 mg capsule 500 mg PO BID 04/25/24 04/26/2424 History Allergies Allergy/AdvReac Type Severity Reaction Status Date / Time ceftriaxone Allergy Mild ALGY-Swell Verified 04/26/24 12:20 Lip/Tongue/Throat daptomycin Allergy Swelling Verified 04/26/24 12:20 face, hands, feet lisinopril Allergy ADR-Cough Verified 04/26/24 12:20 Current Medications Generic Name Dose Route Start Last Admin Trade Name Freq PRN Reason Stop Dose Admin Cefazolin Sodium 2,000 mg 04/29/24 21:00 04/29/24 20:22 Cefazolin 2,000 Mg Sdv IVP 04/30/24 13:01 2,000 mg Q8H TORRI Administration Protocol Docusate Sodium 100 mg 04/29/24 18:00 04/29/24 18:28 Docusate Sodium 100 Mg Capsule PO Not Given BID TORRI Lactated Ringer's 1,000 mls @ 90 mls/hr 04/29/24 16:30 04/29/24 18:19 Lactated Ringers IV 90 mls/hr .Q11H7M TORRI Administration Morphine Sulfate 2 mg 04/29/24 16:23 04/30/24 02:16 Morphine 4 Mg/Ml Sdv 1 Ml IVP 2 mg Q1H PRN Administration SEVERE PAIN Oxycodone/Acetaminophen 1 - 2 tab 04/29/24 16:23 04/30/24 00:54 Oxycodone-Apap 10-325 Mg Tablet PO 1 tab Q4H PRN Administration MODERATE TO SEVERE PAIN Pantoprazole Sodium 40 mg 04/29/24 18:00 04/29/24 18:[address] 40 Mg Tablet PO Not Given BID TORRI PFSH Acute 2 PFSH: Medical History Neuropathy History of transesophageal echocardiography (MAURILIO) (~09/2021) Chronic antibiotic suppression History of streptococcal septicemia Scoliosis 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 Paraphrase of information obtained from Dr Vasquez's, ID at [facility], office and patient: Cultures grew Streptococcus. Hardware washed out. Source was NOT felt hardware related after evaluation. MAURILIO without vegetation. Infection involved left hand and left foot. Left hand had purulent material requiring surgical intervention. Paraspinal abscess also identified. 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 Previous (date unknown) ESR > 100 with CRP also elevated. GERD (gastroesophageal reflux disease) Hypertension Anxiety Surgical History History of esophagogastroduodenoscopy (EGD) History of colonoscopy History of hand surgery left, related to abscess at same time as paraspinal abscess in 08/2021, with associated post-infection/post-surgery limitation of range of motion at DIP and PIP 3rd digit Status post left foot surgery with hardware at 5th metatarsal History of back surgery 2019, surgical spinal alignment/correction of scoliosis at L2-L3, L3-L4 History of lumbosacral spine surgery 05/30/[address] Navas: 1. T8 - pelvis posterior spine fusion 2. T8-S1 instrumentation 3. Lumbopelvic fixation 4. removal of hardware from spine 5. Use of computer navigation stereotactic for spine 6. Use of allograft History of lumbar fusion 06/2021 in [facility], T10-S1 fusion Family History Mother Scoliosis Rheumatoid arthritis Hypertension Father Heart disease Hypercholesteremia Denies family history of Colon cancer Ovarian cancer Prostate cancer Diabetes Breast cancer Uterine cancer Thyroid disease Stroke Social History Smoking and tobacco/nicotine status: never used tobacco/nicotine Quit status (tobacco/nicotine): has quit using Year quit tobacco: 2019 Alcohol intake: never Marital status: Marital status details: is Fany Mac Vitals/I&O/Wt Last Vital Signs Temp 98.0 F 04/30/24 00:00 Pulse 102 H 04/30/24 01:22 Resp 22 H 04/30/24 02:16 BP 109/70 04/30/24 01:22 Pulse Ox 97 04/30/24 01:22 O2 Del Method Nasal Cannula 04/30/24 01:22 O2 Flow Rate 2 04/30/24 01:22 04/29/24 04/29/24 04/30/24 14:59 22:59 06:59 Intake Total 2600 / 2600 Output Total 1340 / 1340 Balance 1260 / 1260 Weight last 48 hrs Weight 101.151 kg Physical Exam 2 Narrative: General: Patient is awake. Appears uncomfortable. In bed. Head: Normocephalic. Atraumatic. Neck: No JVD. Cardiovascular: RRR. No gallops. No murmurs. Lungs: Breath sounds lightly diminished bilateral bases. No respiratory distress. Skin: No jaundice. No rashes. Abdomen: Normal bowel sounds, abdomen soft and nontender. Genito Urinary: Genital exam not performed since complaints not related. Rectal: Rectal exam not performed since no symptoms indicated blood loss. Extremities: No cyanosis or clubbing. Musculoskeletal: no swollen or erythematous joints. Neurological: Moves all 4 extremities. No myoclonus. Urinary Catheter Management: Fay Latex: Cath Placed During This Visit: yes Reason for Continuing Indwelling Catheter: Perioperative Use in Selected Surgeries Urinary Catheter Date of Insertion: 04/29/24 Urinary Catheter Time of Insertion: 13:20 Data 04/29/24 12:15 04/29/24 12:15 A&P Assessment and plan (1) Chest pain: Postop pleurisy Initial troponin negative, trend EKG reviewed, negative for acute ischemic changes Continuous telemetry monitoring Chest x-ray reviewed, no acute cardiopulmonary pathology per my read Treat underlying postop pain, consider adjusting analgesics Treat associated anxiety Encourage pulmonary toilet to avoid postop complications Plan Thank you for this consultation Consult Attestations 2 Medical Necessity Statement: Per primary Coding Level of Care Code Acute Code for [facility] Fw Diagnoses Chest pain R07.9
[2024-04-30 04:27] LABS: Troponin 5 2HR 8.96 ng/L (0-10)
[2024-04-30 04:30] LABS: Troponin 5 2HR Delta -0.04 ABS# (0-10)
[2024-04-30] MEDS: lactated ringers 1,000 ML 90 ML IV (04:37)
[2024-04-30] MEDS: ceFAZolin 2,000 mg SDV 2000 MG IVP (05:47)
--- NOTE | 2024-04-30 06:53 | PC.NURSE ---
yun catheter discontinued at this time. catheter intact, patient tolerated well. 300ml of yellow urine emptied at this time.
--- NOTE | 2024-04-30 07:03 | ECG_ITS ---
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
--- NOTE | 2024-04-30 07:45 | P.PN_ITS ---
Subjective 2 Subjective: Patient doing well. Pain is improved from last night. Patient was having chest pain last night. Is likely from positioning on the bed. At this point her pain she is not having any chest pain. Pain is controlled patient is going to go home. I like to see her get up with physical therapy first we will so she does with physical therapy and possibly discharge after that. Vitals/I&O/Wt Last Vital Signs Temp 98.4 F 04/30/24 05:13 Pulse 88 04/30/24 05:13 Resp 18 04/30/24 05:46 BP 108/66 04/30/24 05:13 Pulse Ox 97 04/30/24 05:13 O2 Del Method Nasal Cannula 04/30/24 05:13 O2 Flow Rate 2 04/30/24 01:22 04/29/24 04/30/24 04/30/24 22:59 06:59 14:59 Intake Total 2600 / 2600 927 / 3527 Output Total 1340 / 1340 900 / 2240 Balance 1260 / 1260 27 / 1287 Weight last 48 hrs Weight 228 lb 14.4 oz Weight 223 lb Physical Exam 2 Narrative: 5 5 strength bilateral lower extremities . Drain output was 350 overnight. Urinary Catheter Management: Fay Latex: Cath Placed During This Visit: yes Reason for Continuing Indwelling Catheter: Not indwelling catheter Urinary Catheter Date of Insertion: 04/29/24 Urinary Catheter Time of Insertion: 13:20 Data 04/29/24 12:15 04/29/24 12:15 A&P Assessment and plan (1) S/P spinal fusion: Postop day 1 T2-T11 posterior spine fusion. Up with therapy If patient does well with therapy she can discharge today. If she discharged we will DC the drain. Will DC Fay this morning. Patient is calling Dr. Bassett to see what antibiotic regime she would need if any for discharge. Attestations 2 Medical Necessity Statement*: Pain control Coding Level of Care Code Acute Code for Chg Fwd Diagnoses S/P spinal fusion Z98.1
[2024-04-30 08:11] LABS: Troponin 5 6HR 9.95 ng/L (0-10); Troponin 5 6HR Delta 0.95 ng/L (0-12)
[2024-04-30] MEDS: ketorolac 30 mg/mL INJ IVP (08:17)
[2024-04-30] MEDS: atorvastatin 40 mg Tablet 20 MG PO (08:18)
[2024-04-30] MEDS: chlorthalidone 25 mg Tablet PO (08:18)
[2024-04-30] MEDS: duloxetine 60 mg Capsule PO (08:18)
[2024-04-30] MEDS: ferrous sulfate EC 325 mg Tablet PO (08:18)
[2024-04-30] MEDS: docusate sodium 100 mg Capsule PO (08:18)
[2024-04-30] MEDS: pantoprazole DR 40 mg Tablet PO (08:18)
[2024-04-30] MEDS: losartan 50 mg Tablet 100 MG PO (08:19)
[2024-04-30] MEDS: tizanidine 4 mg Tablet 2 MG PO (08:20)
--- NOTE | 2024-04-30 08:52 | USCV_ITS ---
Marisel Mac Age: 53 Gender: F : 1970 Exam Date: 04/30/2024 09:49 Ordering Phys: Mandeep Coburn MD Technologist: CT Exam Location: [facility] [place]_ Indication: cp BP: 130 / 80 HR: 76 Rhythm: Sinus Technical Quality: Adequate MEASUREMENTS (Male / Female) Normal Values 2D ECHO LVOT Diameter 2.1 cm LV Ejection Fraction MOD 4C 72.7 % LV Ejection Fraction MOD 2C 53.0 % LV Ejection Fraction 2C AL 54.5 % LA Diameter 3.9 cm RA Systolic Volume 4C AL 40.5 ml RA Systolic Volume 4C MOD 39.6 ml LA Sys Volume AL 48.3 cm cubed LA Sys Volume Index AL 22.5 cm cubed/m squared Aorta at Sinotubular Diameter 2.4 cm IVC Diameter 1.9 cm M-MODE LA Ao Ratio MM 1.2 AV Cusp Separation MM 2.6 cm DOPPLER AV Peak Velocity 221.0 cm/s LVOT Peak Velocity 139.0 cm/s AV Area Cont Eq vti 2.1 cm squared AV Area Cont Eq pk 2.2 cm squared MV Peak Velocity 103.0 cm/s MV Area PHT 3.2 cm squared Mitral E to A Ratio 1.4 TV Peak Velocity 110.0 cm/s TR Peak Velocity 218.0 cm/s TR Peak Gradient 19.0 mmHg TV Peak E Velocity 75.0 cm/s Right Atrial Pressure 3.0 mmHg Pulmonary Artery Systolic Pressu 22.0 mmHg PV Peak Velocity 117.0 cm/s FINDINGS Left Ventricle Normal left ventricular size and systolic function, EF55%.no regional wall motion abnormalities. Right Ventricle The right ventricle is normal in size and function. Right Atrium The right atrium is normal in size. Left Atrium The left atrium is normal in size. Mitral Valve .no gross abnormalities noted Aortic Valve No gross abnormalities noted Tricuspid Valve Trace tricuspid valve regurgitation. Estimated pulmonary artery peak systolic pressure 22 mmHg Pulmonic Valve No gross abnormalities noted Pericardium Normal pericardium without effusion. Aorta Normal ascending aorta dimension. IVC Normal inferior vena cava. CONCLUSIONS Normal left ventricular size and systolic function, EF55%.no regional wall motion abnormalities. The right ventricle is normal in size and function. Trace tricuspid valve regurgitation. Estimated pulmonary artery peak systolic pressure 22 mmHg. There is no pericardial effusion. There are no intracardiac masses. No similar previous studies are available for comparison Dr Josef Kebede MD [facility] (Electronically Signed) Final Date: 30 April 2024 19:37 S
--- NOTE | 2024-04-30 09:41 | PC.CHAP ---
Pastoral Care Encounter/Spiritual Assessment Type of Contact [] Declined car cooper visit [] Patient/Family/Request visit [] Outpatient visit [] Follow-up visit [] Physician referral [] Code/Alert [x] Routine visit [] Staff referral [] Actively dying [] Patient sleeping [] Family support [] [] Out of room [] Palliative care [] [] Receiving care in room [] Pre-surgical visit [] Trauma [] Long length of stay [] ICU visit [] Other: Relational/Emotional Strength [x] Patient feels connected with others/family/visitors/staff [] Distress [] Loneliness/isolation [] Abandonment Spirituality of Patient [x] Person of Milady [] Attends Islam of their Milady [x] Believes in Prayer [] Reads Bible or Orthodox materials [] There are Spiritual issues to 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 [x] Prayer [x] Active listening [x] Non-anxious presence [x] Spiritual/emotional support [] Crisis/trauma care [] Spiritual counseling [] Bereavement support [] Provided bereavement packet [] Provided Bible/devotional materials [] Provided toy/stuffed animal, coloring book to patient or family member [] Provided Communion [] Anointing/[place] [] Salvation [x] Completed spiritual assessment [] Other: Impact on Illness or Injury [] Angry [] Fearful [] Anxious [] Often cries [] Exhaustion [] Unable to work [] Unable to attend pres[employer]beterian [] Unable to walk/stand [] Unable to read [] Unable to drive [] Unable to eat/drink [] Unable to sleep [] Unable to be with family [] Patient intubated [] Other: Summary Time spent with patient 5 min
--- NOTE | 2024-04-30 09:44 | P.DS_ITS ---
Discharge Providers Date of Admission: 04/29/24 17:04 Date of Discharge: April 30, 2024 Attending Provider at Admission: Peter Navas DO Attending Provider at Discharge: Peter Navas DO Primary Care Provider: Zuleyka Collado MD Diagnoses at Discharge Discharge Diagnosis (1) S/P spinal fusion: Status: Acute Reason for Visit 2 Reason for Visit: M47.24 Physical Exam Urinary Catheter Management: Fay Latex: Cath Placed During This Visit: yes Reason for Continuing Indwelling Catheter: Not indwelling catheter Urinary Catheter Date of Insertion: 04/29/24 Urinary Catheter Time of Insertion: 13:20 Discharge Data Studies Completed and Pending Completed Studies During Hospitalization Category Date Time Status CXRP [XR chest 1V portable [id number]] Stat Exams 04/30/24 01:04 Completed Pending at discharge Category Date Time Status C-arm Fluoroscopy [id number] Routine Exams 04/29/24 12:07 Ordered XR lumbar spine 2-3V* [id number] Routine Exams 04/29/24 16:43 Taken CV. echo complete* [id number] Routine Ultrasound 04/30/24 08:52 Ordered Radiology Impressions Chest X-Ray 04/30/24 01:04 IMPRESSION: 1. No acute cardiopulmonary findings. 2. A few chronic/incidental findings above. Laboratory Results WBC 8.37 10^3/uL (3.29-11.43) 04/29/24 12:15 RBC 4.43 10^6/uL (3.85-5.65) 04/29/24 12:15 Hgb 11.90 g/dL (11.27-16.99) 04/29/24 12:15 Hct 38.4 % (36-47) 04/29/24 12:15 MCV 86.7 fl (85-98) 04/29/24 12:15 MCH 26.9 pg (27-33) L 04/29/24 12:15 MCHC 31.0 g/dL (30-55) 04/29/24 12:15 RDW 13.8 % (12.1-15.1) 04/29/24 12:15 Plt Count 331 10^3/cmm (157-399) 04/29/24 12:15 MPV 10.2 fL (7.4-10.4) 04/29/24 12:15 Neut % (Auto) 65.2 % 04/29/24 12:15 Lymph % (Auto) 25.1 % 04/29/24 12:15 Cocke % (Auto) 6.0 % 04/29/24 12:15 Eos % (Auto) 2.5 % 04/29/24 12:15 Baso % (Auto) 0.8 % 04/29/24 12:15 Neut # (Auto) 5.46 10^3/uL (1.8-7.7) 04/29/24 12:15 Lymph # (Auto) 2.1 10^3/uL (0.8-4.8) 04/29/24 12:15 Cocke # (Auto) 0.5 10^3/uL (0.2-0.9) 04/29/24 12:15 Eos # (Auto) 0.2 10^3/uL (0.0-0.8) 04/29/24 12:15 Baso # (Auto) 0.1 10^3/uL (0.0-0.1) 04/29/24 12:15 Nucleated RBC % (auto) 0 % 04/29/24 12:15 Nucleated RBCs # 0.0 /100WBC 04/29/24 12:15 D-Dimer 1.42 ug/mLFEU (0-0.59) H 04/30/24 01:30 Sodium 140 mmol/L (136-145) 04/29/24 12:15 Potassium 4.0 mmol/L (3.5-5.1) 04/29/24 12:15 Chloride 101 mmol/L (98-107) 04/29/24 12:15 Carbon Dioxide 29 mmol/L (22-29) 04/29/24 12:15 Anion Gap 14.0 (5-19) 04/29/24 12:15 BUN 27 mg/dL (6-20) H 04/29/24 12:15 Creatinine 0.8 mg/dL (0.5-0.9) 04/29/24 12:15 GFR Calculation 74.5 mL/min (90-130) L 04/29/24 12:15 Glucose 121 mg/dL (65-115) H 04/29/24 12:15 Calculated Osmolality 296 mOsm/kg (285-295) H 04/29/24 12:15 Calcium 9.1 mg/dL (8.5-10.5) 04/29/24 12:15 Total Bilirubin 0.2 mg/dL (0.15-1.2) 04/29/24 12:15 AST 31 U/L (0-32) 04/29/24 12:15 ALT 22 U/L (0-33) 04/29/24 12:15 Alkaline Phosphatase 155 U/L (35-105) H 04/29/24 12:15 Troponin T Baseline 9 ng/L (0-10) 04/30/24 01:30 Troponin T 120 Minute 8.96 ng/L (0-10) 04/30/24 03:27 Delta Troponin T -0.04 ABS# (0-10) L 04/30/24 03:27 Troponin T Hi Sens 6Hr 9.95 ng/L (0-10) 04/30/24 07:43 Troponin T Hi Sens 6Hr Delta 0.95 ng/L (0-12) 04/30/24 07:43 Total Protein 7.1 g/dL (6.6-8.7) 04/29/24 12:15 Albumin 4.1 g/dL (3.5-5.2) 04/29/24 12:15 Globulin 3.0 g/dL (1.3-4.6) 04/29/24 12:15 Blood Type A Positive 04/29/24 12:15 Rho(D) Type Rh positive 04/29/24 12:15 Antibody Screen Negative 04/29/24 12:15 Vitals Last Vital Signs Temp 98.4 F 04/30/24 07:23 Pulse 80 04/30/24 07:23 Resp 15 04/30/24 07:23 BP 130/89 04/30/24 08:19 Pulse Ox 97 04/30/24 07:23 O2 Del Method Nasal Cannula 04/30/24 07:23 O2 Flow Rate 2 04/30/24 07:23 Discharge Plan Discharge Patient Disposition: Home Condition: Good Prescriptions: New oxycodone 10 mg tablet 10 mg PO Q4H PRN (Reason: pain) 7 Days Qty: 42 0RF Continued tizanidine 2 mg tablet 2 mg PO DAILY chlorthalidone 25 mg tablet 25 mg PO DAILY simvastatin 20 mg tablet 20 mg PO DAILY diclofenac sodium 75 mg tablet,delayed release (DR/EC) 75 mg PO BID losartan 100 mg tablet 100 mg PO DAILY (DME) Bone Growth Stimulator See Rx Instructions .Route .MEDSUPPLY Qty: 1 0RF Rx Instructions: As directed ferrous sulfate [iron] 325 mg (65 mg iron) Tablet 325 mg PO DAILY duloxetine 60 mg capsule,delayed release(DR/EC) 60 mg PO DAILY cephalexin 500 mg capsule 500 mg PO BID Rx Instructions: ocean transportation intermediary Excedrin Extra Strength 250-250-65 mg Tablet 1 tab PO Q6H PRN (Reason: Pain) Hold Instructions: Resume on 03/27/24. pantoprazole 40 mg tablet,delayed release (DR/EC) 40 mg PO BID 90 Days Qty: 180 0RF Discontinued oxycodone 10 mg tablet 10 mg PO BID Referrals: Peter Navas DO [Physician] - 05/14/24 2:30 pm () Zuleyka Collado MD [Primary Care Provider] - 05/15/24 8:20 am (Please arrive by 8am with insurance card, photo id, medication list, and hospital discharge summary. ) Discharge Diet: Advance as tolerated Discharge Activity: Limit activity as instructed Patient Instructions: Acute Wound Care (DC), Opioid Safety, Post Anesthesia Care Activity Restrictions/Additional Instructions: Thank you for [facility] for your care! The following is a list of instructions, from your provider, to follow upon your discharge to ensure you have the optimal recovery from your recent injury orsurgery. Follow-up care is a moyer part of your treatment and safety. Be sure to make and go to all appointments, and call your doctor if you are having problems. If you do not already have a follow-up appointment made, call Dr. Navas office in the next 1-3 days to make follow up appointment for 1 weeks at [phone]. It is also a good idea to know your test results and keep a list of the medicines you take. Medications will be prescribed for you at your provider's discretion. These medications are to be used as instructed; if they are taken more often that prescribed they will not be refilled early and in most cases will not be refilled at all. > When a refill is needed,you should contact cammie cheatham 2-3 business days before your prescription runs out. Medications will NOT be refilled by cold reduction roller providers after hours! > Many pain medications contain Tylenol (Acetaminophen). Do not consume more than 4,000 mg of Tylenol per day in total with any combination ofmedications. > Pain medications can cause constipation. Please use an over the counter stool softener as directed, while taking pain medications. Consulty our local pharmacist with questions or recommendations on stool softeners. If constipation persists, contact our office or your primary care provider. > While under our care,you are not to receive pain medications or other controlled substances from any other provider unless our office is notified and approves. Any attempts to do so will result in refusal to prescribe any further pain medications and possible dismissal from our practice. ? Keep dressing on until we see you in clinic. ? Showering is permitted, however we ask that you do not take a bath, sit in a whirlpool / Jacuzzi, or go swimming for 1 month. For only the first 2 days after surgery, lt wilt be necessary for you to cover your wound/dressing with plastic and tape to keep it dry. ? Walking is essential for the healing process after surgery. We would like you to slowly advance your walking. This should be done on relatively flat clear ground (inside or out) or can be done on a treadmill. Remember this goal does not have to happen all at once, slowly increase your distance and duration. This can be broken into more more than one walk per day as tolerated. Patients who walk as directed after surgery rarely require Physical Therapy. In the unlikely event this issue arises your provider will direct hospital staff to make the appropriate arrangements. ? No lifting over 5 pounds {a gallon of milk) or bending/twisting until further notice. Each of these activities places an unnecessary amount of stress onto the body and can impede the delicate healing process. > Instead of bending at the waist, keep your back straight and bend at the knees. > Instead of twisting your torso, keep your back straight and turn your entire body with your feet. ? You may sleep in any position which makes you comfortable. Many patients find comfort sleeping in a reclining chair. It is not abnormal to have difficulty sleeping for the first several weeks following your surgery. We recommend trying Benadry! or Tylenol PM as directed to help with your sleeping difficulties. Both medications are over the counter and available withoutprescription. ? NO SMOKING!!! Smoking dramatically increases the probability of d eveloping postoperative wound infections. ? Common complaints after lumbar and/or thoracic spine surgery include, but are not limited to: numbness and/or tingling in the legs, pain around the i ncision and surrounding tissues, muscle spasms, or stiffness of the middle to low back. Contact our office if these symptoms persist or if an acute change occurs. ? No driving for the first 3-5days, and not while taking narcotics until seen at your follow-up appointment and cleared. There are no restrictions for riding on short trips, however if you take a longer trip, arrangements should be made to make regular stops to get out of the vehicle and stretch . ? Swelling is an unfortunate event that will take place with any surgery and is the primary source of your postoperative discomfort. While walking and regular approved activities helps control inflammation, there are additional steps you can take to minimizeswelling. > Place ice over the surgical site and surrounding tissue for twenty minutes, followed by applying a low/medium heat (heating pad) for an additional twenty minutes every 1-2 hours as needed for painrelief. > You may use of over the counter anti-inflammatory medications (Ibuprofen, Motrin, Aleve, Advil, etc) as directed on the package label. These types of medicines wm significantly reduce the amount of discomfort you experience after surgery from swelling. It should be noted that if you have and allergy to any of these medications, or a history of ulcers or kidney disease you should consult you primary care provider prior to starting these medications. Discharge Attestations Time Spent in Discharge Care*: less than 30 min Quality Metrics Clinical Quality Measures [ No reported AMI, CVA or VTE this stay] Coding Level of Care Code Acute Code for Chg Fwd Diagnoses S/P spinal fusion Z98.1
--- NOTE | 2024-04-30 11:57 | P.PN_ITS ---
Subjective 2 Subjective: Patient was seen this morning, no chest pain this morning, denies any cardiovascular history, does report a cardiovascular history in her father, cardiac echocardiogram ordered, discussed that if she were to have any recurrent chest pain to go to the emergency room or see her primary care provider, denies any shortness of breath, discussed given her back surgery she should remain ambulatory, discussed risk of DVT and PE, if she were to have any sudden onset chest pain, shortness of breath or hemoptysis please immediately call [phone] 11 Vitals/I&O/Wt Last Vital Signs Temp 98.4 F 04/30/24 11:08 Pulse 82 04/30/24 11:08 Resp 18 04/30/24 11:15 BP 98/61 04/30/24 11:08 Pulse Ox 90 04/30/24 11:08 O2 Del Method Room Air 04/30/24 11:08 O2 Flow Rate 2 04/30/24 07:23 04/29/24 04/30/24 04/30/24 22:59 06:59 14:59 Intake Total 2600 / 2600 927 / 3527 240 / 240 Output Total 1340 / 1340 900 / 2240 Balance 1260 / 1260 27 / 1287 240 / 240 Weight last 48 hrs Weight 103.827 kg Weight 101.151 kg Physical Exam 2 Const: COMMON NORMALS: no acute distress and patient oriented x3 Resp: COMMON NORMALS: normal respiratory effort, No retractions, No use of accessory muscles and clear to auscultation bilaterally AUSCULTATION: clear to auscultation bilaterally Cardio: COMMON NORMALS: regular rate, regular rhythm, S1 normal heart sound present and S2 normal heart sound present RATE: regular rate RHYTHM: r egular rhythm HEART SOUNDS: S1 normal heart sound present and S2 normal heart sound present GI: COMMON NORMALS: Normal to inspection, nondistended, normoactive bowel sounds present and non-tender Extremity: COMMON NORMALS: no calf tenderness and no pedal edema Neuro: COMMON NORMALS: patient oriented x3 Psych: COMMON NORMALS: mental status grossly normal Urinary Catheter Management: Fay Latex: Cath Placed During This Visit: yes Reason for Continuing Indwelling Catheter: Not indwelling catheter Urinary Catheter Date of Insertion: 04/29/24 Urinary Catheter Time of Insertion: 13:20 Data 04/29/24 12:15 04/29/24 12:15 A&P Assessment and plan (1) S/P spinal fusion: (2) Chest pain: No current chest pain Initial troponin negative, trend EKG reviewed, negative for acute ischemic changes Continuous telemetry monitoring Chest x-ray reviewed, no acute cardiopulmonary findings Treat underlying postop pain, consider adjusting analgesics Treat associated anxiety Encourage pulmonary toilet to avoid postop complications Continue to be ambulatory Cardiac echo ordered Plan Thank you for this consultation Attestations 2 Medical Necessity Statement*: Patient will be discharged today Diagnoses S/P spinal fusion Z98.1 Chest pain R07.9
== END 2024-04-30 12:30 | disposition home or self-care (01) | DRG 457 ==
LOC: MEDSURG 18:45
PROVIDERS: Anesthesiology; Admitting Provider Orthopaedic Surgery; PCP Family Medicine; Visit Provider Orthopaedic Surgery
PROC: 0RG Upper Joints, Fusion (ICD-10-PCS; principal; 2024-04-29 13:10)
DX: M40.294 Other kyphosis, thoracic region (principal); Z68.41 Body mass index [BMI] 40.0-44.9, adult; K21.9 Gastro-esophageal reflux disease without esophagitis; I10 Essential (primary) hypertension; F41.9 Anxiety disorder, unspecified; Z98.1 Arthrodesis status; G62.9 Polyneuropathy, unspecified; R07.9 Chest pain, unspecified; E78.5 Hyperlipidemia, unspecified; E66.01 Morbid (severe) obesity due to excess calories; Z82.61 Family history of arthritis; Z82.49 Family history of ischemic heart disease and other diseases of the circulatory system
CPT/HCPCS: 36415; 51702; 71045; 72100; 76000; 80053; 84484; 85025; 85378; 86850; 86900; 93005; 93306; 97116; 97161; C1713; J0131; J0690; J1100; J1171; J1644; J1885; J2250; J2270; J2405; J2704; J2710; J3010; J3370; J3490; J7030; J7120; P9045

== ENCOUNTER 2024-05-05 21:21 | Emergency (ER) | payer OTHER, MEDICARE, SELFPAY ==
[2024-05-05 21:45] VITALS: BP 106/66; PULSE 80; RESP 18; TEMP 36.6; O2SAT 95; BMI 40.2
[2024-05-05 22:20] LABS: Basophils % 0.4 %; Eosinophils # 0.6 10^3/uL (0.0-0.8); Eosinophils % 8.3 %; Hematocrit 30.3 % (36-47); Lymphocytes # 1.5 10^3/uL (0.8-4.8); Lymphocytes % 22.1 %; Mean Corpuscular HGB Conc 30.4 g/dL (30-55); Mean Corpuscular Hemoglobin 26.6 pg (27-33); Mean Corpuscular Volume 87.6 fl (85-98); Mean Platelet Volume 9.7 fL (7.4-10.4); Monocytes # 0.5 10^3/uL (0.2-0.9); Monocytes % 7.1 %; Neutrophils # 4.22 10^3/uL (1.8-7.7); Neutrophils % 61.2 %; Nucleated Red Blood Cells % 0 %; Platelet Count 431 10^3/cmm (157-399); Red Blood Count 3.46 10^6/uL (3.85-5.65); Red Cell Distribution Width 13.9 % (12.1-15.1); White Blood Count 6.89 10^3/uL (3.29-11.43)
[2024-05-05 22:40] VITALS: BP 118/66; PULSE 73; RESP 16; O2SAT 91
[2024-05-05 22:49] LABS: Alanine Aminotransferase 122 U/L (0-33); Albumin Level 2.9 g/dL (3.5-5.2); Alkaline Phosphatase 805 U/L (35-105); Anion Gap 14.8 (5-19); Aspartate Amino Transferase 147 U/L (0-32); Blood Urea Nitrogen 18 mg/dL (6-20); Calcium 8.6 mg/dL (8.5-10.5); Carbon Dioxide 30 mmol/L (22-29); Chloride 99 mmol/L (98-107); Creatinine Clr Calc Pharmacy 117.0316; Glomerular Filtration Rate 103.8 mL/min (90-130); Glucose 122 mg/dL (65-115); Osmolality Calculated 293 mOsm/kg (285-295); Potassium 3.8 mmol/L (3.5-5.1); Sodium 140 mmol/L (136-145); Thyroid Stimulating Hormone 1.77 uIU/mL (0.27-4.20); Total Bilirubin 0.2 mg/dL (0.15-1.2); Total Protein 5.9 g/dL (6.6-8.7)
--- NOTE | 2024-05-05 23:37 | ED_ITS ---
HPI - General Adult 2 General: Chief complaint: General Medical Stated complaint: unable to stay awake, weakness, thirsty - post op Time Seen by Provider: 05/05/24 22:40 Source: patient and family Mode of arrival: wheelchair Limitations: other (Fatigue and drowsiness) History of Present Illness: Patient presents emergency department today accompanied by her sister for evaluation treatment of sudden, acute drowsiness and fatigue. Patient is status post spinal surgery approximately [address] Navas. This is the patient's fourth back surgery. Unfortunately, patient has gone septic in the past after her surgeries requiring PICC line and IV administration for months. Patient is typically on a prophylactic antibiotic. She follows infectious disease in [place]. Patient is normally on amoxicillin however, began having transient elevated LFTs which, after scopes and testing, no other cause other than antibiotic use was found to have caused those findings. Patient was switched to cephalexin. Patient had fusion performed from T2-T12. Patient had already had fusion in the lumbar area previously. Patient has been having a lot more pain with this. She had been given oxycodone tens to be taken every 4 hours but was having breakthrough pain before she could take her next pill. They have been using supplemental Tylenol and ibuprofen which was not helping. They then started providing the patient 5 mg every 2 hours. The sister states that tonight while at dinner, patient's head fell forward and she has been having a difficult time staying awake. Patient will fall asleep, will wake up and respond when spoken to but then quickly falls back to sleep. Patient has not been vomiting. She has not been running fever. They are concerned she is becoming septic again. The sister stated that when the patient stood up she was concerned that there appeared to be swelling along the left side of the postoperative bandaging. Related Data Home Medications Medication Instructions Recorded Confirmed diclofenac sodium 75 mg 75 mg PO BID 04/21/22 04/26/24 tablet,delayed release ferrous sulfate 325 mg (65 mg 325 mg PO DAILY 05/23/22 04/26/24 iron) tablet (iron) losartan 100 mg tablet 100 mg PO DAILY 08/29/22 04/26/24 duloxetine 60 mg capsule,delayed 60 mg PO DAILY 01/24/23 04/26/24 release fimahfh-fsnjcowafwquf-qpkhqewk 250 1 tab PO Q6H PRN Pain 02/02/23 04/26/24 mg-250 mg-65 mg tablet (Excedrin Extra Strength) chlorthalidone 25 mg tablet 25 mg PO DAILY 04/12/24 04/26/24 simvastatin 20 mg tablet 20 mg PO DAILY 04/12/24 04/26/24 tizanidine 2 mg tablet 2 mg PO DAILY 04/12/24 04/26/24 cephalexin 500 mg capsule 500 mg PO BID 04/25/24 04/26/24 Previous Rx's Medication Instructions Recorded pantoprazole 40 mg tablet,delayed 40 mg PO BID 3 months #180 tabs 03/25/24 release Bone Growth Stimulator #1 ea 04/22/24 oxycodone 10 mg tablet 10 mg PO Q4H PRN pain 7 days #42 04/30/24 tabs Allergies Allergy/AdvReac Type Severity Reaction Status Date / Time ceftriaxone Allergy Mild ALGY-Swell Verified 05/05/24 21:49 Lip/Tongue/Throat daptomycin Allergy Swelling Verified 05/05/24 21:49 face, hands, feet lisinopril Allergy ADR-Cough Verified 05/05/24 21:49 Review of Systems 2 General: Reports: 10 or more systems reviewed and unremarkable except in HPI and below PFSH ED 2 PFSH: Medical History Neuropathy History of transesophageal echocardiography (MAURILIO) (~09/2021) Chronic antibiotic suppression History of streptococcal septicemia Scoliosis 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 Paraphrase of information obtained from Dr Vasquez's, ID at [facility], office and patient: Cultures grew Streptococcus. Hardware washed out. Source was NOT felt hardware related after evaluation. MAURILIO without vegetation. Infection involved left hand and left foot. Left hand had purulent material requiring surgical intervention. Paraspinal abscess also identified. 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 Previous (date unknown) ESR > 100 with CRP also elevated. GERD (gastroesophageal reflux disease) Hypertension Anxiety Surgical History History of esophagogastroduodenoscopy (EGD) History of colonoscopy History of hand surgery left, related to abscess at same time as paraspinal abscess in 08/2021, with associated post-infection/post-surgery limitation of range of motion at DIP and PIP 3rd digit Status post left foot surgery with hardware at 5th metatarsal History of back surgery 2019, surgical spinal alignment/correction of scoliosis at L2-L3, L3-L4 History of lumbosacral spine surgery 05/30/[address] Navas: 1. T8 - pelvis posterior spine fusion 2. T8-S1 instrumentation 3. Lumbopelvic fixation 4. removal of hardware from spine 5. Use of computer navigation stereotactic for spine 6. Use of allograft History of lumbar fusion 06/2021 in [facility], T10-S1 fusion Family History Mother Scoliosis Rheumatoid arthritis Hypertension Father Heart disease Hypercholesteremia Denies family history of Colon cancer Ovarian cancer Prostate cancer Diabetes Breast cancer Uterine cancer Thyroid disease Stroke Social History Smoking and tobacco/nicotine status: never used tobacco/nicotine Quit status (tobacco/nicotine): has quit using Year quit tobacco: 2019 Alcohol intake: never Marital status: Marital status details: is Fany Mac Physical Exam 2 Const: COMMON NORMALS: no acute distress and patient oriented x3 HENMT: COMMON NORMALS: hearing grossly normal bilaterally and moist oral mucous membranes Eye: COMMON NORMALS: EOMs intact bilaterally and conjunctivae normal C ONJUNCTIVA: Yes conjunctivae normal Neck/C-Spine: COMMON NORMALS: full ROM, no meningeal signs and no JVD Lymph: LYMPHATIC: no lymphadenopathy noted Resp: COMMON NORMALS: normal respiratory effort, No retractions and No use of accessory muscles Cardio: COMMON NORMALS: no JVD, regular rate and Peripheral pulses 2+ throughout RATE: regular rate PERIPHERAL PULSES: Peripheral pulses 2+ throughout Back/Pelvis: OTHER: Patient with postoperative bandaging extending down the midline of the thoracic vertebrae. The inferior portion of the bandaging is somewhat loosened and was able to be lifted to examine a small amount of the incision. Decision appears clean, dry without erythema noted. No signs of wound dehiscence. Surrounding skin from the midline is still somewhat swollen but, no signs of any developing erythema or induration. No singular areas of specific swelling noted. Patient relatively nontender to palpation along the lateral sides of the bandaging. Well-healed surgical scars in the midline of the lumbar vertebrae. Extremity: COMMON NORMALS: normal to inspection, full ROM, no joint enlargement and no calf tenderness GENERAL: Yes normal exam except as noted Neuro: COMMON NORMALS: patient oriented x3, CN's II-XII intact bilaterally, moves all extremities, no focal motor deficits and no sensory deficits noted MENINGEAL SIGNS: Yes no meningeal signs SPEECH: speech normal OTHER: Patient is extremely drowsy in the room however, is easily awoken to questioning. Thought process is normal. Course 2 Vital Signs: Vital signs: Vital Signs Temperature 97.9 F 05/05/24 21:45 Pulse Rate 73 05/06/24 01:00 Respiratory Rate 16 05/06/24 01:04 Blood Pressure 117/69 05/06/24 01:00 Pulse Oximetry 94 05/06/24 01:04 Oxygen Delivery Me thod Room Air 05/06/24 01:00 MDM - General Adult Medical Decision Making Patient presented to the emergency department today for evaluation treatment of concerns for excessive drowsiness this evening. Patient is status post spinal surgery about a week ago and had been on oxycodone 10 mg every 4-6 hours. She has been doing okay with her pain but, more having to supplement with extra Tylenol and ibuprofen. She has had multiple back surgeries but does admit this 1 hurts the worst. She is not having numbness or weakness into the lower extremities. She was still able to roll onto her own side and lift herself up independently for her examination today. She was excessively drowsy on arrival though when spoken to, would easily awaken, answer your questions clearly and concisely but, then would begin to fall asleep again. Family was concerned about this response. Patient has a history of becoming septic after her surgeries and has had to have PICC lines in place, prophylactic daily antibiotics, and has an infectious disease specialist in [place]. Family was concerned she was becoming septic again. Patient has been afebrile. Labs showed no signs of an elevated white blood cell count and, lactic is within normal limits. Family admitted that they have been providing the patient 5 mg of oxycodone every 2 hours starting today. With an otherwise negative infectious evaluation and, physical examination without concerns of incision infection, patient's symptoms are most likely due to to the dosing of narcotic pain medication she has been receiving. Patient was reevaluated approximately 4 hours after her last pain pill. Patient is much more alert. She is not falling asleep in the room though she does sound tired. She is much more engaged in the conversation and is extremely talkative. She is recalling lots of information and is noticeably improved overall. Discussed with patient family my suspicion for the pain medication as the cause of her symptoms tonight. I also spoke to Dr. Parks regarding this patient's evaluation given her postoperative status. He also agrees that with an otherwise negative evaluation here today, patient most likely is symptomatic from her pain pills. Patient has not had anything for her pain in approximately 4 hours and, chart review does show her recommended treatment course is pain medication every 4-6 hours. As the patient has no medication with her and has to ride in the car back home, I did offer her pain medication prior to discharge. However, family is not to provide more pain medication sooner than is recommended by her doctor. As the family indicated their concerns for the patient's breakthrough pain, I encouraged him to call Dr. Navas's office here in a couple of hours when the office opens to discuss with them the patient's pain. He may have to switch her to a stronger pain medication which unfortunately, is not able to be provided from the emergency department. We also discussed access to the emergency department for any change in condition concerning for signs of developing infection including fever, redness on the back, decreased urine output, or acute confusion. Patient family verbalized understanding and agreement to treatment plan. Differential Diagnosis Fatigue, anemia, infection, sepsis, narcotic overdose Lab Data 05/05/24 22:10 05/05/24 22:10 Laboratory Results WBC 6.89 10^3/uL (3.29-11.43) 05/05/24 22:10 RBC 3.46 10^6/uL (3.85-5.65) L 05/05/24 22:10 Hgb 9.20 g/dL (11.27-16.99) L 05/05/24 22:10 Hct 30.3 % (36-47) L 05/05/24 22:10 MCV 87.6 fl (85-98) 05/05/24 22:10 MCH 26.6 pg (27-33) L 05/05/24 22:10 MCHC 30.4 g/dL (30-55) 05/05/24 22:10 RDW 13.9 % (12.1-15.1) 05/05/24 22:10 Plt Count 431 10^3/cmm (157-399) H 05/05/24 22:10 MPV 9.7 fL (7.4-10.4) 05/05/24 22:10 Neut % (Auto) 61.2 % 05/05/24 22:10 Lymph % (Auto) 22.1 % 05/05/24 22:10 Hodgeman % (Auto) 7.1 % 05/05/24 22:10 Eos % (Auto) 8.3 % 05/05/24 22:10 Baso % (Auto) 0.4 % 05/05/24 22:10 Neut # (Auto) 4.22 10^3/uL (1.8-7.7) 05/05/24 22:10 Lymph # (Auto) 1.5 10^3/uL (0.8-4.8) 05/05/24 22:10 Hodgeman # (Auto) 0.5 10^3/uL (0.2-0.9) 05/05/24 22:10 Eos # (Auto) 0.6 10^3/uL (0.0-0.8) 05/05/24 22:10 Baso # (Auto) 0.0 10^3/uL (0.0-0.1) 05/05/24 22:10 Nucleated RBC % (auto) 0 % 05/05/24 22:10 Nucleated RBCs # 0.0 /100WBC 05/05/24 22:10 ESR 68 mm/hr (0-15) H 05/05/24 22:10 Sodium 140 mmol/L (136-145) 05/05/24 22:10 Potassium 3.8 mmol/L (3.5-5.1) 05/05/24 22:10 Chloride 99 mmol/L (98-107) 05/05/24 22:10 Carbon Dioxide 30 mmol/L (22-29) H 05/05/24 22:10 Anion Gap 14.8 (5-19) 05/05/24 22:10 BUN 18 mg/dL (6-20) 05/05/24 22:10 Creatinine 0.6 mg/dL (0.5-0.9) 05/05/24 22:10 GFR Calculation 103.8 mL/min (90-130) 05/05/24 22:10 Glucose 122 mg/dL (65-115) H 05/05/24 22:10 Calculated Osmolality 293 mOsm/kg (285-295) 05/05/24 22:10 Lactic Acid 1.1 mmol/L (0.5-2.2) 05/05/24 22:10 Calcium 8.6 mg/dL (8.5-10.5) 05/05/24 22:10 Total Bilirubin 0.2 mg/dL (0.15-1.2) 05/05/24 22:10 AST 147 U/L (0-32) H 05/05/24 22:10 ALT 122 U/L (0-33) H 05/05/24 22:10 Alkaline Phosphatase 805 U/L (35-105) H 05/05/24 22:10 C-Reactive Protein 194.0 mg/L (0.0-4.9) H 05/05/24 22:10 Total Protein 5.9 g/dL (6.6-8.7) L 05/05/24 22:10 Albumin 2.9 g/dL (3.5-5.2) L 05/05/24 22:10 Globulin 3.0 g/dL (1.3-4.6) 05/05/24 22:10 Procalcitonin Cancelled 05/05/24 22:10 TSH 1.77 uIU/mL (0.27-4.20) 05/05/24 22:10 No radiology studies performed this visit Discharge Plan Discharge Patient Disposition: Home Clinical Impression: S/P spinal fusion, Somnolence Condition: Stable Prescriptions: No Action tizanidine 2 mg tablet 2 mg PO DAILY chlorthalidone 25 mg tablet 25 mg PO DAILY simvastatin 20 mg tablet 20 mg PO DAILY diclofenac sodium 75 mg tablet,delayed release (DR/EC) 75 mg PO BID losartan 100 mg tablet 100 mg PO DAILY (DME) Bone Growth Stimulator See Rx Instructions .Route .MEDSUPPLY Qty: 1 0RF Rx Instructions: As directed ferrous sulfate [iron] 325 mg (65 mg iron) Tablet 325 mg PO DAILY duloxetine 60 mg capsule,delayed release(DR/EC) 60 mg PO DAILY cephalexin 500 mg capsule 500 mg PO BID Rx 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 pantoprazole 40 mg tablet,delayed release (DR/EC) 40 mg PO BID 90 Days Qty: 180 0RF Discharge Orders: Discharge ED (Routine); Ordered 05/06/24 Ordered By: Isa Emerson Referrals: Zuleyka Collado MD [Primary Care Provider] - Discharge Diet: Usual diet Discharge Activity: Limit activity as instructed Patient Instructions: Opioid Safety, Pain Management Activity Restrictions/Additional Instructions: Labs today show no signs of an elevated white blood cell count and your sepsis marker is negative. You do have elevated inflammatory markers but that is to be expected-especially status post surgery. Based on an otherwise negative workup and your symptoms, I think we need to get back to taking your pain medication as originally prescribed. Unfortunately, I do not think that you are getting enough time between doses of pain medication and it did not allow you to return to a more normal baseline, thus keeping you excessively drowsy. If your pain is not controlled with your oral pain medication regimen, I highly encourage you to reach out to Dr. Navas's office here in a few hours to discuss. There are stronger pain medications which can be prescribed to you however, they are not able to be prescribed from the emergency department. They must be prescribed from a doctor who has the capability of continued evaluation and follow-up such as your orthopedic surgeon. However, if you spike a high fever, or noticing a significant decrease in your urinary output-even if you are drinking fluids, began having swelling in your extremities or have acute confusion you should be seen and reevaluated through the ER. Coding Level of Care Code ED Rail Setter for Kayla Velázquez
[2024-05-05 23:57] LABS: Lactic Sepsis W/Reflex 1.1 mmol/L (0.5-2.2)
[2024-05-05 23:58] LABS: Erythrocyte Sedimentation Rate 68 mm/hr (0-15)
[2024-05-06] VITALS: BP 92/59; PULSE 72; O2SAT 96
[2024-05-06 01:00] VITALS: BP 117/69; PULSE 73; O2SAT 93
[2024-05-06 01:04] VITALS: RESP 16; O2SAT 94
[2024-05-06] MEDS: oxyCODONE-APAP 10-325 mg Tablet 1 TAB PO (01:04)
[2024-05-06 01:30] VITALS: BP 117/69; PULSE 73; RESP 16; O2SAT 93
== END 2024-05-06 01:15 | disposition home or self-care (01) ==
PROVIDERS: Emergency Medicine; Emergency Provider Physician Assistant; PCP Family Medicine
DX: R40.0 Somnolence (principal); Z98.890 Other specified postprocedural states; Z87.891 Personal history of nicotine dependence; I10 Essential (primary) hypertension
CPT/HCPCS: 36415; 80053; 83605; 84145; 84443; 85025; 85651; 86140; 99283

== ENCOUNTER → 2024-05-14 14:38 | Outpatient (BNVA) | payer OTHER, MEDICARE, SELFPAY | PROVIDERS: PCP Family Medicine; Visit Provider Orthopaedic Surgery | DX: Z98.1 Arthrodesis status (principal) | CPT/HCPCS: 72072 ==

== ENCOUNTER → 2024-05-28 09:47 | Outpatient (BNVA) | payer OTHER, MEDICARE, SELFPAY | PROVIDERS: PCP Family Medicine; Visit Provider Orthopaedic Surgery | DX: R52 Pain, unspecified (principal) | CPT/HCPCS: 72040; 72072 ==

== ENCOUNTER 2024-06-07 08:12 | Outpatient (CLI) | payer OTHER, MEDICARE, SELFPAY ==
--- NOTE | 2024-06-07 08:30 | CT_ITS ---
WS: [id number] CT THORACIC SPINE, noncontrast HISTORY: Back pain TECHNIQUE: Contiguous 2.0 mm axial images are reviewed to thoracic spine. Images are reformatted in s agittal and coronal planes. All CT scans at [facility] use at least one of these dose optimiz ation techniques: automated exposure control; mA and/or kV adjustment per patient size (includes targ eted exams where dose is matched to clinical indication); or iterative reconstruction. DLP: 981.20 mGy.cm COMPARISON: 04/22/2024 Extensive posterior thoracolumbar and sacral fusion. Hardware begins at what is probably T2 and exten ds to the sacrum. Pedicle screws from T2-T7. Pedicle screws reidentified beginning at T11. Defects fr om pedicle screw removal at T8 and T9. Disc spaces are all narrowed and desiccated. There is a new co mpression fracture involving the superior endplate of T4 which was not present on 04/22/2024. Vacuum disc phenomena at T7-8 and T8-9. Postsurgical changes are noted posteriorly. These changes appear appropriate. There is a small amount of fluid and soft tissue thickening. Indeterminate for possible bone fragment versus artifact at the T7 level in the epidural space. Favor this is probably an artifact. There are similar changes but no t as obvious more superiorly. Parapelvic cyst LEFT kidney. CT/CT thoracic spin wo con* [id number] IMPRESSION: 1. Revision and extension of the thoracolumbar fusion since 04/22/2024. 2. New pedicle screws and rods are now placed from T2-T8. Removal of the pedic le screws at T8 and T9. 3. New minimal compression fracture involving the superior endplate of T4.
== END 2024-06-07 08:13 | disposition home or self-care (01) ==
LOC: RAD 08:13
PROVIDERS: PCP Family Medicine; Visit Provider Orthopaedic Surgery
DX: S22.040A Wedge compression fracture of fourth thoracic vertebra, initial encounter for closed fracture (principal); M51.34 Other intervertebral disc degeneration, thoracic region; M43.25 Fusion of spine, thoracolumbar region; M43.28 Fusion of spine, sacral and sacrococcygeal region; X58.XXXA Exposure to other specified factors, initial encounter
CPT/HCPCS: 72128

== ENCOUNTER → 2024-06-18 07:56 | Outpatient (BNVA) | payer MEDICARE, SELFPAY | PROVIDERS: PCP Family Medicine; Visit Provider Orthopaedic Surgery | DX: Z98.1 Arthrodesis status (principal) | CPT/HCPCS: 72072; 99024 ==

== ENCOUNTER 2024-06-21 06:06 | Day surgery (SDC) | payer MEDICARE, SELFPAY ==
[2024-06-21] VITALS (7 sets, daily range): BP systolic 92–163; BP diastolic 53–96; PULSE 69–87; RESP 15–18; TEMP 36.3–36.4; O2SAT 97–100; BMI 39.4
--- NOTE | 2024-06-21 06:09 | P.ANESASSM_ITS ---
Pre-Anesthetic Assessment Height/Weight: Height 5 ft 2 in Preop Diagnosis: Cervical pain, s/p spinal fusion Operation Date: 06/21/24 07:00 Proposed Procedures p Steriod Injection under conscious sedation(Not Applicable) - Peter Navas, DO Was Beta Maryjane taken within 24 hours: N/A Was Clonidine taken within 24 hours: N/A Social Tobacco and No alcohol Quit smoking 5 years ago Exam alert, oriented x 3, clear to auscultation bilaterally and regular rate & rhythm Airway Submandibular: within normal limits Cervical ROM: within normal limits Mallampati: Class I Dentition: full Anesthetic Plan ASA status: 3 Anesthesia: General Other: No prior issues with anesthesia in the past NPO since yesterday History of hypertension on losartan and chlorthalidone S/p thoracic spinal fusion GERD on Protonix Labs 05/01/2024 reviewed and acceptable for procedure Echo 04/30/2024 showing EF 55% with no wall motion abnormalities Plan for MAC anesthetic Medications/Allergies Home Medications Medication Instructions Recorded Confirmed Last Taken Type diclofenac sodium 75 mg 75 mg PO BID 04/21/22 06/20/24 06/20/24 History tablet,delayed release ferrous sulfate 325 mg (65 mg 325 mg PO DAILY 05/23/22 06/20/24 06/20/24 History iron) tablet (iron) losartan 100 mg tablet 100 mg PO DAILY 08/29/22 06/20/24 06/20/24 History duloxetine 60 mg capsule,delayed 60 mg PO DAILY 01/24/23 06/20/24 06/20/24 History release cnkgatn-wpiyoxzcjkkhz-aotznafw 250 1 tab PO Q6H PRN Pain 02/02/23 06/20/24 06/18/24 History mg-250 mg-65 mg tablet (Excedrin Extra Strength) pantoprazole 40 mg tablet,delayed 40 mg PO BID 3 months #180 tabs 03/25/24 06/20/24 06/20/24 Rx release chlorthalidone 25 mg tablet 25 mg PO DAILY 04/12/24 06/20/24 06/20/24 History simvastatin 20 mg tablet 20 mg PO DAILY 04/12/24 06/20/24 06/20/24 History tizanidine 2 mg tablet 2 mg PO DAILY 04/12/24 06/20/24 06/20/24 History Bone Growth Stimulator #1 ea 04/22/24 05/28/24 Unknown Rx cephalexin 500 mg capsule 500 mg PO BID 04/25/24 06/20/24 06/20/24 History oxycodone 10 mg tablet 10 mg PO Q4H PRN pain 1 month #160 06/04/24 06/21/24 06/21/24 03:00 Rx tabs diazepam 5 mg tablet (Valium) 5 mg PO TID PRN muscle spasm #30 06/06/24 06/20/24 06/19/24 Rx tabs prednisone 20 mg tablet 20 mg PO DAILY 7 days #15 tabs 06/14/24 06/20/24 06/20/24 Rx Allergies Allergy/AdvReac Type Severity Reaction Status Date / Time ceftriaxone Allergy Mild ALGY-Swell Verified 06/18/24 08:04 Lip/Tongue/Throat daptomycin Allergy Swelling Verified 06/18/24 08:04 face, hands, feet lisinopril Allergy ADR-Cough Verified 06/18/24 08:04 [facility] Anesthesia Medical History Neuropathy History of transesophageal echocardiography (MAURILIO) (~09/2021) Chronic antibiotic suppression History of streptococcal septicemia Scoliosis 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 Paraphrase of information obtained fro reggie Howell, EMMANUEL at [facility], office and patient: Cultures grew Streptococcus. Hardware washed out. Source was NOT felt hardware related after evaluation. MAURILIO without vegetation. Infection involved left hand and left foot. Left hand had purulent material requiring surgical intervention. Paraspinal abscess also identified. 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 Previous (date unknown) ESR > 100 with CRP also elevated. GERD (gastroesophageal reflux disease) Hypertension Anxiety Surgical History History of esophagogastroduodenoscopy (EGD) History of colonoscopy History of hand surgery left, related to abscess at same time as paraspinal abscess in 08/2021, with associated post-infection/post-surgery limitation of range of motion at DIP and PIP 3rd digit Status post left foot surgery with hardware at 5th metatarsal History of back surgery 2019, surgical spinal alignment/correction of scoliosis at L2-L3, L3-L4 History of lumbosacral spine surgery 05/30/[address] Navas: 1. T8 - pelvis posterior spine fusion 2. T8-S1 instrumentation 3. Lumbopelvic fixation 4. removal of hardware from spine 5. Use of computer navigation stereotactic for spine 6. Use of allograft History of lumbar fusion 06/2021 in [facility], T10-S1 fusion Family History Mother Scoliosis Rheumatoid arthritis Hypertension Father Heart disease Hypercholesteremia Denies family history of Colon cancer Ovarian cancer Prostate cancer Diabetes Breast cancer Uterine cancer Thyroid disease Stroke Social History Smoking and tobacco/nicotine status: never used tobacco/nicotine Quit status (tobacco/nicotine): has quit using Year quit tobacco: 2019 Alcohol intake: never Marital status: Marital status details: is Fany Mac Data Anesthesia Cardiac Studies: Echocardiogram 04/30/24
--- NOTE | 2024-06-21 06:39 | W.PM.OPSUD ---
Surgery/Procedure H&P Update DATE OF PROCEDURE: June 21, 2024 DATE H&P PERFORMED: 03/12/24 H&P UPDATE INFORMATION: I have reviewed H&P completed within last 30 days, I have examined patient prior to procedure and No changes to prior documentation CHANGES TO PREVIOUS DOCUMENTATION: Plan will be to inject steroid around the area of inflammation. Will not make any incision. PREOP DIAGNOSIS: Neck pain PLANNED PROCEDURE: Operation Date: 06/21/24 07:00 Proposed Procedures p Steriod Injection under conscious sedation(Not Applicable) - Peter Navas DO
[2024-06-21] MEDS: sodium chloride 0.9% 1,000 ML 30 ML IV (06:51)
--- NOTE | 2024-06-21 07:28 | PC.NURSE ---
0.25% bupivacaine 9cc exp08/07, lot [id number], mixed with depo-medrol 1cc exp 05/2025 lot kdos02. 10cc injected by Peter Navas.
--- NOTE | 2024-06-21 07:40 | P.OP_ITS ---
Operative Report Date of procedure: June 21, 2024 Pre-op diagnosis: Pain above surgery Post-op diagnosis: same Procedure done: Steroid injection around C7 and T1 spinous processes Surgeon: Peter Navas DO Estimated blood loss (mL): 0 Procedure: Steroid injection around C7 and T1 spinous processes Patient brought the op suite after an Gonasi was placed in the prone position. Patient was prepped draped normal sterile position. All areas impingement well- padded. Bupivacaine and Kenalog were injected into around the spinous processes this was done bilaterally at C7 and T1. Patient tolerated procedure well and was transferred to the PACU in stable condition.
--- NOTE | 2024-06-21 08:12 | ANE.PACU2 ---
Inpatient post-anesthesia follow up: Airway intact: Yes Vital signs: Temperature 97.3 F Pulse Rate 69 Respiratory Rate 18 Blood Pressure 116/81 Pulse Oximetry 98 Oxygen Delivery Me thod Room Air Oxygen Flow Rate Fraction of Inspir ed Oxygen Hydration adequate: Yes Nausea and vomiting: No Pain level: 1 Mental status: Baseline
== END 2024-06-21 08:12 | disposition home or self-care (01) ==
PROVIDERS: PCP Family Medicine; Visit Provider Orthopaedic Surgery
PROC: (CPT 20610; principal; 2024-06-21 07:00)
DX: G89.28 Other chronic postprocedural pain (principal); Z87.891 Personal history of nicotine dependence; I10 Essential (primary) hypertension; Z98.1 Arthrodesis status; K21.9 Gastro-esophageal reflux disease without esophagitis; F41.9 Anxiety disorder, unspecified
CPT/HCPCS: 20610; J0690; J2250; J2371; J2704; J7030

== ENCOUNTER → 2024-07-23 08:09 | Outpatient (BNVA) | payer MEDICARE, SELFPAY | PROVIDERS: PCP Family Medicine; Visit Provider Orthopaedic Surgery | DX: Z98.1 Arthrodesis status (principal) | CPT/HCPCS: 99024 ==

== ENCOUNTER → 2024-08-15 09:03 | Outpatient (BNVA) | payer MEDICARE, SELFPAY | PROVIDERS: PCP Family Medicine; Visit Provider Orthopaedic Surgery | DX: M54.2 Cervicalgia (principal); Z98.1 Arthrodesis status | CPT/HCPCS: 72072; 99214 ==

== ENCOUNTER 2024-09-04 10:05 | Outpatient (CLI) | payer MEDICARE, SELFPAY ==
--- NOTE | 2024-09-04 10:30 | CTR_ITS ---
PROCEDURE INFORMATION: Exam: CT Thoracic Spine Without Contrast Exam date and time: 09/04/2024 10:32 AM Age: 54 years old Clinical indication: Pain and condition or disease; Disc degneration; Thoracolumbar; With radiculopathy; Pain in thoracic spine; Left; Prior surgery; Surgery date: 1-6 months; Surgery type: Thoracic spine surgery; Pain in upper back, with protrusion. ; Additional info: Back pain TECHNIQUE: Imaging protocol: Computed tomography of the thoracic spine without contrast. Radiation optimization: All CT scans at this facility use at least one of these dose optimization techniques: automated exposure control; mA and/or kV adjustment per patient size (includes targeted exams where dose is matched to clinical indication); or iterative reconstruction. COMPARISON: 1. CT thoracic spin wo con* [id number] 06/07/2024 8:22 AM 2. Thoracic spine plain films dated 09/04/2024 RADIATION DOSE METRICS: Total DLP (mGy-cm): 765.01 FINDINGS: Bones/joints: Redemonstration of extensive posterior spinal hardware fixation extending from the T2 level inferiorly to the lumbar region (inferior extent hardware fixation not imaged on this study) . Within the thoracic spine, there are bilateral pedicle screws from T1 through T7 and at T11 and T12 with interconnecting rods. Screw tracts are noted at T8 and T9. Thoracic vertebral body heights are maintained. Stable moderate to severe disc space narrowing at T7-T8 with vacuum disc phenomenon. Mild disc space narrowing at remaining thoracic levels. L1 laminectomy. Soft tissues: Stable posterior subcutaneous midline scarring with stable subcutaneous fluid collection seen inferiorly at the T11, T12 and L1 levels measuring up to 3.0 x 1.7 cm. Stable nonspecific bilateral adrenal thickening. CT/CT thoracic spin wo con* [id number] IMPRESSION: 1. Redemonstration of extensive thoracolumbar posterior spinal hardware fixation, with inferior lumbar extent of the hardware not imaged on this study. No thoracic acute bony abnormality. If symptoms persist, consider further evaluation with MRI, if there are no contraindications to obtaining a MRI scan. 2. Stable subcutaneous fluid collections adjacent to the levels of surgery at the T11, T12 and L1 levels which may represent a postoperative seroma. Infected collection can not be excluded on this study. Recommend clinical correlation follow-up imaging as clinically warranted.
== END 2024-09-04 10:06 | disposition home or self-care (01) ==
PROVIDERS: PCP Family Medicine; Visit Provider Orthopaedic Surgery
DX: G89.18 Other acute postprocedural pain (principal); M51.34 Other intervertebral disc degeneration, thoracic region; Z98.890 Other specified postprocedural states; R93.7 Abnormal findings on diagnostic imaging of other parts of musculoskeletal system; M79.89 Other specified soft tissue disorders; E27.8 Other specified disorders of adrenal gland
CPT/HCPCS: 72128

== ENCOUNTER 2024-09-05 15:23 | Outpatient (CLI) | payer MEDICARE, SELFPAY ==
[2024-09-05 16:50] LABS: Erythrocyte Sedimentation Rate 24 mm/hr (0-15)
== END 2024-09-05 15:24 | disposition home or self-care (01) ==
LOC: LAB 15:52
PROVIDERS: PCP Family Medicine; Visit Provider Family Medicine
DX: T84.7XXS Infection and inflammatory reaction due to other internal orthopedic prosthetic devices, implants and grafts, sequela (principal); X58.XXXS Exposure to other specified factors, sequela
CPT/HCPCS: 36415; 85651

== ENCOUNTER → 2024-09-19 14:46 | Outpatient (BNVA) | payer MEDICARE, SELFPAY | PROVIDERS: PCP Family Medicine; Visit Provider Orthopaedic Surgery | DX: Z09 Encounter for follow-up examination after completed treatment for conditions other than malignant neoplasm (principal) | CPT/HCPCS: 99213 ==

== ENCOUNTER 2024-10-30 10:34 | Emergency (ER) | payer MEDICARE, SELFPAY ==
[2024-10-30 10:50] VITALS: BP 134/83; PULSE 73; RESP 20; TEMP 36.4; O2SAT 100
[2024-10-30 10:53] VITALS: BP 132/82; PULSE 70; O2SAT 98
--- NOTE | 2024-10-30 10:55 | CT_ITS ---
WS: [id number] CT THORACIC SPINE TECHNIQUE: Noncontrast CT of the thoracic spine with coronal and sagittal reformatted images. CLINICAL INFORMATION: Postsurgical upper back pain. COMPARISON: CT 09/04/2024 DLP: 1115.[address] scans at [facility] use at least one of these dose optimization techniques: automated exposure control; mA and/or kV adjustment per patient size (includes targeted exams where dose is matched to clinical indication); or iterative reconstruction. FINDINGS: Moderate thoracic kyphosis. Prior postoperative changes pedicle screw fixation with interconnecting rods thoracic and upper lumbar spine extending off the [id number]. Hardware appears stable compared to 09/04/2024. Interconnecting rods appear intact. Pedicle screws extend from T2-T7 and T11-L1 extending off the [id number]. No high-grade central canal stenosis. Moderate facet arthropathy lower thoracic spine. Decompressive laminectomies T12 and L1 with small postoperative seroma. Mild central canal stenosis T10-11 with moderate LEFT bony foraminal narrowing unchanged. Moderate facet arthropathy T10-11. Mild central canal stenosis at T9 with narrowing of the LEFT subarticular recess. Mild central canal stenosis T7- 8. Mild LEFT T5-T6 bony foraminal narrowing. Findings are unchanged compared to previous. Tiny esophageal hiatal hernia. Nodular thickening LEFT adrenal gland. Disc space narrowing worse at T7-8 with vacuum disc phenomenon. Pedicle screw removal at T8-T9. CT/CT thoracic spin wo con* [id number] IMPRESSION: 1. Stable postoperative changes described above. 2. Mild central canal stenosis T7-T10 unchanged. 3. Moderate LEFT bony foraminal narrowing T10-11 unchanged 4. Stable mild compression superior plate T4
--- NOTE | 2024-10-30 11:00 | W.ED.BACK ---
HPI - Back Pain/Injury General: Chief Complaint: Back Pain/Injury Stated Complaint: 6 month post op back surg, pain, pressure,buring Time Seen by Provider: 10/30/24 10:55 History of Present Illness: 54-year-old female with history of chronic pain syndrome, sepsis in the past, thoracic back surgery most recently who presents the emergency room with thoracic back pain that radiates to the right side and into her right arm. This been going on for a little over a week now. She had had a CT scan a couple months ago and there was some concern for a fluid collection that might be a seroma. She had followed with Dr. Navas who felt this was not significant at this time. No saddle numbness, no urinary retention or incontinence, no focal motor deficit, no sensory deficit. no recent fever. no cough. no shortness of breath. no chest pain. no abdominal pain. no nausea or vomiting. no dysuria. no altered mental status. no edema. Related Data Home Medications ?Medication ?Instructions ?Recorded ?Confirmed diclofenac sodium 75 mg 75 mg PO BID 04/21/22 10/30/24 tablet,delayed release losartan 100 mg tablet 100 mg PO DAILY 08/29/22 10/30/24 duloxetine 60 mg capsule,delayed 60 mg PO DAILY 01/24/23 10/30/24 release dabtqpe-jgmwylbnkomgm-lbuffnzw 250 2 tab PO Q6H PRN Pain 02/02/23 10/30/24 mg-250 mg-65 mg tablet (Excedrin Extra Strength) chlorthalidone 25 mg tablet 25 mg PO DAILY 04/12/24 10/30/24 simvastatin 20 mg tablet 20 mg PO DAILY 04/12/24 10/30/24 tizanidine 2 mg tablet 2 mg PO DAILY PRN Pain 04/12/24 10/30/24 cephalexin 500 mg capsule 500 mg PO BID 04/25/24 10/30/24 pantoprazole 40 mg tablet,delayed 40 mg PO BID 10/30/24 10/30/24 release polysaccharide iron complex 150 mg 150 mg PO DAILY 10/30/24 10/30/24 iron capsule (Ferrex) prednisone 1 mg tablet 3 mg PO DAILY 10/30/24 10/30/24 prednisone 20 mg tablet 10 mg PO DAILY 10/30/24 10/30/24 prednisone 5 mg tablet 5 mg PO DAILY 10/30/24 10/30/24 Previous Rx's ?Medication ?Instructions ?Recorded Bone Growth Stimulator #1 ea 04/22/24 oxycodone 10 mg tablet 10 mg PO Q4H PRN pain 1 month #160 10/18/24 tabs prednisone 20 mg tablet 60 mg (3 x 20 mg) PO DAILY 5 days 10/30/24 #15 tabs Allergies Allergy/AdvReac Type Severity Reaction Status Date / Time ceftriaxone Allergy Mild ALGY-Swell Verified 06/18/24 08:04 Lip/Tongue/Throat daptomycin Allergy Swelling Verified 06/18/24 08:04 face, hands, feet lisinopril Allergy ADR-Cough Verified 06/18/24 08:04 Review of Systems Narrative: Constitutional symptoms: Negative except as documented in HPI. Skin symptoms: Negative except as documented in HPI. Eye symptoms: Negative except as documented in HPI. ENMT symptoms: Negative except as documented in HPI. Respiratory symptoms: Negative except as documented in HPI. Cardiovascular symptoms: Negative except as documented in HPI. Gastrointestinal symptoms: Negative except as documented in HPI. Genitourinary symptoms: Negative except as documented in HPI. Musculoskeletal symptoms: Negative except as documented in HPI. Neurologic symptoms: Negative except as documented in HPI. Psychiatric symptoms: Negative except as documented in HPI. Endocrine symptoms: Negative except as documented in HPI. 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 Paraphrase of information obtained from Dr Vasquez's, ID at [facility], office and patient: Cultures grew Streptococcus. Hardware washed out. Source was NOT felt hardware related after evaluation. MAURLIIO without vegetation. Infection involved left hand and left foot. Left hand had purulent material requiring surgical intervention. Paraspinal abscess also identified. Initially treated with ceftriaxone, then daptomycin added for custodial home IV antibiotic treatment via PICC line followed, by continued oral keflex (still on oral Keflex prior to revision surgery done by Dr Navas at [facility] on 05/30/2022). Previous (date unknown) ESR > 100 with CRP also elevated. GERD (gastroesophageal reflux disease) Hypertension Anxiety Surgical History History of esophagogastroduodenoscopy (EGD) History of colonoscopy History of hand surgery left, related to abscess at same time as paraspinal abscess in 08/2021, with associated post-infection/post-surgery limitation of range of motion at DIP and PIP 3rd digit Status post left foot surgery with hardware at 5th metatarsal History of back surgery 2019, surgical spinal alignment/correction of scoliosis at L2-L3, L3-L4 History of lumbosacral spine surgery 05/30/[address] Navas: 1. T8 - pelvis posterior spine fusion 2. T8-S1 instrumentation 3. Lumbopelvic fixation 4. removal of hardware from spine 5. Use of computer navigation stereotactic for spine 6. Use of allograft History of lumbar fusion 06/2021 in [facility], T10-S1 fusion Family History Mother Scoliosis Rheumatoid arthritis Hypertension Father Heart disease Hypercholesteremia Denies family history of Colon cancer Ovarian cancer Prostate cancer Diabetes Breast cancer Uterine cancer Thyroid disease Stroke Social History Smoking and tobacco/nicotine status: unknown if used tobacco/nicotine Quit status (tobacco/nicotine): has quit using Year quit tobacco: 2019 Alcohol intake: never Marital status: Marital status details: is Fany Mac Physical Exam Narrative: EXAM NARRATIVE: General: Alert, no acute distress. Skin: Warm, dry. Head: Normocephalic, atraumatic. Neck: Supple, trachea midline. Eye: Extraocular movements are intact. Ears, nose, mouth and throat: mucosa moist. Cardiovascular: Regular, Normal peripheral perfusion. Respiratory: Lungs are clear to auscultation, respirations are non-labored, breath sounds are equal, Symmetrical chest wall expansion. Gastrointestinal: Soft, Nontender, Non distended Musculoskeletal: Normal ROM, no deformity. Back: Right-sided tenderness. No obvious bony deformities or bony tenderness. Neurological: Alert and oriented, No focal neurological deficit observed. Psychiatric: Cooperative, appropriate mood & affect. Course Vital Signs: Vital signs: Vital Signs Temperature 97.5 F L 10/30/24 10:50 Pulse Rate 70 10/30/24 10:53 Respiratory Rate 20 H 10/30/24 10:50 Blood Pressure 132/82 10/30/24 10:53 Pulse Oximetry 98 10/30/24 10:53 Oxygen Delivery Me thod Room Air 10/30/24 10:50 MDM - Back Pain/Injury Medical Decision Making Medical decision making: Differential diagnosis including but not limited to and based on the above HPI, review of systems and physical exam in this patient with surgical history, thoracic back pain and sepsis history: Concern for abscess, hardware failure, sepsis etc. Orders placed to evaluate differential diagnosis based on the above differential, HPI and physical exam Lab Review: Laboratory results were reviewed and interpreted by myself the emergency room physician. No leukocytosis. No anemia. No renal failure. CRP and ESR are normal. No signs of infection. CT of the thoracic spine: Stable changes as listed below. No signs of abscess or hardware failure. This was reviewed and interpreted by myself the emergency room physician. I also reviewed the radiology report. I reviewed the patient's medical record. Reviewed previous visits to orthopedics. Reexamination: Patient's pain is quite a bit improved with Dilaudid. I discussed findings. She has no increased work of breathing. No altered mental status. She will follow-up in clinic. Consultation: I spoke with Dr. Navas who is on-call for orthopedics and who is operated on the patient previously. He agrees with plan and will see the patient in follow-up in clinic. Assessment and plan: Acute on chronic thoracic back pain Radiculopathy ?IV Dilaudid, IV Toradol and IV Decadron in the emergency room. - Discharged home - Discussed plan with patient. Answered any questions. - Evaluation and treatment of this problem were appropriate in the emergency setting. Labs 10/30/24 11:21 10/30/24 11:21 Radiology Impressions Thoracic Spine CT 10/30/24 10:55 IMPRESSION: 1. Stable postoperative changes described above. 2. Mild central canal stenosis T7-T10 unchanged. 3. Moderate LEFT bony foraminal narrowing T10-11 unchanged 4. Stable mild compression superior plate T4 Laboratory Results WBC 9.75 10^3/uL (3.29-11.43) 10/30/24 11:21 RBC 4.18 10^6/uL (3.85-5.65) 10/30/24 11:21 Hgb 11.10 g/dL (11.27-16.99) L 10/30/24 11:21 Hct 36.7 % (36-47) 10/30/24 11:21 MCV 87.8 fl (85-98) 10/30/24 11:21 MCH 26.6 pg (27-33) L 10/30/24 11:21 MCHC 30.2 g/dL (30-55) 10/30/24 11:21 RDW 15.4 % (12.1-15.1) H 10/30/24 11:21 Plt Count 381 10^3/cmm (157-399) 10/30/24 11:21 MPV 10.0 fL (7.4-10.4) 10/30/24 11:21 Neut % (Auto) 71.2 % 10/30/24 11:21 Lymph % (Auto) 20.6 % 10/30/24 11:21 [place] % (Auto) 5.6 % 10/30/24 11:21 Eos % (Auto) 1.5 % 10/30/24 11:21 Baso % (Auto) 0.7 % 10/30/24 11:21 Neut # (Auto) 6.93 10^3/uL (1.8-7.7) 10/30/24 11:21 Lymph # (Auto) 2.0 10^3/uL (0.8-4.8) 10/30/24 11:21 [place] # (Auto) 0.6 10^3/uL (0.2-0.9) 10/30/24 11:21 Eos # (Auto) 0.2 10^3/uL (0.0-0.8) 10/30/24 11:21 Baso # (Auto) 0.1 10^3/uL (0.0-0.1) 10/30/24 11:21 Nucleated RBC % (auto) 0 % 10/30/24 11:21 Nucleated RBCs # 0.0 /100WBC 10/30/24 11:21 ESR 12 mm/hr (0-15) 10/30/24 11:21 Sodium 141 mmol/L (136-145) 10/30/24 11:21 Potassium 3.4 mmol/L (3.5-5.1) L 10/30/24 11:21 Chloride 103 mmol/L (98-107) 10/30/24 11:21 Carbon Dioxide 25 mmol/L (22-29) 10/30/24 11:21 Anion Gap 16.4 (5-19) 10/30/24 11:21 BUN 24 mg/dL (6-20) H 10/30/24 11:21 Creatinine 0.9 mg/dL (0.5-0.9) 10/30/24 11:21 GFR Calculation 64.8 mL/min (90-130) L 10/30/24 11:21 Glucose 112 mg/dL (65-115) 10/30/24 11:21 Calculated Osmolality 297 mOsm/kg (285-295) H 10/30/24 11:21 Lactic Acid 1.2 mmol/L (0.5-2.2) 10/30/24 11:21 Calcium 9.2 mg/dL (8.5-10.5) 10/30/24 11:21 Total Bilirubin 0.2 mg/dL (0.15-1.2) 10/30/24 11:21 AST 11 U/L (0-32) 10/30/24 11:21 ALT 13 U/L (0-33) 10/30/24 11:21 Alkaline Phosphatase 96 U/L (35-105) 10/30/24 11:21 C-Reactive Protein 3.1 mg/L (0.0-4.9) 10/30/24 11:21 Total Protein 6.4 g/dL (6.6-8.7) L 10/30/24 11:21 Albumin 3.9 g/dL (3.5-5.2) 10/30/24 11:21 Globulin 2.5 g/dL (1.3-4.6) 10/30/24 11:21 All radiology interpretation(s) finalized by discharge Discharge Plan Discharge Patient Disposition: Home Clinical Impression: Acute on chronic back pain, Radiculopathy Condition: Stable Prescriptions: New prednisone 20 mg tablet 60 mg PO DAILY 5 Days Qty: 15 0RF No Action tizanidine 2 mg tablet 2 mg PO DAILY PRN (Reason: Pain) chlorthalidone 25 mg tablet 25 mg PO DAILY simvastatin 20 mg tablet 20 mg PO DAILY diclofenac sodium 75 mg tablet,delayed release (DR/EC) 75 mg PO BID losartan 100 mg tablet 100 mg PO DAILY (DME) Bone Growth Stimulator See Rx Instructions .Route .MEDSUPPLY Qty: 1 0RF Rx Instructions: As directed oxycodone 10 mg tablet 10 mg PO Q4H MDD 6 PRN (Reason: pain) 30 Days Qty: 160 0RF duloxetine 60 mg capsule,delayed release(DR/EC) 60 mg PO DAILY cephalexin 500 mg capsule 500 mg PO BID Rx Instructions: terminologist Excedrin Extra Strength 250-250-65 mg Tablet 2 tab PO Q6H PRN (Reason: Pain) polysaccharide iron complex [Ferrex 150] 150 mg iron capsule 150 mg PO DAILY prednisone 20 mg tablet 10 mg PO DAILY prednisone 5 mg tablet 5 mg PO DAILY prednisone 1 mg tablet 3 mg PO DAILY pantoprazole 40 mg tablet,delayed release (DR/EC) 40 mg PO BID Discharge Orders: Discharge ED (Routine); Ordered 10/30/24 Ordered By: Joanne Brown Referrals: Peter Navas DO [Physician, Orthopedics] Referral Note: Please call for a follow-up appointment with Dr. Navas. Zuleyka Collado MD [Primary Care Provider, Family Practice] Discharge Diet: Usual diet Discharge Activity: Increase activity as tolerated Patient Instructions: Opioid Safety, Pain Management Activity Restrictions/Additional Instructions: Thank you for choosing [facility] for your healthcare needs today. You have been screened and evaluated and felt safe for discharge. Health conditions do change or evolve sometimes and as such it is important that you follow up with your Primary Doctor to be re checked, 3-5 days is a general good time frame for follow up. You are always welcome to return to the ED for re assessment if your symptoms are worsening or you have new concerns Print Language: [place] Coding Level of Care Code ED Pain Management Nurse for Kayla Velázquez
[2024-10-30] MEDS: HYDROmorphone 0.5 MG/0.5 ML INJ 2 MG IVP (11:18)
[2024-10-30 11:50] LABS: Basophils # 0.1 10^3/uL (0.0-0.1); Basophils % 0.7 %; Eosinophils # 0.2 10^3/uL (0.0-0.8); Eosinophils % 1.5 %; Hematocrit 36.7 % (36-47); Lymphocytes % 20.6 %; Mean Corpuscular HGB Conc 30.2 g/dL (30-55); Mean Corpuscular Hemoglobin 26.6 pg (27-33); Mean Corpuscular Volume 87.8 fl (85-98); Monocytes # 0.6 10^3/uL (0.2-0.9); Monocytes % 5.6 %; Neutrophils # 6.93 10^3/uL (1.8-7.7); Neutrophils % 71.2 %; Nucleated Red Blood Cells % 0 %; Platelet Count 381 10^3/cmm (157-399); Red Blood Count 4.18 10^6/uL (3.85-5.65); Red Cell Distribution Width 15.4 % (12.1-15.1); White Blood Count 9.75 10^3/uL (3.29-11.43)
[2024-10-30 11:52] LABS: Erythrocyte Sedimentation Rate 12 mm/hr (0-15)
[2024-10-30 12:08] LABS: Alanine Aminotransferase 13 U/L (0-33); Albumin Level 3.9 g/dL (3.5-5.2); Alkaline Phosphatase 96 U/L (35-105); Anion Gap 16.4 (5-19); Aspartate Amino Transferase 11 U/L (0-32); Blood Urea Nitrogen 24 mg/dL (6-20); C Reactive Protein 3.1 mg/L (0.0-4.9); Calcium 9.2 mg/dL (8.5-10.5); Carbon Dioxide 25 mmol/L (22-29); Chloride 103 mmol/L (98-107); Creatinine Clr Calc Pharmacy 76.7034; Globulin 2.5 g/dL (1.3-4.6); Glomerular Filtration Rate 64.8 mL/min (90-130); Glucose 112 mg/dL (65-115); Osmolality Calculated 297 mOsm/kg (285-295); Potassium 3.4 mmol/L (3.5-5.1); Sodium 141 mmol/L (136-145); Total Bilirubin 0.2 mg/dL (0.15-1.2); Total Protein 6.4 g/dL (6.6-8.7)
[2024-10-30 12:09] LABS: Lactic Sepsis W/Reflex 1.2 mmol/L (0.5-2.2)
[2024-10-30] MEDS: dexamethasone 10 mg/mL INJ IVP (12:52)
[2024-10-30] MEDS: ketorolac 30 mg/mL INJ IVP (12:52)
[2024-10-30 12:55] VITALS: BP 124/71; PULSE 80; O2SAT 95
[2024-10-30 13:14] VITALS: BP 126/78; PULSE 87; O2SAT 98
== END 2024-10-30 13:14 | disposition home or self-care (01) ==
PROVIDERS: Emergency Provider Emergency Medicine; PCP Family Medicine
DX: M54.89 Other dorsalgia (principal); M54.10 Radiculopathy, site unspecified; Z87.891 Personal history of nicotine dependence; I10 Essential (primary) hypertension
CPT/HCPCS: 36415; 72128; 80053; 83605; 85025; 85651; 86140; 87040; 96374; 96375; 99285; J1100; J1171; J1885

== ENCOUNTER → 2024-11-05 12:58 | Outpatient (BNVA) | payer MEDICARE, SELFPAY | PROVIDERS: PCP Family Medicine; Visit Provider Orthopaedic Surgery | DX: Z98.1 Arthrodesis status (principal); M54.9 Dorsalgia, unspecified; G89.29 Other chronic pain | CPT/HCPCS: 72072; 99213 ==

== ENCOUNTER 2024-11-08 13:10 | Outpatient (CLI) | payer MEDICARE, SELFPAY ==
--- NOTE | 2024-11-08 13:45 | MR_ITS ---
WS: [id number] MRI CERVICAL SPINE NONCONTRAST TECHNIQUE: Sagittal T1, T2 and STIR imaging. Axial T2, gradient, and fiesta imaging. CLINICAL INFORMATION: neck pain COMPARISON: None. FINDINGS: Some images degraded due to susceptibility artifact from thoracic spine hardware. Dorsal laminectomy defects upper thoracic spine with dorsal subcutaneous seroma. Seroma measures 2.6 x 2.7 x 6.3 cm. Straightening of the upper cervical lordosis. Postoperative changes partially visualized in the thoracic spine. LEFT paracentral disc extrusion at T1-2 may be partially calcified. Cranial extension of disc material. This material measures 5.2 x 13.6 mm AP by craniocaudal. Associated indentation on the LEFT ventral thoracic cord with mild to moderate central canal stenosis. Cord signal appears normal considering artifact. Grade 1 anterolisthesis T1 on T2. C2-C3: Mild facet arthropathy. Spinal canal and foramen are patent. C3-C4: Moderate facet arthropathy. Mild LEFT bony foraminal narrowing. Tiny shallow central protrusion. C4-C5: Moderate facet arthropathy. Spinal canal and foramen are patent. C5-C6: Moderate facet arthropathy. Mild LEFT greater than RIGHT bony foraminal narrowing. C6-C7: Mild LEFT greater than RIGHT bony foraminal narrowing. Uncovertebral joint hypertrophy. Mild facet arthropathy. Tiny central protrusion. Spinal canal is patent. C7-T1: Mild bilateral bony foraminal narrowing. Spinal canal is patent. MR/MR cervical spin wo con* [id number] IMPRESSION: 1. Large LEFT paracentral disc extrusion T1-2 with cranial extension of disc m aterial described above. Impingement on the LEFT ventral thoracic cord with mil d to moderate central canal stenosis. Cord signal appears normal. 2. Grade 1 anterolisthesis T1 on T2.
--- NOTE | 2024-11-08 14:30 | MR_ITS ---
WS: [id number] MRI THORACIC SPINE WITHOUT CONTRAST TECHNIQUE: Sagittal T1, T2 and STIR imaging. Axial T2 imaging. Noncontrast imaging obtained. CLINICAL INFORMATION: back pain COMPARISON: Cervical spine earlier today. CT thoracic spine 10/30/2024 FINDINGS: Large LEFT paracentral disc extrusion T1-2 with indentation on the LEFT ventral thoracic cord with mild to moderate central canal stenosis. Cord signal appears normal. Cranial migration of disc material as described on the cervical spine MRI. Grade 1 anterolisthesis T1 on T2 with slight kyphosis at this level. Extensive postoperative changes as previously described on thoracic spine CT 10/30/2024 with pedicle screw fixation and interconnecting rods throughout the thoracic spine.. Mild central canal stenosis at T7-T10. Moderate facet arthropathy lower thoracic spine. No acute appearing compression fractures. Normal caliber descending thoracic aorta. Adrenal glands are normal. LEFT peripelvic renal cysts. MR/MR thoracic spin wo con* [id number] IMPRESSION: Susceptibility artifact from thoracic spine hardware limits images 1. Disc extrusion at T1-2 with cranial migration of disc material with mild to moderate central canal stenosis and indentation on the LEFT ventral thoracic c ord with mild flattening. 2. Grade 1 anterolisthesis T1 on T2 with slight kyphosis at this level. 3. Spinal canal otherwise appears patent considering susceptibility artifact f rom extensive hardware.
== END 2024-11-08 13:11 | disposition home or self-care (01) ==
PROVIDERS: PCP Family Medicine; Visit Provider Orthopaedic Surgery
DX: M48.02 Spinal stenosis, cervical region (principal); M48.04 Spinal stenosis, thoracic region; M51.24 Other intervertebral disc displacement, thoracic region; M96.89 Other intraoperative and postprocedural complications and disorders of the musculoskeletal system; Z98.890 Other specified postprocedural states; R93.7 Abnormal findings on diagnostic imaging of other parts of musculoskeletal system; M47.892 Other spondylosis, cervical region; M53.82 Other specified dorsopathies, cervical region; M48.03 Spinal stenosis, cervicothoracic region; M43.14 Spondylolisthesis, thoracic region; M47.894 Other spondylosis, thoracic region; N28.1 Cyst of kidney, acquired
CPT/HCPCS: 72141; 72146

== ENCOUNTER 2024-11-09 13:48 | Inpatient (IN) | payer MEDICARE, SELFPAY ==
[2024-11-09 13:55] VITALS: BP 117/62; PULSE 104; RESP 20; TEMP 36.5; O2SAT 98
--- NOTE | 2024-11-09 14:23 | W.ED.BACK ---
HPI - Back Pain/Injury General: Chief Complaint: Back Pain/Injury Stated Complaint: numbness and pain in left arm and back Time Seen by Provider: 11/09/24 14:05 History of Present Illness: 54 yo female patient presents with worsening back pain. Pt states she was seen on 10/[address] Navas ordered MRI which she had done monday. Pt states the pain and numbness is worse today. Pt denies any fever, loss of bowel or baldder. Related Data Home Medications ?Medication ?Instructions ?Recorded ?Confirmed diclofenac sodium 75 mg 75 mg PO BID 04/21/22 11/05/24 tablet,delayed release losartan 100 mg tablet 100 mg PO DAILY 08/29/22 11/05/24 duloxetine 60 mg capsule,delayed 60 mg PO DAILY 01/24/23 11/05/24 release yeshgaj-nogpsjhevpbvx-nltakvbv 250 2 tab PO Q6H PRN Pain 02/02/23 11/05/24 mg-250 mg-65 mg tablet (Excedrin Extra Strength) chlorthalidone 25 mg tablet 25 mg PO DAILY 04/12/24 11/05/24 simvastatin 20 mg tablet 20 mg PO DAILY 04/12/24 11/05/24 tizanidine 2 mg tablet 2 mg PO DAILY PRN Pain 04/12/24 11/05/24 cephalexin 500 mg capsule 500 mg PO BID 04/25/24 11/05/24 pantoprazole 40 mg tablet,delayed 40 mg PO BID 10/30/24 11/05/24 release polysaccharide iron complex 150 mg 150 mg PO DAILY 10/30/24 11/05/24 iron capsule (Ferrex) prednisone 1 mg tablet 3 mg PO DAILY 10/30/24 11/05/24 prednisone 20 mg tablet 10 mg PO DAILY 10/30/24 11/05/24 prednisone 5 mg tablet 5 mg PO DAILY 10/30/24 11/05/24 Previous Rx's ?Medication ?Instructions ?Recorded Bone Growth Stimulator #1 ea 04/22/24 oxycodone 10 mg tablet 10 mg PO Q4H PRN pain 1 month #160 10/18/24 tabs Allergies Allergy/AdvReac Type Severity Reaction Status Date / Time ceftriaxone Allergy Mild ALGY-Swell Verified 06/18/24 08:04 Lip/Tongue/Throat daptomycin Allergy Swelling Verified 06/18/24 08:04 face, hands, feet lisinopril Allergy ADR-Cough Verified 06/18/24 08:04 Review of Systems General: Reports: 10 or more systems reviewed and unremarkable except in HPI and below PFSH ED PFS: Medical History Neuropathy History of transesophageal echocardiography (MAURILIO) (~09/2021) Chronic antibiotic suppression History of streptococcal septicemia Scoliosis 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 Paraphrase of information obtained from Dr Vasquez's, ID at [facility], office and patient: Cultures grew Streptococcus. Hardware washed out. Source was NOT felt hardware related after evaluation. MAURILIO without vegetation. Infection involved left hand and left foot. Left hand had purulent material requiring surgical intervention. Paraspinal abscess also identified. Initially treated with ceftriaxone, then daptomycin added for correction home IV antibiotic treatment via PICC line followed, by continued oral keflex (still on oral Keflex prior to revision surgery done by Dr Navas at [facility] on 05/30/2022). Previous (date unknown) ESR > 100 with CRP also elevated. GERD (gastroesophageal reflux disease) Hypertension Anxiety Surgical History History of esophagogastroduodenoscopy (EGD) History of colonoscopy History of hand surgery left, related to abscess at same time as paraspinal abscess in 08/2021, with associated post-infection/post-surgery limitation of range of motion at DIP and PIP 3rd digit Status post left foot surgery with hardware at 5th metatarsal History of back surgery 2019, surgical spinal alignment/correction of scoliosis at L2-L3, L3-L4 History of lumbosacral spine surgery 05/30/[address] Navas: 1. T8 - pelvis posterior spine fusion 2. T8-S1 instrumentation 3. Lumbopelvic fixation 4. removal of hardware from spine 5. Use of computer navigation stereotactic for spine 6. Use of allograft History of lumbar fusion 06/2021 in [facility], T10-S1 fusion Family History Mother Scoliosis Rheumatoid arthritis Hypertension Father Heart disease Hypercholesteremia Denies family history of Colon cancer Ovarian cancer Prostate cancer Diabetes Breast cancer Uterine cancer Thyroid disease Stroke Social History (Reviewed 11/05/24 @ 13:19 by Rodolfo Osborne Smoking and tobacco/nicotine status: unknown if used tobacco/nicotine Quit status (tobacco/nicotine): has quit using Year quit tobacco: 2019 Alcohol intake: never Marital status: Marital status details: is Fany Mac Physical Exam Const: COMMON NORMALS: no acute distress, patient oriented x3, healthy appearing, alert and well nourished GENERAL APPEARANCE: cooperative, comfortable, well kempt and well developed; not ill appearing ORIENTATION/CONSCIOUSNESS: Yes awake, Yes oriented to person, Yes oriented to place and Yes oriented to time HENMT: COMMON NORMALS: normocephalic and atraumatic HEAD & SCALP: normocephalic and atraumatic FACE & SINUS: normal facial exam Neck/C-Spine: COMMON NORMALS: full ROM, no lymphadenopathy, supple, no meningeal signs, no JVD and Thyroid normal GENERAL: Yes normal visual inspection and Yes trachea midline THYROID: Thyroid normal CERVICAL SPINE: Yes cervical ROM normal Lymph: LYMPHATIC: no lymphadenopathy noted and no lymphedema noted Chest: COMMONS NORMALS: normal inspection of the chest and normal palpation of entire chest wall Resp: COMMON NORMALS: normal respiratory effort, No retractions, No use of accessory muscles and clear to auscultation bilaterally EFFORT & INSPECTION: Yes able to speak in complete sentences and Yes symmetric chest movement AUSCULTATION: clear to auscultation bilaterally Cardio: COMMON NORMALS: no JVD, regular rate and regular rhythm RATE: regular rate RHYTHM: regular rhythm : COMMON NORMALS: Yes no CVA tenderness BLADDER/KIDNEY EXAM: Yes no CVA tenderness Back/Pelvis: COMMON NORMALS: no CVA tenderness and thoracic and lumbar spine normal to inspection THORACIC SPINE/UPPER BACK: Yes normal to inspection LUMBAR SPINE/LOWER BACK: Yes normal to inspection Extremity: COMMON NORMALS: normal to inspection and capillary refill normal GENERAL: Yes normal exam except as noted Neuro: COMMON NORMALS: patient oriented x3, CN's II-XII intact bilaterally, moves all extremities, no focal motor deficits, no sensory deficits noted, deep tendon reflexes 2+ bilaterally and gait normal SENSORIUM/ORIENTATION: Yes alert, Yes oriented to person, Yes oriented to place and Yes oriented to time MENINGEAL SIGNS: Yes no meningeal signs CRANIAL NERVES: Yes CN normal except as noted SPEECH: speech normal GAIT: Yes Normal gait present Psych: COMMON NORMALS: mental status grossly normal, Normal thought process present, cooperative, normal affect, speech normal, activity/motor behavior normal, denies hallucinations, denies homicidal ideation and denies suicidal ideation APPEARANCE: Yes grossly normal and Yes well kempt ATTITUDE: Yes calm ACTIVITY/MOTOR BEHAVIOR: Yes appropriate eye contact SPEECH: Yes normal speech THOUGHT PROCESS: Normal thought process present THOUGHT CONTENT: Yes Normal thought content present ATTENTION/CONCENTRATION: Yes attention grossly intact MEMORY/COGNITION: Yes memory grossly intact INSIGHT: Good insight present (Psych) JUDGEMENT: Good judgement present (Psych) Skin: COMMON NORMALS: no rashes or lesions noted, no wounds, turgor normal, no jaundice, no petechiae and no mottling GENERAL SKIN EXAM: no rashes or lesions noted and turgor normal Course Vital Signs: Vital signs: Vital Signs Temperature 97.7 F 11/09/24 13:55 Pulse Rate 104 H 11/09/24 13:55 Respiratory Rate 20 H 11/09/24 13:55 Blood Pressure 117/62 11/09/24 13:55 Pulse Oximetry 98 11/09/24 13:55 Oxygen Delivery Me thod Room Air 11/09/24 13:55 MDM - Back Pain/Injury Medical Decision Making I called ad discussed this Patient with Dr. Navas. He is aware of her MRI results and would like her admitted at this time. Pt has increased weakness to right upper extremety with increased numbness to right lower leg. Pt has no loss of bowel or bladder and is afebrile. will admit at this time. No radiology studies performed this visit Discharge Plan Discharge Patient Disposition: Admitted As Inpatient Clinical Impression: Thoracic back pain Qualifiers: Chronicity: unspecified Back pain laterality: bilateral Qualified Code(s): M54.6 - Pain in thoracic spine Condition: Stable Coding Level of Care Code ED Gas Attendant for Kayla Velázquez
--- NOTE | 2024-11-09 15:19 | W.ED.BACK ---
HPI - Back Pain/Injury General: Chief Complaint: Back Pain/Injury Stated Complaint: numbness and pain in left arm and back Time Seen by Provider: 11/09/24 14:05 History of Present Illness: Patient seen by midlevel provider sent by Dr. Navas for admission due to symptoms and findings on MRI. Patient reportedly had some weakness in the hand and gradually worsening pain. Related Data Home Medications ?Medication ?Instructions ?Recorded ?Confirmed diclofenac sodium 75 mg 75 mg PO BID 04/21/22 11/09/24 tablet,delayed release losartan 100 mg tablet 100 mg PO DAILY 08/29/22 11/09/24 duloxetine 60 mg capsule,delayed 60 mg PO DAILY 01/24/23 11/09/24 release xqbzgjs-jhfolfnbzlzdm-dutowftl 250 2 tab PO Q6H PRN Pain 02/02/23 11/09/24 mg-250 mg-65 mg tablet (Excedrin Extra Strength) chlorthalidone 25 mg tablet 25 mg PO DAILY 04/12/24 11/09/24 simvastatin 20 mg tablet 20 mg PO DAILY 04/12/24 11/09/24 tizanidine 2 mg tablet 2 mg PO DAILY PRN Pain 04/12/24 11/09/24 cephalexin 500 mg capsule 500 mg PO BID 04/25/24 11/09/24 pantoprazole 40 mg tablet,delayed 40 mg PO BID 10/30/24 11/09/24 release polysaccharide iron complex 150 mg 150 mg PO DAILY 10/30/24 11/09/24 iron capsule (Ferrex) prednisone 1 mg tablet 3 mg PO DAILY 10/30/24 11/09/24 prednisone 20 mg tablet 10 mg PO DAILY 10/30/24 11/09/24 prednisone 5 mg tablet 5 mg PO DAILY 10/30/24 11/09/24 ascorbic acid (vitamin C) 500 mg 500 mg PO DAILY 11/09/24 11/09/24 tablet (Vitamin C) prednisone 20 mg tablet 60 mg PO DAILY 11/09/24 11/09/24 Previous Rx's ?Medication ?Instructions ?Recorded Bone Growth Stimulator #1 ea 04/22/24 oxycodone 10 mg tablet 10 mg PO Q4H PRN pain 1 month #160 10/18/24 tabs Allergies Allergy/AdvReac Type Severity Reaction Status Date / Time ceftriaxone Allergy Mild ALGY-Swell Verified 06/18/24 08:04 Lip/Tongue/Throat daptomycin Allergy Swelling Verified 06/18/24 08:04 face, hands, feet lisinopril Allergy ADR-Cough Verified 06/18/24 08:04 PFS ED [facility]: Medical History Neuropathy History of transesophageal echocardiography (MAURILIO) (~09/2021) Chronic antibiotic suppression History of streptococcal septicemia Scoliosis 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 Paraphrase of information obtained from Dr Vasquez's, ID at [facility], office and patient: Cultures grew Streptococcus. Hardware washed out. Source was NOT felt hardware related after evaluation. MAURILIO without vegetation. Infection involved left hand and left foot. Left hand had purulent material requiring surgical intervention. Paraspinal abscess also identified. Initially treated with ceftriaxone, then daptomycin added for alf home IV antibiotic treatment via PICC line followed, by continued oral keflex (still on oral Keflex prior to revision surgery done by Dr Navas at [facility] on 05/30/2022). Previous (date unknown) ESR > 100 with CRP also elevated. GERD (gastroesophageal reflux disease) Hypertension Anxiety Surgical History History of esophagogastroduodenoscopy (EGD) History of colonoscopy History of hand surgery left, related to abscess at same time as paraspinal abscess in 08/2021, with associated post-infection/post-surgery limitation of range of motion at DIP and PIP 3rd digit Status post left foot surgery with hardware at 5th metatarsal History of back surgery 2019, surgical spinal alignment/correction of scoliosis at L2-L3, L3-L4 History of lumbosacral spine surgery 05/30/[address] Navas: 1. T8 - pelvis posterior spine fusion 2. T8-S1 instrumentation 3. Lumbopelvic fixation 4. removal of hardware from spine 5. Use of computer navigation stereotactic for spine 6. Use of allograft History of lumbar fusion 06/2021 in [facility], T10-S1 fusion Family History Mother Scoliosis Rheumatoid arthritis Hypertension Father Heart disease Hypercholesteremia Denies family history of Colon cancer Ovarian cancer Prostate cancer Diabetes Breast cancer Uterine cancer Thyroid disease Stroke Social History Smoking and tobacco/nicotine status: unknown if used tobacco/nicotine Quit status (tobacco/nicotine): has quit using Year quit tobacco: 2019 Alcohol intake: never Marital status: Marital status details: is Fany Mac Course Vital Signs: Vital signs: Vital Signs Temperature 97.5 F L 11/09/24 16:53 Pulse Rate 65 11/09/24 16:53 Respiratory Rate 16 11/09/24 18:08 Blood Pressure 102/65 11/09/24 16:53 Pulse Oximetry 98 11/09/24 16:53 Oxygen Delivery Me thod Room Air 11/09/24 16:53 MDM - Back Pain/Injury Medical Decision Making Patient seen by midlevel provider and admitted to Dr. Navas per his direction. Patient reportedly had abnormal MRI and developing weakness in the hand. No reported loss of bowel or bladder control. XR interpretation done by ED provider, pending radiology final review Discharge Plan Discharge Patient Disposition: Admitted As Inpatient Admit Provider: Peter Navas Clinical Impression: Thoracic back pain Qualifiers: Chronicity: unspecified Back pain laterality: bilateral Qualified Code(s): M54.6 - Pain in thoracic spine Condition: Stable Coding Level of Care Code ED See Wheeler for Kayla Velázquez
[2024-11-09 16:01] VITALS: RESP 16
[2024-11-09] MEDS: oxyCODONE 5 mg IR Tab/Cap 10 MG PO (16:01)
[2024-11-09 16:53] VITALS: BP 102/65; PULSE 65; RESP 18; TEMP 36.4; O2SAT 98
[2024-11-09 18:08] VITALS: RESP 16
[2024-11-09] MEDS: morphine 4 mg/mL SDV 1 mL 2 MG IVP (18:08)
[2024-11-09 19:07] LABS: Basophils % 0.2 %; Hematocrit 36.1 % (36-47); Lymphocytes # 1.5 10^3/uL (0.8-4.8); Lymphocytes % 12.1 %; Mean Corpuscular HGB Conc 30.7 g/dL (30-55); Mean Corpuscular Hemoglobin 26.5 pg (27-33); Mean Corpuscular Volume 86.2 fl (85-98); Mean Platelet Volume 9.5 fL (7.4-10.4); Monocytes # 0.6 10^3/uL (0.2-0.9); Monocytes % 4.9 %; Neutrophils % 81.7 %; Nucleated Red Blood Cells % 0 %; Platelet Count 401 10^3/cmm (157-399); Red Blood Count 4.19 10^6/uL (3.85-5.65); Red Cell Distribution Width 15.8 % (12.1-15.1); White Blood Count 12.72 10^3/uL (3.29-11.43)
[2024-11-09 19:21] LABS: Alanine Aminotransferase 14 U/L (0-33); Albumin Level 3.3 g/dL (3.5-5.2); Alkaline Phosphatase 87 U/L (35-105); Anion Gap 16.2 (5-19); Aspartate Amino Transferase 9 U/L (0-32); Blood Urea Nitrogen 34 mg/dL (6-20); Calcium 8.8 mg/dL (8.5-10.5); Carbon Dioxide 24 mmol/L (22-29); Chloride 100 mmol/L (98-107); Creatinine Clr Calc Pharmacy 66.6829; Globulin 2.2 g/dL (1.3-4.6); Glomerular Filtration Rate 51.4 mL/min (90-130); Glucose 138 mg/dL (65-115); Osmolality Calculated 292 mOsm/kg (285-295); Potassium 4.2 mmol/L (3.5-5.1); Sodium 136 mmol/L (136-145); Total Bilirubin 0.2 mg/dL (0.15-1.2); Total Protein 5.5 g/dL (6.6-8.7)
[2024-11-09 19:48] VITALS: BP 101/66; PULSE 78; RESP 17; TEMP 36.8; O2SAT 95
[2024-11-09 23:55] VITALS: BP 112/72; PULSE 85; RESP 18; TEMP 36.7; O2SAT 95
[2024-11-10] VITALS (8 sets, daily range): BP systolic 100–113; BP diastolic 67–76; PULSE 67–85; RESP 16–18; TEMP 36.6–36.7; O2SAT 94–99; BMI 45.8
[2024-11-10] MEDS: oxyCODONE 5 mg IR Tab/Cap 10 MG PO ×2 (00:17→06:59)
[2024-11-10] MEDS: tizanidine 4 mg Tablet 2 MG PO (04:48)
--- NOTE | 2024-11-10 12:56 | PM.HP ---
Providers/Chief Complaint Admitting Physician: Peter Navas DO Primary Care Provider: Zuleyka Collado MD Chief Complaint: numbness and pain in left arm and back History of Present Illness Marisel Mac is a 54 year old female having pain in her upper back above her previous fusion. MRI shows instability once you have large disc herniation on the left. Review of Systems General: Reports: 10 or more systems reviewed and unremarkable except in HPI and below Const: Denies: fever(s), chills or body aches Eyes: Denies: change in vision Card: Denies: chest pain, dyspnea on exertion or orthopnea Resp: Denies: dyspnea, productive cough or wheezing GI: Denies: abdominal pain, nausea or vomiting Musc: Denies: neck pain, back pain, extremity pain, joint pain, joint swelling or limited range of motion Skin/Breast: Denies: changes in skin color or dry skin Neuro: Denies: numbness in extremities or weakness in extremities Psych: Denies: anxiety or depression Ángel/Lymph: Denies: easy bruising or easy bleeding Medications/Allergies Home Medications ?Medication ?Instructions ?Recorded ?Confirmed ?Last Taken ?Type diclofenac sodium 75 mg 75 mg PO BID 04/21/22 11/09/24 11/08/24 History tablet,delayed release losartan 100 mg tablet 100 mg PO DAILY 08/29/22 11/09/24 11/08/24 History duloxetine 60 mg capsule,delayed 60 mg PO DAILY 01/24/23 11/09/24 11/09/24 08:00 History release lbdcaxo-raxjtrmdplwkk-horuecnz 250 2 tab PO Q6H PRN Pain 02/02/23 11/09/24 10/30/24 History mg-250 mg-65 mg tablet (Excedrin Extra Strength) chlorthalidone 25 mg tablet 25 mg PO DAILY 04/12/24 11/09/24 11/08/24 History simvastatin 20 mg tablet 20 mg PO DAILY 04/12/24 11/09/24 11/08/24 History tizanidine 2 mg tablet 2 mg PO DAILY PRN Pain 04/12/24 11/09/24 06/20/24 History Bone Growth Stimulator #1 ea 04/22/24 11/09/24 Unknown Rx cephalexin 500 mg capsule 500 mg PO BID 04/25/24 11/09/24 11/09/24 08:00 History oxycodone 10 mg tablet 10 mg PO Q4H PRN pain 1 month #160 10/18/24 11/09/24 11/09/24 09:00 Rx tabs pantoprazole 40 mg tablet,delayed 40 mg PO BID 10/30/24 11/09/24 11/09/24 08:00 History release polysaccharide iron complex 150 mg 150 mg PO DAILY 10/30/24 11/09/24 11/09/24 09:00 History iron capsule (Ferrex) prednisone 1 mg tablet 3 mg PO DAILY 10/30/24 11/09/24 10/29/24 History prednisone 20 mg tablet 10 mg PO DAILY 10/30/24 11/09/24 10/30/24 History prednisone 5 mg tablet 5 mg PO DAILY 10/30/24 11/09/24 10/29/24 History ascorbic acid (vitamin C) 500 mg 500 mg PO DAILY 11/09/24 11/09/24 11/09/24 09:00 History tablet (Vitamin C) prednisone 20 mg tablet 60 mg PO DAILY 11/09/24 11/09/24 11/09/24 09:00 History Allergies Allergy/AdvReac Type Severity Reaction Status Date / Time ceftriaxone Allergy Mild ALGY-Swell Verified 06/18/24 08:04 Lip/Tongue/Throat daptomycin Allergy Swelling Verified 06/18/24 08:04 face, hands, feet lisinopril Allergy ADR-Cough Verified 06/18/24 08:04 PFSH Acute PFSH: Medical History Neuropathy History of transesophageal echocardiography (MAURILIO) (~09/2021) Chronic antibiotic suppression History of streptococcal septicemia Scoliosis 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 Paraphrase of information obtained from Dr Vasquez's, ID at [facility], office and patient: Cultures grew Streptococcus. Hardware washed out. Source was NOT felt hardware related after evaluation. MAURILIO without vegetation. Infection involved left hand and left foot. Left hand had purulent material requiring surgical intervention. Paraspinal abscess also identified. Initially treated with ceftriaxone, then daptomycin added for nursing home home IV antibiotic treatment via PICC line followed, by continued oral keflex (still on oral Keflex prior to revision surgery done by Dr Navas at [facility] on 05/30/2022). Previous (date unknown) ESR > 100 with CRP also elevated. GERD (gastroesophageal reflux disease) Hypertension Anxiety Surgical History History of esophagogastroduodenoscopy (EGD) History of colonoscopy History of hand surgery left, related to abscess at same time as paraspinal abscess in 08/2021, with associated post-infection/post-surgery limitation of range of motion at DIP and PIP 3rd digit Status post left foot surgery with hardware at 5th metatarsal History of back surgery 2019, surgical spinal alignment/correction of scoliosis at L2-L3, L3-L4 History of lumbosacral spine surgery 05/30/[address] Navas: 1. T8 - pelvis posterior spine fusion 2. T8-S1 instrumentation 3. Lumbopelvic fixation 4. removal of hardware from spine 5. Use of computer navigation stereotactic for spine 6. Use of allograft History of lumbar fusion 06/2021 in [facility], T10-S1 fusion Family History Mother Scoliosis Rheumatoid arthritis Hypertension Father Heart disease Hypercholesteremia Denies family history of Colon cancer Ovarian cancer Prostate cancer Diabetes Breast cancer Uterine cancer Thyroid disease Stroke Social History Smoking and tobacco/nicotine status: unknown if used tobacco/nicotine Quit status (tobacco/nicotine): has quit using Year quit tobacco: 2019 Alcohol intake: never Marital status: Marital status details: is Fany Mac Vitals/I&O/Wt Last Vital Signs Temp 97.9 F 11/10/24 11:29 Pulse 67 11/10/24 11:29 Resp 18 11/10/24 11:29 BP 110/73 11/10/24 11:29 Pulse Ox 95 11/10/24 11:29 O2 Del Method Room Air 11/10/24 11:29 11/09/24 11/10/24 11/10/24 22:59 06:59 14:59 Intake Total 240 / 240 480 / 480 Balance 240 / 240 480 / 480 Weight last 48 hrs Weight 251 lb Weight 242 lb Weight 218 lb Physical Exam Narrative: Alert and oriented x 3 Head is normocephalic atraumatic Respirations are intact No evidence of any rashes or infection 5/5 strength in bilateral upper and lower extremities Sensation intact in all extremities Data 11/09/24 18:58 11/09/24 18:58 A&P Assessment and plan (1) S/P spinal fusion: 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 Unstable spine. Plan is to take her to surgery tomorrow for a C7 to thoracic fusion. I had an open and honest discussion with the patient about the risks, benefits and alternatives to both surgical and nonsurgical treatment. The patient verbalized understanding of the inherent unpredictability associated with surgery. Risk of surgery were discussed including, but not limited to, infection, bleeding, temporary and permanent nerve damage, continued pain, stiffness, incomplete healing, need for revision surgery, blood clot and other complications. The patient verbalized understanding that there is spine is elective in nature and if they find any of these risks to be unacceptable then they should choose not to have the surgery. The patient verbalized understanding of these risks and elected to proceed with the surgery. PDMP PDMP Reviewed: Not Reviewed Attestations Medical Necessity Statement*: Instability of spine Coding Level of Care Code Acute Code for Chg Fwd Diagnoses S/P spinal fusion Z98.1
[2024-11-10] MEDS: morphine 4 mg/mL SDV 1 mL 2 MG IVP (13:18)
[2024-11-11] VITALS (21 sets, daily range): BP systolic 110–134; BP diastolic 69–89; PULSE 69–113; RESP 14–18; TEMP 36.6–36.8; O2SAT 92–99; BMI 45.8
[2024-11-11] MEDS: oxyCODONE 5 mg IR Tab/Cap 10 MG PO ×2 (00:07→07:38)
[2024-11-11] MEDS: morphine 4 mg/mL SDV 1 mL 2 MG IVP ×3 (01:55→21:52)
[2024-11-11] MEDS: duloxetine 60 mg Capsule PO (07:39)
[2024-11-11] MEDS: pantoprazole DR 40 mg Tablet PO (07:39)
--- NOTE | 2024-11-11 09:01 | XR_ITS ---
WS: [id number] XR lumbar spine 1V [id number] REASON FOR EXAM: OR PIC, HARDWARE REVISION FINDINGS: Revision of previous thoracolumbar fusion with additional pedicle screws and interconnecting rods to the T2 level. XR/XR lumbar spine 1V [id number] IMPRESSION: Revision of previous thoracolumbar fusion as above.
--- NOTE | 2024-11-11 09:37 | PC.SOCIAL ---
IMM Update Pg. 2 of IMM updated and copy provided.
--- NOTE | 2024-11-11 09:50 | PC.CHAP ---
Pastoral Care Encounter/Spiritual Assessment Type of Contact [] Declined compensation advisor visit [] Patient/Family/Request visit [] Outpatient visit [] Follow-up visit [] Physician referral [] Code/Alert [x] Routine visit [] Staff referral [] Actively dying [] Patient sleeping [] Family support [] [] Out of room [] Palliative care [] [] Receiving care in room [] Pre-surgical visit [] Trauma [] Long length of stay [] ICU visit [] Other: Relational/Emotional Strength [] Patient feels connected with others/family/visitors/staff [] Distress [] Loneliness/isolation [] Abandonment Spirituality of Patient [x] Person of Milady [] Attends Caodaism of their Milady [x] Believes in Prayer [] Reads Bible or Buddhism materials [] There are Spiritual issues to be addressed Electrolysis Operator Interventions [x] Prayer [x] Active listening [] Non-anxious presence [] Spiritual/emotional support [] Crisis/trauma care [] Spiritual counseling [] Bereavement support [] Provided bereavement packet [x] Provided Bible/devotional materials [] Provided toy/stuffed animal, coloring book to patient or family member [] Provided Communion [] Anointing/[place] [] Salvation [x] Completed spiritual assessment [] Other: Impact on Illness or Injury [] Angry [] Fearful [] Anxious [] Often cries [] Exhaustion [] Unable to work [] Unable to attend adventism [] Unable to walk/stand [] Unable to read [] Unable to drive [] Unable to eat/drink [] Unable to sleep [] Unable to be with family [] Patient intubated [] Other: Summary Time spent with patient 10 min
--- NOTE | 2024-11-11 11:46 | PC.NURSE ---
surgery Patient taken down to surgery.
--- NOTE | 2024-11-11 11:59 | ANES.PREANE2 ---
Pre-Anesthetic Assessment Height/Weight: Height 5 ft 2 in Weight 251 lb Temp Pulse Resp BP Pulse Ox O2 Del Method 98.2 F 89 18 134/89 98 Room Air 11/11/24 11:44 11/11/24 11:44 11/11/24 11:44 11/11/24 11:44 11/11/24 11:44 11/11/24 11:53 Preop Diagnosis: Spinal stenosis Operation Date: 11/11/24 12:50 Proposed Procedures p Cervical Posterior [id number] Fusion & Decompression(Not Applicable) - Peter Navas, DO Was Beta Maryjane taken within 24 hours: N/A Was Clonidine taken within 24 hours: N/A Last intake: Intake Last Liquid Date 11/10/24 Last Liquid Time 23:00 Last Solid Date 11/10/24 Last Solid Time 17:00 Social No alcohol and No tobacco Quit smoking 5 years ago Exam alert, oriented x 3, clear to auscultation bilaterally and regular rate & rhythm Airway Submandibular: within normal limits Cervical ROM: within normal limits Mallampati: Class I Dentition: full Anesthetic Plan ASA status: 3 Anesthesia: General Other: No prior issues with anesthesia in the past NPO since yesterday History of hypertension on losartan and chlorthalidone S/p thoracic spinal fusion GERD on Protonix Labs reviewed from 11/09/2024 and acceptable for procedure Echo 04/30/2024 showing EF 55% with no wall motion abnormalities GETA Medications/Allergies Home Medications ?Medication ?Instructions ?Recorded ?Confirmed ?Last Taken ?Type diclofenac sodium 75 mg 75 mg PO BID 04/21/22 11/09/24 11/08/24 History tablet,delayed release losartan 100 mg tablet 100 mg PO DAILY 08/29/22 11/09/24 11/08/24 History duloxetine 60 mg capsule,delayed 60 mg PO DAILY 01/24/23 11/09/24 11/09/24 08:00 History release sdgzikk-[id number]-uzlxhwil 250 2 tab PO Q6H PRN Pain 02/02/23 11/09/24 10/30/24 History mg-250 mg-65 mg tablet (Excedrin Extra Strength) chlorthalidone 25 mg tablet 25 mg PO DAILY 04/12/24 11/09/24 11/08/24 History simvastatin 20 mg tablet 20 mg PO DAILY 04/12/24 11/09/24 11/08/24 History tizanidine 2 mg tablet 2 mg PO DAILY PRN Pain 04/12/24 11/09/24 06/20/24 History Bone Growth Stimulator #1 ea 04/22/24 11/09/24 Unknown Rx cephalexin 500 mg capsule 500 mg PO BID 04/25/24 11/09/24 11/09/24 08:00 History oxycodone 10 mg tablet 10 mg PO Q4H PRN pain 1 month #160 10/18/24 11/09/24 11/09/24 09:00 Rx tabs pantoprazole 40 mg tablet,delayed 40 mg PO BID 10/30/24 11/09/24 11/09/24 08:00 History release polysaccharide iron complex 150 mg 150 mg PO DAILY 10/30/24 11/09/24 11/09/24 09:00 History iron capsule (Ferrex) prednisone 1 mg tablet 3 mg PO DAILY 10/30/24 11/09/24 10/29/24 History prednisone 20 mg tablet 10 mg PO DAILY 10/30/24 11/09/24 10/30/24 History prednisone 5 mg tablet 5 mg PO DAILY 10/30/24 11/09/24 10/29/24 History ascorbic acid (vitamin C) 500 mg 500 mg PO DAILY 11/09/24 11/09/24 11/09/24 09:00 History tablet (Vitamin C) prednisone 20 mg tablet 60 mg PO DAILY 11/09/24 11/09/24 11/09/24 09:00 History Allergies Allergy/AdvReac Type Severity Reaction Status Date / Time ceftriaxone Allergy Mild ALGY-Swell Verified 06/18/24 08:04 Lip/Tongue/Throat daptomycin Allergy Swelling Verified 06/18/24 08:04 face, hands, feet lisinopril Allergy ADR-Cough Verified 06/18/24 08:04 Current Medications Generic Name Dose Route Start Last Admin Trade Name Freq PRN Reason Stop Dose Admin Ascorbic Acid 500 mg 11/11/24 09:00 11/11/24 07:49 Ascorbic Acid 500 Mg Tablet PO Not Given On Hold: 11/11/24 11:34 DAILY TORRI Comment: Order held by Process Transfer Atorvastatin Calcium 20 mg 11/11/24 09:00 11/11/24 08:12 Atorvastatin 10 Mg Tablet PO Not Given On Hold: 11/11/24 11:34 DAILY TORRI Comment: Order held by Process Transfer Duloxetine HCl 60 mg 11/11/24 09:00 11/11/24 07:39 Duloxetine 60 Mg Capsule PO 60 mg On Hold: 11/11/24 11:34 DAILY TORRI Administration Comment: Order held by Process Transfer Morphine Sulfate 2 mg 11/10/24 07:03 11/11/24 01:55 Morphine 4 Mg/Ml Sdv 1 Ml IVP 2 mg On Hold: 11/11/24 11:34 Q1H PRN Administration Comment: Order held by Process SEVERE PAIN Transfer Oxycodone HCl 10 mg 11/09/24 15:45 11/11/24 07:38 Oxycodone 5 Mg Ir Tab/Cap PO 10 mg On Hold: 11/11/24 11:34 Q4H PRN Administration Comment: Order held by Process SEVERE PAIN Transfer Pantoprazole Sodium 40 mg 11/10/24 18:00 11/11/24 07:[address] 40 Mg Tablet PO 40 mg On Hold: 11/11/24 11:34 BID TORRI Administration Comment: Order held by Process Transfer Polysaccharide Iron Complex 150 mg 11/11/24 09:00 11/11/24 08:11 Iron Polysaccharide Complex 150 Mg Capsule PO Not Given On Hold: 11/11/24 11:34 DAILY TORRI Comment: Order held by Process Transfer Tizanidine HCl 2 mg 11/09/24 16:17 11/10/24 04:48 Tizanidine 4 Mg Tablet PO 2 mg On Hold: 11/11/24 11:34 DAILY PRN Administration Comment: Order held by Process SPASMS Transfer [facility] Anesthesia Medical History Neuropathy History of transesophageal echocardiography (MAURILIO) (~09/2021) Chronic antibiotic suppression History of streptococcal septicemia Scoliosis 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 Paraphrase of information obtained from Dr Sanchezs, ID at [facility], office and patient: Cultures grew Streptococcus. Hardware washed out. Source was NOT felt hardware related after evaluation. MAURILIO without vegetation. Infection involved left hand and left foot. Left hand had purulent material requiring surgical intervention. Paraspinal abscess also identified. 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 Previous (date unknown) ESR > 100 with CRP also elevated. GERD (gastroesophageal reflux disease) Hypertension Anxiety Surgical History History of esophagogastroduodenoscopy (EGD) History of colonoscopy History of hand surgery left, related to abscess at same time as paraspinal abscess in 08/2021, with associated post-infection/post-surgery limitation of range of motion at DIP and PIP 3rd digit Status post left foot surgery with hardware at 5th metatarsal History of back surgery 2019, surgical spinal alignment/correction of scoliosis at L2-L3, L3-L4 History of lumbosacral spine surgery 05/30/[address] Navas: 1. T8 - pelvis posterior spine fusion 2. T8-S1 instrumentation 3. Lumbopelvic fixation 4. removal of hardware from spine 5. Use of computer navigation stereotactic for spine 6. Use of allograft [facility], T10-S1 fusion Family History Mother Scoliosis Rheumatoid arthritis Hypertension Father Heart disease Hypercholesteremia Denies family history of Colon cancer Ovarian cancer Prostate cancer Diabetes Breast cancer Uterine cancer Thyroid disease Stroke Social History Smoking and tobacco/nicotine status: unknown if used tobacco/nicotine Quit status (tobacco/nicotine): has quit using Year quit tobacco: 2019 Alcohol intake: never Marital status: Marital status details: is Fany Mac Data Anesthesia 11/09/24 18:58 11/09/24 18:58 Short CBC 11/09/24 Range/Units 18:58 WBC 12.72 H (3.29-11.43) 10^3/uL Hgb 11.10 L (11.27-16.99) g/dL Hct 36.1 (36-47) % MCV 86.2 (85-98) fl Plt Count 401 H (157-399) 10^3/cmm Neut % (Auto) 81.7 % Neut # (Auto) 10.40 H (1.8-7.7) 10^3/uL BMP 11/09/24 18:58 Sodium 136 Potassium 4.2 Chloride 100 Carbon Dioxide 24 BUN 34 H Creatinine 1.1 H Glucose 138 H Calcium 8.8 Liver Function 11/09/24 Range/Units 18:58 Total Bilirubin 0.2 (0.15-1.2) mg/dL AST 9 (0-32) U/L ALT 14 (0-33) U/L Alkaline Phosphatase 87 (35-105) U/L Albumin 3.3 L (3.5-5.2) g/dL Cardiac Studies: Echocardiogram 04/30/24
--- NOTE | 2024-11-11 12:00 | W.PM.OPSUD ---
Surgery/Procedure H&P Update DATE OF PROCEDURE: November 11, 2024 DATE H&P PERFORMED: 11/10/24 H&P UPDATE INFORMATION: I have reviewed H&P completed within last 30 days, I have examined patient prior to procedure and No changes to prior documentation PLANNED PROCEDURE: Operation Date: 11/11/24 12:50 Proposed Procedures p Cervical Posterior [id number] Fusion & Decompression(Not Applicable) - Peter Navas, DO
[2024-11-11] MEDS: fentaNYL 50 mcg/mL INJ 2mL IVP ×2 (12:26→18:12)
[2024-11-11] MEDS: sodium chloride 0.9% 1,000 ML 30 ML IV (12:54)
[2024-11-11] MEDS: clindamycin 600 MG/50 ML PREMIX 100 MG IV (13:01)
[2024-11-11] MEDS: lidocaine-epi 1% 20 mL INJ 10 ML INJECTION (14:15)
[2024-11-11] MEDS: VANCOMYCIN ADD-Vantage 1,000 MG VIAL 1000 MG XX ×2 (14:16→16:19)
[2024-11-11] MEDS: thrombin 5,000 unit SDV 5000 UNIT (14:17)
--- NOTE | 2024-11-11 15:14 | PC.NURSE ---
Notified patient's , Fany, of current patient status and will notify when closing.
--- NOTE | 2024-11-11 16:22 | PC.NURSE ---
Patient hardware taken to CS to be sterilized so patient could take home. Rods returned by CS.
--- NOTE | 2024-11-11 17:08 | P.OP_ITS ---
Operative Report Date of procedure: November 11, 2024 Pre-op diagnosis: T1/2 instability with large disc herniation Post-op diagnosis: same Procedure done: 1. Posterior spine instrumentation from T10 to C7 2. Posterior spine fusion from C7-T2. 3. T1/2 laminectomy and facetectomy and discectomy 4. Use of computer navigation stereotactic for the spine 5. Use of allograft 6. Removal of hardware from spine 7. Debridement of the wound capsule and fascia. 25 cm long 8 cm wide Surgeon: Peter Navas DO Estimated blood loss (mL): 350 Procedure: 1. Posterior spine instrumentation from T10 to C7 2. Posterior spine fusion from C7-T2. 3. T1/2 laminectomy and facetectomy and discectomy 4. Use of computer navigation stereotactic for the spine 5. Use of allograft 6. Removal of hardware from spine 7. Debridement of the wound capsule and fascia. 25 cm long 8 cm wide Patient is brought to the operative suite after undergoing anesthesia was placed in the prone position. Prepositioning baseline nerve study was done. As well as post position. There is some decrease in the right arm and foot. However after adjusting the tape on the right arm is improved. Patient was then prepped and draped in normal sterile fashion. Skin incision was made from C7 down to T10. An incision there was a fluid that was present on the MRI as well this fluid was sent for cultures. Did not look to be infected. The rods and screws were identified all the way down to T10. The francia was in a connector. The screws were loosened and screw caps were removed and then the francia was removed that was a previously from a T2-T10 surgery we have done. Once these rods were removed attention was then brought to placing the pedicle screws in T1 and C7. Pedicle screws were placed by using a high-speed bur followed by a navigated drill. Followed by the pedicle feeler. Followed by placement of the screw under computer navigation. This was done at C7 and T1 bilaterally. These were the 4. 5 mm screws. Next attention was brought to performing the T1-T2 laminectomy with discectomy and facetectomies. This was done by using a high-speed bur rongeur and Kerrison rongeur's. The lamina was taken down along with the facet joints bilaterally the T1 nerve was identified. This was done bilaterally. The disc was more left-sided. Using a curved curette coming out from the lateral half through the facet was taken out the disc was fragment was removed. This is done again with a curved curette and a pituitary coming laterally without having to disrupt the spinal cord. The T1 nerves were completely freed up bilaterally as were the T2 nerves, around the pedicle. Extension was brought to placing the rods and screws. This was done using a taper francia. The francia was cut to appropriate size and bent to conform to the spine. The francia was connected from C7 down to T10. Caps were torqued into p osition. This was done bilaterally. Next the C7-T2 area was decorticated with high-speed bur. And allograft was then packed in the gutters. Attention was then brought to debriding the capsule. This was done by using Bovie to undermine the capsule and completely remove it allowing to have bleeding tissue and the fascia so there is not another pocket of fluid that fills up. Wound is then closed in a layered fashion. 0 Vicryl was used deep PDS was used superficial along with nylon suture. Deep drain was placed and vancomycin powder was placed as well. Sterile dressings were applied and patient was transferred to the PACU in stable condition.
--- NOTE | 2024-11-11 18:28 | ANE.PACU2 ---
Inpatient post-anesthesia follow up: Airway intact: Yes Vital signs: Temperature 98.6 F Pulse Rate 86 Respiratory Rate 18 Blood Pressure 137/87 Pulse Oximetry 98 Oxygen Delivery Me thod Room Air Oxygen Flow Rate 6 Fraction of Inspir ed Oxygen Hydration adequate: Yes Nausea and vomiting: No Pain level: 1 Mental status: Baseline
[2024-11-11] MEDS: lactated ringers 1,000 ML 90 ML IV (18:54)
[2024-11-11] MEDS: docusate sodium 100 mg Capsule PO (18:55)
[2024-11-11] MEDS: chlorthalidone 25 mg Tablet PO (20:34)
[2024-11-12] VITALS (11 sets, daily range): BP systolic 118–137; BP diastolic 72–87; PULSE 78–98; RESP 14–20; TEMP 36.4–37; O2SAT 94–98
[2024-11-12] MEDS: morphine 4 mg/mL SDV 1 mL 2 MG IVP ×2 (00:45→02:17)
[2024-11-12] MEDS: oxyCODONE 5 mg IR Tab/Cap 10 MG PO ×3 (03:57→13:22)
[2024-11-12] MEDS: lactated ringers 1,000 ML 90 ML IV (04:39)
[2024-11-12] MEDS: acetaminophen 325 mg Tablet 650 MG PO ×3 (04:55→13:22)
[2024-11-12] MEDS: docusate sodium 100 mg Capsule PO (08:24)
[2024-11-12] MEDS: iron polysaccharide complex 150 mg Capsule PO (08:24)
[2024-11-12] MEDS: pantoprazole DR 40 mg Tablet PO (08:24)
[2024-11-12] MEDS: duloxetine 60 mg Capsule PO (08:24)
[2024-11-12] MEDS: ATORVASTATIN 10 MG TABLET 20 MG PO (08:24)
[2024-11-12] MEDS: ascorbic acid 500 mg Tablet PO (08:24)
--- NOTE | 2024-11-12 09:36 | P.DS_ITS ---
Discharge Providers Date of Admission: 11/09/24 14:22 Date of Discharge: November 12, 2024 Attending Provider at Admission: Peter Navas DO Attending Provider at Discharge: Peter Navas DO Primary Care Provider: Zuleyka Collado MD Diagnoses at Discharge Discharge Diagnosis (1) S/P spinal fusion: Status: Acute Reason for Visit Reason for Visit: numbness and pain in left arm and back Physical Exam Narrative: Patient is walking the hallways pain is controlled. At this point drain had 170 out of it overnight. Will plan to discharge the drain and add a bay dressing. Urinary Catheter Management: Fay: Cath Placed During This Visit: yes, but has since been removed by the nurse Reason for Continuing Indwelling Catheter: Decision to DC Catheter Urinary Catheter Date of Insertion: 11/11/24 Urinary Catheter Time of Insertion: 13:20 Date Urinary Catheter Removed: 11/12/24 Time Urinary Catheter Discontinued: 06:16 Discharge Data Studies Completed and Pending Pending at discharge Category Date Time Status C-arm Fluoroscopy [id number] Routine Exams 11/11/24 09:01 Taken XR lumbar spine 1V [id number] Routine Exams 11/11/24 09:01 Taken Anaerobic Culture Routine Lab 11/11/24 13:58 Results Tissue Culture and Gram Stain Routine Lab 11/11/24 13:58 Results Laboratory Results WBC 12.72 10^3/uL (3.29-11.43) H 11/09/24 18:58 RBC 4.19 10^6/uL (3.85-5.65) 11/09/24 18:58 Hgb 11.10 g/dL (11.27-16.99) L 11/09/24 18:58 Hct 36.1 % (36-47) 11/09/24 18:58 MCV 86.2 fl (85-98) 11/09/24 18:58 MCH 26.5 pg (27-33) L 11/09/24 18:58 MCHC 30.7 g/dL (30-55) 11/09/24 18:58 RDW 15.8 % (12.1-15.1) H 11/09/24 18:58 Plt Count 401 10^3/cmm (157-399) H 11/09/24 18:58 MPV 9.5 fL (7.4-10.4) 11/09/24 18:58 Neut % (Auto) 81.7 % 11/09/24 18:58 Lymph % (Auto) 12.1 % 11/09/24 18:58 Curry % (Auto) 4.9 % 11/09/24 18:58 Eos % (Auto) 0.0 % 11/09/24 18:58 Baso % (Auto) 0.2 % 11/09/24 18:58 Neut # (Auto) 10.40 10^3/uL (1.8-7.7) H 11/09/24 18:58 Lymph # (Auto) 1.5 10^3/uL (0.8-4.8) 11/09/24 18:58 Curry # (Auto) 0.6 10^3/uL (0.2-0.9) 11/09/24 18:58 Eos # (Auto) 0.0 10^3/uL (0.0-0.8) 11/09/24 18:58 Baso # (Auto) 0.0 10^3/uL (0.0-0.1) 11/09/24 18:58 Nucleated RBC % (auto) 0 % 11/09/24 18:58 Nucleated RBCs # 0.0 /100WBC 11/09/24 18:58 Sodium 136 mmol/L (136-145) 11/09/24 18:58 Potassium 4.2 mmol/L (3.5-5.1) 11/09/24 18:58 Chloride 100 mmol/L (98-107) 11/09/24 18:58 Carbon Dioxide 24 mmol/L (22-29) 11/09/24 18:58 Anion Gap 16.2 (5-19) 11/09/24 18:58 BUN 34 mg/dL (6-20) H 11/09/24 18:58 Creatinine 1.1 mg/dL (0.5-0.9) H 11/09/24 18:58 GFR Calculation 51.4 mL/min (90-130) L 11/09/24 18:58 Glucose 138 mg/dL (65-115) H 11/09/24 18:58 Calculated Osmolality 292 mOsm/kg (285-295) 11/09/24 18:58 Calcium 8.8 mg/dL (8.5-10.5) 11/09/24 18:58 Total Bilirubin 0.2 mg/dL (0.15-1.2) 11/09/24 18:58 AST 9 U/L (0-32) 11/09/24 18:58 ALT 14 U/L (0-33) 11/09/24 18:58 Alkaline Phosphatase 87 U/L (35-105) 11/09/24 18:58 Total Protein 5.5 g/dL (6.6-8.7) L 11/09/24 18:58 Albumin 3.3 g/dL (3.5-5.2) L 11/09/24 18:58 Globulin 2.2 g/dL (1.3-4.6) 11/09/24 18:58 Vitals Last Vital Signs Temp 97.6 F 11/12/24 07:49 Pulse 97 11/12/24 07:49 Resp 20 H 11/12/24 08:24 BP 127/84 11/12/24 07:49 Pulse Ox 98 11/12/24 07:49 O2 Del Method Room Air 11/12/24 07:49 O2 Flow Rate 6 11/11/24 18:02 Discharge Plan Discharge Patient Disposition: Home Condition: Stable Prescriptions: New oxycodone 10 mg tablet 10 mg PO Q4H PRN (Reason: pain) 7 Days Qty: 42 0RF Continued tizanidine 2 mg tablet 2 mg PO DAILY PRN (Reason: Pain) chlorthalidone 25 mg tablet 25 mg PO DAILY simvastatin 20 mg tablet 20 mg PO DAILY losartan 100 mg tablet 100 mg PO DAILY (DME) Bone Growth Stimulator See Rx Instructions .Route .MEDSUPPLY Qty: 1 0RF Rx Instructions: As directed duloxetine 60 mg capsule,delayed release(DR/EC) 60 mg PO DAILY cephalexin 500 mg capsule 500 mg PO BID Rx 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 ascorbic acid (vitamin C) [Vitamin C] 500 mg Tablet 500 mg PO DAILY Excedrin Extra Strength 250-250-65 mg Tablet 2 tab PO Q6H PRN (Reason: Pain) polysaccharide iron complex [Ferrex 150] 150 mg iron capsule 150 mg PO DAILY pantoprazole 40 mg tablet,delayed release (DR/EC) 40 mg PO BID Discontinued diclofenac sodium 75 mg tablet,delayed release (DR/EC) 75 mg PO BID oxycodone 10 mg tablet 10 mg PO Q4H MDD 6 PRN (Reason: pain) 30 Days Qty: 160 0RF prednisone 20 mg tablet 60 mg PO DAILY prednisone 20 mg tablet 10 mg PO DAILY prednisone 5 mg tablet 5 mg PO DAILY prednisone 1 mg tablet 3 mg PO DAILY Discharge Orders: Discharge Order (Routine); Ordered 11/12/24 Ordered By: Peter Navas Referrals: Zuleyka Collado MD [Primary Care Provider, Family Practice] Discharge Diet: Advance as tolerated Discharge Activity: Limit activity as instructed Patient Instructions: Acute Wound Care (DC), Opioid Safety, Post Anesthesia Care Activity Restrictions/Additional Instructions: Thank you for [facility] for your care! The following is a list of instructions, from your provider, to follow upon your discharge to ensure you have the optimal recovery from your recent injury orsurgery. Follow-up care is a moyer part of your treatment and safety. Be sure to make and go to all appointments, and call your doctor if you are having problems. If you do not already have a follow-up appointment made, call Dr. Navas office in the next 1-3 days to make follow up appointment for 1 weeks at [phone]. It is also a good idea to know your test results and keep a list of the medicines you take. Medications will be prescribed for you at your provider's discretion. These medications are to be used as instructed; if they are taken more often that prescribed they will not be refilled early and in most cases will not be refilled at all. > When a refill is needed,you should contact cammie cheatham 2-3 business days before your prescription runs out. Medications will NOT be refilled by [employer] providers after hours! > Many pain medications contain Tylenol (Acetaminophen). Do not consume more than 4,000 mg of Tylenol per day in total with any combination ofmedications. > Pain medications can cause constipation. Please use an over the counter stool softener as directed, while taking pain medications. Consulty our local pharmacist with questions or recommendations on stool softeners. If constipation persists, contact our office or your primary care provider. > While under our care,you are not to receive pain medications or other controlled substances from any other provider unless our office is notified and approves. Any attempts to do so will result in refusal to prescribe any further pain medications and possible dismissal from our practice. ? Keep dressing on until seen in 1 week ? Showering is permitted, however we ask that you do not take a bath, sit in a whirlpool / Jacuzzi, or go swimming for 1 month. For only the first 2 days after surgery, lt wilt be necessary for you to cover your wound/dressing with plastic and tape to keep it dry. ? Walking is essential for the healing process after surgery. We would like you to slowly advance your walking. This should be done on relatively flat clear ground (inside or out) or can be done on a treadmill. Remember this goal does not have to happen all at once, slowly increase your distance and duration. This can be broken into more more than one walk per day as tolerated. Patients who walk as directed after surgery rarely require Physical Therapy. In the unlikely event this issue arises your provider will direct hospital staff to make the appropriate arrangements. ? No lifting over 5 pounds {a gallon of milk) or bending/twisting until further notice. Each of these activities places an unnecessary amount of stress onto the body and can impede the delicate healing process. > Instead of bending at the waist, keep your back straight and bend at the knees. > Instead of twisting your torso, keep your back straight and turn your entire body with your feet. ? You may sleep in any position which makes you comfortable. Many patients find comfort sleeping in a reclining chair. It is not abnormal to have difficulty sleeping for the first several weeks following your surgery. We recommend trying Benadry! or Tylenol PM as directed to help with your sleeping difficulties. Both medications are over the counter and available withoutprescription. ? NO SMOKING!!! Smoking dramatically increases the probability of developing postoperative wound infections. ? Common complaints after lumbar and/or thoracic spine surgery include, but are not limited to: numbness and/or tingling in the legs, pain around the incision and surrounding tissues, muscle spasms, or stiffness of the middle to low back. Contact our office if these symptoms persist or if an acute change occurs. ? No driving for the first 3-5days, and not while taking narcotics [] until seen at your follow-up appointment and cleared. There are no restrictions for riding on short trips, however if you take a longer trip, arrangements should be made to make regular stops to get out of the vehicle and stretch . ? Swelling is an unfortunate event that will take place with any surgery and is the primary source of your postoperative discomfort. While walking and regular approved activities helps control inflammation, there are additional steps you can take to minimizeswelling. > Place ice over the surgical site and surrounding tissue for twenty minutes, followed by applying a low/medium heat (heating pad) for an additional twenty minutes every 1-2 hours as needed for painrelief. > You may use of over the counter anti-inflammatory medications (Ibuprofen, Motrin, Aleve, Advil, etc) as directed on the package label. These types of medicines wm significantly reduce the amount of discomfort you experience after surgery from swelling. It should be noted that if you have and allergy to any of these medications, or a history of ulcers or kidney disease you should consult you primary care provider prior to starting these medications. Discharge Attestations Time Spent in Discharge Care*: less than 30 min Quality Metrics Clinical Quality Measures [ No reported AMI, CVA or VTE this stay] Coding Level of Care Code Acute Code for Chg Fwd Diagnoses S/P spinal fusion Z98.1
--- NOTE | 2024-11-12 11:10 | PC.NURSE ---
Discharge instructions provided to pt. No question or concerns voiced at this time. States that ride will be here at 1400 today.
--- NOTE | 2024-11-12 14:25 | PC.NURSE ---
Pt ride here. Pt to private vehicle via wheelchair with all belonings.
== END 2024-11-12 14:27 | disposition home or self-care (01) | DRG 451 ==
LOC: ER 15:00 → MEDSURG 15:15
PROVIDERS: Admitting Provider Orthopaedic Surgery; Emergency Provider Registered Nurse; PCP Family Medicine; Visit Provider Orthopaedic Surgery
PROC: 0PP404Z Removal of Internal Fixation Device from Thoracic Vertebra, Open Approach (ICD-10-PCS; CPT 22600; principal; 2024-11-11 12:30)
DX: M53.2X4 Spinal instabilities, thoracic region (principal); Z79.899 Other long term (current) drug therapy; Z79.52 Long term (current) use of systemic steroids; Z88.1 Allergy status to other antibiotic agents; Z88.8 Allergy status to other drugs, medicaments and biological substances; Z87.891 Personal history of nicotine dependence; I10 Essential (primary) hypertension; F41.9 Anxiety disorder, unspecified; K21.9 Gastro-esophageal reflux disease without esophagitis; M50.23 Other cervical disc displacement, cervicothoracic region; M51.24 Other intervertebral disc displacement, thoracic region
CPT/HCPCS: 12345; 36415; 51702; 72020; 72141; 72146; 76000; 80053; 85025; 87070; 87075; 87176; 87205; 97110; 97116; 97161; 99285; C1713; J0131; J0330; J1100; J1171; J1720; J2270; J2371; J2405; J2704; J3010; J3370; J3490; J7030; J7120; J9999; P9045

== ENCOUNTER 2024-11-15 09:42 | Emergency (ER) | payer MEDICARE, SELFPAY ==
[2024-11-15] VITALS (8 sets, daily range): BP systolic 88–127; BP diastolic 53–66; PULSE 72–83; RESP 16–18; TEMP 36.5; O2SAT 93–98; BMI 39.9
--- NOTE | 2024-11-15 10:46 | CT_ITS ---
WS: [id number] CT THORACIC SPINE TECHNIQUE: Contrast-enhanced CT of the thoracic spine with coronal and sagittal reformatted images. CLINICAL INFORMATION: increased drainage output from surgical site fusion on 2nd COMPARISON: CT 10/30/2024 DLP: 10.[address] scans at [facility] use at least one of these dose optimization techniques: automated exposure control; mA and/or kV adjustment per patient size (includes targeted exams where dose is matched to clinical indication); or iterative reconstruction. FINDINGS: Additional fusion has been performed in the interim at C7-T1 with laminectomy defects at this level. Pedicle screw fixation C7-T1 with interconnecting rods. Expected postoperative changes in the subcutaneous soft tissues. No evidence of drainable abscess or fluid collection. Small amount of p ostoperative fluid in the surgical bed at C7-T1. Small amount of air or Surgicel in the area of surgery. Extensive postoperative changes as previously described on thoracic spine CT 10/30/2024 with pedicle screw fixation and interconnecting rods throughout the thoracic spine.. Mild central canal stenosis at T7-T10. Moderate facet arthropathy lower thoracic spine. LEFT peripelvic renal cyst. CT/CT thoracic spine w con [id number] IMPRESSION: Images are limited by beam-hardening artifact from extensive hardwa re Expected postoperative changes at the C7-T1 level with a small amount of postop erative fluid and blood products in the laminectomy defects. No evidence of kathie inable abscess or fluid collection.
[2024-11-15] MEDS: sodium chloride 0.9% 500 ML IV (11:01)
[2024-11-15] MEDS: iohexol 350 mg/mL 500 mL Btl (per mL) IV (11:46)
--- NOTE | 2024-11-15 12:09 | W.ED.GENADLT ---
HPI - General Adult General: Chief complaint: General Medical Stated complaint: wound drainage 4 day post op back surgery Time Seen by Provider: 11/15/24 10:12 History of Present Illness: 54-year-old female presents emergency department chief complaint of drainage from a recent surgical wound done by Dr. Sol on Monday. Patient endorses that she had her wound VAC filled up twice dressing change she endorses that the drainage is been somewhat bloody but clear reports no purulent discharge does not express any increased pain or discomfort denies any recent falls or trauma or any other associated symptoms. It was suggested patient come to the ER for further assessment management just to the extent of the drainage from the wound. Associated symptoms: Deny chest pain, dyspnea, headache(s), malaise, nausea, rash, palpitations or vomiting Related Data Home Medications ?Medication ?Instructions ?Recorded ?Confirmed losartan 100 mg tablet 100 mg PO DAILY 08/29/22 11/09/24 duloxetine 60 mg capsule,delayed 60 mg PO DAILY 01/24/23 11/09/24 release [id number]-ulzsnorllawsw-uhanwpnz 250 2 tab PO Q6H PRN Pain 02/02/23 11/09/24 mg-250 mg-65 mg tablet (Excedrin Extra Strength) chlorthalidone 25 mg tablet 25 mg PO DAILY 04/12/24 11/09/24 simvastatin 20 mg tablet 20 mg PO DAILY 04/12/24 11/09/24 tizanidine 2 mg tablet 2 mg PO DAILY PRN Pain 04/12/24 11/09/24 cephalexin 500 mg capsule 500 mg PO BID 04/25/24 11/09/24 pantoprazole 40 mg tablet,delayed 40 mg PO BID 10/30/24 11/09/24 release polysaccharide iron complex 150 mg 150 mg PO DAILY 10/30/24 11/09/24 iron capsule (Ferrex) ascorbic acid (vitamin C) 500 mg 500 mg PO DAILY 11/09/24 11/09/24 tablet (Vitamin C) Previous Rx's ?Medication ?Instructions ?Recorded Bone Growth Stimulator #1 ea 04/22/24 oxycodone 10 mg tablet 10 mg PO Q4H PRN pain 7 days #42 11/12/24 tabs Allergies Allergy/AdvReac Type Severity Reaction Status Date / Time ceftriaxone Allergy Mild ALGY-Swell Verified 06/18/24 08:04 Lip/Tongue/Throat daptomycin Allergy Swelling Verified 06/18/24 08:04 face, hands, feet lisinopril Allergy ADR-Cough Verified 06/18/24 08:04 Review of Systems General: Reports: 10 or more systems reviewed and unremarkable except in HPI and below Const: Denies: fever(s), chills, fatigue or malaise Eyes: Denies: change in vision or blurry vision Card: Denies: chest pain or palpitations Resp: Denies: dyspnea or productive cough GI: Denies: abdominal pain, nausea or vomiting : Denies: flank pain Musc: Denies: extremity pain or extremity swelling Skin/Breast: Reports: other (Postsurgical wound with serosanguineous apparent drainage); Denies: rash or pruritus Neuro: Denies: headache(s) Psych: Denies: anxiety or depression Ángel/Lymph: Denies: easy bleeding All/Imm: Denies: urticaria, throat swelling or facial swelling PFSH ED PFSH: Medical History Neuropathy History of transesophageal echocardiography (MAURILIO) (~09/2021) Chronic antibiotic suppression History of streptococcal septicemia Scoliosis 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 Paraphrase of information obtained from Dr Vasquez's, ID at [facility], office and patient: Cultures grew Streptococcus. Hardware washed out. Source was NOT felt hardware related after evaluation. MAURILIO without vegetation. Infection involved left hand and left foot. Left hand had purulent material requiring surgical intervention. Paraspinal abscess also identified. Initially treated with ceftriaxone, then daptomycin added for watermaster home IV antibiotic treatment via PICC line followed, by continued oral keflex (still on oral Keflex prior to revision surgery done by Dr Navas at [facility] on 05/30/2022). Previous (date unknown) ESR > 100 with CRP also elevated. GERD (gastroesophageal reflux disease) Hypertension Anxiety Surgical History History of esophagogastroduodenoscopy (EGD) History of colonoscopy History of hand surgery left, related to abscess at same time as paraspinal abscess in 08/2021, with associated post-infection/post-surgery limitation of range of motion at DIP and PIP 3rd digit Status post left foot surgery with hardware at 5th metatarsal History of back surgery 2019, surgical spinal alignment/correction of scoliosis at L2-L3, L3-L4 History of lumbosacral spine surgery 05/30/[address] Navas: 1. T8 - pelvis posterior spine fusion 2. T8-S1 instrumentation 3. Lumbopelvic fixation 4. removal of hardware from spine 5. Use of computer navigation stereotactic for spine 6. Use of allograft History of lumbar fusion 06/2021 in [facility], T10-S1 fusion Family History Mother Scoliosis Rheumatoid arthritis Hypertension Father Heart disease Hypercholesteremia Denies family history of Colon cancer Ovarian cancer Prostate cancer Diabetes Breast cancer Uterine cancer Thyroid disease Stroke Social History Smoking and tobacco/nicotine status: unknown if used tobacco/nicotine Quit status (tobacco/nicotine): has quit using Year quit tobacco: 2019 Alcohol intake: never Marital status: Marital status details: is Fany Mac Physical Exam Const: COMMON NORMALS: no acute distress, patient oriented x3 and healthy appearing OTHER: Patient appears somewhat anxious on exam however appears in no obvious acute distress HENMT: COMMON NORMALS: normocephalic and atraumatic HEAD & SCALP: normocephalic and atraumatic Eye: COMMON NORMALS: Equal, round and reactive pupils present and EOMs intact bilaterally PUPIL: Yes Equal, round and reactive pupils present Neck/C-Spine: COMMON NORMALS: full ROM, supple and no JVD Lymph: LYMPHATIC: no lymphadenopathy noted Chest: COMMONS NORMALS: normal inspection of the chest and normal palpation of entire chest wall Resp: COMMON NORMALS: normal respiratory effort, No retractions and clear to auscultation bilaterally EFFORT & INSPECTION: Yes able to speak in complete sentences and Yes symmetric chest movement AUSCULTATION: clear to auscultation bilaterally Cardio: COMMON NORMALS: no JVD, regular rate and regular rhythm RATE: regular rate RHYTHM: regular rhythm GI: COMMON NORMALS: Normal to inspection, nondistended, normoactive bowel sounds present, Soft to palpation and non-tender INSPECTION: Yes normal to inspection PALPATION: Yes Soft to palpation : COMMON NORMALS: Yes no CVA tenderness BLADDER/KIDNEY EXAM: Yes no CVA tenderness Back/Pelvis: COMMON NORMALS: no CVA tenderness Extremity: COMMON NORMALS: normal to inspection and full ROM Neuro: COMMON NORMALS: patient oriented x3, CN's II-XII intact bilaterally, moves all extremities and no focal motor deficits Psych: COMMON NORMALS: mental status grossly normal, Normal thought process present, cooperative and normal affect THOUGHT PROCESS: Normal thought process present Skin: COMMON NORMALS: no rashes or lesions noted NARRATIVE SKIN EXAM: What appears to be a postoperative incision with dressing over it with serosanguineous drainage noted no obvious dehiscence appreciated GENERAL SKIN EXAM: no rashes or lesions noted Course Vital Signs: Vital signs: Vital Signs Temperature 97.7 F 11/15/24 09:56 Pulse Rate 78 11/15/24 12:05 Respiratory Rate 17 11/15/24 12:21 Blood Pressure 127/61 11/15/24 13:15 Pulse Oximetry 98 11/15/24 12:21 Oxygen Delivery Me thod Room Air 11/15/24 12:05 MDM - General Adult Medical Decision Making Due to patient's symptoms and condition IV was established basic lab work imaging was obtained revealing is postoperative changes despite patient's case with Dr. Navas that came in the ER to evaluate the patient there is agreement with a above treatment hemoglobin A is 8.2 patient does endorse a history of iron deficiency anemia in which Dr. Navas reported patient will be following up with in the office once we will repeat the hemoglobin to reveal any need for additional future transfusion or not patient is is good to be discharged home with no additional wound care evaluation and management in which instructed to further follow-up with Dr. Navas in the office on her upcoming appointment this next in which to return the interim if any of her symptoms persist or worse. Lab Data 11/15/24 12:52 11/15/24 12:52 Radiology Impressions Thoracic Spine CT 11/15/24 10:46 IMPRESSION: Images are limited by beam-hardening artifact from extensive hardware Expected postoperative changes at the C7-T1 level with a small amount of postoperative fluid and blood products in the laminectomy defects. No evidence of drainable abscess or fluid collection. Laboratory Results WBC 13.16 10^3/uL (3.29-11.43) H 11/15/24 12:52 RBC 2.99 10^6/uL (3.85-5.65) L 11/15/24 12:52 Hgb 8.20 g/dL (11.27-16.99) L 11/15/24 12:52 Hct 27.5 % (36-47) L 11/15/24 12:52 MCV 92.0 fl (85-98) 11/15/24 12:52 MCH 27.4 pg (27-33) 11/15/24 12:52 MCHC 29.8 g/dL (30-55) L 11/15/24 12:52 RDW 15.9 % (12.1-15.1) H 11/15/24 12:52 Plt Count 313 10^3/cmm (157-399) 11/15/24 12:52 MPV 9.5 fL (7.4-10.4) 11/15/24 12:52 Neut % (Auto) 81.0 % 11/15/24 12:52 Lymph % (Auto) 11.5 % 11/15/24 12:52 Cuming % (Auto) 4.3 % 11/15/24 12:52 Eos % (Auto) 1.9 % 11/15/24 12:52 Baso % (Auto) 0.5 % 11/15/24 12:52 Neut # (Auto) 10.67 10^3/uL (1.8-7.7) H 11/15/24 12:52 Lymph # (Auto) 1.5 10^3/uL (0.8-4.8) 11/15/24 12:52 Cuming # (Auto) 0.6 10^3/uL (0.2-0.9) 11/15/24 12:52 Eos # (Auto) 0.3 10^3/uL (0.0-0.8) 11/15/24 12:52 Baso # (Auto) 0.1 10^3/uL (0.0-0.1) 11/15/24 12:52 Nucleated RBC % (auto) 0 % 11/15/24 12:52 Nucleated RBCs # 0.0 /100WBC 11/15/24 12:52 Sodium 139 mmol/L (136-145) 11/15/24 12:52 Potassium 3.4 mmol/L (3.5-5.1) L 11/15/24 12:52 Chloride 102 mmol/L (98-107) 11/15/24 12:52 Carbon Dioxide 25 mmol/L (22-29) 11/15/24 12:52 Anion Gap 15.4 (5-19) 11/15/24 12:52 BUN 25 mg/dL (6-20) H 11/15/24 12:52 Creatinine 0.9 mg/dL (0.5-0.9) 11/15/24 12:52 GFR Calculation 64.8 mL/min (90-130) L 11/15/24 12:52 Glucose 96 mg/dL (65-115) 11/15/24 12:52 Calculated Osmolality 292 mOsm/kg (285-295) 11/15/24 12:52 Lactic Acid 0.9 mmol/L (0.5-2.2) 11/15/24 12:52 Calcium 8.8 mg/dL (8.5-10.5) 11/15/24 12:52 Total Bilirubin 0.3 mg/dL (0.15-1.2) 11/15/24 12:52 AST 30 U/L (0-32) 11/15/24 12:52 ALT 47 U/L (0-33) H 11/15/24 12:52 Alkaline Phosphatase 207 U/L (35-105) H 11/15/24 12:52 C-Reactive Protein 201.3 mg/L (0.0-4.9) H 11/15/24 12:52 Total Protein 5.8 g/dL (6.6-8.7) L 11/15/24 12:52 Albumin 2.9 g/dL (3.5-5.2) L 11/15/24 12:52 Globulin 2.9 g/dL (1.3-4.6) 11/15/24 12:52 Urine Color Yellow (Yellow) 11/15/24 12:59 Urine Appearance Clear (CLEAR) 11/15/24 12:59 Urine pH 6.0 (5-7) 11/15/24 12:59 Ur Specific [place] 1.040 (1.005-1.030) H 11/15/24 12:59 Urine Protein Negative (Negative) 11/15/24 12:59 Urine Glucose (UA) Negative (Normal) 11/15/24 12:59 Urine Ketones Negative (Negative) 11/15/24 12:59 Urine Blood Negative (Negative) 11/15/24 12:59 Urine Nitrate Negative (Negative) 11/15/24 12:59 Urine Bilirubin Negative (Negative) 11/15/24 12:59 Urine Urobilinogen 0.2 mg/dL (Negative) 11/15/24 12:59 Ur Leukocyte Esterase Negative (Negative) 11/15/24 12:59 Urine RBC 0-2 /hpf (0-2) 11/15/24 12:59 Urine WBC 0-5 /hpf (0-5) 11/15/24 12:59 Ur Squamous Epith Cells 0-5 /hpf (0-5) 11/15/24 12:59 Amorphous Sediment Not Reportable 11/15/24 12:59 Urine Bacteria None seen /hpf (NONE) 11/15/24 12:59 Hyaline Casts 0.40 /lpf 11/15/24 12:59 All radiology interpretation(s) finalized by discharge Discharge Plan Discharge Patient Disposition: Home Clinical Impression: S/P spinal fusion, Postoperative complication of skin involving drainage from surgical wound Anemia Qualifiers: Anemia type: iron deficiency Condition: Stable Prescriptions: No Action tizanidine 2 mg tablet 2 mg PO DAILY PRN (Reason: Pain) chlorthalidone 25 mg tablet 25 mg PO DAILY simvastatin 20 mg tablet 20 mg PO DAILY losartan 100 mg tablet 100 mg PO DAILY (DME) Bone Growth Stimulator See Rx Instructions .Route .MEDSUPPLY Qty: 1 0RF Rx Instructions: As directed duloxetine 60 mg capsule,delayed release(DR/EC) 60 mg PO DAILY cephalexin 500 mg capsule 500 mg PO BID Rx Instructions: watermaster ascorbic acid (vitamin C) [Vitamin C] 500 mg Tablet 500 mg PO DAILY oxycodone 10 mg tablet 10 mg PO Q4H PRN (Reason: pain) 7 Days Qty: 42 0RF Excedrin Extra Strength 250-250-65 mg Tablet 2 tab PO Q6H PRN (Reason: Pain) polysaccharide iron complex [Ferrex 150] 150 mg iron capsule 150 mg PO DAILY pantoprazole 40 mg tablet,delayed release (DR/EC) 40 mg PO BID Discharge Orders: Discharge ED (Routine); Ordered 11/15/24 Ordered By: Devin Fraire Referrals: Peter Navas DO [Physician, Orthopedics] - 7-10 days Zuleyka Collado MD [Primary Care Provider, Family Practice] Activity Restrictions/Additional Instructions: For any additional questions or concerns please follow-up with Dr. No or contact his office for further eval please return the interim if any of your symptoms persist or worse Print Language: Persian Coding Level of Care Code ED Lettuce Cutter for Kayla Velázquez
[2024-11-15] MEDS: fentaNYL 50 mcg/mL INJ 2mL 98.9 MCG IVP (12:21)
[2024-11-15 12:58] LABS: Basophils # 0.1 10^3/uL (0.0-0.1); Basophils % 0.5 %; Eosinophils # 0.3 10^3/uL (0.0-0.8); Eosinophils % 1.9 %; Hematocrit 27.5 % (36-47); Lymphocytes # 1.5 10^3/uL (0.8-4.8); Lymphocytes % 11.5 %; Mean Corpuscular HGB Conc 29.8 g/dL (30-55); Mean Corpuscular Hemoglobin 27.4 pg (27-33); Mean Platelet Volume 9.5 fL (7.4-10.4); Monocytes # 0.6 10^3/uL (0.2-0.9); Monocytes % 4.3 %; Neutrophils # 10.67 10^3/uL (1.8-7.7); Nucleated Red Blood Cells % 0 %; Platelet Count 313 10^3/cmm (157-399); Red Blood Count 2.99 10^6/uL (3.85-5.65); Red Cell Distribution Width 15.9 % (12.1-15.1); White Blood Count 13.16 10^3/uL (3.29-11.43)
[2024-11-15 13:13] LABS: Bilirubin Urine Negative (Negative); Blood Urine Negative (Negative); Glucose Urine UA Negative (Normal); Ketones Urine Negative (Negative); Leukocyte Esterase Urine Negative (Negative); Nitrate Urine Negative (Negative); Protein Urine Negative (Negative); Urine Appearance Clear (CLEAR); Urine Color Yellow (Yellow); Urobilinogen Urine 0.2 mg/dL (Negative)
[2024-11-15 13:16] LABS: Add Urine Microscopic? YES; Bacteria Urine None Seen /hpf; RBC Urine 0-2 /hpf (0-2); Squamous Epithelial Cell Urine 0-5 /hpf (0-5); WBC Urine 0-5 /hpf (0-5)
[2024-11-15 13:17] LABS: Alanine Aminotransferase 47 U/L (0-33); Albumin Level 2.9 g/dL (3.5-5.2); Alkaline Phosphatase 207 U/L (35-105); Anion Gap 15.4 (5-19); Aspartate Amino Transferase 30 U/L (0-32); Blood Urea Nitrogen 25 mg/dL (6-20); C Reactive Protein 201.3 mg/L (0.0-4.9); Calcium 8.8 mg/dL (8.5-10.5); Carbon Dioxide 25 mmol/L (22-29); Chloride 102 mmol/L (98-107); Creatinine Clr Calc Pharmacy 76.7034; Globulin 2.9 g/dL (1.3-4.6); Glomerular Filtration Rate 64.8 mL/min (90-130); Glucose 96 mg/dL (65-115); Osmolality Calculated 292 mOsm/kg (285-295); Potassium 3.4 mmol/L (3.5-5.1); Sodium 139 mmol/L (136-145); Total Bilirubin 0.3 mg/dL (0.15-1.2); Total Protein 5.8 g/dL (6.6-8.7)
[2024-11-15 13:18] LABS: Lactic Sepsis W/Reflex 0.9 mmol/L (0.5-2.2)
== END 2024-11-15 14:08 | disposition home or self-care (01) ==
PROVIDERS: Emergency Provider Emergency Medicine; PCP Family Medicine
DX: L76.82 Other postprocedural complications of skin and subcutaneous tissue (principal); D64.9 Anemia, unspecified; Z98.1 Arthrodesis status; Z98.890 Other specified postprocedural states; I10 Essential (primary) hypertension; Z87.891 Personal history of nicotine dependence
CPT/HCPCS: 72129; 80053; 81001; 83605; 85025; 86140; 96361; 96374; 99285; J3010; J7040

== ENCOUNTER → 2024-11-21 14:13 | Outpatient (BNVA) | payer MEDICARE, SELFPAY | PROVIDERS: PCP Family Medicine; Visit Provider Orthopaedic Surgery | DX: Z98.890 Other specified postprocedural states (principal); Z98.1 Arthrodesis status | CPT/HCPCS: 99024 ==

== ENCOUNTER → 2024-11-28 14:28 | Outpatient (BNVA) | payer MEDICARE, SELFPAY | PROVIDERS: PCP Family Medicine; Visit Provider Orthopaedic Surgery | DX: Z98.1 Arthrodesis status (principal); Z98.890 Other specified postprocedural states | CPT/HCPCS: 99024 ==

== ENCOUNTER → 2024-12-19 10:29 | Outpatient (BNVA) | payer MEDICARE, SELFPAY | PROVIDERS: PCP Family Medicine; Visit Provider Orthopaedic Surgery | DX: Z98.1 Arthrodesis status (principal) | CPT/HCPCS: 72040; 99024 ==

== ENCOUNTER 2024-12-19 10:59 | Emergency (ER) | payer MEDICARE, SELFPAY ==
[2024-12-19] VITALS (12 sets, daily range): BP systolic 118–167; BP diastolic 57–93; PULSE 78–94; RESP 18–20; TEMP 36.4–36.8; O2SAT 94–100; BMI 38.6
--- NOTE | 2024-12-19 11:16 | XR_ITS ---
WS: [id number] Exam: XR chest 1V portable [id number] Date/Time of Exam: 12/19/2024 11:57 AM Reason For Exam: Shortness of breath Comparison 04/30/2024. The lungs are fully inflated and clear. Normal cardiomediastinal silhouette. Fusion hardware in the thoracic and visualized lumbar spine. XR/XR chest 1V portable [id number] IMPRESSION: 1. No acute cardiopulmonary finding.
--- NOTE | 2024-12-19 11:19 | W.ED.SOB ---
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 She had what appears to be a fairly extensive spinal surgery and was discharged from the hospital over a month ago. She is still in a spinal collar. She saw Dr. Navas in clinic today. I reviewed his note that says that her incision looks good and it sounds like he sent her to the emergency room to be evaluated for possible other health issues. Her main complaint today is that she feels more short of breath. She says she has a history of shingles under her neck brace. She has had some difficulty swallowing. Mainly she says she just wanted to have her inflammatory markers checked to make sure she was not getting septic again Related Data Home Medications ?Medication ?Instructions ?Recorded ?Confirmed losartan 100 mg tablet 100 mg PO DAILY 08/29/22 12/19/24 duloxetine 60 mg capsule,delayed 60 mg PO DAILY 01/24/23 12/19/24 release zjztbjn-gfiyiseilfwym-igvigjys 250 2 tab PO Q6H PRN Pain 02/02/23 12/19/24 mg-250 mg-65 mg tablet (Excedrin Extra Strength) chlorthalidone 25 mg tablet 25 mg PO DAILY 04/12/24 12/19/24 simvastatin 20 mg tablet 20 mg PO DAILY 04/12/24 12/19/24 tizanidine 2 mg tablet 2 mg PO DAILY PRN Pain 04/12/24 12/19/24 cephalexin 500 mg capsule 500 mg PO BID 04/25/24 12/19/24 pantoprazole 40 mg tablet,delayed 40 mg PO BID 10/30/24 12/19/24 release polysaccharide iron complex 150 mg 150 mg PO DAILY 10/30/24 12/19/24 iron capsule (Ferrex) ascorbic acid (vitamin C) 500 mg 500 mg PO DAILY 11/09/24 12/19/24 tablet (Vitamin C) Previous Rx's ?Medication ?Instructions ?Recorded Bone Growth Stimulator #1 ea 04/22/24 oxycodone 10 mg tablet 10 mg PO Q8H pain 30 days #90 tabs 11/21/24 Bone Growth Stimulator #1 ea 11/25/24 Allergies Allergy/AdvReac Type Severity Reaction Status Date / Time ceftriaxone Allergy Mild ALGY-Swell Verified 12/19/24 07:56 Lip/Tongue/Throat daptomycin Allergy Swelling Verified 12/19/24 07:56 face, hands, feet lisinopril Allergy ADR-Cough Verified 12/19/24 07:56 Review of Systems Narrative: Constitutional symptoms: Negative except as documented in HPI. Skin symptoms: Negative except as documented in HPI. Eye symptoms: Negative except as documented in HPI. ENMT symptoms: Negative except as documented in HPI. Respiratory symptoms: Negative except as documented in HPI. Cardiovascular symptoms: Negative except as documented in HPI. Gastrointestinal symptoms: Negative except as documented in HPI. Genitourinary symptoms: Negative except as documented in HPI. Musculoskeletal symptoms: Negative except as documented in HPI. Neurologic symptoms: Negative except as documented in HPI. Psychiatric symptoms: Negative except as documented in HPI. Endocrine symptoms: Negative except as documented in HPI. [facility] ED PFSH: Medical History (Updated 12/19/24 @ 13:07 by Joanne Brown MD) Neuropathy History of transesophageal echocardiography (MAURILIO) (~09/2021) Chronic antibiotic suppression History of streptococcal septicemia Scoliosis 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 Paraphrase of information obtained from Dr Vasquez's, ID at [facility], office and patient: Cultures grew Streptococcus. Hardware washed out. Source was NOT felt hardware related after evaluation. MAURILIO without vegetation. Infection involved left hand and left foot. Left hand had purulent material requiring surgical intervention. Paraspinal abscess also identified. Initially treated with ceftriaxone, then daptomycin added for emt intermediate home IV antibiotic treatment via PICC line followed, by continued oral keflex (still on oral Keflex prior to revision surgery done by Dr Navas at [facility] on 05/30/2022). Previous (date unknown) ESR > 100 with CRP also elevated. GERD (gastroesophageal reflux disease) Hypertension Anxiety Surgical History History of esophagogastroduodenoscopy (EGD) History of colonoscopy History of hand surgery left, related to abscess at same time as paraspinal abscess in 08/2021, with associated post-infection/post-surgery limitation of range of motion at DIP and PIP 3rd digit Status post left foot surgery with hardware at 5th metatarsal History of back surgery 2019, surgical spinal alignment/correction of scoliosis at L2-L3, L3-L4 History of lumbosacral spine surgery 05/30/[address] Navas: 1. T8 - pelvis posterior spine fusion 2. T8-S1 instrumentation 3. Lumbopelvic fixation 4. removal of hardware from spine 5. Use of computer navigation stereotactic for spine 6. Use of allograft History of lumbar fusion 06/2021 in [facility], T10-S1 fusion Family History Mother Scoliosis Rheumatoid arthritis Hypertension Father Heart disease Hypercholesteremia Denies family history of Colon cancer Ovarian cancer Prostate cancer Diabetes Breast cancer Uterine cancer Thyroid disease Stroke Social History Smoking and tobacco/nicotine status: never used tobacco/nicotine Quit status (tobacco/nicotine): has quit using Year quit tobacco: 2019 Alcohol intake: never Marital status: Marital status details: is Fany Mac Physical Exam Narrative: EXAM NARRATIVE: General: Alert, no acute distress. Skin: Warm, dry. Head: Normocephalic, atraumatic. Neck: Collar in place Eye: Extraocular movements are intact. Ears, nose, mouth and throat: mucosa moist. Cardiovascular: Regular, Normal peripheral perfusion. Respiratory: Lungs are clear to auscultation, respirations are non-labored, breath sounds are equal, Symmetrical chest wall expansion. Gastrointestinal: Soft, Nontender, Non distended Musculoskeletal: Normal ROM, no deformity. Neurological: Alert and oriented, No focal neurological deficit observed. Psychiatric: Cooperative, appropriate mood & affect. Course Vital Signs: Vital signs: Vital Signs Temperature 97.7 F 12/19/24 11:12 Pulse Rate 80 12/19/24 13:00 Respiratory Rate 18 12/19/24 11:12 Blood Pressure 141/75 12/19/24 13:00 Pulse Oximetry 98 12/19/24 13:00 Oxygen Delivery Me thod Room Air 12/19/24 13:00 MDM - SOB/Dyspnea Medical Decision Making Differential diagnosis for patient with shortness of breath includes but is not limited to and based on the above HPI, review of systems and physical exam: Pneumonia. Bronchitis. Asthma or COPD with acute exacerbation. Acute coronary syndrome / DE. Pulmonary embolism. Anxiety. Congestive heart failure. Viral infections including influenza and Covid-19. Atrial fibrillation. Anxiety. Pleural effusion. Pneumothorax. Orders placed to evaluate differential diagnosis based on the above differential, HPI and physical exam EKG: Time 11:30 AM. Rate 82. Normal sinus rhythm, No ST-T changes, no ectopy, normal OH & QRS intervals, This was reviewed and interpreted by myself the ER physician at 11:35 AM Repeat EKG: Time 1346. Rate 77. Normal sinus rhythm, No ST-T changes, no ectopy, normal OH & QRS intervals, This was reviewed and interpreted by myself the ER physician at 1350. No changes from previous EKG done in the ER today. Chest x-ray: No acute process. No infiltrate. No pneumothorax. This was reviewed and interpreted by myself the emergency room physician. I also reviewed the radiology report. Lab Review: Laboratory results were reviewed and interpreted by myself the emergency room physician. No leukocytosis. Patient has worsening anemia. Prior to her surgery her hemoglobin was over 11. After the surgery a couple of weeks it was a little above 8. Today it is 7.3. This could explain her symptoms. Her ESR and CRP are elevated but not really significantly different than previous and CRP is actually improved from 190-120. I reviewed the patient's medical record. I reviewed patient's medical history, op note and recent clinic notes in the chart. Consultation: I spoke with Dr. Navas. He agrees with lab workup and I discussed findings and he agrees the transfusion and follow-up in clinic with her PCP are appropriate. Reexamination: Patient remained stable. No increased work of breathing. No altered mental status. No focal motor deficits. We discussed findings. Discussed what I had talked to Dr. Navas about. She will follow with her primary provider and with Dr. Navas. No other acute findings other than worsening anemia so she is being transfused in the outpatient center and she will go home. Assessment and plan: Anemia Dyspnea ? 2 units PRBC ordered and being transfused. - Discharged home - Discussed plan with patient. Answered any questions. - Evaluation and treatment of this problem were appropriate in the emergency setting. Lab Data 12/19/24 11:35 12/19/24 11:35 Labs/Radiology: Radiology Impressions Chest X-Ray 12/19/24 11:16 IMPRESSION: 1. No acute cardiopulmonary finding. Laboratory Results WBC 9.26 10^3/uL (3.29-11.43) 12/19/24 11:35 RBC 2.94 10^6/uL (3.85-5.65) L 12/19/24 11:35 Hgb 7.30 g/dL (11.27-16.99) L 12/19/24 11:35 Hct 25.4 % (36-47) L 12/19/24 11:35 MCV 86.4 fl (85-98) 12/19/24 11:35 MCH 24.8 pg (27-33) L 12/19/24 11:35 MCHC 28.7 g/dL (30-55) L 12/19/24 11:35 RDW 15.5 % (12.1-15.1) H 12/19/24 11:35 Plt Count 389 10^3/cmm (157-399) 12/19/24 11:35 MPV 10.0 fL (7.4-10.4) 12/19/24 11:35 Neut % (Auto) 76.1 % 12/19/24 11:35 Lymph % (Auto) 11.0 % 12/19/24 11:35 Arroyo % (Auto) 8.6 % 12/19/24 11:35 Eos % (Auto) 2.9 % 12/19/24 11:35 Baso % (Auto) 0.6 % 12/19/24 11:35 Neut # (Auto) 7.04 10^3/uL (1.8-7.7) 12/19/24 11:35 Lymph # (Auto) 1.0 10^3/uL (0.8-4.8) 12/19/24 11:35 [place]royo # (Auto) 0.8 10^3/uL (0.2-0.9) 12/19/24 11:35 Eos # (Auto) 0.3 10^3/uL (0.0-0.8) 12/19/24 11:35 Baso # (Auto) 0.1 10^3/uL (0.0-0.1) 12/19/24 11:35 Nucleated RBC % (auto) 0 % 12/19/24 11:35 Nucleated RBCs # 0.0 /100WBC 12/19/24 11:35 ESR 45 mm/hr (0-15) H 12/19/24 11:35 Specimen Type Arterial 12/19/24 11:53 Sample Site Radial, left 12/19/24 11:53 ABG pH 7.52 (7.35-7.45) H 12/19/24 11:53 ABG pCO2 33.6 mmHg (35-45) L 12/19/24 11:53 ABG pO2 63.3 mmHg (80.0-100.0) L 12/19/24 11:53 ABG PO2/FiO2 Ratio 301 12/19/24 11:53 ABG HCO3 27.4 mmol/L (22-26) H 12/19/24 11:53 ABG O2 Saturation 94.4 12/19/24 11:53 ABG Base Excess 4.3 mmol/L (-2.0-2.0) H 12/19/24 11:53 Rk Test Pos 12/19/24 11:53 A-a O2 Gradient 5.7 mmHg (5-10) 12/19/24 11:53 Hematocrit 23.4 % (37-47) L 12/19/24 11:53 Hgb O2 Saturation 92.0 % (95-100) L 12/19/24 11:53 Carboxyhemoglobin 1.0 %THgb (0.4-20.1) 12/19/24 11:53 Methemoglobin 1.5 % (0.4-1.5) 12/19/24 11:53 Total Hemoglobin 7.6 g/dL (12-16) L 12/19/24 11:53 Sodium 138.0 mmol/L (131-143) 12/19/24 11:53 Potassium 2.9 mmol/L (3.5-5.0) L 12/19/24 11:53 Glucose 107.0 mg/dL (70-115) 12/19/24 11:53 Ionized Calcium 1.2 mmol/L (1.1-1.4) 12/19/24 11:53 O2 Delivery Device Room air 12/19/24 11:53 FiO2 21.0 % 12/19/24 11:53 [employer] ID [place] 12/19/24 11:53 Sodium 137 mmol/L (136-145) 12/19/24 11:35 Potassium 3.3 mmol/L (3.5-5.1) L 12/19/24 11:35 Chloride 98 mmol/L (98-107) 12/19/24 11:35 Carbon Dioxide 25 mmol/L (22-29) 12/19/24 11:35 Anion Gap 17.3 (5-19) 12/19/24 11:35 BUN 8 mg/dL (6-20) 12/19/24 11:35 Creatinine 0.7 mg/dL (0.5-0.9) 12/19/24 11:35 GFR Calculation 86.6 mL/min (90-130) L 12/19/24 11:35 Glucose 104 mg/dL (65-115) 12/19/24 11:35 Calculated Osmolality 283 mOsm/kg (285-295) L 12/19/24 11:35 Lactic Acid 1.5 mmol/L (0.5-2.2) 12/19/24 11:35 Calcium 9.0 mg/dL (8.5-10.5) 12/19/24 11:35 Total Bilirubin 0.2 mg/dL (0.15-1.2) 12/19/24 11:35 AST 9 U/L (0-32) 12/19/24 11:35 ALT < 5 U/L (0-33) 12/19/24 11:35 Alkaline Phosphatase 156 U/L (35-105) H 12/19/24 11:35 Troponin T Baseline 13 ng/L (0-10) H 12/19/24 11:35 Troponin T 120 Minute 13.07 ng/L (0-10) H 12/19/24 12:54 Delta Troponin T 0.07 ABS# (0-10) 12/19/24 12:54 C-Reactive Protein 125.3 mg/L (0.0-4.9) H 12/19/24 11:35 NT-Pro-B Natriuret Pep 565 pg/mL (0-125) H 12/19/24 11:35 Total Protein 6.3 g/dL (6.6-8.7) L 12/19/24 11:35 Albumin 3.0 g/dL (3.5-5.2) L 12/19/24 11:35 Globulin 3.3 g/dL (1.3-4.6) 12/19/24 11:35 Urine Color Yellow (Yellow) 12/19/24 12:40 Urine Appearance Clear (CLEAR) 12/19/24 12:40 Urine pH 6.5 (5-7) 12/19/24 12:40 Ur Specific [place] 1.015 (1.005-1.030) 12/19/24 12:40 Urine Protein Negative (Negative) 12/19/24 12:40 Urine Glucose (UA) Negative (Normal) 12/19/24 12:40 Urine Ketones Negative (Negative) 12/19/24 12:40 Urine Blood Negative (Negative) 12/19/24 12:40 Urine Nitrate Negative (Negative) 12/19/24 12:40 Urine Bilirubin Negative (Negative) 12/19/24 12:40 Urine Urobilinogen 0.2 mg/dL (Negative) 12/19/24 12:40 Ur Leukocyte Esterase Negative (Negative) 12/19/24 12:40 Urine RBC 0-2 /hpf (0-2) 12/19/24 12:40 Urine WBC 0-5 /hpf (0-5) 12/19/24 12:40 Ur Squamous Epith Cells 0-5 /hpf (0-5) 12/19/24 12:40 Amorphous Sediment Not Reportable 12/19/24 12:40 Urine Bacteria None seen /hpf (NONE) 12/19/24 12:40 Hyaline Casts 0-4 /lpf H 12/19/24 12:40 Crossmatch See Detail 12/19/24 13:22 All radiology interpretation(s) finalized by discharge Discharge Plan Discharge Patient Disposition: Home Clinical Impression: Anemia Condition: Stable Prescriptions: No Action tizanidine 2 mg tablet 2 mg PO DAILY PRN (Reason: Pain) chlorthalidone 25 mg tablet 25 mg PO DAILY simvastatin 20 mg tablet 20 mg PO DAILY oxycodone 10 mg tablet 10 mg PO Q8H 30 Days Qty: 90 0RF losartan 100 mg tablet 100 mg PO DAILY (DME) Bone Growth Stimulator See Rx Instructions .Route .MEDSUPPLY Qty: 1 0RF Rx Instructions: As directed (DME) Bone Growth Stimulator See Rx Instructions .Route .MEDSUPPLY Qty: 1 0RF Rx Instructions: As directed duloxetine 60 mg capsule,delayed release(DR/EC) 60 mg PO DAILY cephalexin 500 mg capsule 500 mg PO BID Rx Instructions: emt intermediate ascorbic acid (vitamin C) [Vitamin C] 500 mg Tablet 500 mg PO DAILY Excedrin Extra Strength 250-250-65 mg Tablet 2 tab PO Q6H PRN (Reason: Pain) polysaccharide iron complex [Ferrex 150] 150 mg iron capsule 150 mg PO DAILY pantoprazole 40 mg tablet,delayed release (DR/EC) 40 mg PO BID Discharge Orders: Discharge ED (Routine); Ordered 12/19/24 Ordered By: Joanne Brown Referrals: Zuleyka Collado MD [Primary Care Provider, Family Practice] Discharge Diet: Usual diet Discharge Activity: Increase activity as tolerated Patient Instructions: Blood Transfusion (DC), Opioid Safety, Pain Management, Patient Portal & Fatuma Instructions Activity Restrictions/Additional Instructions: Thank you for choosing [facility] for your healthcare needs today. You have been screened and evaluated and felt safe for discharge. Health conditions do change or evolve sometimes and as such it is important that you follow up with your Primary Doctor to be re checked, 3-5 days is a general good time frame for follow up. You are always welcome to return to the ED for re assessment if your symptoms are worsening or you have new concerns Print Language: Northern Irish Coding Level of Care Code ED Glaucoma Specialist for Kayla Velázquez
--- OUTSIDE RECORDS SUMMARY | 2024-12-19 11:19 | XMS_ITS | Clinical Summary ---
Author Organization [facility] Address [address] [place] [address] Care Team Providers Care Senior Designer Name Role Phone Linda Collado MD Primary Care Provider Allergies Active Allergy Reactions Criticality Noted Date Comments Amlodipine Other (See Comments) 05/18/2023 Fast heart rate Ceftriaxone Hives,Itching,Naus ea and Vomiting,Rash High 06/03/2022 Daptomycin Cough,Swelling Low 06/06/2022 Hydrochlorothiazide (Bulk) Other (See Comments) 05/18/2023 Fast heart rate Lisinopril Cough Low 03/07/2022 Medications acetaminophen (TYLENOL) 500 mg tablet Take 1,000 mg by mouth. Active sennosides (SENOKOT) 8.6 mg tablet 022 Active biotin 1 mg Capsule Take by mouth. Activ e CALCIUM ORAL Take 1 Tablet by mouth. Active Narcan 4 mg/actuation [place], Non-Aerosol 1 [place] by See Admin Instructions route. 023 Active amoxicillin (AMOXIL) 500 mg capsuleIndicatio ns:senior care (current) use of antibiotics,Para spinal abscess (CMS/HCC) Take 1 Capsule (500 mg) by mouth 3 times daily. 90 Capsule 3 024 Active Additional Information Patient not taking.Reported on 08/15/2024 oxyCODONE (ROXICODONE) 10 mg tabletIndication s:DDD (degenerative disc disease), lumbar,Failed back syndrome of lumbar spine,Lumbar myelopathy (CMS/HCC) Take 1 Tablet (10 mg) by mouth 2 times daily as needed for Pain, Moderate. Max Daily Amount: 20 mg 60 Tablet 024 Active cephALEXin (KEFLEX) 500 mg capsule Take 1 Capsule (500 mg) by mouth 2 times daily. 180 Capsule 3 024 Active pantoprazole (PROTONIX) 40 mg Tablet, Delayed Release (E.C.)Indication s:Gastroesophage al reflux disease, unspecified whether esophagitis present TAKE ONE TABLET BY MOUTH TWICE DAILY 200 Tablet 1 025 Active diazePAM (VALIUM) 5 mg tablet take one tablet by mouth three times daily as needed for muscle spasm 025 Active DULoxetine (CYMBALTA) 60 mg Capsule, Delayed Release(E.C.) Take 1 Capsule (60 mg) by mouth daily. Take with 30 mg capsule for 90 mg total 30 Capsule 3 025 Active DULoxetine (CYMBALTA) 30 mg Capsule, Delayed Release(E.C.) Take 1 Capsule (30 mg) by mouth daily. Take with 60 mg capsule for 90 mg total 30 Capsule 3 025 Active polysaccharide iron complex (FERREX 150,IFEREX 150) 150 mg iron capsuleIndicatio ns:Iron deficiency anemia, unspecified iron deficiency anemia type Take 1 Capsule (150 mg) by mouth daily. 100 Capsule 025 Active ascorbic acid, vitamin C, (Vitamin C) 250 mg tabletIndication s:Iron deficiency anemia, unspecified iron deficiency anemia type Take 1 Tablet (250 mg) by mouth daily. 025 Active chlorthalidone (HYGROTON) 25 mg tablet Take 1 Tablet (25 mg) by mouth daily. 100 Tablet 3 025 Active tiZANidine (ZANAFLEX) 2 mg TabletIndication s:DDD (degenerative disc disease), lumbar,Failed back syndrome of lumbar spine,Lumbar myelopathy (CMS/HCC),Hx of spinal fusion TAKE ONE TABLET BY MOUTH TWICE DAILY 60 Tablet 3 025 Active losartan (COZAAR) 100 mg tablet TAKE ONE TABLET BY MOUTH DAILY 100 Tablet 3 025 Active predniSONE (DELTASONE) 20 mg tabletIndication s:Elevated erythrocyte sedimentation rate,Elevated C-reactive protein (CRP) TAKE ONE TABLET BY MOUTH DAILY 30 Tablet 025 Active predniSONE (DELTASONE) 5 mg tabletIndication s:PMR (polymyalgia rheumatica) TAKE ONE TABLET BY MOUTH DAILY 30 Tablet 025 Active predniSONE (DELTASONE) 1 mg tabletIndication s:PMR (polymyalgia rheumatica) TAKE ONE TABLET BY MOUTH DAILY. 30 Tablet 025 Active simvastatin (ZOCOR) 20 mg tablet TAKE ONE TABLET BY MOUTH DAILY AT BEDTIME 100 Tablet 025 Active ondansetron (ZOFRAN ODT) 8 mg Tablet, Rapid DissolveIndicati ons:Nausea DISSOLVE ONE TABLET BY MOUTH EVERY TWELVE HOURS NEEDED FOR NAUSEA 30 Tablet 2 025 Active diclofenac sodium (VOLTAREN) 75 mg Tablet, Delayed Release (E.C.)Indication s:DDD (degenerative disc disease), lumbar,Failed back syndrome of lumbar spine,Lumbar myelopathy (CMS/HCC) TAKE ONE TABLET BY MOUTH TWICE DAILY 200 Tablet 2 025 Active busPIRone (BUSPAR) 15 mg TabletIndication s:Situational mixed anxiety and depressive disorder Take 1 Tablet (15 mg) by mouth 3 times daily as needed for Anxiety. 90 Tablet 3 025 Active pregabalin (Lyrica) 75 mg CapsuleIndicatio ns:Nerve pain Take 1 Capsule (75 mg) by mouth every 12 hours. 60 Capsule 025 Active diclofenac sodium (VOLTAREN) 75 mg Tablet, Delayed Release (E.C.)Indication s:DDD (degenerative disc disease), lumbar,Failed back syndrome of lumbar spine,Lumbar myelopathy (CMS/HCC) Take 1 Tablet (75 mg) by mouth 2 times daily. 200 Tablet 2 024 2024 Discontinued valACYclovir (VALTREX) 1 gram tabletIndication s:Herpes zoster without complication Take 1 Tablet (1 Gram) by mouth 2 times daily for 7 days. 14 Tablet 025 2024 Active Problems Problem Noted Date Diagnosed Date Wound infection complicating hardware, sequela 0 02/01/2024 director long term care (current) use of antibiotics 3 Hypertension 06/23/2022 Streptococcal bacteremia 12/16/2021 Elevated troponin 09/30/2021 Major depressive disorder, recurrent, in partial remission 09/15/2021 Overview (06/14/2022): Last Assessment & Plan: Condition: improving No recent mental health visit. Advised to follow up Medications: Taking medications as prescribed If taking medications, do not stop treatment without consulting healthcare provider. If symptoms worsen or do not improve/stabilize, notify health care provider right away. If thoughts of harming self or others notify health care provider immediately &/or seek urgent/emergent care including calling [facility] Hotline ( ) or 911. Follow up in if symptoms worsen or fail to improve with Psychologist/Counselor/SupportGroup/Psychiatrist and PCP S/P PICC central line placement 09/15/2021 Overview (06/14/2022): Last Assessment & Plan: Condition: stable Patient and family member taking care of the PICC line and administering the IV antibiotics. Patient verbalized understanding of PICC line care. Follow up in: if symptoms worsen or fail to improve Last Assessment & Plan: Condition: stable Patient and family member taking care of the PICC line and administering the IV antibiotics. Patient verbalized understanding of PICC line care. Follow up in: if symptoms worsen or fail to improve Anxiety 08/27/2021 Tenosynovitis of finger 08/27/2021 Spinal column deformity 06/22/2021 Spine deformity 06/22/2021 Failed back syndrome of lumbar spine 07/03/2019 Retained orthopedic hardware 02/10/2018 Depressive disorder 11/21/2017 Iron deficiency anemia 08/28/2017 Overview (06/14/2022): Last Assessment & Plan: Condition: improving Follow up in: if symptoms worsen or fail to improve Vitamin D deficiency 08/28/2017 Overview (06/14/2022): Last Assessment & Plan: Condition: improving Follow up in: if symptoms worsen or fail to improve GERD (gastroesophageal reflux disease) 7 Overview (06/14/2022): Last Assessment & Plan: Condition: improving Reviewed use of antacid medication and/or diet modifications of decreasing caffeine, spicy foods, chocolate, and avoiding alcohol, tobacco, NSAIDs, and reducing citrus acids. Follow up in: if symptoms worsen or fail to improve Last Assessment & Plan: Condition: stable Reviewed use of antacid medication and/or diet modifications of decreasing caffeine, spicy foods, chocolate, and avoiding alcohol, tobacco, NSAIDs, and reducing citrus acids. Follow up in: one year Spinal stenosis of lumbar region 03/01/2017 Overview (06/14/2022): Added automatically from request for surgery [id number] Degeneration of intervertebral disc of lumbar re gion 03/21/2016 Overview (06/14/2022): Last Assessment & Plan: Condition: improving Follow up in: if symptoms worsen or fail to improve Displacement of lumbar intervertebral disc with myelopathy 03/21/2016 Low back pain 03/21/2016 Overview (06/14/2022): Last Assessment & Plan: Condition: improving Take pain medication as prescribed. Practice non-pharmacological pain reduction techniques/interventions such as, deep breathing exercises, massage, gel packs, if indicated to be safe by PCP. Monitor for worsening of back pain in combination with other signs and symptoms of worsening disease and see PCP as soon as possible. Follow up in: if symptoms worsen or fail to improve Spine degeneration 03/21/2016 OCD (obsessive compulsive disorder) 12/23/2014 Overview (06/14/2022): Per chart from Dr. 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 Follow up in: if symptoms worsen or fail to improve Morbid (severe) obesity due to excess calories 04/09/2021 08/15/2024 Overview (06/14/2022): Last Assessment & Plan: Condition: improving Co-morbidities: GERD and Back Pain Follow up in: if symptoms worsen or fail to improve Last Assessment & Plan: Condition: stable Co-morbidities: GERD Follow up in: one year Last Assessment & Plan: Condition: stable Co-morbidities: GERD Follow up in: one year Last Assessment & Plan: Condition: stable Co-morbidities: GERD Follow up in: one year Encounters Date Type Department Care Team Description 12/05/2024 1:40 PM CDT Video Visit [address] [phone] Linda Collado MD PMR (polymyalgia rheumatica) (Primary Dx); Hx of sepsis; Other fatigue; Arthralgia, unspecified joint; Hyperlipidemia, unspecified hyperlipidemia type 11/28/2024 11:40 AM CDT Office Visit [address] [phone] Niecy Walrdon NP Herpes zoster without complication (Primary Dx); Screening mammogram, encounter for; Situational mixed anxiety and depressive disorder 11/27/2024 External Device Data [facility] ABSTRACTION Provider, Abstract 11/26/2024 External Device Data [facility]STRACTION Provider, Abstract 11/24/[address] [place] [phone] Linda Collado MD DDD (degenerative disc disease), lumbar; Failed back syndrome of lumbar spine; Lumbar myelopathy ([facility]) 11/19/[address] [place] [phone] Linda Collado MD Nausea 11/18/[address] [place] [phone] Linda Collado MD 11/14/[address] [place] [phone] Niecy Waldron NP Appointment Correction; Patient Communication; Question 11/12/[address] [place] [phone] Linda Collado MD Information 11/08/[address] [place] [phone] Linda Collado MD Elevated erythrocyte sedimentation rate; Elevated C-reactive protein (CRP) 10/31/2024 External Device Data ST[facility] ABSTRACTION Provider, Abstract 10/31/2024 Orders Only [facility] Health Information Management [place] [address] [place] [address] Provider, Abstract 10/30/2024 External Device Data [facility] ABSTRACTION Provider, Abstract 10/29/2024 External Device Data [facility] ABSTRACTION Provider, Abstract 10/28/[address] [place] [phone] Sydni Arango, FIRE PROTECTION ENGINEER Nausea 10/10/[address] [place] [phone] Linda Collado MD Provider Call 10/08/[address] [place] [phone] Linda Collado MD Elevated erythrocyte sedimentation rate; Elevated C-reactive protein (CRP); PMR (polymyalgia rheumatica) 10/01/[address] [place] [phone] Linda Collado MD Elevated erythrocyte sedimentation rate; Elevated C-reactive protein (CRP) 09/25/[address] [place] [address] Linda Collado MD 09/23/2024 Orders Only [address] [place] [phone] Linda Collado MD PMR (polymyalgia rheumatica) (Primary Dx) 09/19/2024 Results Follow-Up [address] [place] [phone] Linda Collado MD CBC WITH DIFFERENTIAL, SEDIMENTATION RATE, LACTIC ACID 09/19/[address] [place] [phone] Linda Collado MD DDD (degenerative disc disease), lumbar; Failed back syndrome of lumbar spine; Lumbar myelopathy (CMS/HCC); Hx of spinal fusion from Last 3 Months Immunizations Immunization Administration Dates Next Due (ADACEL/BOOSTRIX)(10 YR UP) TDAP VACCINE, 0.5ML, IM 02/28/2018 (PFIZER)(12 YR UP) COVID-19 VACCINE - EMERGENCY USE AUTHORIZATION, MRNA, [id number](PF) 30 MCG/0.3 ML IM SUSP 05/12/2021 (PNEUMOVAX 23)(50 YRS UP) PN EUMOCOCCAL POLYSACCHARIDE (PPV23) 0.5 ML, IM 05/16/2019 (SHINGRIX)(50 YRS UP) ZOSTER VACCINE RECOMBINANT, 0.5 ML, IM 12/03/2019,07/18/2019,05/16/2019 INFLUENZA VACCINE QUADRIVALE NT 6 MOS UP CELL DERIVED IM 02/28/2018 INFLUENZA VACCINE QUADRIVALE NT 6 MOS UP PF IM 03/02/2023,03/02/2022,05/12/2021,04/27,05/16/2019,03/01/2017 Influenza Seasonal Unspecifi ed Formulation IM 03/02/2023 Family History Medical History Relation Name Comments Heart Disease Father Ethan Mac Anemia Mother Em Jiménez Arthritis-rheumatoid Mother Em Jiménez Hypertension Mother Em Jiménez Rheumatoid Arthritis Mother Em Jiménez COPD Sister 1 Lupe Gentile Rheumatoid Arthritis Sister 1 Lupe Gentile Arthritis-rheumatoid Sister 2 Lupe Gentile Relation Name Status Comments Father Ethan Mac Alive Mother Em Jiménez Alive Sister 1 Lupe Gentile Sister 2 Lupe Gentile Alive Social History Tobacco Use Types Packs/Day Years Used Date Smoking Tobacco: Former Cigarettes 0.5 5 0 11/19/2013 - 11/19/2018 Smokeless Tobacco: Never Tobacco Cessation:Counseling Given: No Alcohol Use Standard Drinks/Week Comments Not Currently 0 (1 standard drink = 0.6 oz pur e alcohol) Feeling Safe Answer Date Recorded Are you in a relationship wi th someone who hurts you emotionally and/or physically? No 09/30/2022 Comments No Sex and Gender Information Value Date Recorded Sex Assigned at Female 08/16/2024 7:28 AM [employer] Legal Sex Female 2:00 PM CDT Gender Identity Female 08/16/2024 7:28 AM [employer] Sexual Orientation Lesbian or Mauricio 08/16/2024 7: 28 AM BLE[employer]ER [employer] Last Filed Vital Signs Vital Sign Reading Time Taken Comments Blood Pressure 155/90 11/28/2024 11:47 AM CDT Pulse 94 11/28/2024 11:41 AM CDT Temperature 35.9 C (96.6 F) 11/28/2024 11:41 AM CDT Respiratory Rate 18 11/28/2024 11:41 AM CDT Oxygen Saturation 98% 11/28/2024 11:41 AM CDT Inhaled Oxygen Concentration - - Weight 103.9 kg (229 lb) 11/28/2024 11:41 AM CDT Height 157.5 cm (5' 2 ) 11/28/2024 11:41 AM CDT Body Mass Index 41.88 11/28/2024 11:41 AM CDT Plan of Treatment Upcoming Encounters Date Type Department Care Team (Late st Contact Info) Description 01/16/2025 1:20 PM CDT Office Visit [facility] [address] [place] [address] Leobardo Vasquez MD [address] [place] [address] Health Maintenance Due Date Last Done Comments Pre-Diabetes and Diabetes Screening 1968 FIT/FOBT Q 1 YEAR (AUTO ORDER) 1986 FLEX SIG/CT COLONOGRAPHY Q 5 YEARS (AUTO ORDER) 1986 HEPATITIS B VACCINES (1 of 3 - 19+ 3-dose series) 1987 FIT/FOBT Q 1 year 2013 Flex Sig/CT Colonography Q 5 years 2013 COVID-19 Vaccine (2 - 2023-2 5 season) 2024 05/12/2021 [place] ([place]) Preventative Visit/Annual Wellness Visit 06/12/2024 08/24/2023, 02/28/2018 BREAST CANCER SCREENING 09/11/2024 09/12/2023, 03/24 INFLUENZA VACCINE (#1) 2025 , 03/02/2023, 03/02/2023, Additional history exists FIT-DNA Q 3 years 04/13/2025 04/13/2022 FIT/ DNA Q 3 YEARS (AUTO ORDER) 04/13/2025 , 04/13/2022 PAP SMEAR 08/24/2026 08/25/2023, 02/28/2018 DTAP/TDAP/TD VACCINES (2 - T d or Tdap) 02/29/2028 02/28/2018 CERVICAL CANCER SCREENING 08/24/2028 HPV/Cotest (21-29) 08/24/2028 08/25/2023 HPV/Cotest (30-65) 08/24/2028 08/25/2023 COLORECTAL CANCER SCREENING (AUTO ORDER) 09/30/2032 09/30/2022 COLORECTAL SCREENING 09/30/2032 09/30/2022 Colorectal Cancer Screening (AUTO ORDER) 09/30/2032 Colorectal Cancer Screening 09/30/2032 ZOSTER VACCINE Completed 12/03/2019, 0211/2019, 05/16/2019 Medical Devices Implanted Type Area Blind Teacher Device Identifier Shelf Expiration Date Model / Serial / Lot Brady Brady Spine Lumbar Procedures Procedure Name Priority Date/Time Associated Diagnosis Comments COMPREHENSIVE METABOLIC PANEL Routine 10/30/2024 10:07 AM CDT MAMMO 3D LAYNE SCREEN BILAT W OR WO CAD Routine 09/12/2023 Screening mammogram, encounter for CERV/VAG CYTO AGE BASED SCREEN PAP Routine 08/25/2023 8:02 AM CDT Pap smear, as part of routine gynecological examination COLON CANCER SCREEN, STOOL DNA Routine 04/13/2022 12:25 PM CDT Encounter for colorectal cancer screening from Last 3 Months or Most Recently Relevant to Health Maintenance Results * COMPREHENSIVE METABOLIC PANEL (10/30/2024 10:07 AM CDT) Blood us Abstract Provider CHEMISTRY ORDERABLES Final Res ult * MAMMO 3D LAYNE SCREEN BILAT W OR WO CAD (09/12/2023) Anatomical Region Laterality Modality Breast Bilateral Mammography us Linda Collado MD MAMMO ORDERABLES Final Resu lt * CERV/VAG CYTO AGE BASED SCREEN PAP (08/25/2023 8:02 AM CDT) COMMENT (PAP): [facility] [place] Comment: This order for age-based cervical cancer and STI screening follows ACOG guidelines(PB 168, 140, VJY387). See individual assays for performing site location. CLINICAL INFORMATION [facility] [place] Comment:None given LAST MENSTRUAL PERIOD [facility] [place] Comment:NONE GIVEN PREV PAP: [facility] [place] Comment:NONE GIVEN PREV BX: [facility] [place] Comment:NONE GIVEN SOURCE [facility] [place] Comment:Endocervix ADEQUACY: [facility] Comment:SATISFACTORY FOR KRISTI LUATION PAP INTERP [facility] [place] Comment: Cytology Results: Negative for intraepithelial lesion or malignancy. Atrophic pattern; predominantly parabasal cells COMMENT (PAP TEST) [facility] [place] Comment: This Pap test has been evaluated with computer assisted technology. MOLD CARRIER: [facility] [place] Comment: BKA CT(ASCP) CT screening location: [place] [address] [place] [address] EXPLANATORY NOTE [facility] [place] Comment: EXPLANATORY NOTE: The Pap is a screening test for cervical cancer. It is not a diagnostic test and is subject to false negative and false positive results. It is most reliable when a satisfactory sample, regularly obtained, is submitted with relevant clinical findings and history, and when the Pap result is evaluated along with historic and current clinical information. HPV E6/E7 Not Detected Not Detected [facility] Comment: Methodology: Flying Squad Worker-Mediated Amplification This assay detects E6/E7 viral messenger RNA (mRNA) from 14 high-risk HPV types (16,18,31,33,35,39,45,51,52,56,58,59,66,68). Cervical sources are required for HPV testing. If a vaginal source from a patient who has had a total hysterectomy with removal of cervix was submitted, please contact the testing laboratory for alternative testing options. For additional information, please refer to http://education.[employer]/faq/RLE459z7 (This link if provided for information/ educational purposes only.) Test Performed at: [facility] [address] [place] [address] Kevin DARNELL Genital SWAB OF ENDOCERVIX / Unknown 08/25/2023 8:02 AM CDT 08/26/2023 3:50 AM CDT us Linda Collado MD PATHOLOGY/CYTOLOGY ORDERABL ES Final Result [facility] [phone] [facility] [address] [phone] * (ABNORMAL) COLON CANCER SCREEN, STOOL DNA (04/13/2022 12:25 PM CDT) COLOGUARD RESULT Positive( A) Negative Within[facility] Comment: POSITIVE TEST RESULT. A positive Cologuard result should be followed with a colonoscopy or visual examination of the colon. The normal value (reference range) for this assay is negative. TEST DESCRIPTION: Composite algorithmic analysis of stool DNA-biomarkers with hemoglobin immunoassay. Quantitative values of individual biomarkers are not reportable and are not associated with individual biomarker result reference ranges. Cologuard is intended for colorectal cancer screening of adults of either sex, 45 years or older, who are at average-risk for colorectal cancer (CRC). Cologuard has been approved for use by the U.S. FDA. The performance of Cologuard was established in a cross sectional study of average-risk adults aged 50-84. Cologuard performance in patients ages 45 to 49 years was estimated by sub-group analysis of near-age groups. Colonoscopies performed for a positive result may find as the most clinically significant lesion: colorectal cancer [4.0%], advanced adenoma (including sessile serrated polyps greater than or equal to 1cm diameter) [20%] or non- advanced adenoma [31%]; or no colorectal neoplasia [45%]. These estimates are derived from a prospective cross-sectional screening study of 10,000 individuals at average risk for colorectal cancer who were screened with both Cologuard and colonoscopy. (Mine Baca al, N Engl J Med 2014;370(14):4510-7784.) Cologuard may produce a false negative or false positive result (no colorectal cancer or precancerous polyp present at colonoscopy follow up). A negative Cologuard test result does not guarantee the absence of CRC or advanced adenoma (pre-cancer). The current Cologuard screening interval is every 3 years. ([place] [employer] and U.S. Multi-Society Task Force). Cologuard performance data in a 10,000 patient pivotal study using colonoscopy as the reference method can be accessed at the following location: www.[employer]/results. Additional description of the Cologuard test process, warnings and precautions can be found at www.cologuard.com. Stool STOOL SPECIMEN / Unknown 04/13/2022 12:25 PM CDT 04/14/2022 8:16 PM CDT Sydni Sheehanriott FIRE PROTECTION ENGINEER BODY FLUIDS AND STOOLS F inal Result Within[facility] CLIA # [id number] [address] , [address] [place] [address] from Last 3 Months or Most Recently Relevant to Health Maintenance Insurance [employer] PPO MCR Care Teams Senior Designer Relationship Specialty Start Date End Date Linda Collado MD [address] [phone] PCP - General Family Practice 03/02/22
--- NOTE | 2024-12-19 11:30 | ECG_ITS ---
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 Measurements Intervals [place] Rate: 82 P: 24 NV: 175 QRS: -14 QRSD: 111 T: 4 QT: 371 QTc: 435 Interpretive Statements SINUS RHYTHM MODERATE INTRAVENTRICULAR CONDUCTION DELAY [110+ ms QRS DURATION] Compared to ECG 04/30/2024 06:56:24 No significant changes Electronically Signed On 12-20-2024 15:22:15 CDT by Josef Kebede M.D. [email or web address]
[2024-12-19 11:55] LABS: Hematocrit 25.4 % (36-47); Hemoglobin 7.30 g/dL (11.27-16.99); Mean Corpuscular HGB Conc 28.7 g/dL (30-55); Mean Corpuscular Hemoglobin 24.8 pg (27-33); Mean Corpuscular Volume 86.4 fl (85-98); Nucleated Red Blood Cells % 0 %; Platelet Count 389 10^3/cmm (157-399); Red Blood Count 2.94 10^6/uL (3.85-5.65); White Blood Count 9.26 10^3/uL (3.29-11.43)
[2024-12-19 12:03] LABS: ABG PCO2 33.6 mmHg (35-45); ABG PH Result 7.52 (7.35-7.45); Alveolar-Arterial Oxygen Gradi 5.7 mmHg (5-10); Arterial Blood Gas Hematocrit 23.4 % (37-47); Blood Gas Allen Test Pos; Blood Gas Operator Identificat WALCI; Blood Gas Sample Site Radial, left; Blood Gas Sample Type Arterial; Carboxyhemoglobin 1.0 %THgb (0.4-20.1); Glucose Level-ABG 107.0 mg/dL (70-115); HCO3 ABG 27.4 mmol/L (22-26); Ionized Calcium Level - ABG 1.2 mmol/L (1.1-1.4); Methemoglobin 1.5 % (0.4-1.5); Oxygen Saturation ABG 94.4; PO2 ABG 63.3 mmHg (80.0-100.0); PO2 FiO2 Ratio Arterial Blood 301; Potassium Level - ABG 2.9 mmol/L (3.5-5.0); Sodium Level - ABG 138.0 mmol/L (131-143)
[2024-12-19 12:13] LABS: Lactic Sepsis W/Reflex 1.5 mmol/L (0.5-2.2)
[2024-12-19 12:16] LABS: Troponin(5th) Baseline 13 ng/L (0-10)
--- NOTE | 2024-12-19 12:20 | PC.NURSE ---
Pt states the doctor needs to be aware that pt has been having Severe headaches x weeks Pt is stating I need a CT scan .
[2024-12-19 12:34] LABS: Alanine Aminotransferase < 5 U/L (0-33); Albumin Level 3.0 g/dL (3.5-5.2); Alkaline Phosphatase 156 U/L (35-105); Anion Gap 17.3 (5-19); Aspartate Amino Transferase 9 U/L (0-32); Blood Urea Nitrogen 8 mg/dL (6-20); Calcium 9.0 mg/dL (8.5-10.5); Carbon Dioxide 25 mmol/L (22-29); Chloride 98 mmol/L (98-107); Creatinine Clr Calc Pharmacy 100.5737; Globulin 3.3 g/dL (1.3-4.6); Glucose 104 mg/dL (65-115); NT Pro B Type Natriuretic Pept 565 pg/mL (0-125); Osmolality Calculated 283 mOsm/kg (285-295); Potassium 3.3 mmol/L (3.5-5.1); Sodium 137 mmol/L (136-145); Total Protein 6.3 g/dL (6.6-8.7)
[2024-12-19 12:56] LABS: Glucose Urine UA Negative (Normal); Nitrate Urine Negative (Negative); Specific Gravity, Urine 1.015 (1.005-1.030)
[2024-12-19 13:43] LABS: Troponin 5 2HR 13.07 ng/L (0-10); Troponin 5 2HR Delta 0.07 ABS# (0-10)
--- NOTE | 2024-12-19 13:46 | PC.NURSE ---
pt requesting food and drink, Dr. Kevin oliva, pt given sandwich, pudding, and sprite. PT aware of going to infusion services for blood.
--- NOTE | 2024-12-19 14:09 | SUR.PREOP ---
1355 Patient transferred to [facility] for blood transfusion.
--- NOTE | 2024-12-19 17:06 | PC.NURSE ---
Spoke with ED - patient does not need to have Troponin lab drawn at 1745. Patient may discharge home as soon as transfusion is complete.
--- NOTE | 2024-12-19 17:16 | ECG_ITS ---
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 Measurements Intervals [place] Rate: 77 P: 22 RI: 179 QRS: -19 QRSD: 116 T: 3 QT: 382 QTc: 433 Interpretive Statements SINUS RHYTHM MODERATE INTRAVENTRICULAR CONDUCTION DELAY [110+ ms QRS DURATION] Compared to ECG 12/19/2024 11:30:03 No significant changes Electronically Signed On 12-20-2024 15:33:06 CDT by Josef Kebede M.D. [email or web address] [id number]
--- NOTE | 2024-12-19 18:40 | PC.NURSE ---
Patient discharged to home with all personal belongings accompanied by .
== END 2024-12-19 18:44 | disposition home or self-care (01) ==
PROVIDERS: Emergency Provider Emergency Medicine; PCP Family Medicine
DX: D64.9 Anemia, unspecified (principal); I10 Essential (primary) hypertension
CPT/HCPCS: 36415; 36430; 36600; 71045; 80051; 80053; 81001; 82330; 82805; 83605; 83880; 84484; 85025; 85651; 86140; 86850; 86900; 86920; 87040; 93005; 99285; P9040

== ENCOUNTER → 2024-12-31 08:05 | Outpatient (BNVA) | payer MEDICARE, SELFPAY | PROVIDERS: PCP Family Medicine; Visit Provider Orthopaedic Surgery | DX: T84.84XA Pain due to internal orthopedic prosthetic devices, implants and grafts, initial encounter (principal); Z98.1 Arthrodesis status; M54.9 Dorsalgia, unspecified; M54.6 Pain in thoracic spine; M96.0 Pseudarthrosis after fusion or arthrodesis; Z01.818 Encounter for other preprocedural examination | CPT/HCPCS: 36415; 72072; 72100; 80053; 81001; 85025; 99214 ==

== ENCOUNTER → 2025-01-01 14:32 | Outpatient (BNVA) | payer MEDICARE, SELFPAY | PROVIDERS: PCP Family Medicine; Visit Provider Orthopaedic Surgery | DX: Z01.818 Encounter for other preprocedural examination (principal); D72.829 Elevated white blood cell count, unspecified | CPT/HCPCS: 80053; 85025 ==

== ENCOUNTER 2025-01-03 16:20 | Inpatient (IN) | payer MEDICARE, SELFPAY ==
[2025-01-03] VITALS (30 sets, daily range): BP systolic 99–153; BP diastolic 51–85; PULSE 77–101; RESP 11–22; TEMP 36.4–37; O2SAT 90–96; BMI 39.9
--- NOTE | 2025-01-03 06:23 | ANES.PREANE2 ---
Pre-Anesthetic Assessment Height/Weight: Height 5 ft 3 in Preop Diagnosis: Broken hardware Operation Date: 01/03/25 11:20 Proposed Procedures p Revision Spinal Hardware Replacement Spinal Hardware(Not Applicable) - Peter Navas DO s Replacement Of Spine Hardware(Not Applicable) - Peter Navas DO Was Beta Maryjane taken within 24 hours: N/A Was Clonidine taken within 24 hours: N/A Social No alcohol and No tobacco Exam alert, oriented x 3, clear to auscultation bilaterally and regular rate & rhythm Airway Submandibular: within normal limits Cervical ROM: within normal limits Mallampati: Class II Dentition: full Anesthetic Plan ASA status: 3 Anesthesia: General Other: Patient recently had a procedure on 11/11/2024. Found to be anemic in the ER on 12/19/2024 requiring multiple units PRBCs. After this time patient was in the kitchen and bent over and felt a pop. Broken francia at T10 level NPO since yesterday History of hypertension on losartan and chlorthalidone S/p thoracic spinal fusion GERD on Protonix Labs reviewed from 11/09/2024 and acceptable for procedure Hemoglobin 9.5 on 01/01/2025. Repeat H&H ordered. Type and screen ordered Echo 04/30/2024 showing EF 55% with no wall motion abnormalities Plan for GETA Medications/Allergies Home Medications ?Medication ?Instructions ?Recorded ?Confirmed ?Last Taken ?Type losartan 100 mg tablet 100 mg PO DAILY 08/29/22 01/02/25 01/02/25 History duloxetine 60 mg capsule,delayed 60 mg PO DAILY 01/24/23 01/02/25 12/30/24 History release hhzkcba-sqzqwuveqsmmy-wffutvkj 250 2 tab PO Q6H PRN Pain 02/02/23 01/02/25 12/31/24 History mg-250 mg-65 mg tablet (Excedrin Extra Strength) chlorthalidone 25 mg tablet 25 mg PO DAILY 04/12/24 01/02/25 01/02/25 History simvastatin 20 mg tablet 20 mg PO DAILY 04/12/24 01/02/25 01/02/25 History tizanidine 2 mg tablet 2 mg PO DAILY PRN Pain 04/12/24 01/02/25 06/20/24 History Bone Growth Stimulator #1 ea 04/22/24 12/31/24 Unknown Rx cephalexin 500 mg capsule 500 mg PO BID 04/25/24 01/02/25 01/02/25 History pantoprazole 40 mg tablet,delayed 40 mg PO BID 10/30/24 01/02/25 01/02/25 History release polysaccharide iron complex 150 mg 150 mg PO DAILY 10/30/24 01/02/25 01/02/25 History iron capsule (Ferrex) ascorbic acid (vitamin C) 500 mg 500 mg PO DAILY 11/09/24 01/02/25 01/02/25 History tablet (Vitamin C) Bone Growth Stimulator #1 ea 11/25/24 12/31/24 Unknown Rx oxycodone 10 mg tablet 10 mg PO Q8H pain 30 days #90 tabs 12/24/24 01/02/25 01/03/25 Rx Allergies Allergy/AdvReac Type Severity Reaction Status Date / Time ceftriaxone Allergy Mild ALGY-Swell Verified 01/02/25 14:45 Lip/Tongue/Throat daptomycin Allergy Swelling Verified 01/02/25 14:45 face, hands, feet lisinopril Allergy ADR-Cough Verified 01/02/25 14:45 [facility] Anesthesia Medical History (Updated 12/31/24 @ 08:54 by Peter Navas, ) Neuropathy History of transesophageal echocardiography (MAURILIO) (~09/2021) Chronic antibiotic suppression History of streptococcal septicemia Scoliosis 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 Paraphrase of information obtained from Dr Vasquez's, ID at [facility], office and patient: Cultures grew Streptococcus. Hardware washed out. Source was NOT felt hardware related after evaluation. MAURILIO without vegetation. Infection involved left hand and left foot. Left hand had purulent material requiring surgical intervention. Paraspinal abscess also identified. Initially treated with ceftriaxone, then daptomycin added for fpc home IV antibiotic treatment via PICC line followed, by continued oral keflex (still on oral Keflex prior to revision surgery done by Dr Navas at [facility] on 05/30/2022). Previous (date unknown) ESR > 100 with CRP also elevated. GERD (gastroesophageal reflux disease) Hypertension Anxiety Surgical History History of esophagogastroduodenoscopy (EGD) History of colonoscopy History of hand surgery left, related to abscess at same time as paraspinal abscess in 08/2021, with associated post-infection/post-surgery limitation of range of motion at DIP and PIP 3rd digit Status post left foot surgery with hardware at 5th metatarsal History of back surgery 2019, surgical spinal alignment/correction of scoliosis at L2-L3, L3-L4 History of lumbosacral spine surgery 05/30/[address] Navas: 1. T8 - pelvis posterior spine fusion 2. T8-S1 instrumentation 3. Lumbopelvic fixation 4. removal of hardware from spine 5. Use of computer navigation stereotactic for spine 6. Use of allograft History of lumbar fusion 06/2021 in [facility], T10-S1 fusion Family History Mother Scoliosis Rheumatoid arthritis Hypertension Father Heart disease Hypercholesteremia Denies family history of Colon cancer Ovarian cancer Prostate cancer Diabetes Breast cancer Uterine cancer Thyroid disease Stroke Social History Smoking and tobacco/nicotine status: former use of tobacco/nicotine Quit status (tobacco/nicotine): has quit using Year quit tobacco: 2019 Alcohol intake: never Marital status: Marital status details: is Fany Mac Data Anesthesia Cardiac Studies: Echocardiogram 04/30/24
[2025-01-03 10:05] LABS: Glucose Urine UA Negative (Normal); Nitrate Urine Negative (Negative); Specific Gravity, Urine 1.019 (1.005-1.030)
[2025-01-03 10:08] LABS: Add Urine Microscopic? YES
[2025-01-03 10:49] LABS: UA Slide Review UA Slide Review Perf
[2025-01-03 11:11] LABS: Hematocrit 31.3 % (36-47); Hemoglobin 9.20 g/dL (11.27-16.99)
--- NOTE | 2025-01-03 11:43 | W.PM.OPSUD ---
Surgery/Procedure H&P Update DATE OF PROCEDURE: January 03, 2025 DATE H&P PERFORMED: 12/31/24 H&P UPDATE INFORMATION: I have reviewed H&P completed within last 30 days, I have examined patient prior to procedure and No changes to prior documentation PREOP DIAGNOSIS: Broken hardware PLANNED PROCEDURE: Operation Date: 01/03/25 11:20 Proposed Procedures p Revision Spinal Hardware Replacement Spinal Hardware(Not Applicable) - DO kiara Sampson Replacement Of Spine Hardware(Not Applicable) - Peter Navas DO
[2025-01-03] MEDS: midazolam 1 mg/mL INJ 2 mL 2 MG IVP (11:59)
[2025-01-03] MEDS: TOBRAMYCIN 1.2 GM 0.2 GM IRRIGATION (13:24)
[2025-01-03] MEDS: lidocaine-epi 1% 20 mL INJ 10 ML INJECTION (13:25)
[2025-01-03] MEDS: heparin, porcine 1,000 unit/mL INJ 10 mL 5000 UNIT IRRIGATION (13:25)
[2025-01-03] MEDS: fentaNYL 50 mcg/mL INJ 2mL IVP ×2 (14:59→15:07)
--- NOTE | 2025-01-03 15:01 | PM.OP ---
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 T7-L1 posterior spine fusion 2. T7-L1 posterior spine instrumentation 3. Bone marrow aspirate from right iliac crest 4. use of allograft 5. removal of deep hardware Surgeon: Peter Navas DO Estimated blood loss (mL): 200 Procedure: 1. T7-L1 posterior spine fusion 2. T7-L1 posterior spine instrumentation 3. Bone marrow aspirate from right iliac crest 4. use of allograft 5. removal of deep hardware Patient is brought to the operative suite after undergoing anesthesia was placed in the prone position. All areas of impingement were well-padded. Skin incision was made over the midline using previous skin incision. Incision was made from T7 down to L1. Subperiosteal dissection was made out to the pedicle screws of T7 and the rods and the pedicle screws of T11-T12 and L1. The screws were exposed bilaterally. The broken brady was on the right side. This was dissected out. The connector was removed from the brady. Brady to brady connectors were placed just below the T7 pedicle screws onto the brady. Another brady brady connector was placed at the T9 level on the left side. And on the T10 level on the right side. Brady brady connectors were also placed on the opposite side of the broken brady between the T11 and T12 screw bilaterally and the T12 and L1 screw bilaterally. On the left side a brady was placed in all 4 of the brady brady connectors. And tightened down and torqued into position. On the right side the rods were connected to the 2 proximal brady brady connectors and reduced down into the brady brady connectors between T11-12 and T12 and L1. Once this was felt to be in adequate position. Attention was then brought to decorticating the lamina from T7 down to L1. Bone marrow aspirate was taken from the right iliac crest through a separate incision. 20 cc were drawn up. This was then placed on the ostial amp bone graft. Calcium sulfate beads mixed with vancomycin and tobramycin were then mixed. The beads were then placed in the wound on top of the lamina. And then the posterior bone graft was placed on top of this this graft was spread from T7 down to L1. The drain was placed. Wound was then closed in a layered fashion with 0 Vicryl 2-0 Vicryl and Monocryl suture. Sterile dressings were applied and patient was transferred to the PACU in stable condition.
[2025-01-03] MEDS: HYDROmorphone 1 mg/mL INJ 1ml 0.5 MG IVP ×4 (15:16→16:00)
--- NOTE | 2025-01-03 15:56 | XR_ITS ---
WS: [id number] INTRAOPERATIVE TECHNIQUE: 5 Spot fluoroscopic images for intraoperative purposes. FLUOROSCOPY TIME: 2 seconds CLINICAL INFORMATION: or pic, spinal fusion FINDINGS: Images acquired for intraoperative purposes. Thoracolumbar fusion with pedicle screw fixation and interconnecting rods. Endotracheal tube. Repair of the RIGHT fixation francia with fracture previously described T10-11 with posterior displacement XR/XR lumbar spine 1V [id number] IMPRESSION: Images obtained for intraoperative purposes.
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
--- NOTE | 2025-01-03 16:06 | PC.NURSE ---
Report called to \[facility]. \pt states feels like mild ache.
[2025-01-03] MEDS: oxyCODONE 5 mg IR Tab/Cap 10 MG PO ×2 (18:34→22:35)
[2025-01-04] VITALS (10 sets, daily range): BP systolic 97–116; BP diastolic 61–73; PULSE 72–82; RESP 14–16; TEMP 36.4–36.9; O2SAT 93–98
[2025-01-04] MEDS: oxyCODONE 5 mg IR Tab/Cap 10 MG PO ×3 (03:27→11:39)
[2025-01-04 05:06] LABS: Hematocrit 27.4 % (36-47); Hemoglobin 7.80 g/dL (11.27-16.99)
--- NOTE | 2025-01-04 12:24 | P.DS_ITS ---
Discharge Providers Date of Admission: 01/03/25 16:20 Date of Discharge: January 04, 2025 Attending Provider at Admission: Peter Navas DO Attending Provider at Discharge: Peter Navas DO Primary Care Provider: Zuleyka Collado MD Reason for Visit Reason for Visit: T84.216A Physical Exam Narrative: Patient is doing well pain is controlled she has been up with physical therapy ambulating. She was given 1 unit of blood with hemoglobin 7.8 will discharge her today after the hemoglobin is checked Urinary Catheter Management: Fay Latex: Cath Placed During This Visit: yes Reason for Continuing Indwelling Catheter: Perioperative Use in Selected Surgeries Urinary Catheter Date of Insertion: 01/03/25 Discharge Data Studies Completed and Pending Pending at discharge Category Date Time Status C-arm Fluoroscopy [id number] Routine Exams 01/03/25 09:37 Taken XR lumbar spine 1V [id number] Routine Exams 01/03/25 15:56 Taken Anaerobic Culture Routine Lab 01/03/25 12:56 Results Wound Culture and Gram Stain Routine Lab 01/03/25 12:56 Results Laboratory Results Hgb 7.80 g/dL (11.27-16.99) L 01/04/25 04:56 Hct 27.4 % (36-47) L 01/04/25 04:56 Urine Color Yellow (Yellow) 01/03/25 09:50 Urine Appearance Clear (CLEAR) 01/03/25 09:50 Urine pH 6.5 (5-7) 01/03/25 09:50 Ur Specific [place] 1.019 (1.005-1.030) 01/03/25 09:50 Urine Protein Negative (Negative) 01/03/25 09:50 Urine Glucose (UA) Negative (Normal) 01/03/25 09:50 Urine Ketones Negative (Negative) 01/03/25 09:50 Urine Blood Negative (Negative) 01/03/25 09:50 Urine Nitrate Negative (Negative) 01/03/25 09:50 Urine Bilirubin Negative (Negative) 01/03/25 09:50 Urine Urobilinogen 0.2 mg/dL (Negative) 01/03/25 09:50 Ur Leukocyte Esterase Negative (Negative) 01/03/25 09:50 Urine RBC 0-2 /hpf (0-2) 01/03/25 09:50 Urine WBC 0-5 /hpf (0-5) 01/03/25 09:50 Ur Squamous Epith Cells 0-5 /hpf (0-5) 01/03/25 09:50 Amorphous Sediment Not Reportable 01/03/25 09:50 Urine Bacteria None seen /hpf (NONE) 01/03/25 09:50 Hyaline Casts 10.32 /lpf 01/03/25 09:50 Blood Type A Positive 01/03/25 10:05 Rho(D) Type Rh positive 01/03/25 10:05 Antibody Screen Negative 01/03/25 10:05 Crossmatch See Detail 01/03/25 10:05 Vitals Last Vital Signs Temp 98.4 F 01/04/25 11:43 Pulse 82 01/04/25 11:43 Resp 14 01/04/25 11:43 BP 98/61 01/04/25 11:43 Pulse Ox 96 01/04/25 11:43 O2 Del Method Room Air 01/04/25 11:41 Discharge Plan Discharge Patient Disposition: Home Condition: Stable Prescriptions: New oxycodone 10 mg tablet 10 mg PO Q4H PRN (Reason: pain) 7 Days Qty: 42 0RF Continued tizanidine 2 mg tablet 2 mg PO DAILY PRN (Reason: Pain) chlorthalidone 25 mg tablet 25 mg PO DAILY simvastatin 20 mg tablet 20 mg PO DAILY losartan 100 mg tablet 100 mg PO DAILY (DME) Bone Growth Stimulator See Rx Instructions .Route .MEDSUPPLY Qty: 1 0RF Rx Instructions: As directed (DME) Bone Growth Stimulator See Rx Instructions .Route .MEDSUPPLY Qty: 1 0RF Rx Instructions: As directed duloxetine 60 mg capsule,delayed release(DR/EC) 60 mg PO DAILY cephalexin 500 mg capsule 500 mg PO BID Rx 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 ascorbic acid (vitamin C) [Vitamin C] 500 mg Tablet 500 mg PO DAILY Excedrin Extra Strength 250-250-65 mg Tablet 2 tab PO Q6H PRN (Reason: Pain) polysaccharide iron complex [Ferrex 150] 150 mg iron capsule 150 mg PO DAILY pantoprazole 40 mg tablet,delayed release (DR/EC) 40 mg PO BID Discontinued oxycodone 10 mg tablet 10 mg PO Q8H 30 Days Qty: 90 0RF Discharge Order = DC NOW: Discharge Order (Routine); Ordered 01/04/25 Ordered By: Peter Navas Discharge Diet: Advance as tolerated Discharge Activity: Limit activity as instructed Patient Instructions: Acute Wound Care (DC), Opioid Safety, Post Anesthesia Care, Patient Portal & Fatuma Instructions, Post Anesthesia Care Activity Restrictions/Additional Instructions: Thank you for [facility] for your care! The following is a list of instructions, from your provider, to follow upon your discharge to ensure you have the optimal recovery from your recent injury orsurgery. Follow-up care is a moyer part of your treatment and safety. Be sure to make and go to all appointments, and call your doctor if you are having problems. If you do not already have a follow-up appointment made, call Dr. Navas office in the next 1-3 days to make follow up appointment for 1 weeks at [phone]. It is also a good idea to know your test results and keep a list of the medicines you take. Medications will be prescribed for you at your provider's discretion. These medications are to be used as instructed; if they are taken more often that prescribed they will not be refilled early and in most cases will not be refilled at all. > When a refill is needed,you should contact cammie cheatham 2-3 business days before your prescription runs out. Medications will NOT be refilled by test lead application testing providers after hours! > Many pain medications contain Tylenol (Acetaminophen). Do not consume more than 4,000 mg of Tylenol per day in total with any combination ofmedi cations. > Pain medications can cause constipation. Please use an over the counter stool softener as directed, while taking pain medications. Consulty our local pharmacist with questions or recommendations on stool softeners. If constipation persists, contact our office or your primary care provider. > While under our care,you are not to receive pain medications or other controlled substances from any other provider unless our office is notified and approves. Any attempts to do so will result in refusal to prescribe any further pain medications and possible dismissal from our practice. ? ? Showering is permitted, however we ask that you do not take a bath, sit in a whirlpool / Jacuzzi, or go swimming for 1 month. For only the first 2 days after surgery, lt wilt be necessary for you to cover your wound/dressing with plastic and tape to keep it dry. ? Walking is essential for the healing process after surgery. We would like you to slowly advance your walking. This should be done on relatively flat clear ground (inside or out) or can be done on a treadmill. Remember this goal does not have to happen all at once, slowly increase your distance and duration. This can be broken into more more than one walk per day as tolerated. Patients who walk as directed after surgery rarely require Physical Therapy. In the unlikely event this issue arises your provider will direct hospital staff to make the appropriate arrangements. ? No lifting over 5 pounds {a gallon of milk) or bending/twisting until further notice. Each of these activities places an unnecessary amount of stress onto the body and can impede the delicate healing process. > Instead of bending at the waist, keep your back straight and bend at the knees. > Instead of twisting your torso, keep your back straight and turn your entire body with your feet. ? You may sleep in any position which makes you comfortable. Many patients find comfort sleeping in a reclining chair. It is not abnormal to have difficulty sleeping for the first several weeks following your surgery. We recommend trying Benadry! or Tylenol PM as directed to help with your sleeping difficulties. Both medications are over the counter and available withoutprescription. ? NO SMOKING!!! Smoking dramatically increases the probability of developing postoperative wound infections. ? Common complaints after lumbar and/or thoracic spine surgery include, but are not limited to: numbness and/or tingling in the legs, pain around the incision and surrounding tissues, muscle spasms, or stiffness of the middle to low back. Contact our office if these symptoms persist or if an acute change occurs. ? No driving for the first 3-5days, and not while taking narcotics until seen at your follow-up appointment and cleared. There are no restrictions for riding on short trips, however if you take a longer trip, arrangements should be made to make regular stops to get out of the vehicle and stretch . ? Swelling is an unfortunate event that will take place with any surgery and is the primary source of your postoperative discomfort. While walking and regular approved activities helps control inflammation, there are additional steps you can take to minimizeswelling. > Place ice over the surgical site and surrounding tissue for twenty minutes, followed by applying a low/medium heat (heating pad) for an additional twenty minutes every 1-2 hours as needed for painrelief. > You may use of over the counter anti-inflammatory medications (Ibu profen, Motrin, Aleve, Advil, etc) as directed on the package label. These types of medicines wm significantly reduce the amount of discomfort you experience after surgery from swelling. It should be noted that if you have and allergy to any of these medications, or a history of ulcers or kidney disease you should consult you primary care provider prior to starting these medications. Discharge Attestations Time Spent in Discharge Care*: less than 30 min Quality Metrics Clinical Quality Measures [ No reported AMI, CVA or VTE this stay] Coding Level of Care Code Acute Code for Chg Fwd
[2025-01-04 13:15] LABS: Hematocrit 33.4 % (36-47); Hemoglobin 9.80 g/dL (11.27-16.99)
== END 2025-01-04 15:13 | disposition home or self-care (01) | DRG 448 ==
LOC: MEDSURG 16:21
PROVIDERS: Student in an Organized Health Care Education/Training Program; Admitting Provider Orthopaedic Surgery; PCP Family Medicine; Visit Provider Orthopaedic Surgery
PROC: 0RG6071 Fusion of Thoracic Vertebral Joint with Autologous Tissue Substitute, Posterior Approach, Posterior Column, Open Approach (ICD-10-PCS; principal; 2025-01-03 11:10)
PROC: 0RG6071 Fusion of Thoracic Vertebral Joint with Autologous Tissue Substitute, Posterior Approach, Posterior Column, Open Approach (ICD-10-PCS; 2025-01-03 11:10)
DX: T84.216A Breakdown (mechanical) of internal fixation device of vertebrae, initial encounter (principal); Y79.3 Surgical instruments, materials and orthopedic devices (including sutures) associated with adverse incidents; I10 Essential (primary) hypertension; K21.9 Gastro-esophageal reflux disease without esophagitis; Z79.899 Other long term (current) drug therapy; Z79.82 Long term (current) use of aspirin; Z88.8 Allergy status to other drugs, medicaments and biological substances; Z87.891 Personal history of nicotine dependence; Z82.49 Family history of ischemic heart disease and other diseases of the circulatory system
CPT/HCPCS: 36415; 36430; 72020; 72072; 72100; 76000; 80053; 81001; 85014; 85018; 85025; 86850; 86900; 86920; 87070; 87075; 87205; 97161; 99214; C1713; J1100; J1171; J1644; J1885; J2250; J2405; J2704; J3010; J3260; J3373; J3490; J7030; J7050; J7120; J9999; L8699; P9040

== ENCOUNTER → 2025-01-14 14:59 | Outpatient (BNVA) | payer MEDICARE, SELFPAY | PROVIDERS: PCP Family Medicine; Visit Provider Orthopaedic Surgery | DX: Z98.890 Other specified postprocedural states (principal); Z98.1 Arthrodesis status | CPT/HCPCS: 99024 ==

== ENCOUNTER → 2025-01-30 10:33 | Outpatient (BNVA) | payer MEDICARE, SELFPAY | PROVIDERS: PCP Family Medicine; Visit Provider Orthopaedic Surgery | DX: M54.6 Pain in thoracic spine (principal); R07.9 Chest pain, unspecified; Z98.890 Other specified postprocedural states; M54.9 Dorsalgia, unspecified; Z98.1 Arthrodesis status | CPT/HCPCS: 72072; 99024 ==

== ENCOUNTER 2025-01-30 11:21 | Outpatient (CLI) | payer MEDICARE, SELFPAY ==
[2025-01-30 12:07] LABS: Hematocrit 31.1 % (36-47); Hemoglobin 9.10 g/dL (11.27-16.99); Mean Corpuscular HGB Conc 29.3 g/dL (30-55); Mean Corpuscular Hemoglobin 24.7 pg (27-33); Mean Corpuscular Volume 84.5 fl (85-98); Nucleated Red Blood Cells % 0 %; Platelet Count 439 10^3/cmm (157-399); Red Blood Count 3.68 10^6/uL (3.85-5.65); White Blood Count 10.79 10^3/uL (3.29-11.43)
== END 2025-01-30 11:22 | disposition home or self-care (01) ==
PROVIDERS: PCP Family Medicine; Visit Provider Family Medicine
DX: R53.83 Other fatigue (principal)
CPT/HCPCS: 85025; 85651; 86140

== ENCOUNTER 2025-02-04 09:10 | Outpatient (CLI) | payer MEDICARE, SELFPAY ==
--- NOTE | 2025-02-04 09:30 | CTR_ITS ---
PROCEDURE INFORMATION: Exam: CT Thoracic Spine Without Contrast Exam date and time: 02/04/2025 9:36 AM Age: 54 years old Clinical indication: Pain in thoracic spine; Prior surgery; Surgery date: 1-6 months; Surgery type: Spine x3, lumbar 01/03/25; Pain when taking a breath, no new injury 3rd surgery in 8 months; Additional info: Back pain TECHNIQUE: Imaging protocol: Computed tomography of the thoracic spine without contrast. Radiation optimization: All CT scans at this facility use at least one of these dose optimization techniques: automated exposure control; mA and/or kV adjustment per patient size (includes targeted exams where dose is matched to clinical indication); or iterative reconstruction. COMPARISON: CT thoracic spine w con [id number] 11/15/2024 11:26 AM RADIATION DOSE METRICS: Total DLP (mGy-cm): 699.01 FINDINGS: Bones/joints: Bilateral laminectomy at T1 and L1. No vertebral compression fracture. No spondylolisthesis. No large disc bulge or herniation, allowing for limitations of metallic streak artifact. No severe spinal canal stenosis. Bilateral spinal rods and pedicular screws extending the length of the visualized thoracic spine, extending above and below the field of view, appear intact. Soft tissues: Fluid collection in the posterior midline surgical bed at the L1-L2 level measuring approximately 3.8 x 3.9 cm, not significantly changed compared to 11/15/2024 and likely a seroma. Trace fluid collection at the C7-T1 level, decreased compared to prior. Lungs: A new 5 mm nodular opacity in the right lung lower lobe (series 4, image 74). Coronary arteries: Coronary artery calcifications are present. Adrenal glands: A 1.3 cm right adrenal benign lipid rich adenoma or myelolipoma. Thickening of the left adrenal gland. Kidneys and ureters: Left renal peripelvic simple cysts. CT/CT thoracic spin wo con* [id number] IMPRESSION: 1. The visualized surgical hardware appears intact, including spinal rods and pedicular screws, extending the length of the thoracic spine and extending above and below the field of view. 2. No vertebral compression fracture. 3. Fluid collection in the posterior midline surgical bed at the L1-L2 level measuring approximately 3.8 x 3.9 cm, not significantly changed compared to 11/15/2024 and likely represents a seroma, with abscess considered less likely. 4. A 5 mm nodular opacity in the right lung lower lobe, new compared to 11/15/2024 likely represents focal atelectasis or pneumonitis. For patients at low risk (minimal or absent history of smoking and of other known risk factors), no routine follow-up is indicated. For patients at high risk (history of smoking or of other known risk factors), consider optional CT Chest at 12 months. (Reference: La) REFERENCES: La H, et al. Guidelines for Management of Incidental Pulmonary Nodules Detected on CT Images: From the Fleischner Society 2017. Radiology. 2017;284(1):228-243.
== END 2025-02-04 09:11 | disposition home or self-care (01) ==
PROVIDERS: PCP Family Medicine; Visit Provider Orthopaedic Surgery
DX: M54.9 Dorsalgia, unspecified (principal); R91.1 Solitary pulmonary nodule; M96.1 Postlaminectomy syndrome, not elsewhere classified; Z96.9 Presence of functional implant, unspecified; M43.26 Fusion of spine, lumbar region; M43.27 Fusion of spine, lumbosacral region; M43.23 Fusion of spine, cervicothoracic region; D35.01 Benign neoplasm of right adrenal gland; E27.8 Other specified disorders of adrenal gland; N28.1 Cyst of kidney, acquired
CPT/HCPCS: 72128

== ENCOUNTER 2025-02-12 15:44 | Outpatient (CLI) | payer MEDICARE, SELFPAY ==
--- NOTE | 2025-02-12 16:00 | MR_ITS ---
WS: [id number] MRI THORACIC SPINE WITHOUT CONTRAST TECHNIQUE: Sagittal T1, T2 and STIR imaging. Axial T2 imaging. Noncontrast imaging obtained. CLINICAL INFORMATION: back pain COMPARISON: MRI 11/08/[address] 02/04/2025 FINDINGS: Images are limited due to susceptibility artifact from extensive hardware fusion Revision of the posterior thoracic stabilization rods since the prior MRI 11/08/2024 Alignment appears similar to the prior recent studies. Cord signal appears normal. Small central protrusion at C6-7 with mild central canal stenosis. Small central protrusion at T1-2 with slight contact and indentation of the thoracic cord. No evidence of drainable abscess or fluid collection. No acute appearing compression fractures. Prior recent fusion C7-T1 with laminectomy defects at this level. Pedicle screw fixation C7-T1 with interconnecting rods. Small amount of postoperative fluid in the surgical bed at C7-T1 has resolved. Extensive postoperative changes as previously described on thoracic spine CT 02/04/2025 with pedicle screw fixation and interconnecting rods throughout the thoracic spine. Recent revision of the dorsal thoracic stabilization which was previously fractured. Hardware is better evaluated on CT. Moderate facet arthropathy lower thoracic spine. Adrenal glands are normal. Normal caliber descending thoracic aorta. MR/MR thoracic spin wo con* [id number] IMPRESSION:Images are limited due to susceptibility artifact from extensive bud dware fusion 1. Postoperative changes appear stable compared to the recent CT 02/04/2025 2. Previously described fluid collection in the laminectomy defects at C7-T1 h as essentially resolved. No drainable abscess or fluid collection. 3. Cord signal is normal. 4. No acute appearing compression fractures. 5. Small central protrusions at C6-C7 and T1-T2. 6. Mild central canal stenosis at C6-7. 7. Slight contact and slight indentation of the thoracic cord at T1-T2 with la minectomy defects. 8. No other remarkable changes
[2025-02-12 16:14] LABS: Hematocrit 35.1 % (36-47); Hemoglobin 10.30 g/dL (11.27-16.99); Mean Corpuscular HGB Conc 29.3 g/dL (30-55); Mean Corpuscular Hemoglobin 24.1 pg (27-33); Mean Corpuscular Volume 82.2 fl (85-98); Nucleated Red Blood Cells % 0 %; Platelet Count 557 10^3/cmm (157-399); Red Blood Count 4.27 10^6/uL (3.85-5.65); White Blood Count 9.92 10^3/uL (3.29-11.43)
[2025-02-12 17:18] LABS: Lactic Acid level (Lactate) 2.6 mmol/L (0.5-2.2)
== END 2025-02-12 15:45 | disposition home or self-care (01) ==
PROVIDERS: PCP Family Medicine; Visit Provider Orthopaedic Surgery
DX: M50.123 Cervical disc disorder at C6-C7 level with radiculopathy (principal); M50.23 Other cervical disc displacement, cervicothoracic region; M96.1 Postlaminectomy syndrome, not elsewhere classified; G95.29 Other cord compression; Z98.1 Arthrodesis status; M48.02 Spinal stenosis, cervical region
CPT/HCPCS: 36415; 72146; 83605; 85025; 86140

== ENCOUNTER → 2025-02-13 11:04 | Outpatient (BNVA) | payer MEDICARE, SELFPAY | PROVIDERS: PCP Family Medicine; Visit Provider Orthopaedic Surgery | DX: Z98.890 Other specified postprocedural states (principal); Z98.1 Arthrodesis status | CPT/HCPCS: 72072; 99024 ==

== ENCOUNTER → 2025-03-31 14:40 | Outpatient (BNVA) | payer MEDICARE, SELFPAY | PROVIDERS: PCP Family Medicine; Referring Provider Orthopaedic Surgery; Visit Provider Anesthesiology Pain Medicine | DX: M79.18 Myalgia, other site (principal); M54.6 Pain in thoracic spine | CPT/HCPCS: 20553; 99204; J1010; J3490 ==

== ENCOUNTER → 2025-04-24 12:49 | Outpatient (BNVA) | payer MEDICARE, SELFPAY | PROVIDERS: PCP Family Medicine; Visit Provider Orthopaedic Surgery | DX: Z47.89 Encounter for other orthopedic aftercare (principal); Z98.1 Arthrodesis status; M54.9 Dorsalgia, unspecified; M54.2 Cervicalgia; M54.6 Pain in thoracic spine | CPT/HCPCS: 72040; 72072; 72100; 99213 ==

== ENCOUNTER 2025-04-28 10:53 | Outpatient (RCR) | payer MEDICARE, SELFPAY | END 2025-05-11 23:59 | disposition home or self-care (01) | LOC: TPT 10:53 | PROVIDERS: Visit Provider Orthopaedic Surgery | DX: M54.6 Pain in thoracic spine (principal) | CPT/HCPCS: 97110; 97140; 97161 ==

== ENCOUNTER 2025-04-29 08:53 | Outpatient (CLI) | payer MEDICARE, SELFPAY ==
--- NOTE | 2025-04-29 09:00 | CTR_ITS ---
PROCEDURE INFORMATION: Exam: CT Thoracic Spine Without Contrast Exam date and time: 04/29/2025 9:06 AM Age: 54 years old Clinical indication: Pain in thoracic spine; Prior surgery; Surgery date: 1-6 months; Surgery type: Spine x 3; 14 weeks post op, going through physical therapy, painful at the top of thoracic spine area in the last week; Additional info: Thoracic back pain TECHNIQUE: Imaging protocol: Computed tomography of the thoracic spine without contrast. Radiation optimization: All CT scans at this facility use at least one of these dose optimization techniques: automated exposure control; mA and/or kV adjustment per patient size (includes targeted exams where dose is matched to clinical indication); or iterative reconstruction. COMPARISON: MR thoracic spin wo con* [id number] 02/12/2025 4:14 PM RADIATION DOSE METRICS: Total DLP (mGy-cm): 671.36 FINDINGS: Bones/joints: There is mild superior endplate height loss in T4 anteriorly which is unchanged. Subtle superior endplate height loss in T5 and T6 is also unchanged. The alignment of the thoracic spine is near anatomic. There is fusion hardware extending from C7 to off the images. Lucency surrounding the C7 pedicle screws is again seen suggesting loosening. Both T2 pedicle screws closely approximate the superior endplate. Similarly the T5 pedicle screws and T6 pedicle screws near the superior endplates. There are multilevel degenerative changes present. The spinal canal contents are not well assessed due to metal artifact. C7-T1 laminectomy changes again seen. Soft tissues: Probable seroma in the laminectomy bed measuring about 2.0 x 2.8 cm is smaller than previous cervical spine MRI. Lungs: There is a 4 mm nodule in the left lung apex which is unchanged. Minimal atelectasis left lung base. Adrenal glands: Thickening of the left adrenal gland unchanged likely adenomatous hyperplasia. Kidneys and ureters: Left-sided peripelvic renal cysts. CT/CT thoracic spin wo con* [id number] IMPRESSION: Extensive thoracic spinal fusion changes again present. No acute findings seen on CT. Suggest MRI follow-up.
--- NOTE | 2025-04-29 09:00 | CTR_ITS ---
PROCEDURE INFORMATION: Exam: CT Cervical Spine Without Contrast Exam date and time: 04/29/2025 9:03 AM Age: 54 years old Clinical indication: Cervicalgia; Prior surgery; Surgery date: 1-6 months; Surgery type: 3 spinal surgeries; 14 weeks post op, going through physical therapy, painful at the top of thoracic spine area in the last week. ; Additional info: Cervalgia TECHNIQUE: Imaging protocol: Computed tomography of the cervical spine without contrast. Radiation optimization: All CT scans at this facility use at least one of these dose optimization techniques: automated exposure control; mA and/or kV adjustment per patient size (includes targeted exams where dose is matched to clinical indication); or iterative reconstruction. COMPARISON: MR cervical spin wo con* [id number] 11/08/2024 1:43 PM RADIATION DOSE METRICS: Total DLP (mGy-cm): 365.87 FINDINGS: Bones: There are posterior spinal fusion changes extending from C7 to the thoracic spine off the images. There is Emili metallic lucency surrounding the pedicle screws bilaterally of C7 suggestive of hardware loosening. The screw in the T2 vertebrae closely approximates the superior endplate. The visualized hardware appears intact. C7-T1 level laminectomy unchanged. The alignment of the spine is near anatomic. The spinal canal contents at the surgical levels are not well evaluated due to metal artifact. There is probably a small amount of residual seroma in the soft tissues of the laminectomy level measuring about 2.0 x 2.8 cm on series 5, image 67 axially for example. The vertebral body heights are maintained. There is no significant prevertebral soft tissue swelling. The craniocervical junction is intact. No acute appearing displaced fracture seen. Lungs: Visualized portions of the lung apices are unremarkable. Soft tissues: No acute soft tissue findings. CT/CT cervical spin wo con* [id number] IMPRESSION: Spinal fusion changes C7 and below again present. Alignment near anatomic. There are findings suggestive of loosening of both pedicle screws at C7.
== END 2025-04-29 08:54 | disposition home or self-care (01) ==
LOC: RAD 08:55
PROVIDERS: PCP Family Medicine; Visit Provider Orthopaedic Surgery
DX: Z98.1 Arthrodesis status (principal); M47.814 Spondylosis without myelopathy or radiculopathy, thoracic region; Z98.890 Other specified postprocedural states; R93.7 Abnormal findings on diagnostic imaging of other parts of musculoskeletal system; M47.894 Other spondylosis, thoracic region; M96.89 Other intraoperative and postprocedural complications and disorders of the musculoskeletal system; R91.1 Solitary pulmonary nodule; E27.8 Other specified disorders of adrenal gland; N28.1 Cyst of kidney, acquired
CPT/HCPCS: 72125; 72128

== ENCOUNTER → 2025-05-01 08:58 | Outpatient (BNVA) | payer MEDICARE, SELFPAY | PROVIDERS: PCP Family Medicine; Visit Provider Orthopaedic Surgery | DX: M54.2 Cervicalgia (principal); Z98.1 Arthrodesis status | CPT/HCPCS: 99213 ==

== ENCOUNTER 2025-05-15 08:26 | Outpatient (CLI) | payer MEDICARE, BC, SELFPAY ==
--- NOTE | 2025-05-15 08:45 | MR_ITS ---
WS: [id number] MRI CERVICAL SPINE NONCONTRAST HISTORY: M54.2 - Cervicalgia, neck pain. Possible loose screws lower cervical spine. COMPARISON: CT 04/29/2025 Technique: Multiplanar, multisequence noncontrast imaging of the cervical spine. Mild increase in cervical lordosis. Anterior C4 hemangioma. Signal in the cervical cord appears normal. Posterior fusion hardware begins at C7 extends into the upper thoracic spine. There is a small amount of fluid along the postoperative site at the thoracolumbar junction. No fluid tracking into the thecal sac. Craniocervical junction, C1 and C2 relationship, odontoid process and soft tissues are normal. C2-C3: Normal. C3-C4: Mild facet arthritis. No stenosis. C4-C5: Mild facet arthritis. No stenosis. C5-C6: Moderate bilateral facet arthritis. Mild disc bulging. There is a small central annular fissure. Mild bilateral foraminal stenosis. C6-C7: Artifact from the hardware is obscuring portions of this disc level. Central to RIGHT paracentral disc protrusion is reidentified and has slightly increased in size. There is mild contact on the ventral cord. Moderate bilateral facet arthritis. Small foraminal osteophytes and stenosis. C7-T1: No stenosis or progression identified. Postoperative changes in the paraspinal soft tissues are unremarkable. No adverse changes. MR/MR cervical spin wo con* [id number] IMPRESSION: 1. Central to RIGHT paracentral disc protrusion at C6-7 has slightly increased in size and there is mild contact on the ventral cord. 2. No signal abnormality in the cervical cord. 3. Posterior fusion hardware begins at C7 into the upper thoracic spine. No co mplications are evident from the surgical procedure. 4. Bilateral facet joint arthropathy is most significant at C5-6 and C6-7. 5. Mild foraminal stenosis at C5-6.
== END 2025-05-15 08:27 | disposition home or self-care (01) ==
PROVIDERS: PCP Family Medicine; Visit Provider Orthopaedic Surgery
DX: M54.2 Cervicalgia (principal)
CPT/HCPCS: 36415; 72141; 85651; 86140

== ENCOUNTER → 2025-05-19 12:49 | Outpatient (BNVA) | payer MEDICARE, BC, SELFPAY | PROVIDERS: PCP Family Medicine; Visit Provider Anesthesiology Pain Medicine | DX: M79.18 Myalgia, other site (principal); M54.2 Cervicalgia; M54.6 Pain in thoracic spine | CPT/HCPCS: 20553; 99214; J1010; J3490 ==

== ENCOUNTER 2025-05-20 11:34 | Outpatient (CLI) | payer MEDICARE, BC, SELFPAY ==
[2025-05-20 12:23] LABS: Hematocrit 36.1 % (36-47); Hemoglobin 10.90 g/dL (11.27-16.99); Mean Corpuscular HGB Conc 30.2 g/dL (30-55); Mean Corpuscular Hemoglobin 25.6 pg (27-33); Mean Corpuscular Volume 84.9 fl (85-98); Nucleated Red Blood Cells % 0 %; Platelet Count 394 10^3/cmm (157-399); Red Blood Count 4.25 10^6/uL (3.85-5.65); White Blood Count 8.95 10^3/uL (3.29-11.43)
[2025-05-20 12:53] LABS: Creatinine Urine, Random 179 mg/dL (28-217); Microalbum Creatinine Ratio Ur 6 mg/dL (0-20)
== END 2025-05-20 11:35 | disposition home or self-care (01) ==
LOC: LAB 11:40
PROVIDERS: PCP Family Medicine; Visit Provider Family Medicine
DX: D64.9 Anemia, unspecified (principal); M50.323 Other cervical disc degeneration at C6-C7 level; Z51.89 Encounter for other specified aftercare
CPT/HCPCS: 36415; 82044; 85025; 99213

== ENCOUNTER 2025-06-09 11:07 | Outpatient (RCR) | payer MEDICARE, BC, SELFPAY | END 2025-06-11 23:59 | disposition home or self-care (01) | LOC: TPT 11:07 | PROVIDERS: PCP Family Medicine; Visit Provider Orthopaedic Surgery | DX: M54.6 Pain in thoracic spine (principal) | CPT/HCPCS: 97110; 97140 ==